=== PATIENT | female | born 1940 | race Hispanic/Latino ===

== ENCOUNTER 2017-07-09 08:37 | Emergency (ER) | payer MEDICARE, BC ==
[2017-07-09] MEDS ORDERED: FLEXERIL PO ONE (09:29)
--- NOTE | 2017-07-09 09:37 | Emergency Department Report ---
HPI - General Chief Complaint: Neck Pain/Injury Time Seen by Provider: 07/09/17 09:07 - HPI HPI: Patient is a 77-year-old female with a history of blood pressure controlled with blood pressure medication followed by Dr. Alvares who presents to ED complaining of left-sided shoulder pain 1 day. Patient states he stepped on a new pill yesterday and noticed this morning when she woke up she felt some tightening in her left shoulder. She states the pain is worsened when she moves her head from side to side. She denies any injury, falls or trauma to the head and neck. Patient states she receives physical therapy for neck ptosis February and at that point was a bit better. ED Past Medical Hx - Past Medical History Hx Hypertension: Yes (1978) Hx Liver Disease: (high cholesterol) Hx Renal Disease: No Hx Arthritis: Yes (DEGENERATIVE DISC DISEASE) Hx Headaches / Migraines: Yes (MIGRAINES) Hx Tuberculosis: No (POSTITIVE SKIN TEST; CXR NEGATIVE) Additional medical history: Bursitis to left shoulder - Surgical History Hx Cholecystectomy: Yes - Social History Smoking Status: Never Smoker Substance Use Type: None - Medications Home Medications: Home Medications Medication Instructions Recorded Confirmed Last Taken Type Aspirin EC [Halfprin EC] 81 mg PO QDAY 06/28/13 06/28/13 07/02/13 History Cholecalciferol (Vitamin D3) 4,000 unit PO DAILY 06/28/13 06/28/13 07/04/13 History [Vitamin D] Levothyroxine Nicu (10 Mcg/ml) 112 mg PO DAILY 06/28/13 06/28/13 07/04/13 History [Synthroid 10 mcg/ml] Olmesartan Medoxomil [Benicar] 20 mg PO DAILY 06/28/13 06/28/13 07/05/13 06:30 History Propranolol [Inderal] 40 mg PO BID 06/28/13 06/28/13 07/05/13 06:30 History SUMAtriptan SUCCINATE [Sumatriptan 50 mg PO DAILY 06/28/13 06/28/13 07/02/13 History Succinate] Sertraline [Zoloft] 50 mg PO QDAY 06/28/13 06/28/13 07/04/13 History Simvastatin 10 mg PO DAILY 04/10/14 04/10/14 04/16/14 History Cyclobenzaprine [Flexeril] 10 mg PO QHS PRN #20 tablet 07/09/[address] [Voltaren Dr] 75 mg PO BID #30 tablet 07/09/17 Unknown Rx ED Review of Systems ROS: Stated complaint: HIGH B/P Other details as noted in HPI Constitutional: denies: chills, fever Eyes: denies: eye pain, eye discharge, vision change ENT: denies: ear pain, throat pain Respiratory: denies: cough, shortness of breath, wheezing Cardiovascular: denies: chest pain, palpitations Endocrine: no symptoms reported Gastrointestinal: denies: abdominal pain, nausea, diarrhea Genitourinary: denies: urgency, dysuria, discharge Musculoskeletal: myalgia. denies: back pain, joint swelling, arthralgia Skin: denies: rash, lesions Neurological: denies: headache, weakness, paresthesias Psychiatric: denies: anxiety, depression Hematological/Lymphatic: denies: easy bleeding, easy bruising Physical Exam - Physical Exam Vital Signs: Vital Signs 07/09/17 08:43 Temperature 98.6 F Pulse Rate 77 Respiratory 16 Rate Blood Pressure 171/102 O2 Sat by Pulse 95 Oximetry Physical Exam: GENERAL: Alert and oriented x3, no apparent distress, Normal Gait, atraumatic. HEAD: Head is normocephalic and a-traumatic. NECK: Supple. Non edematous, No lymphadenopathy or thyromegaly. No C-spine tenderness, full range of motion LUNGS: Symetrical with respiration, No wheezing, no rales or crackles, CTAB. HEART: S1, S2 present, regular rate and rhythm without murmur, no rubs, no gallops. Non tender to palpation BACK: Full range of motion, no spinal tenderness, scoliosis of the cervical/ thoracic spine. Tenderness to palpation of the left trapezius muscles. EXTREMITIES/MUSCULOSKELETAL: No cyanosis, clubbing, rash, lesions or edema. Full ROM bilaterally. UE/LE Pulses 2+ bilaterally. LE and UE 5+ strength bilaterally, NEUROLOGIC: The patient is cooperative with no focal neurologic deficits. SKIN: Warm and dry, No lesions, No ulceration or induration present. ED Course Vital Signs 07/09/17 08:43 Temperature 98.6 F Pulse Rate 77 Respiratory 16 Rate Blood Pressure 171/102 O2 Sat by Pulse 95 Oximetry ED Medical Decision Making - Medical Decision Making 77-year-old female presents to ED with myalgia of the left trapezius ED course: Patient received Flexeril in ED. Vital signs are normal patient is in no acute distress Discussed with patient follow-up with primary care physician. Discussed the patient and take medications as prescribed. Patient states she took a blood pressure medication regularly. She denies any symptoms given that her blood pressure is elevated Blood pressure reduced prior to discharge. Discussed heat therapy 3 times a day. Discussed the patient's symptoms worsen to return to ED immediately. Patient has no neurological deficit. Patient is alert and oriented 3 and understands all instructions given. Discussed drowsiness effect of Flexeril makes her drowsy and not to operate machinery while taking flexeril Critical care attestation.: If time is entered above; I have spent that time in minutes in the direct care of this critically ill patient, excluding procedure time. ED Disposition Clinical Impression: Myalgia Trapezius muscle strain Qualifiers: Encounter type: initial encounter Laterality: left Qualified Code(s): S46.812A - Strain of other muscles, fascia and tendons at shoulder and upper arm level, left arm, initial encounter Disposition: - TO HOME OR SELFCARE Is pt being admited?: No Does the pt Need Aspirin: No Condition: Stable Instructions: Trigger Point Pain (ED), Musculoskeletal Pain (ED), Muscle Spasm (ED) Additional Instructions: Make sure to follow up with the primary care physician as discussed. Take all your medications as you've been prescribed. If you have any worsening symptoms or develop new symptoms please return to ED immediately. Prescriptions: Cyclobenzaprine [Flexeril] 10 mg PO QHS PRN #20 tablet PRN Reason: Muscle Spasm Diclofenac [Voltaren ] 75 mg PO BID #30 tablet Referrals: PRIMARY CARE, [Referring] - 3-5 Days Forms: Accompanied Note, Work/School Release Form(ED) Time of Disposition: 09:49
[2017-07-09 10:38] VITALS: BP 154/83
== END 2017-07-09 10:23 | disposition home or self-care (01) ==
LOC: ED 08:37
DX: S46.812A Strain of other muscles, fascia and tendons at shoulder and upper arm level, left arm, initial encounter (principal); M79.1 Myalgia; I10 Essential (primary) hypertension; X58.XXXA Exposure to other specified factors, initial encounter; Y93.89 Activity, other specified; Y92.89 Other specified places as the place of occurrence of the external cause; Y99.8 Other external cause status
CPT/HCPCS: 99282

== ENCOUNTER 2018-01-10 12:45 | Outpatient (CLI) | payer MEDICARE ==
--- NOTE | 2018-01-10 14:12 | XRay Report ---
LEFT SHOULDER: History: Shoulder pain. Routine views demonstrate normal bony and soft tissue structures with normal joint alignment of the shoulder. Mild osteopenia is noted. IMPRESSION: Mild osteopenia, otherwise, unremarkable exam.
--- NOTE | 2018-01-10 15:42 | XRay Report ---
FINAL REPORT EXAM: XR SPINE CERVICAL 4-5V HISTORY: NECK PAIN TECHNIQUE: AP, lateral, bilateral oblique and odontoid views of cervical spine. PRIORS: None. FINDINGS: Diffuse osteopenia. Variable disc space narrowing, endplate sclerosis and spurring in all levels, including C1-2 articulation, and most pronounced C5-7 levels. Uncovertebral arthrosis and variable neural foraminal narrowing in the right C4-7 levels and left C2-6 levels. Diffuse facet sclerosis. Mild dextroconvex curvature may be positional versus soft tissue spasm. No loss of height or gross malalignment of cervical vertebral bodies. No obvious osseous destruction. Prevertebral soft tissues grossly unremarkable. IMPRESSION: 1. No acute osseous abnormality. 2. Degenerative changes.
== END 2018-01-10 12:46 | disposition home or self-care (01) ==
LOC: XRAY 12:45
PROVIDERS: ATTEND Orthopaedic Surgery
DX: M85.812 Other specified disorders of bone density and structure, left shoulder (principal); M47.892 Other spondylosis, cervical region; I10 Essential (primary) hypertension; E78.00 Pure hypercholesterolemia, unspecified; E03.9 Hypothyroidism, unspecified; Z90.49 Acquired absence of other specified parts of digestive tract; Z90.710 Acquired absence of both cervix and uterus; Z90.721 Acquired absence of ovaries, unilateral
CPT/HCPCS: 72050

== ENCOUNTER 2018-04-17 12:22 | Inpatient (IN) | payer MEDICARE ==
--- NOTE | 2018-04-17 13:00 | Emergency Department Report ---
ED Shortness of Breath HPI - General Chief Complaint: Dyspnea/Respdistress Stated Complaint: KARRI Time Seen by Provider: 04/17/18 12:52 Source: patient Mode of arrival: Stretcher Limitations: No Limitations - History of Present Illness Initial Comments: Patient is 77 years old female with history of hypertension and a recent diagnosis of atrial fibrillation patient is on Elliquis. Patient brought to the emergency room via EMS for complaining of shortness of breath has been going on for 3 days and worse today. EMS stated that patient initial oxygen saturation was 92% on room air. She denied any chest pain, fever or chills. No nausea or vomiting. MD Complaint: shortness of breath -: days(s) - Related Data Home Medications Medication Instructions Recorded Confirmed Last Taken Aspirin EC [Halfprin EC] 81 mg PO QDAY 06/28/13 06/28/13 07/02/13 Cholecalciferol (Vitamin D3) 4,000 unit PO DAILY 06/28/13 06/28/13 07/04/13 [Vitamin D] Levothyroxine Nicu (10 Mcg/ml) 112 mg PO DAILY 06/28/13 06/28/13 07/04/13 [Synthroid 10 mcg/ml] Olmesartan Medoxomil [Benicar] 20 mg PO DAILY 06/28/13 06/28/13 07/05/13 06:30 Propranolol [Inderal] 40 mg PO BID 06/28/13 06/28/13 07/05/13 06:30 SUMAtriptan SUCCINATE [Sumatriptan 50 mg PO DAILY 06/28/13 06/28/13 07/02/13 Succinate] Sertraline [Zoloft] 50 mg PO QDAY 06/28/13 06/28/13 07/04/13 Simvastatin 10 mg PO DAILY 06/28/13 06/28/13 07/04/13 Previous Rx's Medication Instructions Recorded Last Taken Type Cyclobenzaprine [Flexeril] 10 mg PO QHS PRN #20 tablet 07/09/[address] [Voltaren Dr] 75 mg PO BID #30 tablet 07/09/17 Unknown Rx Allergies Allergy/AdvReac Type Severity Reaction Status Date / Time Sulfa (Sulfonamide AdvReac Nausea Verified 06/28/13 13:07 Antibiotics) ED Review of Systems ROS: Stated complaint: KARRI Other details as noted in HPI Comment: All other systems reviewed and negative Constitutional: denies: chills, fever Respiratory: orthopnea, shortness of breath, SOB with exertion, SOB at rest. denies: cough, wheezing Cardiovascular: dyspnea on exertion, orthopnea. denies: chest pain, palpitations Gastrointestinal: denies: abdominal pain, nausea, vomiting, diarrhea, constipation, hematemesis, melena, hematochezia Musculoskeletal: denies: back pain ED Past Medical Hx - Past Medical History Previous Medical History?: Yes Hx Hypertension: Yes (1978) Hx Liver Disease: (high cholesterol) Hx Renal Disease: No Hx Arthritis: Yes (DEGENERATIVE DISC DISEASE) Hx Headaches / Migraines: Yes (MIGRAINES) Hx Tuberculosis: No (POSTITIVE SKIN TEST; CXR NEGATIVE) Additional medical history: Bursitis to left shoulder. High cholesterol - Surgical History Past Surgical History?: Yes Hx Cholecystectomy: Yes Additional Surgical History: right wrist - Social History Smoking Status: Never Smoker Substance Use Type: None - Medications Home Medications: Home Medications Medication Instructions Recorded Confirmed Last Taken Type Aspirin EC [Halfprin EC] 81 mg PO QDAY 06/28/13 06/28/13 07/02/13 History Cholecalciferol (Vitamin D3) 4,000 unit PO DAILY 06/28/13 06/28/13 07/04/13 History [Vitamin D] Levothyroxine Nicu (10 Mcg/ml) 112 mg PO DAILY 06/28/13 06/28/13 07/04/13 History [Synthroid 10 mcg/ml] Olmesartan Medoxomil [Benicar] 20 mg PO DAILY 06/28/13 06/28/13 07/05/13 06:30 History Propranolol [Inderal] 40 mg PO BID 06/28/13 06/28/13 07/05/13 06:30 History SUMAtriptan SUCCINATE [Sumatriptan 50 mg PO DAILY 06/28/13 06/28/13 07/02/13 History Succinate] Sertraline [Zoloft] 50 mg PO QDAY 06/28/13 06/28/13 07/04/13 History Simvastatin 10 mg PO DAILY 06/28/13 06/28/13 07/04/13 History Cyclobenzaprine [Flexeril] 10 mg PO QHS PRN #20 tablet 07/09/17 Unknown Rx Marshall Jacobs [Eze Jacobs] 75 mg PO BID #30 tablet 07/09/17 Unknown Rx ED Physical Exam - General Limitations: No Limitations General appearance: alert, in distress - Head Head exam: Present: atraumatic, normocephalic, normal inspection - Eye Eye exam: Present: normal appearance, PERRL - ENT ENT exam: Present: normal exam, mucous membranes moist - Neck Neck exam: Present: normal inspection, full ROM. Absent: tenderness, meningismus, lymphadenopathy, thyromegaly - Respiratory Respiratory exam: Present: normal lung sounds bilaterally - Cardiovascular Cardiovascular Exam: Present: irregular rhythm - GI/Abdominal GI/Abdominal exam: Present: soft, normal bowel sounds. Absent: distended, tenderness, guarding, rebound, rigid, organomegaly, mass, bruit, pulsatile mass, hernia - Extremities Exam Extremities exam: Present: normal inspection, full ROM, normal capillary refill. Absent: pedal edema, calf tenderness - Back Exam Back exam: Present: normal inspection, full ROM. Absent: tenderness, CVA tenderness (R), CVA tenderness (L), muscle spasm, paraspinal tenderness, vertebral tenderness - Neurological Exam Neurological exam: Present: alert, oriented X3, CN II-XII intact - Skin Skin exam: Present: warm, intact, normal color ED Course Vital Signs 04/17/18 04/17/18 04/17/18 12:29 12:31 12:36 Temperature 98.3 F Pulse Rate 84 Respiratory 20 Rate Blood Pressure 117/47 117/47 117/47 O2 Sat by Pulse 90 94 Oximetry 04/17/18 04/17/18 12:46 13:00 Temperature Pulse Rate 82 88 Respiratory 18 32 H Rate Blood Pressure 117/47 121/44 O2 Sat by Pulse 99 97 Oximetry ED Medical Decision Making - Lab Data Result diagrams: 04/17/18 12:48 04/17/18 12:48 - EKG Data -: EKG Interpreted by Co Rate: normal - EKG Data 04/17/18 13:47 Atrial fibrillation, no RVR - Radiology Data Radiology results: report reviewed Referring Physician: IVON HEAD Patient Name: FREDERICK MCCARTHY Date of : 1940 Sex: Female Report Date: 2018-04-17 Report Status: Finalized Findings [address] [place] [address] XRay Report Signed Patient: FREDERICK MCCARTHY MR#: [id number] : 1940 Acct:[id number] Age/Sex: 77 / F ADM Date: 04/17/18 Loc: ED Attending Dr: Ordering Physician: IVON HEAD Date of Service: 04/17/18 Procedure(s): XR chest 1V ap Accession Number(s): [id number] cc: IVON HEAD Fluoro Time In Minutes: PORTABLE CHEST INDICATION: Dyspnea. COMPARISON: None similar. FINDINGS: Portable, frontal chest radiograph demonstrates diffuse increased pulmonary densities/infiltrates. No significant pleural effusions or definite cephalization. Right hemidiaphragm 4-5 cm higher than the left. Mild exaggerated cardiomediastinal silhouette. Demineralized bones with few degenerative changes. EKG leads. CONCLUSION: 1. Diffuse bilateral pulmonary infiltrates, possibly edema, infection or inflammation, amongst others, though exact etiology or chronicity uncertain on this exam alone. 2. Few other findings, as above. Please also correlate clinically and with prior chest imaging, if available. Thank you for the opportunity to participate in this patient's care. Transcribed By: RS Dictated By: MALINA PFEIFFER MD Electronically Authenticated By: MALINA PFEIFFER MD Signed Date/Time: 04/17/18 1350 DD/ 1347 TD/TT: 04/17/18 1350 - Medical Decision Making Patient is 77 years old female with history of hypertension and a recent diagnosis of atrial fibrillation patient is on Elliquis. Patient brought to the emergency room via EMS for complaining of shortness of breath has been going on for 3 days and worse today. EMS stated that patient initial oxygen saturation was 92% on room air. She denied any chest pain, fever or chills. No nausea or vomiting. Patient found to have bilateral pneumonia. Patient given Zosyn and normal saline. I discussed the patient with Dr Thompson, agreed to admit the patient to medical service. Critical Care Time: Yes Critical care time in (mins) excluding proc time.: 30 Critical care attestation.: If time is entered above; I have spent that time in minutes in the direct care of this critically ill patient, excluding procedure time. ED Disposition Clinical Impression: Sepsis, Pneumonia of both lower lobes, Acute respiratory distress Disposition: DC-[id number] OP ADMIT IP TO THIS HOSP Is pt being admited?: Yes Condition: Stable Instructions: Bacterial Pneumonia (ED) Referrals: NIKKI HULL MD [Primary Care Provider] - 3-5 Days
[2018-04-17 13:12] LABS: Basophils % (Auto) 0.1 % (0.0-1.8); Eosinophils % (Auto) 0.2 % (0.0-4.3); Hematocrit 36.4 % (30.3-42.9); Hemoglobin 11.9 gm/dl (10.1-14.3); Lymphocytes # (Auto) 1.2 K/mm3 (1.2-5.4); Lymphocytes % (Auto) 6.5 % (13.4-35.0); Mean Corpuscular HGB Conc 33 % (30-34); Mean Corpuscular Volume 91 fl (79-97); Monocytes # (Auto) 1.8 K/mm3 (0.0-0.8); Platelet Count 354 K/mm3 (140-440); Red Blood Count 4.02 M/mm3 (3.65-5.03); Red Cell Distribution Width 13.8 % (13.2-15.2)
[2018-04-17 13:22] LABS: INR 1.48 (0.87-1.13)
[2018-04-17 13:23] LABS: Partial Thromboplastin Time 27.2 Sec. (24.2-36.6)
[2018-04-17 13:28] LABS: Creatine Kinase MB 1.8 ng/mL (0.0-4.0)
[2018-04-17 13:31] LABS: Alanine Aminotransferase 110 units/L (7-56); Albumin 3.4 g/dL (3.9-5); BUN/Creatinine Ratio 27; Blood Urea Nitrogen 16 mg/dL (7-17); Calcium 8.9 mg/dL (8.4-10.2); Hemolysis Index 11
[2018-04-17] MEDS ORDERED: NACL 0.9% 500 ML 500 ML IV ONE (13:31)
--- NOTE | 2018-04-17 13:54 | XRay Report ---
PORTABLE CHEST INDICATION: Dyspnea. COMPARISON: None similar. FINDINGS: Portable, frontal chest radiograph demonstrates diffuse increased pulmonary densities/infiltrates. No significant pleural effusions or definite cephalization. Right hemidiaphragm 4-5 cm higher than the left. Mild exaggerated cardiomediastinal silhouette. Demineralized bones with few degenerative changes. EKG leads. CONCLUSION: 1. Diffuse bilateral pulmonary infiltrates, possibly edema, infection or inflammation, amongst others, though exact etiology or chronicity uncertain on this exam alone. 2. Few other findings, as above. Please also correlate clinically and with prior chest imaging, if available. Thank you for the opportunity to participate in this patient's care.
[2018-04-17] MEDS ORDERED: ZOSYN/NS 3.375GM/50ML 3.375 GM/50 ML BAG IV ONE (14:00)
--- NOTE | 2018-04-17 14:09 | History and Physical Report ---
History of Present Illness Chief complaint: I cant breathe History of present illness: 77 YO Female with HTN, Atrial Fib on Therapeutic Anticoagulation (Elliquis), Hypothyroidism, HTN, HLD, Migraine SAAVEDRA, OA presents to ED for evaluation. Pt states that she has experienced shortness of breath over the past 3 days with w orsening symptoms over the past 1 day. Pt acknowledges decreased exercise tolerance, Orthopnea/PND, and shortness of breath. Pt also complains of itchy red spots on her arms since beginning elliquis. EMS notified and upon arrival the patient found to have respiratory distress. Pt transported to [facility] for further care and evaluation. Pt seen and evaluated in ED and found to have Acute Respiratory Failure, CHF, Sepsis secondary to Bilateral Pneumonia. Pt admitted to telemetry and initiated on Sepsis as well as CHF protocol. Cardiology consulted in ED. Pt denies fever, chills, CP, Palpitations, NVD, Trauma, BRBPR, productive cough, or recent ill contacts. Past History Past Medical History: atrial fib, arthritis, hypertension, hyperlipidemia, migraines Past Surgical History: cholecystectomy, Other (wrist surgery) Social history: , lives with family. denies: smoking, alcohol abuse, prescription drug abuse Family history: hypertension Medications and Allergies Allergies Allergy/AdvReac Type Severity Reaction Status Date / Time Sulfa (Sulfonamide AdvReac Nausea Verified 06/28/13 13:07 Antibiotics) Home Medications Medication Instructions Recorded Confirmed Last Taken Type Aspirin EC [Halfprin EC] 81 mg PO QDAY 06/28/13 06/28/13 07/02/13 History Cholecalciferol (Vitamin D3) 4,000 unit PO DAILY 06/28/13 06/28/13 07/04/13 History [Vitamin D] Levothyroxine Nicu (10 Mcg/ml) 112 mg PO DAILY 06/28/13 06/28/13 07/04/13 History [Synthroid 10 mcg/ml] Olmesartan Medoxomil [Benicar] 20 mg PO DAILY 06/28/13 06/28/13 07/05/13 06:30 History Propranolol [Inderal] 40 mg PO BID 06/28/13 06/28/13 07/05/13 06:30 History SUMAtriptan SUCCINATE [Sumatriptan 50 mg PO DAILY 06/28/13 06/28/13 07/02/13 History Succinate] Sertraline [Zoloft] 50 mg PO QDAY 06/28/13 06/28/13 07/04/13 History Simvastatin 10 mg PO DAILY 06/28/13 06/28/13 07/04/13 History Cyclobenzaprine [Flexeril] 10 mg PO QHS PRN #20 tablet 07/09/[address] [Voltaren Dr] 75 mg PO BID #30 tablet 07/09/17 Unknown Rx Active Meds: Active Medications Piperacillin Sod/Tazobactam Sod (Zosyn/Ns 3.375gm/50ml) 3.375 gm in 50 mls @ 100 mls/hr IV ONCE ONE Stop: 04/17/18 14:29 Review of Systems Constitutional: no weight gain, no fever, no chills, no sweats Ears, nose, mouth and throat: no ear pain, no ear discharge, no tinnitis, no decreased hearing, no nose pain Breasts: no change in shape, no swelling, no mass Cardiovascular: orthopnea, shortness of breath, dyspnea on exertion, paroxysmal nocturnal dyspnea, decreased exercise tolerance, no chest pain, no palpitations Respiratory: cough, shortness of breath, no cough with sputum, no excessive sputum Gastrointestinal: no nausea, no vomiting, no diarrhea, no constipation Genitourinary Female: no pelvic pain, no flank pain, no menorrhagia, no dysuria, no urinary frequency, no urgency Rectal: no pain, no incontinence, no bleeding Musculoskeletal: no neck stiffness, no neck pain, no shooting arm pain, no arm numbness/tingling, no low back pain Integumentary: pruritis, redness, no rash, no sores, no wounds, no jaundice, no boils Neurological: no paralysis, no weakness, no parathesias, no numbness Psychiatric: no memory loss, no change in sleep habits, no sleep disturbances, no insomnia, no hypersomnia, no change in appetite Endocrine: no cold intolerance, no heat intolerance, no polyphagia, no excessive thirst, no polydipsia, no polyuria Hematologic/Lymphatic: easy bruising Allergic/Immunologic: no urticaria, no allergic rhinitis, no wheezing Exam - Constitutional Vitals: Temp Pulse Resp BP Pulse Ox 98.3 F 88 32 H 121/44 97 04/17/18 12:36 04/17/18 13:00 04/17/18 13:00 04/17/18 13:00 04/17/18 13:00 General appearance: Present: mild distress - EENT Eyes: Present: PERRL ENT: hearing intact, clear oral mucosa - Neck Neck: Present: supple, normal ROM - Respiratory Respiratory effort: labored Respiratory: bilateral: diminished, rhonchi - Cardiovascular Rhythm: irregularly irregular Heart Sounds: Present: S1 & S2. Absent: rub, click - Extremities Extremities: no ischemia Extremity abnormal: edema Peripheral Pulses: abnormal (capillary refill greater than 3.5 seconds) - Abdominal General gastrointestinal: Present: soft, non-tender, non-distended, normal bowel sounds Female genitourinary: Present: normal - Integumentary Integumentary: Present: clear, warm, dry - Musculoskeletal Musculoskeletal: generalized weakness - Psychiatric Psychiatric: appropriate mood/affect, intact judgment & insight - Neurologic Neurologic: CNII-XII intact, moves all extremities Results - Labs CBC & Chem 7: 04/17/18 12:48 04/17/18 12:48 Labs: Abnormal lab results 04/17/18 04/17/18 04/17/18 Range/Units 12:48 12:48 12:48 WBC 18.0 H (4.5-11.0) K/mm3 Lymph % (Auto) 6.5 L (13.4-35.0) % Storey % (Auto) 10.0 H (0.0-7.3) % Storey # 1.8 H (0.0-0.8) K/mm3 Seg Neutrophils % 83.2 H (40.0-70.0) % Seg Neutrophils # 15.0 H (1.8-7.7) K/mm3 PT 18.3 H (12.2-14.9) Sec. INR 1.48 H (0.87-1.13) Sodium 136 L (137-145) mmol/L Creatinine 0.6 L (0.7-1.2) mg/dL Glucose 127 H (65-100) mg/dL AST 121 H (5-40) units/L ALT 110 H (7-56) units/L Albumin 3.4 L (3.9-5) g/dL Assessment and Plan - Patient Problems (1) Sepsis Current Visit: Yes Status: Acute Qualifiers: Sepsis type: sepsis due to unspecified organism Qualified Code(s): A41.9 - Sepsis, unspecified organism Plan to address problem: IV antibiotic therapy, IVF resuscitation therapy as tolerated, blood cultures, CBC, CMP, Serial lactic acid,Chest x ray, monitor uop q shift (2) Respiratory failure Current Visit: Yes Status: Acute Qualifiers: Chronicity: acute Respiratory failure complication: hypoxia Qualified Code(s): J96.01 - Acute respiratory failure with hypoxia Plan to address problem: Supplemental oxygen via NRB mask, ABG, D dimer, supplemental oxygen, VQ scan, influenza swab (3) CHF (congestive heart failure) Current Visit: Yes Status: Acute Qualifiers: Heart failure type: systolic Heart failure chronicity: acute Qualified Code(s): I50.21 - Acute systolic (congestive) heart failure Plan to address problem: Admit to telemetry, BNP, D dimer, strict I/O, daily weight, monitor uop q shift, supplemental oxygen, cardiology consulted in ED. (4) Atrial fibrillation Current Visit: Yes Status: Acute Qualifiers: Atrial fibrillation type: persistent Qualified Code(s): I48.1 - Persistent atrial fibrillation Plan to address problem: continue therapeutic anticoagulation, rate control, supportive care, (5) Pneumonia of both lower lobes Current Visit: Yes Status: Acute Plan to address problem: Pneumonia protocol: IV antibiotic therapy, Chest x ray, nebulizer therapy, supplemental oxygen, blood cultures. (6) DVT prophylaxis Current Visit: Yes Status: Acute Plan to address problem: SCD to BLE while in bed.
[2018-04-17] MEDS ORDERED: DUONEB *Not for PRN Use IH ONE (14:13)
[2018-04-17] MEDS ORDERED: SODIUM CHLORIDE FLUSH SYRINGE 10 ML IV PRN ×2 (15:30→15:40)
[2018-04-17] MEDS ORDERED: ZOFRAN IV PRN (15:30)
[2018-04-17] MEDS ORDERED: HYDROMET PO PRN (15:37)
[2018-04-17] MEDS ORDERED: BANOPHEN ANTI-ITCH TP PRN (15:43)
[2018-04-17] MEDS ORDERED: BANOPHEN PO ONE (15:45)
[2018-04-17] MEDS ORDERED: NACL 0.9% 1000 ML IV ONE (16:30)
[2018-04-17 16:56] LABS: Chol/HDL Ratio 2.65 %
[2018-04-17 17:06] LABS: Free T4 (Free Thyroxine) 1.67 ng/dL (0.76-1.46)
[2018-04-17] MEDS ORDERED: ZITHROMAX 500 MG in NACL 0.9% 250ML 250 ML IV SCH (18:00)
[2018-04-17] MEDS ORDERED: ROCEPHIN/NS 2 GM/100 ML 2 GM/100 ML BAG IV SCH (18:00)
--- NOTE | 2018-04-17 19:48 | Nuclear Medicine Report ---
FINAL REPORT EXAM: NM LUNG SCAN PERF/VENT HISTORY: KARRI, Elevated D-dimer TECHNIQUE: A nuclear medicine ventilation perfusion study was performed. The patient was given 9.75 mCi of Xe 133 gas for the ventilation study and 4.44 mCi of technetium 99m MAA for the perfusion stud y. Images were acquired in the standard projections. Correlating chest radiograph is not provided. PRIORS: None. FINDINGS: There is a moderate segmental defect in the posterior right upper lobe without corresponding ventilat ion abnormality. Otherwise perfusion images are normal. The ventilation study is normal. IMPRESSION: Intermediate probability for PE. Please correlate with chest radiograph
[2018-04-17] MEDS ORDERED: LASIX IV ONE (20:55)
[2018-04-17] MEDS: ROCEPHIN/NS 2 GM/100 ML 2 GM/100 ML BAG IV SCH (21:08)
[2018-04-17] MEDS: INDERAL PO SCH (21:08)
[2018-04-17] MEDS: ZITHROMAX 500 MG in NACL 0.9% 250ML 250 ML IV SCH (21:08)
[2018-04-17] MEDS: PRAVACHOL PO SCH (21:09)
[2018-04-17] MEDS: SODIUM CHLORIDE FLUSH SYRINGE 10 ML IV SCH (21:10)
[2018-04-18 02:07] LABS: Bilirubin,Urine NEG (Negative); Blood,Urine MOD (Negative); Color,Urine Yellow (Yellow); Mucus,Urine FEW /HPF; Protein,Urine <15 mg/dL mg/dL (Negative); Urobilinogen,Urine < 2.0 mg/dL (<2.0)
[2018-04-18] MEDS: PROVENTIL IH PRN ×2 (04:14→08:01)
[2018-04-18] MEDS ORDERED: SYNTHROID PO SCH (06:00)
[2018-04-18 06:27] LABS: Basophils % (Auto) 0.2 % (0.0-1.8); Eosinophils % (Auto) 0.1 % (0.0-4.3); Hematocrit 34.8 % (30.3-42.9); Hemoglobin 11.5 gm/dl (10.1-14.3); Lymphocytes # (Auto) 0.9 K/mm3 (1.2-5.4); Lymphocytes % (Auto) 5.1 % (13.4-35.0); Mean Corpuscular HGB Conc 33 % (30-34); Mean Corpuscular Volume 90 fl (79-97); Monocytes # (Auto) 1.4 K/mm3 (0.0-0.8); Platelet Count 316 K/mm3 (140-440); Red Blood Count 3.88 M/mm3 (3.65-5.03); Red Cell Distribution Width 13.9 % (13.2-15.2)
[2018-04-18] MEDS ORDERED: LASIX ONE (08:27)
--- NOTE | 2018-04-18 08:54 | Progress Note ---
Assessment and Plan Assessment and plan: Patient is a 77 yo woman with a history of HTN, Atrial Fib on Therapeutic Anticoagulation (Eliquis), Hypothyroidism, HTN, HLD, Migraine SAAVEDRA, OA and Anxiety/depression who presented to [facility] ED with SOB without chest pains. Pt also complains of itchy red spots on her arms since beginning Eliquis for new o nset Afib. She was started on Prednisone and benadryl by PCP. She just stopped the Predisone, couple days prior to arrival * pCXR CONCLUSION: 1. Diffuse bilateral pulmonary infiltrates, possibly edema, infection or inflammation, amongst others, though exact etiology or chronicity uncertain on this exam alone. 2. Few other findings, as above. Please also correlate clinically and with prior chest imaging, if available. * V/Q lung scan: Intermediate prob for PE -Acute combined heart failure suspected: 2d ECHO pending, Cardiology consult pending, treat with IV lasix. -Acute hypoxic respiratory failure due to CHF exacerbation: treat with O2, car eful with albuterol nebs due to the tachycardia -SIRS with organ dysfunction due to the above, the leukocytosis explained by the Prednisone. CXR and PE more pulmonary edema than sepsis PNA: continue empiric ABX just in case -Afib with RVR: continue Eliqius, await Cardiology evaluation, continue Propanolol which patient has been on prior to afib diagnosis per patient -Anxiety disorder: give xanax x 1 and restart home zoloft -Hypothyroidism: continue Synthyroid -Elevated D-Dimer with Intermediate probability of PE on V/Q with low pre-test and abnormal CXR: on Eliquis already but unlikely PE History Interval history: Patient was seen and examined. Follow-up on current diagnosis of sob. Overnight uneventful. Patient denies any chest pain, nausea/vomiting or severe headaches. Imaging, nursing note, chart, labs and old chart reviewed. Discussed with patient and daughter Claudia at bedside. I was called Urgently by RN because pulse ox dropped to 85% going to restroom on 100% O2 NRB mask. Hospitalist Physical - Physical exam Narrative exam: Gen: illappearing, moderate increase in accessory muscle, Awake, Alert, Orientated x 3 HEENT: NCAT, EOMI, PERRL, OP Clear Neck: supple, no adenopathy, no thyromegaly, +JVD CVS/Heart: irregular irregular, normal S1S2, pulses present bilaterally Chest/Lungs: wet bibasilar crackles, Symmetrical chest expansion, good air entry bilaterally GI/Abdomen: soft, NTND, good bowel sounds, no guarding or rebound /Bladder: no suprapubic tenderness, no CVA or paraspinal tenderness Extermity/Skin: no c/c/e, obvious petechiea/ecchymosis rash bilateral arms MSK: FROM x 4 Neuro: CN 2-12 grossly intact, no new focal deficits Psych: anxious - Constitutional Vitals: Temp Pulse Resp BP Pulse Ox 98.1 F 101 H 24 117/70 100 04/18/18 04:18 04/18/18 08:04 04/18/18 08:04 04/18/18 04:18 04/18/18 08:02 Results - Labs CBC & Chem 7: 04/18/18 05:12 04/17/18 12:48 Labs: Laboratory Last Values WBC 17.8 K/mm3 (4.5-11.0) H 04/18/18 05:12 RBC 3.88 M/mm3 (3.65-5.03) 04/18/18 05:12 Hgb 11.5 gm/dl (10.1-14.3) 04/18/18 05:12 Hct 34.8 % (30.3-42.9) 04/18/18 05:12 MCV 90 fl (79-97) 04/18/18 05:12 MCH 30 pg (28-32) 04/18/18 05:12 MCHC 33 % (30-34) 04/18/18 05:12 RDW 13.9 % (13.2-15.2) 04/18/18 05:12 Plt Count 316 K/mm3 (140-440) 04/18/18 05:12 Lymph % (Auto) 5.1 % (13.4-35.0) L 04/18/18 05:12 Harper % (Auto) 8.0 % (0.0-7.3) H 04/18/18 05:12 Eos % (Auto) 0.1 % (0.0-4.3) 04/18/18 05:12 Baso % (Auto) 0.2 % (0.0-1.8) 04/18/18 05:12 Lymph # 0.9 K/mm3 (1.2-5.4) L 04/18/18 05:12 Harper # 1.4 K/mm3 (0.0-0.8) H 04/18/18 05:12 Eos # 0.0 K/mm3 (0.0-0.4) 04/18/18 05:12 Baso # 0.0 K/mm3 (0.0-0.1) 04/18/18 05:12 Seg Neutrophils % 86.6 % (40.0-70.0) H 04/18/18 05:12 Seg Neutrophils # 15.4 K/mm3 (1.8-7.7) H 04/18/18 05:12 PT 18.3 Sec. (12.2-14.9) H 04/17/18 12:48 INR 1.48 (0.87-1.13) H 04/17/18 12:48 APTT 27.2 Sec. (24.2-36.6) 04/17/18 12:48 D-Dimer 1975 ng/mlDDU (0-234) H 04/17/18 12:38 POC ABG pH 7.384 (7.35-7.45) 04/17/18 13:36 POC ABG pCO2 40.2 (35-45) 04/17/18 13:36 POC ABG pO2 82 (80-105) 04/17/18 13:36 POC ABG HCO3 24.0 04/17/18 13:36 POC ABG Total CO2 25 04/17/18 13:36 POC ABG O2 Sat 96 04/17/18 13:36 POC ABG Base Excess -1 04/17/18 13:36 FiO2 100 % 04/17/18 13:36 Sodium 136 mmol/L (137-145) L 04/17/18 12:48 Potassium 4.0 mmol/L (3.6-5.0) 04/17/18 12:48 Chloride 100.0 mmol/L (98-107) 04/17/18 12:48 Carbon Dioxide 23 mmol/L (22-30) 04/17/18 12:48 Anion Gap 17 mmol/L 04/17/18 12:48 BUN 16 mg/dL (7-17) 04/17/18 12:48 Creatinine 0.6 mg/dL (0.7-1.2) L 04/17/18 12:48 Estimated GFR > 60 ml/min 04/17/18 12:48 BUN/Creatinine Ratio 27 % 04/17/18 12:48 Glucose 127 mg/dL (65-100) H 04/17/18 12:48 Lactic Acid 1.20 mmol/L (0.7-2.0) 04/17/18 21:34 Calcium 8.9 mg/dL (8.4-10.2) 04/17/18 12:48 Total Bilirubin 1.10 mg/dL (0.1-1.2) 04/17/18 12:48 AST 121 units/L (5-40) H 04/17/18 12:48 ALT 110 units/L (7-56) H 04/17/18 12:48 Alkaline Phosphatase 120 units/L (35-129) 04/17/18 12:48 Total Creatine Kinase 51 units/L (30-135) 04/17/18 12:48 CK-MB (CK-2) 1.8 ng/mL (0.0-4.0) 04/17/18 12:48 CK-MB (CK-2) Rel Index 3.5 (0-4) 04/17/18 12:48 Troponin T < 0.010 ng/mL (0.00-0.029) 04/17/18 12:48 NT-Pro-B Natriuret Pep 6653 pg/mL (0-900) H 04/17/18 12:48 Total Protein 7.6 g/dL (6.3-8.2) 04/17/18 12:48 Albumin 3.4 g/dL (3.9-5) L 04/17/18 12:48 Albumin/Globulin Ratio 0.8 % 04/17/18 12:48 Triglycerides 89 mg/dL (2-149) 04/17/18 16:11 Cholesterol 109 mg/dL (50-199) 04/17/18 16:11 LDL Cholesterol Direct 60 mg/dL (50-130) 04/17/18 16:11 HDL Cholesterol 41 mg/dL (40-59) 04/17/18 16:11 Cholesterol/HDL Ratio 2.65 % 04/17/18 16:11 TSH 2.320 mlU/mL (0.270-4.200) 04/17/18 16:11 Free T4 1.67 ng/dL (0.76-1.46) H 04/17/18 16:11 Urine Color Yellow (Yellow) 04/17/18 Unknown Urine Turbidity Clear (Clear) 04/17/18 Unknown Urine pH 5.0 (5.0-7.0) 04/17/18 Unknown Ur Specific [place] 1.005 (1.003-1.030) 04/17/18 Unknown Urine Protein <15 mg/dl mg/dL (Negative) 04/17/18 Unknown Urine Glucose (UA) Neg mg/dL (Negative) 04/17/18 Unknown Urine Ketones Neg mg/dL (Negative) 04/17/18 Unknown Urine Blood Mod (Negative) 04/17/18 Unknown Urine Nitrite Neg (Negative) 04/17/18 Unknown Urine Bilirubin Neg (Negative) 04/17/18 Unknown Urine Urobilinogen < 2.0 mg/dL (<2.0) 04/17/18 Unknown Ur Leukocyte Esterase Neg (Negative) 04/17/18 Unknown Urine WBC (Auto) 11.0 /HPF (0.0-6.0) H 04/17/18 Unknown Urine RBC (Auto) 3.0 /HPF (0.0-6.0) 04/17/18 Unknown U Epithel Cells (Auto) 2.0 /HPF (0-13.0) 04/17/18 Unknown Urine Mucus Few /HPF 04/17/18 Unknown
[2018-04-18] MEDS ORDERED: XANAX PO NR (09:00)
[2018-04-18] MEDS: INDERAL PO SCH ×2 (09:49→22:59)
[2018-04-18] MEDS: COZAAR PO SCH (09:51)
[2018-04-18] MEDS: HALFPRIN EC PO SCH (09:52)
[2018-04-18] MEDS: VITAMIN D3 PO SCH (09:52)
[2018-04-18] MEDS: ELIQUIS PO SCH ×2 (09:52→22:58)
[2018-04-18] MEDS ORDERED: NON-FORMULARY (Simvastatin [Simvastatin] 10 MG) PO SCH (10:00)
[2018-04-18] MEDS ORDERED: ZOLOFT PO SCH (10:00)
[2018-04-18] MEDS ORDERED: IMITREX PO SCH (10:00)
[2018-04-18] MEDS ORDERED: LEVOTHYROXINE PO SCH (10:00)
[2018-04-18] MEDS ORDERED: OLMESARTAN MEDOXOMIL 20 MG PO SCH (10:00)
[2018-04-18] MEDS: SODIUM CHLORIDE FLUSH SYRINGE 10 ML IV SCH ×2 (10:04→22:58)
[2018-04-18] MEDS: LASIX IV SCH ×2 (10:04→18:04)
[2018-04-18] MEDS: SYNTHROID PO SCH (10:10)
[2018-04-18] MEDS: ZOLOFT PO SCH (10:10)
--- NOTE | 2018-04-18 12:17 | Event Note ---
Date: 04/18/18 Patient's primary county sheriff is Dr. Joanne Green of [facility]. Please defer to his service for cardiac consultation and continuity of care.
--- NOTE | 2018-04-18 12:21 | Consultation ---
History of Present Illness Consult date: 04/18/18 Requesting physician: JUDITH MATHEWS Consult reason: congestive heart failure History of present illness: The pt is a 77 YO female with a past medical history of atrial fibrillation, HTN, HLP, hypothyroidism. She is followed in our office by Dr. Green. She presented with complaints of SOB, RODRIGEZ, orthopnea, nonproductive cough, subjective fever and chills for the past several weeks. Her states her symptoms began shortly following [place]. She denies any chest pain, palpitations, n/v, diaphoresis, dizziness or syncope. She underwent echo in our office on 04/14/2018 which showed EF 60-65%, mild to mod RV hypokinesis, LA enlarged, mild MR, mod TR, RVSP 63mmHg, trace pericardial effusion. Lexiscan MPI stress test done 04/14/2018 was negative. Past History Past Medical History: atrial fib, arthritis, hypertension, hyperlipidemia, migraines Past Surgical History: cholecystectomy, Other (wrist surgery) Social history: , lives with family. denies: smoking, alcohol abuse, prescription drug abuse Family history: hypertension Medications and Allergies Allergies Allergy/AdvReac Type Severity Reaction Status Date / Time Sulfa (Sulfonamide AdvReac Nausea Verified 06/28/13 13:07 Antibiotics) Home Medications Medication Instructions Recorded Confirmed Last Taken Type Aspirin EC [Halfprin EC] 81 mg PO QDAY 06/28/13 04/17/18 07/02/13 History Cholecalciferol (Vitamin D3) 1,000 unit PO DAILY 06/28/13 04/17/18 07/04/13 History [Vitamin D] Olmesartan Medoxomil [Benicar] 20 mg PO DAILY 06/28/13 04/17/18 07/05/13 06:30 History Propranolol [Inderal] 40 mg PO BID 06/28/13 04/17/18 07/05/13 06:30 History Simvastatin 10 mg PO DAILY 06/28/13 04/17/18 07/04/13 History Apixaban [Eliquis] 5 mg PO BID 04/17/18 04/17/18 Unknown History Fluticasone [Flonase] 1 spray NS QDAY 04/17/18 04/17/18 Unknown History Levothyroxine [Synthroid] 100 mcg PO QAM 04/17/18 04/17/18 Unknown History Sertraline [Zoloft] 100 mg PO QDAY 04/17/18 04/17/18 Unknown History predniSONE [Deltasone] 40 mg PO QDAY 04/17/18 04/17/18 Unknown History Active Meds: Active Medications Acetaminophen (Tylenol) 650 mg PO Q4H PRN PRN Reason: Pain MILD(1-3)/Fever >100.5/SAAVEDRA Albuterol (Proventil) 2.5 mg IH Q4HRT PRN PRN Reason: Shortness Of Breath Last Admin: 04/18/18 08:01 Dose: 2.5 mg Documented by: Alprazolam (Xanax) 0.5 mg PO ONCE NR Stop: 04/18/18 15:00 Last Admin: 04/18/18 09:52 Dose: 0.5 mg Documented by: Apixaban (Eliquis) 5 mg PO BID [facility]; Protocol Last Admin: 04/18/18 09:52 Dose: 5 mg Documented by: Aspirin (Halfprin Ec) 81 mg PO QDAY [facility] Last Admin: 04/18/18 09:52 Dose: 81 mg Documented by: Cholecalciferol (Vitamin D3) 4,000 unit PO DAILY [facility] Last Admin: 04/18/18 09:52 Dose: 4,000 unit Documented by: Cyclobenzaprine HCl (Flexeril) 10 mg PO QHS PRN PRN Reason: Muscle Spasm Furosemide (Lasix) 40 mg IV 0600,1800 [facility] Last Admin: 04/18/18 10:04 Dose: 40 mg Documented by: Azithromycin 500 mg/ Sodium (Chloride) 250 mls @ 250 mls/hr IV Q24H [facility]; Protocol Last Admin: 04/17/18 21:08 Dose: 250 mls/hr Documented by: Ceftriaxone Sodium (Rocephin/Ns 2 Gm/100 Ml) 2 gm in 100 mls @ 200 mls/hr IV Q24H [facility]; Protocol Last Admin: 04/17/18 21:08 Dose: 200 mls/hr Documented by: Levothyroxine Sodium (Synthroid) 100 mcg PO DAILY@0600 [facility] Last Admin: 04/18/18 10:10 Dose: 100 mcg Documented by: Losartan Potassium (Cozaar) 50 mg PO QDAY [facility] Last Admin: 04/18/18 09:51 Dose: 50 mg Documented by: Ondansetron HCl (Zofran) 4 mg IV Q8H PRN PRN Reason: Nausea And Vomiting Pravastatin Sodium (Pravachol) 20 mg PO QHS [facility] Last Admin: 04/17/18 21:09 Dose: 20 mg Documented by: Propranolol HCl (Inderal) 40 mg PO BID [facility] Last Admin: 04/18/18 09:49 Dose: 40 mg Documented by: Sertraline HCl (Zoloft) 100 mg PO QDAY [facility] Last Admin: 04/18/18 10:10 Dose: 100 mg Documented by: Sodium Chloride (Sodium Chloride Flush Syringe 10 Ml) 10 ml IV BID [facility] Last Admin: 04/18/18 10:04 Dose: 10 ml Documented by: Sodium Chloride (Sodium Chloride Flush Syringe 10 Ml) 10 ml IV PRN PRN PRN Reason: LINE FLUSH Zinc Acetate/Diphenhydramine (Banophen Anti-Itch) 1 applic TP Q6H PRN PRN Reason: Itching Review of Systems Constitutional: fever, chills Ears, nose, mouth and throat: no ear pain, no nose pain, no sinus pressure, no sinus pain Cardiovascular: orthopnea, shortness of breath, dyspnea on exertion, paroxysmal nocturnal dyspnea, high blood pressure, decreased exercise tolerance, no chest pain, no palpitations, no rapid/irregular heart beat, no edema, no syncope, no lightheadedness, no leg edema Respiratory: cough, shortness of breath, dyspnea on exertion, no cough with sputum, no congestion, no wheezing, no pain on inspiration Gastrointestinal: no abdominal pain, no nausea, no vomiting, no diarrhea, no constipation, no change in bowel habits Genitourinary Female: no pelvic pain, no flank pain, no dysuria, no urinary frequency, no urgency Musculoskeletal: no neck stiffness, no neck pain Integumentary: no rash, no pruritis, no redness, no sores, no wounds Neurological: no head injury, no paralysis, no weakness, no parathesias, no numbness, no tingling, no seizures, no syncope Psychiatric: no anxiety Endocrine: no cold intolerance, no heat intolerance Hematologic/Lymphatic: no easy bruising, no easy bleeding Allergic/Immunologic: no urticaria, no wheezing Physical Examination Vital Signs BP 117/47 04/17/18 12:29 General appearance: no acute distress HEENT: Positive: PERRL, Normocephaly, Mucus Membranes Moist Neck: Positive: neck supple, trachea midline Cardiac: Positive: irregularly irregular, S1/S2 Lungs: Positive: Rales (bibasilar) Abdomen: Positive: Soft. Negative: Tender Skin: Negative: Rash, Wound Musculoskeletal: No Pain Extremities: Absent: edema Results 04/18/18 05:12 04/17/18 12:48 Cardiac Enzymes 04/17/18 04/17/18 Range/Units 12:48 12:48 AST 121 H (5-40) units/L CK-MB (CK-2) 1.8 (0.0-4.0) ng/mL Coagulation 04/17/18 Range/Units 12:48 PT 18.3 H (12.2-14.9) Sec. INR 1.48 H (0.87-1.13) APTT 27.2 (24.2-36.6) Sec. Lipids 04/17/18 Range/Units 16:11 Triglycerides 89 (2-149) mg/dL Cholesterol 109 (50-199) mg/dL HDL Cholesterol 41 (40-59) mg/dL Cholesterol/HDL Ratio 2.65 % CBC 04/17/18 04/18/18 Range/Units 12:48 05:12 WBC 18.0 H 17.8 H (4.5-11.0) K/mm3 RBC 4.02 3.88 (3.65-5.03) M/mm3 Hgb 11.9 11.5 (10.1-14.3) gm/dl Hct 36.4 34.8 (30.3-42.9) % Plt Count 354 316 (140-440) K/mm3 Lymph # 1.2 0.9 L (1.2-5.4) K/mm3 [place] # 1.8 H 1.4 H (0.0-0.8) K/mm3 Eos # 0.0 0.0 (0.0-0.4) K/mm3 Baso # 0.0 0.0 (0.0-0.1) K/mm3 Comprehensive Metabolic Panel 04/17/18 Range/Units 12:48 Sodium 136 L (137-145) mmol/L Potassium 4.0 (3.6-5.0) mmol/L Chloride 100.0 (98-107) mmol/L Carbon Dioxide 23 (22-30) mmol/L BUN 16 (7-17) mg/dL Creatinine 0.6 L (0.7-1.2) mg/dL Glucose 127 H (65-100) mg/dL Calcium 8.9 (8.4-10.2) mg/dL AST 121 H (5-40) units/L ALT 110 H (7-56) units/L Alkaline Phosphatase 120 (35-129) units/L Total Protein 7.6 (6.3-8.2) g/dL Albumin 3.4 L (3.9-5) g/dL - Imaging and Cardiology Echo: report reviewed (04/14/2018 which showed EF 60-65%, mild to mod RV hypokinesis, LA enlarged, mild MR, mod TR, RVSP 63mmHg, trace pericardial effusion.) EKG: report reviewed, image reviewed EKG interpretations - Telemetry EKG Rhythm: Atrial Fibrillation - EKG Supraventricular dysrhythmia: atrial fibrillation Assessment and Plan Agree with present cardiac regimen. Pt underwent echo in our office on 04/14/2018 which showed EF 60-65%, mild to mod RV hypokinesis, LA enlarged, mild MR, mod TR, RVSP 63mmHg, trace pericardial effusion. Lexiscan MPI stress test done 04/14/2018 was negative. DDimer noted to be elevated, RVSP elevated on echo, V/Q scan intermediate prob for PE. Will obtain chest CTA. The patient has been seen in conjunction with Dr. Rojas who agrees with the assessment and plan of care. - Patient Problems (1) Acute heart failure with preserved ejection fraction Current Visit: Yes Status: Acute (2) Acute respiratory failure Current Visit: Yes Status: Acute (3) Pneumonia Current Visit: Yes Status: Suspected (4) Elevated d-dimer Current Visit: Yes Status: Acute (5) HTN (hypertension) Current Visit: Yes Status: Chronic (6) Atrial fibrillation Current Visit: Yes Status: Chronic Qualifiers: Atrial fibrillation type: persistent Qualified Code(s): I48.1 - Persistent atrial fibrillation
--- NOTE | 2018-04-18 14:08 | Cat Scan Report ---
CTA CHEST: HISTORY: Shortness of breath, abnormal VQ scan. COMPARISON: VQ scan dated 04/17/18. TECHNIQUE: Helical CT in 1.25mm intervals following IV contrast. Pulmonary embolus protocol. Sagittal and coronal reformatted images. Rotational MIP images. FINDINGS: Contrast bolus is satisfactory. No pulmonary embolus is identified. Thyroid gland: Normal. Tracheobronchial tree: Tracheobronchial tree is patent. There is mild cylindrical bronchiectasis in the right upper lobe. Esophagus: Normal. Heart: Mild cardiomegaly. Pericardium: Normal. Mediastinum: There are a few mildly enlarged lymph nodes throughout the mediastinum. Right paratracheal lymph nodes measure up to 1.7 cm. A subcarinal lymph node measures up to 2.1 cm. And AP window lymph node measures up to 1.6 cm. No extrathoracic adenopathy is detected. Lung [place]: Diffuse bilateral ground glass lung infiltrates are identified. This could be related to pneumonia. There is no obvious mass. Question mild underlying emphysematous changes. Pleural Spaces: Normal. Musculoskeletal: Intact. Mild thoracic spondylosis. IMPRESSION: No evidence for pulmonary embolus. Mild cardiomegaly. Diffuse bilateral infiltrates concerning for pneumonia.
[2018-04-18] MEDS: ROCEPHIN/NS 2 GM/100 ML 2 GM/100 ML BAG IV SCH (22:57)
[2018-04-18] MEDS: PRAVACHOL PO SCH (22:58)
[2018-04-18] MEDS: ZITHROMAX 500 MG in NACL 0.9% 250ML 250 ML IV SCH (23:12)
[2018-04-19] MEDS ORDERED: ZOLOFT PO ONE (01:00)
[2018-04-19 06:03] LABS: BUN/Creatinine Ratio 33; Blood Urea Nitrogen 20 mg/dL (7-17); Calcium 8.5 mg/dL (8.4-10.2); Hemolysis Index 69
[2018-04-19] MEDS: SYNTHROID PO SCH (06:09)
[2018-04-19] MEDS: LASIX IV SCH ×2 (06:10→17:59)
[2018-04-19] MEDS ORDERED: K-DUR PO NR ×2 (08:47→18:00)
--- NOTE | 2018-04-19 11:13 | Progress Note ---
Assessment and Plan Chest CTA negative for PE, showed diffuse bilateral infiltrates concerning for PNA. Optimize HR - convert propranolol to lopressor Q6H. Cont other present cardiac management. Pt with persistent SOB and PNA. Consult pulmonary - d/w Dr. Sibley, d/w Dr. Espino. The patient has been seen in conjunction with Dr. Rojas who agrees with the assessment and plan of care. - Patient Problems (1) Acute heart failure with preserved ejection fraction Current Visit: Yes Status: Acute (2) Acute respiratory failure Current Visit: Yes Status: Acute (3) Pneumonia Current Visit: Yes Status: Acute (4) Elevated d-dimer Current Visit: Yes Status: Acute (5) HTN (hypertension) Current Visit: Yes Status: Chronic (6) Persistent atrial fibrillation Current Visit: Yes Status: Chronic Subjective Date of service: 04/19/18 Principal diagnosis: PNA Interval history: pt resting in bed, c/o SOB. tele reviewed - in AFib with HR 90s. Objective Last Vital Signs Temp 97.8 F 04/19/18 09:27 Pulse 92 H 04/19/18 09:27 Resp 16 04/19/18 09:27 BP 113/71 04/19/18 05:51 Pulse Ox 93 04/19/18 09:38 - Physical Examination General: Other (SOB) HEENT: Positive: PERRL, Normocephaly, Mucus Membranes Moist Neck: Positive: neck supple, trachea midline Cardiac: Positive: irregularly irregular, S1/S2 Lungs: Positive: Decreased Breath Sounds, Rhonchi Abdomen: Positive: Soft. Negative: Tender Skin: Negative: Rash, Wound Musculoskeletal: No Pain Extremities: Absent: edema - Labs and Meds Comprehensive Metabolic Panel 04/19/18 Range/Units 05:02 Sodium 139 (137-145) mmol/L Potassium 3.2 L (3.6-5.0) mmol/L Chloride 94.2 L (98-107) mmol/L Carbon Dioxide 29 (22-30) mmol/L BUN 20 H (7-17) mg/dL Creatinine 0.6 L (0.7-1.2) mg/dL Glucose 118 H (65-100) mg/dL Calcium 8.5 (8.4-10.2) mg/dL - Imaging and Cardiology EKG: report reviewed, image reviewed Echo: report reviewed (04/14/2018 which showed EF 60-65%, mild to mod RV hypokinesis, LA enlarged, mild MR, mod TR, RVSP 63mmHg, trace pericardial effusion.) - Telemetry EKG Rhythm: Atrial Fibrillation
[2018-04-19] MEDS: HALFPRIN EC PO SCH (11:33)
[2018-04-19] MEDS: ZOLOFT PO SCH (11:33)
[2018-04-19] MEDS: COZAAR PO SCH (11:33)
[2018-04-19] MEDS: ELIQUIS PO SCH ×2 (11:33→21:46)
[2018-04-19] MEDS: VITAMIN D3 PO SCH (11:33)
[2018-04-19] MEDS: INDERAL PO SCH (11:35)
--- NOTE | 2018-04-19 12:33 | Consultation ---
History of Present Illness - Reason for Consult Consult date: 04/19/18 Acute Respiratory Failure Requesting physician: KANDY FRAZIER - History of Present Illness 77 y/o female admitted with shortness of breath. Found to have remarkable CT scan. Patient has had increasing oxygen requirements over the last 48 hours. She was started on IV diuretic therapy after BNP came back at >6k. CT scan shows bilateral diffuse GGO with some areas of dense consolidation. Possibly fibrosis and emphysematous changes as well. Per patient, she is a lifelong nonsmoker. She does have 3 cats but has never owned any birds. There have been no new detergents, fragrances, paints or carpets in the home. She has lived in [place], [place] and the longest time in [place]. She is currently tachypnic in the high 20's low 30's on NRB at 100%. Sats only 93. Remainder of the review is negative. Past History Past Medical History: atrial fib, arthritis, hypertension, hyperlipidemia, migraines Past Surgical History: cholecystectomy, Other (wrist surgery) Social history: , lives with family. denies: smoking, alcohol abuse, prescription drug abuse Family history: hypertension Medications and Allergies Allergies Allergy/AdvReac Type Severity Reaction Status Date / Time Sulfa (Sulfonamide AdvReac Nausea Verified 06/28/13 13:07 Antibiotics) Home Medications Medication Instructions Recorded Confirmed Last Taken Type Aspirin EC [Halfprin EC] 81 mg PO QDAY 06/28/13 04/17/18 07/02/13 History Cholecalciferol (Vitamin D3) 1,000 unit PO DAILY 06/28/13 04/17/18 07/04/13 History [Vitamin D] Olmesartan Medoxomil [Benicar] 20 mg PO DAILY 06/28/13 04/17/18 07/05/13 06:30 History Propranolol [Inderal] 40 mg PO BID 06/28/13 04/17/18 07/05/13 06:30 History Simvastatin 10 mg PO DAILY 06/28/13 04/17/18 07/04/13 History Apixaban [Eliquis] 5 mg PO BID 04/17/18 04/17/18 Unknown History Fluticasone [Flonase] 1 spray NS QDAY 04/17/18 04/17/18 Unknown History Levothyroxine [Synthroid] 100 mcg PO QAM 04/17/18 04/17/18 Unknown History Sertraline [Zoloft] 100 mg PO QDAY 04/17/18 04/17/18 Unknown History predniSONE [Deltasone] 40 mg PO QDAY 04/17/18 04/17/18 Unknown History Active Meds: Active Medications Acetaminophen (Tylenol) 650 mg PO Q4H PRN PRN Reason: Pain MILD(1-3)/Fever >100.5/SAAVEDRA Albuterol (Proventil) 2.5 mg IH Q4HRT PRN PRN Reason: Shortness Of Breath Last Admin: 04/18/18 08:01 Dose: 2.5 mg Documented by: Apixaban (Eliquis) 5 mg PO BID [facility]; Protocol Last Admin: 04/19/18 11:33 Dose: 5 mg Documented by: Aspirin (Halfprin Ec) 81 mg PO QDAY [facility] Last Admin: 04/19/18 11:33 Dose: 81 mg Documented by: Cholecalciferol (Vitamin D3) 4,000 unit PO DAILY [facility] Last Admin: 04/19/18 11:33 Dose: 4,000 unit Documented by: Cyclobenzaprine HCl (Flexeril) 10 mg PO QHS PRN PRN Reason: Muscle Spasm Furosemide (Lasix) 40 mg IV 0600,1800 [facility] Last Admin: 04/19/18 06:10 Dose: 40 mg Documented by: Azithromycin 500 mg/ Sodium (Chloride) 250 mls @ 250 mls/hr IV Q24H [facility]; Protocol Last Admin: 04/18/18 23:12 Dose: 250 mls/hr Documented by: Ceftriaxone Sodium (Rocephin/Ns 2 Gm/100 Ml) 2 gm in 100 mls @ 200 mls/hr IV Q24H [facility]; Protocol Last Admin: 04/18/18 22:57 Dose: 200 mls/hr Documented by: Levothyroxine Sodium (Synthroid) 100 mcg PO DAILY@0600 [facility] Last Admin: 04/19/18 06:09 Dose: 100 mcg Documented by: Losartan Potassium (Cozaar) 50 mg PO QDAY [facility] Last Admin: 04/19/18 11:33 Dose: Not Given Documented by: Metoprolol Tartrate (Lopressor) 25 mg PO Q6H [facility] Ondansetron HCl (Zofran) 4 mg IV Q8H PRN PRN Reason: Nausea And Vomiting Pravastatin Sodium (Pravachol) 20 mg PO QHS [facility] Last Admin: 04/18/18 22:58 Dose: 20 mg Documented by: Sertraline HCl (Zoloft) 100 mg PO QDAY [facility] Last Admin: 04/19/18 11:33 Dose: 100 mg Documented by: Sodium Chloride (Sodium Chloride Flush Syringe 10 Ml) 10 ml IV BID [facility] Last Admin: 04/18/18 22:58 Dose: 10 ml Documented by: Sodium Chloride (Sodium Chloride Flush Syringe 10 Ml) 10 ml IV PRN PRN PRN Reason: LINE FLUSH Zinc Acetate/Diphenhydramine (Banophen Anti-Itch) 1 applic TP Q6H PRN PRN Reason: Itching Review of Systems All systems: negative Exam - Constitutional Vitals: Temp Pulse Resp BP Pulse Ox 97.8 F 92 H 16 113/71 93 04/19/18 09:27 04/19/18 09:27 04/19/18 09:27 04/19/18 05:51 04/19/18 09:38 General appearance: Present: mild distress, well-nourished - EENT Eyes: Present: PERRL, EOM intact ENT: hearing intact, clear oral mucosa - Neck Neck: Present: supple, normal ROM - Respiratory Respiratory effort: labored Respiratory: bilateral: rales, wheezing - Cardiovascular Rhythm: irregularly irregular - Extremities Extremities: no ischemia, pulses intact - Abdominal General gastrointestinal: Present: soft, non-tender, non-distended, normal bowel sounds Female genitourinary: Present: deferred - Rectal Rectal Exam: deferred - Integumentary Integumentary: Present: clear, warm Results - Labs CBC & Chem 7: 04/18/18 05:12 04/19/18 05:02 Labs: Abnormal lab results 04/19/18 Range/Units 05:02 Potassium 3.2 L (3.6-5.0) mmol/L Chloride 94.2 L (98-107) mmol/L BUN 20 H (7-17) mg/dL Creatinine 0.6 L (0.7-1.2) mg/dL Glucose 118 H (65-100) mg/dL - Imaging and Cardiology Chest x-ray: image reviewed CT scan - chest: image reviewed Assessment and Plan 77 y/o female with acute respiratory failure secondary to abnormal CXR and CT scan, exact etiology unknown 1. Bipap therapy for now. Will try for about an hour, if no improvement, may need to move to Step Down for closer monitoring 2. Agree with IV diuretics. Will continue 3. Per patient, life long nonsmoker but does have some evidence of emphysema vs cystic changes with dense consolidation. Concerned about pneumonia (bacterial vs viral vs atypical ([employer] formerly known as [employer])). Suggest broadening abx coverage. Will hold on steroids for now but if no improvement in the next 24 or even worsening, may need to consider large doses. 4. Ideally would like to bronch patient but currently too unstable as if we attempted bronch, she would likely require mechanical ventilation prior to procedure for safety and given her CXR, would like to try to avoid intubation if possible. Did speak with patient about intubation and she said yes she would want to be intubated. Overall prognosis is guarded. Spoke to RT about bipap therapy and settings. Will reassess.
[2018-04-19] MEDS: LOPRESSOR PO SCH (18:03)
--- NOTE | 2018-04-19 18:07 | Progress Note ---
Assessment and Plan Assessment and plan: Patient is a 77 yo woman with a history of HTN, Atrial Fib on Therapeutic Anticoagulation (Eliquis), Hypothyroidism, HTN, HLD, Migraine SAAVEDRA, OA and Anxiety/depression who presented to [facility] ED with SOB without chest pains. Pt also complains of itchy red spots on her arms since beginning Eliquis for new o nset Afib. She was started on Prednisone and benadryl by PCP. She just stopped the Predisone, couple days prior to arrival * pCXR CONCLUSION: 1. Diffuse bilateral pulmonary infiltrates, possibly edema, infection or inflammation, amongst others, though exact etiology or chronicity uncertain on this exam alone. 2. Few other findings, as above. Please also correlate clinically and with prior chest imaging, if available. * V/Q lung scan: Intermediate prob for PE -Acute combined heart failure suspected: 2d ECHO pending, Cardiology consult pending, treat with IV lasix. -Acute hypoxic respiratory failure due to CHF exacerbation: treat with O2, car eful with albuterol nebs due to the tachycardia -SIRS with organ dysfunction due to the above, the leukocytosis explained by the Prednisone. CXR and PE more pulmonary edema than sepsis PNA: continue empiric ABX just in case -Afib with RVR: continue Eliqius, await Cardiology evaluation, continue Propanolol which patient has been on prior to afib diagnosis per patient -Anxiety disorder: give xanax x 1 and restart home zoloft -Hypothyroidism: continue Synthyroid -Elevated D-Dimer with Intermediate probability of PE on V/Q with low pre-test and abnormal CXR: on Eliquis already but unlikely PE History Interval history: Patient was seen and examined twice today, met at bedside. Follow-up on current diagnosis of sob. Overnight uneventful. Patient denies any chest pain, nausea/vomiting or severe headaches. Imaging, nursing note, chart, labs and old chart reviewed. Discussed with patient. Patient was on 100% O2 NRB mask==>she was tiring out so BIPAP started and she feels much better. Hospitalist Physical - Physical exam Narrative exam: Gen: illappearing, moderate increase in accessory muscle, Awake, Alert, Orientated x 3 HEENT: NCAT, EOMI, PERRL, OP Clear Neck: supple, no adenopathy, no thyromegaly, +JVD CVS/Heart: irregular irregular, normal S1S2, pulses present bilaterally Chest/Lungs: wet bibasilar crackles, Symmetrical chest expansion, good air entry bilaterally GI/Abdomen: soft, NTND, good bowel sounds, no guarding or rebound /Bladder: no suprapubic tenderness, no CVA or paraspinal tenderness Extermity/Skin: no c/c/e, obvious petechiea/ecchymosis rash bilateral arms MSK: FROM x 4 Neuro: CN 2-12 grossly intact, no new focal deficits Psych: anxious - Constitutional Vitals: Temp Pulse Resp BP Pulse Ox 98.0 F 113 H 30 H 122/76 96 04/19/18 12:19 04/19/18 14:19 04/19/18 14:19 04/19/18 12:19 04/19/18 14:19 General appearance: Present: mild distress, well-nourished Results - Labs CBC & Chem 7: 04/18/18 05:12 04/19/18 05:02 Labs: Laboratory Last Values WBC 17.8 K/mm3 (4.5-11.0) H 04/18/18 05:12 RBC 3.88 M/mm3 (3.65-5.03) 04/18/18 05:12 Hgb 11.5 gm/dl (10.1-14.3) 04/18/18 05:12 Hct 34.8 % (30.3-42.9) 04/18/18 05:12 MCV 90 fl (79-97) 04/18/18 05:12 MCH 30 pg (28-32) 04/18/18 05:12 MCHC 33 % (30-34) 04/18/18 05:12 RDW 13.9 % (13.2-15.2) 04/18/18 05:12 Plt Count 316 K/mm3 (140-440) 04/18/18 05:12 Lymph % (Auto) 5.1 % (13.4-35.0) L 04/18/18 05:12 [place] % (Auto) 8.0 % (0.0-7.3) H 04/18/18 05:12 Eos % (Auto) 0.1 % (0.0-4.3) 04/18/18 05:12 Baso % (Auto) 0.2 % (0.0-1.8) 04/18/18 05:12 Lymph # 0.9 K/mm3 (1.2-5.4) L 04/18/18 05:12 [place] # 1.4 K/mm3 (0.0-0.8) H 04/18/18 05:12 Eos # 0.0 K/mm3 (0.0-0.4) 04/18/18 05:12 Baso # 0.0 K/mm3 (0.0-0.1) 04/18/18 05:12 Seg Neutrophils % 86.6 % (40.0-70.0) H 04/18/18 05:12 Seg Neutrophils # 15.4 K/mm3 (1.8-7.7) H 04/18/18 05:12 PT 18.3 Sec. (12.2-14.9) H 04/17/18 12:48 INR 1.48 (0.87-1.13) H 04/17/18 12:48 APTT 27.2 Sec. (24.2-36.6) 04/17/18 12:48 D-Dimer 1975 ng/mlDDU (0-234) H 04/17/18 12:38 POC ABG pH 7.384 (7.35-7.45) 04/17/18 13:36 POC ABG pCO2 40.2 (35-45) 04/17/18 13:36 POC ABG pO2 82 (80-105) 04/17/18 13:36 POC ABG HCO3 24.0 04/17/18 13:36 POC ABG Total CO2 25 04/17/18 13:36 POC ABG O2 Sat 96 04/17/18 13:36 POC ABG Base Excess -1 04/17/18 13:36 FiO2 100 % 04/17/18 13:36 Sodium 139 mmol/L (137-145) 04/19/18 05:02 Potassium 3.2 mmol/L (3.6-5.0) L 04/19/18 05:02 Chloride 94.2 mmol/L (98-107) L 04/19/18 05:02 Carbon Dioxide 29 mmol/L (22-30) 04/19/18 05:02 Anion Gap 19 mmol/L 04/19/18 05:02 BUN 20 mg/dL (7-17) H 04/19/18 05:02 Creatinine 0.6 mg/dL (0.7-1.2) L 04/19/18 05:02 Estimated GFR > 60 ml/min 04/19/18 05:02 BUN/Creatinine Ratio 33 % 04/19/18 05:02 Glucose 118 mg/dL (65-100) H 04/19/18 05:02 Lactic Acid 1.20 mmol/L (0.7-2.0) 04/17/18 21:34 Calcium 8.5 mg/dL (8.4-10.2) 04/19/18 05:02 Total Bilirubin 1.10 mg/dL (0.1-1.2) 04/17/18 12:48 AST 121 units/L (5-40) H 04/17/18 12:48 ALT 110 units/L (7-56) H 04/17/18 12:48 Alkaline Phosphatase 120 units/L (35-129) 04/17/18 12:48 Total Creatine Kinase 51 units/L (30-135) 04/17/18 12:48 CK-MB (CK-2) 1.8 ng/mL (0.0-4.0) 04/17/18 12:48 CK-MB (CK-2) Rel Index 3.5 (0-4) 04/17/18 12:48 Troponin T < 0.010 ng/mL (0.00-0.029) 04/17/18 12:48 NT-Pro-B Natriuret Pep 6653 pg/mL (0-900) H 04/17/18 12:48 Total Protein 7.6 g/dL (6.3-8.2) 04/17/18 12:48 Albumin 3.4 g/dL (3.9-5) L 04/17/18 12:48 Albumin/Globulin Ratio 0.8 % 04/17/18 12:48 Triglycerides 89 mg/dL (2-149) 04/17/18 16:11 Cholesterol 109 mg/dL (50-199) 04/17/18 16:11 LDL Cholesterol Direct 60 mg/dL (50-130) 04/17/18 16:11 HDL Cholesterol 41 mg/dL (40-59) 04/17/18 16:11 Cholesterol/HDL Ratio 2.65 % 04/17/18 16:11 TSH 2.320 mlU/mL (0.270-4.200) 04/17/18 16:11 Free T4 1.67 ng/dL (0.76-1.46) H 04/17/18 16:11 Urine Color Yellow (Yellow) 04/17/18 Unknown Urine Turbidity Clear (Clear) 04/17/18 Unknown Urine pH 5.0 (5.0-7.0) 04/17/18 Unknown Ur Specific [place] 1.005 (1.003-1.030) 04/17/18 Unknown Urine Protein <15 mg/dl mg/dL (Negative) 04/17/18 Unknown Urine Glucose (UA) Neg mg/dL (Negative) 04/17/18 Unknown Urine Ketones Neg mg/dL (Negative) 04/17/18 Unknown Urine Blood Mod (Negative) 04/17/18 Unknown Urine Nitrite Neg (Negative) 04/17/18 Unknown Urine Bilirubin Neg (Negative) 04/17/18 Unknown Urine Urobilinogen < 2.0 mg/dL (<2.0) 04/17/18 Unknown Ur Leukocyte Esterase Neg (Negative) 04/17/18 Unknown Urine WBC (Auto) 11.0 /HPF (0.0-6.0) H 04/17/18 Unknown Urine RBC (Auto) 3.0 /HPF (0.0-6.0) 04/17/18 Unknown U Epithel Cells (Auto) 2.0 /HPF (0-13.0) 04/17/18 Unknown Urine Mucus Few /HPF 04/17/18 Unknown
[2018-04-19] MEDS: SODIUM CHLORIDE FLUSH SYRINGE 10 ML IV SCH (21:46)
[2018-04-19] MEDS: PRAVACHOL PO SCH (21:46)
[2018-04-19] MEDS: ROCEPHIN/NS 2 GM/100 ML 2 GM/100 ML BAG IV SCH (21:46)
[2018-04-19] MEDS: ZITHROMAX 500 MG in NACL 0.9% 250ML 250 ML IV SCH (22:32)
[2018-04-20] MEDS: LOPRESSOR PO SCH ×5 (01:44→19:02)
[2018-04-20] MEDS: SYNTHROID PO SCH (06:10)
[2018-04-20] MEDS: LASIX IV SCH ×2 (06:10→19:00)
[2018-04-20] MEDS ORDERED: K-DUR PO ONE (10:00)
[2018-04-20] MEDS: VITAMIN D3 PO SCH (11:00)
[2018-04-20] MEDS: SODIUM CHLORIDE FLUSH SYRINGE 10 ML IV SCH ×2 (11:00→21:47)
[2018-04-20] MEDS: COZAAR PO SCH (11:00)
[2018-04-20] MEDS: ELIQUIS PO SCH ×2 (11:00→21:47)
[2018-04-20] MEDS: ZOLOFT PO SCH (11:00)
[2018-04-20] MEDS: HALFPRIN EC PO SCH (11:00)
[2018-04-20 11:07] LABS: BUN/Creatinine Ratio 39; Blood Urea Nitrogen 27 mg/dL (7-17); Calcium 8.5 mg/dL (8.4-10.2); Hemolysis Index 2
[2018-04-20] MEDS: TYLENOL PO PRN (11:08)
--- NOTE | 2018-04-20 11:25 | Progress Note ---
Assessment and Plan Cont present cardiac management. Follow pulmonary recs. The patient has been seen in conjunction with Dr. Rojas who agrees with the assessment and plan of care. - Patient Problems (1) Acute heart failure with preserved ejection fraction Current Visit: Yes Status: Acute (2) Acute respiratory failure Current Visit: Yes Status: Acute (3) Pneumonia Current Visit: Yes Status: Acute (4) Elevated d-dimer Current Visit: Yes Status: Acute (5) HTN (hypertension) Current Visit: Yes Status: Chronic (6) Persistent atrial fibrillation Current Visit: Yes Status: Chronic Subjective Date of service: 04/20/18 Principal diagnosis: PNA Interval history: pt resting in bed, states she is feeling a little better today, was on BiPAP overnight. tele reviewed - in AFib with HR 90s. Objective Last Vital Signs Temp 97.8 F 04/20/18 09:46 Pulse 112 H 04/20/18 11:00 Resp 28 H 04/20/18 11:08 BP 111/64 04/20/18 11:00 Pulse Ox 98 04/20/18 09:46 - Physical Examination General: Other (SOB) HEENT: Positive: PERRL, Normocephaly, Mucus Membranes Moist Neck: Positive: neck supple, trachea midline Cardiac: Positive: irregularly irregular, S1/S2 Lungs: Positive: Decreased Breath Sounds, Rhonchi Neuro: Positive: Grossly Intact Abdomen: Positive: Soft. Negative: Tender Skin: Negative: Rash, Wound Musculoskeletal: No Pain Extremities: Absent: edema - Labs and Meds Comprehensive Metabolic Panel 04/20/18 Range/Units 09:56 Sodium 140 (137-145) mmol/L Potassium 3.1 L (3.6-5.0) mmol/L Chloride 94.3 L (98-107) mmol/L Carbon Dioxide 30 (22-30) mmol/L BUN 27 H (7-17) mg/dL Creatinine 0.7 (0.7-1.2) mg/dL Glucose 118 H (65-100) mg/dL Calcium 8.5 (8.4-10.2) mg/dL - Imaging and Cardiology EKG: report reviewed, image reviewed Echo: report reviewed (04/14/2018 which showed EF 60-65%, mild to mod RV hypokinesis, LA enlarged, mild MR, mod TR, RVSP 63mmHg, trace pericardial effusion.)
--- NOTE | 2018-04-20 12:26 | Progress Note ---
Assessment and Plan 77 y/o female with acute respiratory failure secondary to abnormal CXR and CT scan, exact etiology unknown 1. Long discussion at bedside with daughter. Will go ahead and electively start steroids. This could be organizing pneumonia. Continue abx therapy as well. Should see improvement in about 24-36 hours if the steroids are going to help. 2. Unable to bronch and biopsy at this time for 2 reasons: 1. medical instability (respiratory requirement) and 2. currently on blood thinners for afib. May consider bronch if patient responds to steroid therapy to achieve definitive diagnosis. 3. Continue diuretics as BP and renal function will allow 4. still with very low threshold to transfer in the event respiratory status ac [place] worsens or bipap therapy does not help. Overall prognosis is guarded. Subjective Date of service: 04/20/18 Principal diagnosis: PNA Interval history: Tolerated bipap therapy well. WOB is easier today but still has significant O2 requirement. Objective Vital Signs - 12hr 04/20/18 04/20/18 04/20/18 01:36 01:44 04:41 Temperature 97.7 F Pulse Rate 104 H 85 86 Respiratory 17 Rate Blood Pressure 91/47 94/52 105/54 O2 Sat by Pulse 97 99 Oximetry 04/20/18 04/20/18 04/20/18 06:10 07:38 09:46 Temperature 97.8 F Pulse Rate 86 102 H 112 H Respiratory 26 H 24 Rate Blood Pressure 105/54 111/64 O2 Sat by Pulse 96 98 Oximetry 04/20/18 04/20/18 11:00 11:08 Temperature Pulse Rate 112 H Respiratory 28 H Rate Blood Pressure 111/64 O2 Sat by Pulse Oximetry Constitutional: no acute distress, alert, appears uncomfortable Eyes: non-icteric ENT: oropharynx moist Effort: mildly labored Ascultation: Bilateral: wheezes Percussion: Bilateral: not dull Cardiovascular: irregular rhythm Gastrointestinal: normoactive bowel sounds CBC and BMP: 04/18/18 05:12 04/20/18 09:56 ABG, PT/INR, D-dimer: ABG POC ABG pH 7.384 (7.35-7.45) 04/17/18 13:36 POC ABG pCO2 40.2 (35-45) 04/17/18 13:36 POC ABG pO2 82 (80-105) 04/17/18 13:36 POC ABG HCO3 24.0 04/17/18 13:36 POC ABG Total CO2 25 04/17/18 13:36 POC ABG O2 Sat 96 04/17/18 13:36 PT/INR, D-dimer PT 18.3 Sec. (12.2-14.9) H 04/17/18 12:48 INR 1.48 (0.87-1.13) H 04/17/18 12:48 D-Dimer 1975 ng/mlDDU (0-234) H 04/17/18 12:38 Abnormal lab findings: Abnormal Labs 04/17/18 04/17/18 04/17/18 12:38 12:48 12:48 WBC 18.0 H Lymph % (Auto) 6.5 L [place] % (Auto) 10.0 H Lymph # [place] # 1.8 H Seg Neutrophils % 83.2 H Seg Neutrophils # 15.0 H PT 18.3 H INR 1.48 H D-Dimer 1975 H Sodium Potassium Chloride BUN Creatinine Glucose AST ALT NT-Pro-B Natriuret Pep Albumin Free T4 Urine WBC (Auto) 04/17/18 04/17/18 04/17/18 12:48 12:48 16:11 WBC Lymph % (Auto) [place] % (Auto) Lymph # [place] # Seg Neutrophils % Seg Neutrophils # PT INR D-Dimer Sodium 136 L Potassium Chloride BUN Creatinine 0.6 L Glucose 127 H AST 121 H ALT 110 H NT-Pro-B Natriuret Pep 6653 H Albumin 3.4 L Free T4 1.67 H Urine WBC (Auto) 04/17/18 04/18/18 04/19/18 Unknown 05:12 05:02 WBC 17.8 H Lymph % (Auto) 5.1 L [place] % (Auto) 8.0 H Lymph # 0.9 L [place] # 1.4 H Seg Neutrophils % 86.6 H Seg Neutrophils # 15.4 H PT INR D-Dimer Sodium Potassium 3.2 L Chloride 94.2 L BUN 20 H Creatinine 0.6 L Glucose 118 H AST ALT NT-Pro-B Natriuret Pep Albumin Free T4 Urine WBC (Auto) 11.0 H 04/20/18 09:56 WBC Lymph % (Auto) [place] % (Auto) Lymph # [place] # Seg Neutrophils % Seg Neutrophils # PT INR D-Dimer Sodium Potassium 3.1 L Chloride 94.3 L BUN 27 H Creatinine Glucose 118 H AST ALT NT-Pro-B Natriuret Pep Albumin Free T4 Urine WBC (Auto)
[2018-04-20] MEDS: SOLU-Medrol IV SCH ×2 (13:02→19:00)
--- NOTE | 2018-04-20 19:30 | Progress Note ---
Assessment and Plan Assessment and plan: Patient is a 77 yo woman with a history of HTN, Atrial Fib on Therapeutic Anticoagulation (Eliquis), Hypothyroidism, HTN, HLD, Migraine SAAVEDRA, OA and Anxiety/depression who presented to [facility] ED with SOB without chest pains. Pt also complains of itchy red spots on her arms since beginning Eliquis for new o nset Afib. She was started on Prednisone and benadryl by PCP. She just stopped the Predisone, couple days prior to arrival * pCXR CONCLUSION: 1. Diffuse bilateral pulmonary infiltrates, possibly edema, infection or inflammation, amongst others, though exact etiology or chronicity uncertain on this exam alone. 2. Few other findings, as above. Please also correlate clinically and with prior chest imaging, if available. * V/Q lung scan: Intermediate prob for PE -Acute combined heart failure suspected: 2d ECHO pending, Cardiology consult pending, treat with IV lasix. -Acute hypoxic respiratory failure due to CHF exacerbation: treat with O2, car eful with albuterol nebs due to the tachycardia -SIRS with organ dysfunction due to the above, the leukocytosis explained by the Prednisone. CXR and PE more pulmonary edema than sepsis PNA: continue empiric ABX just in case -Afib with RVR: continue Eliqius, await Cardiology evaluation, continue Propanolol which patient has been on prior to afib diagnosis per patient -Anxiety disorder: give xanax x 1 and restart home zoloft -Hypothyroidism: continue Synthyroid -Elevated D-Dimer with Intermediate probability of PE on V/Q with low pre-test and abnormal CXR: on Eliquis already but unlikely PE History Interval history: Patient was seen and examined twice today, met at bedside. Follow-up on current diagnosis of sob. Overnight uneventful. Patient denies any chest pain, nausea/vomiting or severe headaches. Imaging, nursing note, chart, labs and old chart reviewed. Discussed with patient. Patient was on 100% O2 NRB mask==>she was tiring out so BIPAP started and she feels much better. Hospitalist Physical - Physical exam Narrative exam: Gen: illappearing, moderate increase in accessory muscle, Awake, Alert, Orientated x 3 HEENT: NCAT, EOMI, PERRL, OP Clear Neck: supple, no adenopathy, no thyromegaly, +JVD CVS/Heart: irregular irregular, normal S1S2, pulses present bilaterally Chest/Lungs: wet bibasilar crackles, Symmetrical chest expansion, good air entry bilaterally GI/Abdomen: soft, NTND, good bowel sounds, no guarding or rebound /Bladder: no suprapubic tenderness, no CVA or paraspinal tenderness Extermity/Skin: no c/c/e, obvious petechiea/ecchymosis rash bilateral arms MSK: FROM x 4 Neuro: CN 2-12 grossly intact, no new focal deficits Psych: anxious - Constitutional Vitals: Temp Pulse Resp BP Pulse Ox 97.6 F 112 H 22 89/69 87 04/20/18 13:09 04/20/18 19:02 04/20/18 13:09 04/20/18 19:02 04/20/18 13:09 General appearance: Present: mild distress, well-nourished Results - Labs CBC & Chem 7: 04/18/18 05:12 04/20/18 09:56 Labs: Laboratory Last Values WBC 17.8 K/mm3 (4.5-11.0) H 04/18/18 05:12 RBC 3.88 M/mm3 (3.65-5.03) 04/18/18 05:12 Hgb 11.5 gm/dl (10.1-14.3) 04/18/18 05:12 Hct 34.8 % (30.3-42.9) 04/18/18 05:12 MCV 90 fl (79-97) 04/18/18 05:12 MCH 30 pg (28-32) 04/18/18 05:12 MCHC 33 % (30-34) 04/18/18 05:12 RDW 13.9 % (13.2-15.2) 04/18/18 05:12 Plt Count 316 K/mm3 (140-440) 04/18/18 05:12 Lymph % (Auto) 5.1 % (13.4-35.0) L 04/18/18 05:12 [place] % (Auto) 8.0 % (0.0-7.3) H 04/18/18 05:12 Eos % (Auto) 0.1 % (0.0-4.3) 04/18/18 05:12 Baso % (Auto) 0.2 % (0.0-1.8) 04/18/18 05:12 Lymph # 0.9 K/mm3 (1.2-5.4) L 04/18/18 05:12 [place] # 1.4 K/mm3 (0.0-0.8) H 04/18/18 05:12 Eos # 0.0 K/mm3 (0.0-0.4) 04/18/18 05:12 Baso # 0.0 K/mm3 (0.0-0.1) 04/18/18 05:12 Seg Neutrophils % 86.6 % (40.0-70.0) H 04/18/18 05:12 Seg Neutrophils # 15.4 K/mm3 (1.8-7.7) H 04/18/18 05:12 PT 18.3 Sec. (12.2-14.9) H 04/17/18 12:48 INR 1.48 (0.87-1.13) H 04/17/18 12:48 APTT 27.2 Sec. (24.2-36.6) 04/17/18 12:48 D-Dimer 1975 ng/mlDDU (0-234) H 04/17/18 12:38 POC ABG pH 7.384 (7.35-7.45) 04/17/18 13:36 POC ABG pCO2 40.2 (35-45) 04/17/18 13:36 POC ABG pO2 82 (80-105) 04/17/18 13:36 POC ABG HCO3 24.0 04/17/18 13:36 POC ABG Total CO2 25 04/17/18 13:36 POC ABG O2 Sat 96 04/17/18 13:36 POC ABG Base Excess -1 04/17/18 13:36 FiO2 100 % 04/17/18 13:36 Sodium 140 mmol/L (137-145) 04/20/18 09:56 Potassium 3.1 mmol/L (3.6-5.0) L 04/20/18 09:56 Chloride 94.3 mmol/L (98-107) L 04/20/18 09:56 Carbon Dioxide 30 mmol/L (22-30) 04/20/18 09:56 Anion Gap 19 mmol/L 04/20/18 09:56 BUN 27 mg/dL (7-17) H 04/20/18 09:56 Creatinine 0.7 mg/dL (0.7-1.2) 04/20/18 09:56 Estimated GFR > 60 ml/min 04/20/18 09:56 BUN/Creatinine Ratio 39 % 04/20/18 09:56 Glucose 118 mg/dL (65-100) H 04/20/18 09:56 Lactic Acid 1.20 mmol/L (0.7-2.0) 04/17/18 21:34 Calcium 8.5 mg/dL (8.4-10.2) 04/20/18 09:56 Total Bilirubin 1.10 mg/dL (0.1-1.2) 04/17/18 12:48 AST 121 units/L (5-40) H 04/17/18 12:48 ALT 110 units/L (7-56) H 04/17/18 12:48 Alkaline Phosphatase 120 units/L (35-129) 04/17/18 12:48 Total Creatine Kinase 51 units/L (30-135) 04/17/18 12:48 CK-MB (CK-2) 1.8 ng/mL (0.0-4.0) 04/17/18 12:48 CK-MB (CK-2) Rel Index 3.5 (0-4) 04/17/18 12:48 Troponin T < 0.010 ng/mL (0.00-0.029) 04/17/18 12:48 NT-Pro-B Natriuret Pep 6653 pg/mL (0-900) H 04/17/18 12:48 Total Protein 7.6 g/dL (6.3-8.2) 04/17/18 12:48 Albumin 3.4 g/dL (3.9-5) L 04/17/18 12:48 Albumin/Globulin Ratio 0.8 % 04/17/18 12:48 Triglycerides 89 mg/dL (2-149) 04/17/18 16:11 Cholesterol 109 mg/dL (50-199) 04/17/18 16:11 LDL Cholesterol Direct 60 mg/dL (50-130) 04/17/18 16:11 HDL Cholesterol 41 mg/dL (40-59) 04/17/18 16:11 Cholesterol/HDL Ratio 2.65 % 04/17/18 16:11 TSH 2.320 mlU/mL (0.270-4.200) 04/17/18 16:11 Free T4 1.67 ng/dL (0.76-1.46) H 04/17/18 16:11 Urine Color Yellow (Yellow) 04/17/18 Unknown Urine Turbidity Clear (Clear) 04/17/18 Unknown Urine pH 5.0 (5.0-7.0) 04/17/18 Unknown Ur Specific [place] 1.005 (1.003-1.030) 04/17/18 Unknown Urine Protein <15 mg/dl mg/dL (Negative) 04/17/18 Unknown Urine Glucose (UA) Neg mg/dL (Negative) 04/17/18 Unknown Urine Ketones Neg mg/dL (Negative) 04/17/18 Unknown Urine Blood Mod (Negative) 04/17/18 Unknown Urine Nitrite Neg (Negative) 04/17/18 Unknown Urine Bilirubin Neg (Negative) 04/17/18 Unknown Urine Urobilinogen < 2.0 mg/dL (<2.0) 04/17/18 Unknown Ur Leukocyte Esterase Neg (Negative) 04/17/18 Unknown Urine WBC (Auto) 11.0 /HPF (0.0-6.0) H 04/17/18 Unknown Urine RBC (Auto) 3.0 /HPF (0.0-6.0) 04/17/18 Unknown U Epithel Cells (Auto) 2.0 /HPF (0-13.0) 04/17/18 Unknown Urine Mucus Few /HPF 04/17/18 Unknown
[2018-04-20] MEDS: ROCEPHIN/NS 2 GM/100 ML 2 GM/100 ML BAG IV SCH (21:46)
[2018-04-20] MEDS: ZITHROMAX PO SCH (21:47)
[2018-04-20] MEDS: PRAVACHOL PO SCH (21:47)
[2018-04-21] MEDS: SOLU-Medrol IV SCH ×4 (01:52→18:28)
[2018-04-21] MEDS: LOPRESSOR PO SCH ×4 (01:53→23:44)
[2018-04-21] MEDS: SYNTHROID PO SCH (05:30)
[2018-04-21] MEDS: LASIX IV SCH ×2 (05:31→18:27)
--- NOTE | 2018-04-21 09:01 | Progress Note ---
Assessment and Plan 77 y/o female with acute respiratory failure secondary to abnormal CXR and CT scan, exact etiology unknown 1. Tolerated steroids well. Will increase dose to 125q6 and likely continue this through Tuesday. 2. Will most likely repeat CT either Tue or Tuesday to see if steroids are making a significant improvement in picture 3. If O2 requirement decreases over the weekend, will need bronch with TBBx for definitive diagnosis 4. Would continue Abx therapy for now just case. May consider stopping over the weekend. 5. If CT shows improvement, will likely need to hold eliquis at the beginning of the week in preparation for biopsy. Overall prognosis is guarded. Subjective Date of service: 04/21/18 Principal diagnosis: PNA Interval history: Feels better. Was on bipap this am but off now. Throat is sore, likely from high pressure. Does think that work of breathing is easier. Objective Vital Signs - 12hr 04/21/18 04/21/18 04/21/18 00:15 01:53 04:00 Temperature 98.2 F Pulse Rate 106 H 106 H 107 H Respiratory 17 Rate Blood Pressure 105/59 105/59 O2 Sat by Pulse 93 Oximetry Constitutional: no acute distress, alert, appears uncomfortable Eyes: non-icteric ENT: oropharynx moist Effort: mildly labored Ascultation: Bilateral: wheezes Percussion: Bilateral: not dull Cardiovascular: irregular rhythm Gastrointestinal: normoactive bowel sounds CBC and BMP: 04/18/18 05:12 04/20/18 09:56 ABG, PT/INR, D-dimer: ABG POC ABG pH 7.384 (7.35-7.45) 04/17/18 13:36 POC ABG pCO2 40.2 (35-45) 04/17/18 13:36 POC ABG pO2 82 (80-105) 04/17/18 13:36 POC ABG HCO3 24.0 04/17/18 13:36 POC ABG Total CO2 25 04/17/18 13:36 POC ABG O2 Sat 96 04/17/18 13:36 PT/INR, D-dimer PT 18.3 Sec. (12.2-14.9) H 04/17/18 12:48 INR 1.48 (0.87-1.13) H 04/17/18 12:48 D-Dimer 1975 ng/mlDDU (0-234) H 04/17/18 12:38 Abnormal lab findings: Abnormal Labs 04/17/18 04/17/18 04/17/18 12:38 12:48 12:48 WBC 18.0 H Lymph % (Auto) 6.5 L [place] % (Auto) 10.0 H Lymph # [place] # 1.8 H Seg Neutrophils % 83.2 H Seg Neutrophils # 15.0 H PT 18.3 H INR 1.48 H D-Dimer 1975 H Sodium Potassium Chloride BUN Creatinine Glucose AST ALT NT-Pro-B Natriuret Pep Albumin Free T4 Urine WBC (Auto) 04/17/18 04/17/18 04/17/18 12:48 12:48 16:11 WBC Lymph % (Auto) [place] % (Auto) Lymph # [place] # Seg Neutrophils % Seg Neutrophils # PT INR D-Dimer Sodium 136 L Potassium Chloride BUN Creatinine 0.6 L Glucose 127 H AST 121 H ALT 110 H NT-Pro-B Natriuret Pep 6653 H Albumin 3.4 L Free T4 1.67 H Urine WBC (Auto) 04/17/18 04/18/18 04/19/18 Unknown 05:12 05:02 WBC 17.8 H Lymph % (Auto) 5.1 L [place] % (Auto) 8.0 H Lymph # 0.9 L [place] # 1.4 H Seg Neutrophils % 86.6 H Seg Neutrophils # 15.4 H PT INR D-Dimer Sodium Potassium 3.2 L Chloride 94.2 L BUN 20 H Creatinine 0.6 L Glucose 118 H AST ALT NT-Pro-B Natriuret Pep Albumin Free T4 Urine WBC (Auto) 11.0 H 04/20/18 09:56 WBC Lymph % (Auto) [place] % (Auto) Lymph # [place] # Seg Neutrophils % Seg Neutrophils # PT INR D-Dimer Sodium Potassium 3.1 L Chloride 94.3 L BUN 27 H Creatinine Glucose 118 H AST ALT NT-Pro-B Natriuret Pep Albumin Free T4 Urine WBC (Auto)
--- NOTE | 2018-04-21 10:23 | Progress Note ---
Assessment and Plan Cont present cardiac management. Replete K+. Follow pulmonary recs. The patient has been seen in conjunction with Dr. Rojas who agrees with the assessment and plan of care. - Patient Problems (1) Acute heart failure with preserved ejection fraction Current Visit: Yes Status: Acute (2) Acute respiratory failure Current Visit: Yes Status: Acute (3) Pneumonia Current Visit: Yes Status: Acute (4) Elevated d-dimer Current Visit: Yes Status: Acute (5) HTN (hypertension) Current Visit: Yes Status: Chronic (6) Persistent atrial fibrillation Current Visit: Yes Status: Chronic Subjective Date of service: 04/21/18 Principal diagnosis: PNA Interval history: pt resting in bed, states she is feeling a little better today, was on BiPAP overnight. tele reviewed - in AFib with HR 90s. Objective Last Vital Signs Temp 98.2 F 04/21/18 00:15 Pulse 107 H 04/21/18 04:00 Resp 17 04/21/18 00:15 BP 105/59 04/21/18 01:53 Pulse Ox 93 04/21/18 00:15 - Physical Examination General: Other (SOB) HEENT: Positive: PERRL, Normocephaly, Mucus Membranes Moist Neck: Positive: neck supple, trachea midline Cardiac: Positive: irregularly irregular, S1/S2 Lungs: Positive: Decreased Breath Sounds, Rhonchi Neuro: Positive: Grossly Intact Abdomen: Positive: Soft. Negative: Tender Skin: Negative: Rash, Wound Musculoskeletal: No Pain Extremities: Absent: edema - Labs and Meds Comprehensive Metabolic Panel 04/20/18 Range/Units 09:56 Sodium 140 (137-145) mmol/L Potassium 3.1 L (3.6-5.0) mmol/L Chloride 94.3 L (98-107) mmol/L Carbon Dioxide 30 (22-30) mmol/L BUN 27 H (7-17) mg/dL Creatinine 0.7 (0.7-1.2) mg/dL Glucose 118 H (65-100) mg/dL Calcium 8.5 (8.4-10.2) mg/dL - Imaging and Cardiology EKG: report reviewed, image reviewed Echo: report reviewed (04/14/2018 which showed EF 60-65%, mild to mod RV hypokinesis, LA enlarged, mild MR, mod TR, RVSP 63mmHg, trace pericardial effusion.)
[2018-04-21] MEDS: VITAMIN D3 PO SCH (10:43)
[2018-04-21] MEDS: ELIQUIS PO SCH ×2 (10:43→21:53)
[2018-04-21] MEDS: ZOLOFT PO SCH (10:44)
[2018-04-21] MEDS: HALFPRIN EC PO SCH (10:44)
[2018-04-21] MEDS: COZAAR PO SCH (10:45)
--- NOTE | 2018-04-21 11:40 | XRay Report ---
PORTABLE CHEST INDICATION: Shortness of breath. COMPARISON: Recent CT and CXR. FINDINGS: Portable, frontal chest radiograph again demonstrates diffuse bilateral pulmonary interstitial infiltrates, again left greater than right. No significant pleural effusions or definite cephalization again suspected. Right hemidiaphragm again approximately 5 cm higher than the left. Grossly stable cardiomediastinal silhouette with exaggerated/enlarged bilateral ghanshyam. EKG leads. Stable demineralized bones with spinal spondylosis/lower thoracic-lumbar levoscoliosis. Cholecystectomy clips. CONCLUSION: Diffuse bilateral pulmonary infiltrates again noted with few other findings, as above. Thank you for the opportunity to participate in this patient's care.
[2018-04-21] MEDS ORDERED: K-DUR PO ONE ×2 (12:00→16:00)
--- NOTE | 2018-04-21 12:16 | Progress Note ---
Assessment and Plan Assessment and plan: Patient is a 77 yo woman with a history of HTN, Atrial Fib on Therapeutic Anticoagulation (Eliquis), Hypothyroidism, HTN, HLD, Migraine SAAVEDRA, OA and Anxiety/depression who presented to [facility] ED with SOB without chest pains. Pt also complains of itchy red spots on her arms since beginning Eliquis for new on set Afib. She was started on Prednisone and benadryl by PCP. She just stopped the Predisone, couple days prior to arrival * pCXR CONCLUSION: 1. Diffuse bilateral pulmonary infiltrates, possibly edema, infection or inflammation, amongst others, though exact etiology or chronicity uncertain on this exam alone. 2. Few other findings, as above. Please also correlate clinically and with prior chest imaging, if available. * V/Q lung scan: Intermediate prob for PE -Acute combined heart failure suspected: 2d ECHO done recently in Cardiology's office, treat with IV lasix, Cardiology -Acute hypoxic respiratory failure due to CHF exacerbation: treat with O2, careful with albuterol nebs due to the tachycardia -SIRS with organ dysfunction due to the above, the leukocytosis explained by the Prednisone. CXR and PE more pulmonary edema than sepsis PNA: continue empiric ABX just in case -Afib with RVR: continue Eliqius, await Cardiology evaluation, continue Propanolol which patient has been on prior to afib diagnosis per patient -Anxiety disorder: give xanax x 1 and restart home zoloft -Hypothyroidism: continue Synthyroid -Elevated D-Dimer with Intermediate probability of PE on V/Q with low pre-test and abnormal CXR: on Eliquis already but unlikely PE History Interval history: Patient was seen and examined twice today, met at bedside. Follow-up on current diagnosis of sob. Overnight uneventful. Patient denies any chest pain, nausea/vomiting or severe headaches. Imaging, nursing note, chart, labs and old chart reviewed. Discussed with patient. Patient was on 100% O2 NRB mask==>she was tiring out so BIPAP started and she feels much better. Hospitalist Physical - Physical exam Narrative exam: Gen: illappearing, moderate increase in accessory muscle, Awake, Alert, Orientated x 3 HEENT: NCAT, EOMI, PERRL, OP Clear Neck: supple, no adenopathy, no thyromegaly, +JVD CVS/Heart: irregular irregular, normal S1S2, pulses present bilaterally Chest/Lungs: wet bibasilar crackles, Symmetrical chest expansion, good air entry bilaterally GI/Abdomen: soft, NTND, good bowel sounds, no guarding or rebound /Bladder: no suprapubic tenderness, no CVA or paraspinal tenderness Extermity/Skin: no c/c/e, obvious petechiea/ecchymosis rash bilateral arms MSK: FROM x 4 Neuro: CN 2-12 grossly intact, no new focal deficits Psych: anxious - Constitutional Vitals: Temp Pulse Resp BP Pulse Ox 98.2 F 107 H 17 111/64 93 04/21/18 00:15 04/21/18 04:00 04/21/18 00:15 04/21/18 10:45 04/21/18 00:15 General appearance: Present: well-nourished Results - Labs CBC & Chem 7: 04/18/18 05:12 04/20/18 09:56 Labs: Laboratory Last Values WBC 17.8 K/mm3 (4.5-11.0) H 04/18/18 05:12 RBC 3.88 M/mm3 (3.65-5.03) 04/18/18 05:12 Hgb 11.5 gm/dl (10.1-14.3) 04/18/18 05:12 Hct 34.8 % (30.3-42.9) 04/18/18 05:12 MCV 90 fl (79-97) 04/18/18 05:12 MCH 30 pg (28-32) 04/18/18 05:12 MCHC 33 % (30-34) 04/18/18 05:12 RDW 13.9 % (13.2-15.2) 04/18/18 05:12 Plt Count 316 K/mm3 (140-440) 04/18/18 05:12 Lymph % (Auto) 5.1 % (13.4-35.0) L 04/18/18 05:12 [place] % (Auto) 8.0 % (0.0-7.3) H 04/18/18 05:12 Eos % (Auto) 0.1 % (0.0-4.3) 04/18/18 05:12 Baso % (Auto) 0.2 % (0.0-1.8) 04/18/18 05:12 Lymph # 0.9 K/mm3 (1.2-5.4) L 04/18/18 05:12 [place] # 1.4 K/mm3 (0.0-0.8) H 04/18/18 05:12 Eos # 0.0 K/mm3 (0.0-0.4) 04/18/18 05:12 Baso # 0.0 K/mm3 (0.0-0.1) 04/18/18 05:12 Seg Neutrophils % 86.6 % (40.0-70.0) H 04/18/18 05:12 Seg Neutrophils # 15.4 K/mm3 (1.8-7.7) H 04/18/18 05:12 PT 18.3 Sec. (12.2-14.9) H 04/17/18 12:48 INR 1.48 (0.87-1.13) H 04/17/18 12:48 APTT 27.2 Sec. (24.2-36.6) 04/17/18 12:48 D-Dimer 1975 ng/mlDDU (0-234) H 04/17/18 12:38 POC ABG pH 7.384 (7.35-7.45) 04/17/18 13:36 POC ABG pCO2 40.2 (35-45) 04/17/18 13:36 POC ABG pO2 82 (80-105) 04/17/18 13:36 POC ABG HCO3 24.0 04/17/18 13:36 POC ABG Total CO2 25 04/17/18 13:36 POC ABG O2 Sat 96 04/17/18 13:36 POC ABG Base Excess -1 04/17/18 13:36 FiO2 100 % 04/17/18 13:36 Sodium 140 mmol/L (137-145) 04/20/18 09:56 Potassium 3.1 mmol/L (3.6-5.0) L 04/20/18 09:56 Chloride 94.3 mmol/L (98-107) L 04/20/18 09:56 Carbon Dioxide 30 mmol/L (22-30) 04/20/18 09:56 Anion Gap 19 mmol/L 04/20/18 09:56 BUN 27 mg/dL (7-17) H 04/20/18 09:56 Creatinine 0.7 mg/dL (0.7-1.2) 04/20/18 09:56 Estimated GFR > 60 ml/min 04/20/18 09:56 BUN/Creatinine Ratio 39 % 04/20/18 09:56 Glucose 118 mg/dL (65-100) H 04/20/18 09:56 Lactic Acid 1.20 mmol/L (0.7-2.0) 04/17/18 21:34 Calcium 8.5 mg/dL (8.4-10.2) 04/20/18 09:56 Total Bilirubin 1.10 mg/dL (0.1-1.2) 04/17/18 12:48 AST 121 units/L (5-40) H 04/17/18 12:48 ALT 110 units/L (7-56) H 04/17/18 12:48 Alkaline Phosphatase 120 units/L (35-129) 04/17/18 12:48 Total Creatine Kinase 51 units/L (30-135) 04/17/18 12:48 CK-MB (CK-2) 1.8 ng/mL (0.0-4.0) 04/17/18 12:48 CK-MB (CK-2) Rel Index 3.5 (0-4) 04/17/18 12:48 Troponin T < 0.010 ng/mL (0.00-0.029) 04/17/18 12:48 NT-Pro-B Natriuret Pep 6653 pg/mL (0-900) H 04/17/18 12:48 Total Protein 7.6 g/dL (6.3-8.2) 04/17/18 12:48 Albumin 3.4 g/dL (3.9-5) L 04/17/18 12:48 Albumin/Globulin Ratio 0.8 % 04/17/18 12:48 Triglycerides 89 mg/dL (2-149) 04/17/18 16:11 Cholesterol 109 mg/dL (50-199) 04/17/18 16:11 LDL Cholesterol Direct 60 mg/dL (50-130) 04/17/18 16:11 HDL Cholesterol 41 mg/dL (40-59) 04/17/18 16:11 Cholesterol/HDL Ratio 2.65 % 04/17/18 16:11 TSH 2.320 mlU/mL (0.270-4.200) 04/17/18 16:11 Free T4 1.67 ng/dL (0.76-1.46) H 04/17/18 16:11 Urine Color Yellow (Yellow) 04/17/18 Unknown Urine Turbidity Clear (Clear) 04/17/18 Unknown Urine pH 5.0 (5.0-7.0) 04/17/18 Unknown Ur Specific [place] 1.005 (1.003-1.030) 04/17/18 Unknown Urine Protein <15 mg/dl mg/dL (Negative) 04/17/18 Unknown Urine Glucose (UA) Neg mg/dL (Negative) 04/17/18 Unknown Urine Ketones Neg mg/dL (Negative) 04/17/18 Unknown Urine Blood Mod (Negative) 04/17/18 Unknown Urine Nitrite Neg (Negative) 04/17/18 Unknown Urine Bilirubin Neg (Negative) 04/17/18 Unknown Urine Urobilinogen < 2.0 mg/dL (<2.0) 04/17/18 Unknown Ur Leukocyte Esterase Neg (Negative) 04/17/18 Unknown Urine WBC (Auto) 11.0 /HPF (0.0-6.0) H 04/17/18 Unknown Urine RBC (Auto) 3.0 /HPF (0.0-6.0) 04/17/18 Unknown U Epithel Cells (Auto) 2.0 /HPF (0-13.0) 04/17/18 Unknown Urine Mucus Few /HPF 04/17/18 Unknown
[2018-04-21] MEDS: ROCEPHIN/NS 2 GM/100 ML 2 GM/100 ML BAG IV SCH (21:52)
[2018-04-21] MEDS: PRAVACHOL PO SCH (21:53)
[2018-04-21] MEDS: SODIUM CHLORIDE FLUSH SYRINGE 10 ML IV SCH ×2 (21:53→23:44)
[2018-04-21] MEDS: ZITHROMAX PO SCH (22:05)
[2018-04-22] MEDS: SOLU-Medrol IV SCH ×5 (00:09→23:35)
[2018-04-22] MEDS: LOPRESSOR PO SCH ×5 (00:09→23:35)
[2018-04-22] MEDS ORDERED: BENADRYL IV ONE (01:18)
[2018-04-22 05:57] LABS: BUN/Creatinine Ratio 51; Blood Urea Nitrogen 36 mg/dL (7-17); Calcium 8.9 mg/dL (8.4-10.2); Hemolysis Index 84
[2018-04-22] MEDS: SYNTHROID PO SCH (06:00)
[2018-04-22] MEDS: LASIX IV SCH ×2 (06:00→18:13)
--- NOTE | 2018-04-22 10:47 | Progress Note ---
Assessment and Plan The pt is a 77 YO female with a past medical history of atrial fibrillation, HTN, HLP, hypothyroidism. She is followed in our office by Dr. Green.She presented with complaints of SOB, RODRIGEZ, orthopnea, nonproductive cough, subjective fever and chills for the past several weeks. Her states her symptoms began shortly following [place]. She denies any chest pain, palpitations, n/v, diaphoresis, dizziness or syncope. She underwent echo in our office on 04/14/2018 which showed EF 60-65%, mild to mod RV hypokinesis, LA enlarged, mild MR, mod TR, RVSP 63mmHg, trace pericardial effusion. Lexiscan MPI stress test done 04/14/2018 was negative. Considering skin rash,will change Eliquis to pradaxa. - Patient Problems (1) Acute heart failure with preserved ejection fraction Current Visit: Yes Status: Acute (2) Acute respiratory failure Current Visit: Yes Status: Acute (3) Atrial fibrillation Current Visit: Yes Status: Chronic Qualifiers: Atrial fibrillation type: persistent Qualified Code(s): I48.1 - Persistent atrial fibrillation (4) HTN (hypertension) Current Visit: Yes Status: Chronic (5) Persistent atrial fibrillation Current Visit: Yes Status: Chronic Subjective Date of service: 04/22/18 Principal diagnosis: PNA Interval history: Patient developed generalized itching and rash all over body,witnessed by RN ,requiring Benadryl,better now.Patient thinks this is from Eliquis.Eliquis was started 1 week ago.Patient still is SOB at rest.Monitor showes atrial fib with slightly increased VR. Objective Vital Signs Temp Pulse Resp BP BP Pulse Ox 04/22/18 08:27 98.0 F 94 H 24 131/78 93 04/22/18 06:00 116 H 150/64 04/22/18 04:34 97.9 F 116 H 20 150/64 88 04/22/18 04:00 91 04/22/18 00:09 99 H 115/82 04/21/18 22:56 97.2 F L 99 H 16 115/82 84 04/21/18 22:00 22 04/21/18 19:56 99 H 04/21/18 19:31 94 04/21/18 19:20 98.2 F 101 H 20 112/62 86 04/21/18 18:29 76 26 H 115/65 94 04/21/18 16:38 101 H 04/21/18 10:45 111/64 - Physical Examination Narrative exam: Short of breath at rest. General: Other (SOB) HEENT: Positive: PERRL, Normocephaly, Mucus Membranes Moist Neck: Positive: neck supple, trachea midline Cardiac: Positive: irregularly irregular Neuro: Positive: Grossly Intact Abdomen: Positive: Soft. Negative: Tender Skin: Negative: Rash, Wound Musculoskeletal: No Pain Extremities: Absent: edema - Labs and Meds Comprehensive Metabolic Panel 04/22/18 Range/Units 04:55 Sodium 137 (137-145) mmol/L Potassium 4.6 D (3.6-5.0) mmol/L Chloride 94.1 L (98-107) mmol/L Carbon Dioxide 29 (22-30) mmol/L BUN 36 H (7-17) mg/dL Creatinine 0.7 (0.7-1.2) mg/dL Glucose 157 H (65-100) mg/dL Calcium 8.9 (8.4-10.2) mg/dL - Imaging and Cardiology EKG: report reviewed, image reviewed Echo: report reviewed (04/14/2018 which showed EF 60-65%, mild to mod RV hypokinesis, LA enlarged, mild MR, mod TR, RVSP 63mmHg, trace pericardial effusion.) - EKG Supraventricular dysrhythmia: atrial fibrillation
[2018-04-22] MEDS: VITAMIN D3 PO SCH (11:30)
[2018-04-22] MEDS: ZOLOFT PO SCH (11:30)
[2018-04-22] MEDS: COZAAR PO SCH (11:30)
[2018-04-22] MEDS: HALFPRIN EC PO SCH (11:34)
--- NOTE | 2018-04-22 12:52 | Progress Note ---
Assessment and Plan 77 y/o female with acute respiratory failure secondary to abnormal CXR and CT scan, exact etiology unknown 1. Continue solumedrol at [address] on Tuesday, I will review and discuss with daughter and primary team myself. 3. If O2 requirement decreases over the weekend, will need bronch with TBBx for definitive diagnosis 4. Would continue Abx therapy for now just case. 5. If CT shows improvement, will likely need to hold eliquis at the beginning of the week in preparation for biopsy. 6. Called daughter and discussed current findings and plan with her. Overall prognosis is guarded. Subjective Date of service: 04/22/18 Principal diagnosis: PNA Interval history: Improving. Still on NRB but did not have to wear bipap last night. Lungs sounds are more quiet this am. WOB is less. at bedside. Tolerating increase in steorids without any issues. Objective Vital Signs - 12hr 04/22/18 04/22/18 04/22/18 04:00 04:34 06:00 Temperature 97.9 F Pulse Rate 116 H 116 H Respiratory 20 Rate Blood Pressure 150/64 150/64 O2 Sat by Pulse 91 88 Oximetry 04/22/18 04/22/18 08:27 12:24 Temperature 98.0 F 97.8 F Pulse Rate 94 H 114 H Respiratory 24 36 H Rate Blood Pressure 131/78 122/77 O2 Sat by Pulse 93 90 Oximetry Constitutional: no acute distress, alert, appears uncomfortable Eyes: non-icteric ENT: oropharynx moist Effort: mildly labored Ascultation: Bilateral: wheezes Percussion: Bilateral: not dull Cardiovascular: irregular rhythm Gastrointestinal: normoactive bowel sounds CBC and BMP: 04/18/18 05:12 04/22/18 04:55 ABG, PT/INR, D-dimer: ABG POC ABG pH 7.384 (7.35-7.45) 04/17/18 13:36 POC ABG pCO2 40.2 (35-45) 04/17/18 13:36 POC ABG pO2 82 (80-105) 04/17/18 13:36 POC ABG HCO3 24.0 04/17/18 13:36 POC ABG Total CO2 25 04/17/18 13:36 POC ABG O2 Sat 96 04/17/18 13:36 PT/INR, D-dimer PT 18.3 Sec. (12.2-14.9) H 04/17/18 12:48 INR 1.48 (0.87-1.13) H 04/17/18 12:48 D-Dimer 1975 ng/mlDDU (0-234) H 04/17/18 12:38 Abnormal lab findings: Abnormal Labs 04/17/18 04/17/18 04/17/18 12:38 12:48 12:48 WBC 18.0 H Lymph % (Auto) 6.5 L [place] % (Auto) 10.0 H Lymph # [place] # 1.8 H Seg Neutrophils % 83.2 H Seg Neutrophils # 15.0 H PT 18.3 H INR 1.48 H D-Dimer 1975 H Sodium Potassium Chloride BUN Creatinine Glucose AST ALT NT-Pro-B Natriuret Pep Albumin Free T4 Urine WBC (Auto) 04/17/18 04/17/18 04/17/18 12:48 12:48 16:11 WBC Lymph % (Auto) [place] % (Auto) Lymph # [place] # Seg Neutrophils % Seg Neutrophils # PT INR D-Dimer Sodium 136 L Potassium Chloride BUN Creatinine 0.6 L Glucose 127 H AST 121 H ALT 110 H NT-Pro-B Natriuret Pep 6653 H Albumin 3.4 L Free T4 1.67 H Urine WBC (Auto) 04/17/18 04/18/18 04/19/18 Unknown 05:12 05:02 WBC 17.8 H Lymph % (Auto) 5.1 L [place] % (Auto) 8.0 H Lymph # 0.9 L [place] # 1.4 H Seg Neutrophils % 86.6 H Seg Neutrophils # 15.4 H PT INR D-Dimer Sodium Potassium 3.2 L Chloride 94.2 L BUN 20 H Creatinine 0.6 L Glucose 118 H AST ALT NT-Pro-B Natriuret Pep Albumin Free T4 Urine WBC (Auto) 11.0 H 04/20/18 04/22/18 09:56 04:55 WBC Lymph % (Auto) [place] % (Auto) Lymph # [place] # Seg Neutrophils % Seg Neutrophils # PT INR D-Dimer Sodium Potassium 3.1 L Chloride 94.3 L 94.1 L BUN 27 H 36 H Creatinine Glucose 118 H 157 H AST ALT NT-Pro-B Natriuret Pep Albumin Free T4 Urine WBC (Auto)
--- NOTE | 2018-04-22 12:57 | Progress Note ---
Assessment and Plan Assessment and plan: Patient is a 77 yo woman with a history of HTN, Atrial Fib on Therapeutic Anticoagulation (Eliquis), Hypothyroidism, HTN, HLD, Migraine SAAVEDRA, OA and Anxiety/depression who presented to [facility] ED with SOB without chest pains. Pt also complains of itchy red spots on her arms since beginning Eliquis for new on set Afib. She was started on Prednisone and benadryl by PCP. She just stopped the Predisone, couple days prior to arrival * pCXR CONCLUSION: 1. Diffuse bilateral pulmonary infiltrates, possibly edema, infection or inflammation, amongst others, though exact etiology or chronicity uncertain on this exam alone. 2. Few other findings, as above. Please also correlate clinically and with prior chest imaging, if available. * V/Q lung scan: Intermediate prob for PE -Acute combined heart failure suspected: 2d ECHO done recently in Cardiology's office, treat with IV lasix, Cardiology -Acute hypoxic respiratory failure due to CHF exacerbation: treat with O2, careful with albuterol nebs due to the tachycardia -SIRS with organ dysfunction due to the above, the leukocytosis explained by the Prednisone. CXR and PE more pulmonary edema than sepsis PNA: continue empiric ABX just in case -Afib with RVR: continue Eliqius, await Cardiology evaluation, continue Propanolol which patient has been on prior to afib diagnosis per patient -Anxiety disorder: give xanax x 1 and restart home zoloft -Hypothyroidism: continue Synthyroid -Elevated D-Dimer with Intermediate probability of PE on V/Q with low pre-test and abnormal CXR and CTA chest negative for PE ?rash with Eliquis, changed to pradaxa History Interval history: Patient was seen and examined twice today, met at bedside. Follow-up on current diagnosis of sob. Overnight uneventful. Patient denies any chest pain, nausea/vomiting or severe headaches. Imaging, nursing note, chart, labs and old chart reviewed. Discussed with patient. Patient was on 100% O2 NRB mask==>she was tiring out so BIPAP started and she feels much better. Hospitalist Physical - Physical exam Narrative exam: Gen: illappearing, moderate increase in accessory muscle, Awake, Alert, Orientated x 3 HEENT: NCAT, EOMI, PERRL, OP Clear Neck: supple, no adenopathy, no thyromegaly, +JVD CVS/Heart: irregular irregular, normal S1S2, pulses present bilaterally Chest/Lungs: wet bibasilar crackles, Symmetrical chest expansion, good air entry bilaterally GI/Abdomen: soft, NTND, good bowel sounds, no guarding or rebound /Bladder: no suprapubic tenderness, no CVA or paraspinal tenderness Extermity/Skin: no c/c/e, obvious petechiea/ecchymosis rash bilateral arms MSK: FROM x 4 Neuro: CN 2-12 grossly intact, no new focal deficits Psych: anxious - Constitutional Vitals: Temp Pulse Resp BP Pulse Ox 97.8 F 114 H 36 H 122/77 90 04/22/18 12:24 04/22/18 12:24 04/22/18 12:24 04/22/18 12:24 04/22/18 12:24 General appearance: Present: well-nourished Results - Labs CBC & Chem 7: 04/18/18 05:12 04/22/18 04:55 Labs: Laboratory Last Values WBC 17.8 K/mm3 (4.5-11.0) H 04/18/18 05:12 RBC 3.88 M/mm3 (3.65-5.03) 04/18/18 05:12 Hgb 11.5 gm/dl (10.1-14.3) 04/18/18 05:12 Hct 34.8 % (30.3-42.9) 04/18/18 05:12 MCV 90 fl (79-97) 04/18/18 05:12 MCH 30 pg (28-32) 04/18/18 05:12 MCHC 33 % (30-34) 04/18/18 05:12 RDW 13.9 % (13.2-15.2) 04/18/18 05:12 Plt Count 316 K/mm3 (140-440) 04/18/18 05:12 Lymph % (Auto) 5.1 % (13.4-35.0) L 04/18/18 05:12 [place] % (Auto) 8.0 % (0.0-7.3) H 04/18/18 05:12 Eos % (Auto) 0.1 % (0.0-4.3) 04/18/18 05:12 Baso % (Auto) 0.2 % (0.0-1.8) 04/18/18 05:12 Lymph # 0.9 K/mm3 (1.2-5.4) L 04/18/18 05:12 [place] # 1.4 K/mm3 (0.0-0.8) H 04/18/18 05:12 Eos # 0.0 K/mm3 (0.0-0.4) 04/18/18 05:12 Baso # 0.0 K/mm3 (0.0-0.1) 04/18/18 05:12 Seg Neutrophils % 86.6 % (40.0-70.0) H 04/18/18 05:12 Seg Neutrophils # 15.4 K/mm3 (1.8-7.7) H 04/18/18 05:12 PT 18.3 Sec. (12.2-14.9) H 04/17/18 12:48 INR 1.48 (0.87-1.13) H 04/17/18 12:48 APTT 27.2 Sec. (24.2-36.6) 04/17/18 12:48 D-Dimer 1975 ng/mlDDU (0-234) H 04/17/18 12:38 POC ABG pH 7.384 (7.35-7.45) 04/17/18 13:36 POC ABG pCO2 40.2 (35-45) 04/17/18 13:36 POC ABG pO2 82 (80-105) 04/17/18 13:36 POC ABG HCO3 24.0 04/17/18 13:36 POC ABG Total CO2 25 04/17/18 13:36 POC ABG O2 Sat 96 04/17/18 13:36 POC ABG Base Excess -1 04/17/18 13:36 FiO2 100 % 04/17/18 13:36 Sodium 137 mmol/L (137-145) 04/22/18 04:55 Potassium 4.6 mmol/L (3.6-5.0) D 04/22/18 04:55 Chloride 94.1 mmol/L (98-107) L 04/22/18 04:55 Carbon Dioxide 29 mmol/L (22-30) 04/22/18 04:55 Anion Gap 19 mmol/L 04/22/18 04:55 BUN 36 mg/dL (7-17) H 04/22/18 04:55 Creatinine 0.7 mg/dL (0.7-1.2) 04/22/18 04:55 Estimated GFR > 60 ml/min 04/22/18 04:55 BUN/Creatinine Ratio 51 % 04/22/18 04:55 Glucose 157 mg/dL (65-100) H 04/22/18 04:55 Lactic Acid 1.20 mmol/L (0.7-2.0) 04/17/18 21:34 Calcium 8.9 mg/dL (8.4-10.2) 04/22/18 04:55 Magnesium 2.10 mg/dL (1.7-2.3) 04/22/18 04:55 Total Bilirubin 1.10 mg/dL (0.1-1.2) 04/17/18 12:48 AST 121 units/L (5-40) H 04/17/18 12:48 ALT 110 units/L (7-56) H 04/17/18 12:48 Alkaline Phosphatase 120 units/L (35-129) 04/17/18 12:48 Total Creatine Kinase 51 units/L (30-135) 04/17/18 12:48 CK-MB (CK-2) 1.8 ng/mL (0.0-4.0) 04/17/18 12:48 CK-MB (CK-2) Rel Index 3.5 (0-4) 04/17/18 12:48 Troponin T < 0.010 ng/mL (0.00-0.029) 04/17/18 12:48 NT-Pro-B Natriuret Pep 6653 pg/mL (0-900) H 04/17/18 12:48 Total Protein 7.6 g/dL (6.3-8.2) 04/17/18 12:48 Albumin 3.4 g/dL (3.9-5) L 04/17/18 12:48 Albumin/Globulin Ratio 0.8 % 04/17/18 12:48 Triglycerides 89 mg/dL (2-149) 04/17/18 16:11 Cholesterol 109 mg/dL (50-199) 04/17/18 16:11 LDL Cholesterol Direct 60 mg/dL (50-130) 04/17/18 16:11 HDL Cholesterol 41 mg/dL (40-59) 04/17/18 16:11 Cholesterol/HDL Ratio 2.65 % 04/17/18 16:11 TSH 2.320 mlU/mL (0.270-4.200) 04/17/18 16:11 Free T4 1.67 ng/dL (0.76-1.46) H 04/17/18 16:11 Urine Color Yellow (Yellow) 04/17/18 Unknown Urine Turbidity Clear (Clear) 04/17/18 Unknown Urine pH 5.0 (5.0-7.0) 04/17/18 Unknown Ur Specific [place] 1.005 (1.003-1.030) 04/17/18 Unknown Urine Protein <15 mg/dl mg/dL (Negative) 04/17/18 Unknown Urine Glucose (UA) Neg mg/dL (Negative) 04/17/18 Unknown Urine Ketones Neg mg/dL (Negative) 04/17/18 Unknown Urine Blood Mod (Negative) 04/17/18 Unknown Urine Nitrite Neg (Negative) 04/17/18 Unknown Urine Bilirubin Neg (Negative) 04/17/18 Unknown Urine Urobilinogen < 2.0 mg/dL (<2.0) 04/17/18 Unknown Ur Leukocyte Esterase Neg (Negative) 04/17/18 Unknown Urine WBC (Auto) 11.0 /HPF (0.0-6.0) H 04/17/18 Unknown Urine RBC (Auto) 3.0 /HPF (0.0-6.0) 04/17/18 Unknown U Epithel Cells (Auto) 2.0 /HPF (0-13.0) 04/17/18 Unknown Urine Mucus Few /HPF 04/17/18 Unknown
[2018-04-22] MEDS: TYLENOL PO PRN (15:52)
[2018-04-22] MEDS: ATIVAN PO PRN (16:32)
[2018-04-22] MEDS: SODIUM CHLORIDE FLUSH SYRINGE 10 ML IV SCH ×2 (16:36→21:54)
[2018-04-22] MEDS: ROCEPHIN/NS 2 GM/100 ML 2 GM/100 ML BAG IV SCH (21:53)
[2018-04-22] MEDS: PRADAXA PO SCH (21:53)
[2018-04-22] MEDS: ZITHROMAX PO SCH (21:54)
[2018-04-22] MEDS: PRAVACHOL PO SCH (21:54)
[2018-04-23] MEDS: ATIVAN PO PRN ×3 (01:54→13:59)
[2018-04-23] MEDS: SOLU-Medrol IV SCH ×4 (05:22→23:46)
[2018-04-23] MEDS: LOPRESSOR PO SCH ×2 (05:22→19:28)
[2018-04-23] MEDS: SYNTHROID PO SCH (05:23)
[2018-04-23] MEDS: LASIX IV SCH ×2 (05:23→19:27)
[2018-04-23] MEDS: COZAAR PO SCH (09:49)
[2018-04-23] MEDS: HALFPRIN EC PO SCH (13:48)
[2018-04-23] MEDS: FLEXERIL PO PRN ×2 (13:49→21:56)
[2018-04-23] MEDS: ZOLOFT PO SCH (13:49)
[2018-04-23] MEDS: PRADAXA PO SCH ×2 (13:51→21:56)
[2018-04-23] MEDS: VITAMIN D3 PO SCH (13:52)
[2018-04-23] MEDS: SODIUM CHLORIDE FLUSH SYRINGE 10 ML IV SCH ×2 (13:52→21:57)
--- NOTE | 2018-04-23 14:27 | Progress Note ---
Assessment and Plan 77 y/o female with acute respiratory failure secondary to abnormal CXR and CT scan, exact etiology unknown 1. Stat ABG 2. Pending results of this: will either place on bipap therapy and monitor Place on bipap therapy and transfer Hold on bipap and consider reversal agent 3. CT scan of chest pending Overall prognosis is guarded. Subjective Date of service: 04/23/18 Principal diagnosis: PNA Interval history: Clinically patient does not look better today. Mental status is worse. agrees who is at the bedside. Still on NRB with sats in the low 90's. Did not wear bipap last night. No fever. Objective Vital Signs - 12hr 04/23/18 04/23/18 04/23/18 04:08 04:09 05:22 Temperature 98.5 F Pulse Rate 99 H 102 H 112 H Respiratory 21 Rate Blood Pressure 132/76 132/76 O2 Sat by Pulse 91 Oximetry 04/23/18 04/23/18 09:49 10:00 Temperature Pulse Rate 104 H Respiratory Rate Blood Pressure 106/61 O2 Sat by Pulse 93 Oximetry Constitutional: lethargic, appears uncomfortable Eyes: non-icteric ENT: oropharynx moist Neck: supple Effort: mildly labored Ascultation: Bilateral: wheezes Percussion: Bilateral: not dull Cardiovascular: irregular rhythm Gastrointestinal: normoactive bowel sounds CBC and BMP: 04/18/18 05:12 04/22/18 04:55 ABG, PT/INR, D-dimer: ABG POC ABG pH 7.384 (7.35-7.45) 04/17/18 13:36 POC ABG pCO2 40.2 (35-45) 04/17/18 13:36 POC ABG pO2 82 (80-105) 04/17/18 13:36 POC ABG HCO3 24.0 04/17/18 13:36 POC ABG Total CO2 25 04/17/18 13:36 POC ABG O2 Sat 96 04/17/18 13:36 PT/INR, D-dimer PT 18.3 Sec. (12.2-14.9) H 04/17/18 12:48 INR 1.48 (0.87-1.13) H 04/17/18 12:48 D-Dimer 1975 ng/mlDDU (0-234) H 04/17/18 12:38 Abnormal lab findings: Abnormal Labs 04/17/18 04/17/18 04/17/18 12:38 12:48 12:48 WBC 18.0 H Lymph % (Auto) 6.5 L [place] % (Auto) 10.0 H Lymph # [place] # 1.8 H Seg Neutrophils % 83.2 H Seg Neutrophils # 15.0 H PT 18.3 H INR 1.48 H D-Dimer 1975 H Sodium Potassium Chloride BUN Creatinine Glucose AST ALT NT-Pro-B Natriuret Pep Albumin Free T4 Urine WBC (Auto) 04/17/18 04/17/18 04/17/18 12:48 12:48 16:11 WBC Lymph % (Auto) [place] % (Auto) Lymph # [place] # Seg Neutrophils % Seg Neutrophils # PT INR D-Dimer Sodium 136 L Potassium Chloride BUN Creatinine 0.6 L Glucose 127 H AST 121 H ALT 110 H NT-Pro-B Natriuret Pep 6653 H Albumin 3.4 L Free T4 1.67 H Urine WBC (Auto) 04/17/18 04/18/18 04/19/18 Unknown 05:12 05:02 WBC 17.8 H Lymph % (Auto) 5.1 L [place] % (Auto) 8.0 H Lymph # 0.9 L [place] # 1.4 H Seg Neutrophils % 86.6 H Seg Neutrophils # 15.4 H PT INR D-Dimer Sodium Potassium 3.2 L [place]lor[place] 94.2 L BUN 20 H Creatinine 0.6 L Glucose 118 H AST ALT NT-Pro-B Natriuret Pep Albumin Free T4 Urine WBC (Auto) 11.0 H 04/20/18 04/22/18 09:56 04:55 WBC Lymph % (Auto) [place] % (Auto) Lymph # [place] # Seg Neutrophils % Seg Neutrophils # PT INR D-Dimer Sodium Potassium 3.1 L Chloride 94.3 L 94.1 L BUN 27 H 36 H Creatinine Glucose 118 H 157 H AST ALT NT-Pro-B Natriuret Pep Albumin Free T4 Urine WBC (Auto)
--- NOTE | 2018-04-23 15:00 | Progress Note ---
Assessment and Plan Assessment and plan: Patient is a 77 yo woman with a history of HTN, Atrial Fib on Therapeutic Anticoagulation (Eliquis), Hypothyroidism, HTN, HLD, Migraine SAAVEDRA, OA and Anxiety/depression who presented to [facility] ED with SOB without chest pains. Pt also complains of itchy red spots on her arms since beginning Eliquis for new on set Afib. She was started on Prednisone and benadryl by PCP. She just stopped the Predisone, couple days prior to arrival * pCXR CONCLUSION: 1. Diffuse bilateral pulmonary infiltrates, possibly edema, infection or inflammation, amongst others, though exact etiology or chronicity uncertain on this exam alone. 2. Few other findings, as above. Please also correlate clinically and with prior chest imaging, if available. * V/Q lung scan: Intermediate prob for PE -Acute combined heart failure suspected: 2d ECHO done recently in Cardiology's office, treat with IV lasix, Cardiology -Acute hypoxic respiratory failure due to CHF exacerbation: treat with O2, careful with albuterol nebs due to the tachycardia -SIRS with organ dysfunction due to the above, the leukocytosis explained by the Prednisone. CXR and PE more pulmonary edema than sepsis PNA: continue empiric ABX just in case -Afib with RVR: continue Eliqius, await Cardiology evaluation, continue Propanolol which patient has been on prior to afib diagnosis per patient -Anxiety disorder: give xanax x 1 and restart home zoloft -Hypothyroidism: continue Synthyroid -Elevated D-Dimer with Intermediate probability of PE on V/Q with low pre-test and abnormal CXR and CTA chest negative for PE -Anxiety: given oral 0.5mg Ativan which helped her sleep last night but slightly confused this afternoon after another Ativan dose: d/c ativan, get ABG per Dr. Sibley ?rash with Eliquis, changed to pradaxa and no more itching or rash CT chest pending History Interval history: Patient was seen and examined twice today, met at bedside. Follow-up on current diagnosis of sob. Overnight uneventful. Patient denies any chest pain, nausea/vomiting or severe headaches. Imaging, nursing note, chart, labs and old chart reviewed. Discussed with patient. Patient was on 100% O2 NRB mask==>she was tiring out so BIPAP started and she feels much better. Hospitalist Physical - Physical exam Narrative exam: Gen: illappearing, increase in accessory muscle, Awake, Alert, Orientated x 3 HEENT: NCAT, EOMI, PERRL, OP Clear Neck: supple, no adenopathy, no thyromegaly, +JVD CVS/Heart: irregular irregular, normal S1S2, pulses present bilaterally Chest/Lungs: diminished bs bilaterally, Symmetrical chest expansion, good air entry bilaterally GI/Abdomen: soft, NTND, good bowel sounds, no guarding or rebound /Bladder: no suprapubic tenderness, no CVA or paraspinal tenderness Extermity/Skin: no c/c/e, obvious petechiea/ecchymosis rash bilateral arms MSK: FROM x 4 Neuro: CN 2-12 grossly intact, no new focal deficits Psych: anxious - Constitutional Vitals: Temp Pulse Resp BP Pulse Ox 98.5 F 104 H 21 106/61 93 04/23/18 04:09 04/23/18 09:49 04/23/18 04:09 04/23/18 09:49 04/23/18 10:00 General appearance: Present: well-nourished Results - Labs CBC & Chem 7: 04/18/18 05:12 04/22/18 04:55 Labs: Laboratory Last Values WBC 17.8 K/mm3 (4.5-11.0) H 04/18/18 05:12 RBC 3.88 M/mm3 (3.65-5.03) 04/18/18 05:12 Hgb 11.5 gm/dl (10.1-14.3) 04/18/18 05:12 Hct 34.8 % (30.3-42.9) 04/18/18 05:12 MCV 90 fl (79-97) 04/18/18 05:12 MCH 30 pg (28-32) 04/18/18 05:12 MCHC 33 % (30-34) 04/18/18 05:12 RDW 13.9 % (13.2-15.2) 04/18/18 05:12 Plt Count 316 K/mm3 (140-440) 04/18/18 05:12 Lymph % (Auto) 5.1 % (13.4-35.0) L 04/18/18 05:12 [place] % (Auto) 8.0 % (0.0-7.3) H 04/18/18 05:12 Eos % (Auto) 0.1 % (0.0-4.3) 04/18/18 05:12 Baso % (Auto) 0.2 % (0.0-1.8) 04/18/18 05:12 Lymph # 0.9 K/mm3 (1.2-5.4) L 04/18/18 05:12 [place] # 1.4 K/mm3 (0.0-0.8) H 04/18/18 05:12 Eos # 0.0 K/mm3 (0.0-0.4) 04/18/18 05:12 Baso # 0.0 K/mm3 (0.0-0.1) 04/18/18 05:12 Seg Neutrophils % 86.6 % (40.0-70.0) H 04/18/18 05:12 Seg Neutrophils # 15.4 K/mm3 (1.8-7.7) H 04/18/18 05:12 PT 18.3 Sec. (12.2-14.9) H 04/17/18 12:48 INR 1.48 (0.87-1.13) H 04/17/18 12:48 APTT 27.2 Sec. (24.2-36.6) 04/17/18 12:48 D-Dimer 1975 ng/mlDDU (0-234) H 04/17/18 12:38 POC ABG pH 7.384 (7.35-7.45) 04/17/18 13:36 POC ABG pCO2 40.2 (35-45) 04/17/18 13:36 POC ABG pO2 82 (80-105) 04/17/18 13:36 POC ABG HCO3 24.0 04/17/18 13:36 POC ABG Total CO2 25 04/17/18 13:36 POC ABG O2 Sat 96 04/17/18 13:36 POC ABG Base Excess -1 04/17/18 13:36 FiO2 100 % 04/17/18 13:36 Sodium 137 mmol/L (137-145) 04/22/18 04:55 Potassium 4.6 mmol/L (3.6-5.0) D 04/22/18 04:55 Chloride 94.1 mmol/L (98-107) L 04/22/18 04:55 Carbon Dioxide 29 mmol/L (22-30) 04/22/18 04:55 Anion Gap 19 mmol/L 04/22/18 04:55 BUN 36 mg/dL (7-17) H 04/22/18 04:55 Creatinine 0.7 mg/dL (0.7-1.2) 04/22/18 04:55 Estimated GFR > 60 ml/min 04/22/18 04:55 BUN/Creatinine Ratio 51 % 04/22/18 04:55 Glucose 157 mg/dL (65-100) H 04/22/18 04:55 Lactic Acid 1.20 mmol/L (0.7-2.0) 04/17/18 21:34 Calcium 8.9 mg/dL (8.4-10.2) 04/22/18 04:55 Magnesium 2.10 mg/dL (1.7-2.3) 04/22/18 04:55 Total Bilirubin 1.10 mg/dL (0.1-1.2) 04/17/18 12:48 AST 121 units/L (5-40) H 04/17/18 12:48 ALT 110 units/L (7-56) H 04/17/18 12:48 Alkaline Phosphatase 120 units/L (35-129) 04/17/18 12:48 Total Creatine Kinase 51 units/L (30-135) 04/17/18 12:48 CK-MB (CK-2) 1.8 ng/mL (0.0-4.0) 04/17/18 12:48 CK-MB (CK-2) Rel Index 3.5 (0-4) 04/17/18 12:48 Troponin T < 0.010 ng/mL (0.00-0.029) 04/17/18 12:48 NT-Pro-B Natriuret Pep 6653 pg/mL (0-900) H 04/17/18 12:48 Total Protein 7.6 g/dL (6.3-8.2) 04/17/18 12:48 Albumin 3.4 g/dL (3.9-5) L 04/17/18 12:48 Albumin/Globulin Ratio 0.8 % 04/17/18 12:48 Triglycerides 89 mg/dL (2-149) 04/17/18 16:11 Cholesterol 109 mg/dL (50-199) 04/17/18 16:11 LDL Cholesterol Direct 60 mg/dL (50-130) 04/17/18 16:11 HDL Cholesterol 41 mg/dL (40-59) 04/17/18 16:11 Cholesterol/HDL Ratio 2.65 % 04/17/18 16:11 TSH 2.320 mlU/mL (0.270-4.200) 04/17/18 16:11 Free T4 1.67 ng/dL (0.76-1.46) H 04/17/18 16:11 Urine Color Yellow (Yellow) 04/17/18 Unknown Urine Turbidity Clear (Clear) 04/17/18 Unknown Urine pH 5.0 (5.0-7.0) 04/17/18 Unknown Ur Specific [place] 1.005 (1.003-1.030) 04/17/18 Unknown Urine Protein <15 mg/dl mg/dL (Negative) 04/17/18 Unknown Urine Glucose (UA) Neg mg/dL (Negative) 04/17/18 Unknown Urine Ketones Neg mg/dL (Negative) 04/17/18 Unknown Urine Blood Mod (Negative) 04/17/18 Unknown Urine Nitrite Neg (Negative) 04/17/18 Unknown Urine Bilirubin Neg (Negative) 04/17/18 Unknown Urine Urobilinogen < 2.0 mg/dL (<2.0) 04/17/18 Unknown Ur Leukocyte Esterase Neg (Negative) 04/17/18 Unknown Urine WBC (Auto) 11.0 /HPF (0.0-6.0) H 04/17/18 Unknown Urine RBC (Auto) 3.0 /HPF (0.0-6.0) 04/17/18 Unknown U Epithel Cells (Auto) 2.0 /HPF (0-13.0) 04/17/18 Unknown Urine Mucus Few /HPF 04/17/18 Unknown
--- NOTE | 2018-04-23 15:05 | Progress Note ---
Assessment and Plan The pt is a 77 YO female with a past medical history of atrial fibrillation, HTN, HLP, hypothyroidism. She is followed in our office by Dr. Green.She presented with complaints of SOB, RODRIGEZ, orthopnea, nonproductive cough, subjective fever and chills for the past several weeks. Her states her symptoms began shortly following [place]. She denies any chest pain, palpitations, n/v, diaphoresis, dizziness or syncope. She underwent echo in our office on 04/14/2018 which showed EF 60-65%, mild to mod RV hypokinesis, LA enlarged, mild MR, mod TR, RVSP 63mmHg, trace pericardial effusion. Lexiscan MPI stress test done 04/14/2018 was negative. Considering skin rash,will change Eliquis to pradaxa. 04/23/2018> notes noted. On Metoprol now with farly well controlled VR,continue same.Able to tolerate Pradaxa well,continue same.Awaiting CT of chest today. - Patient Problems (1) Acute heart failure with preserved ejection fraction Current Visit: Yes Status: Acute (2) Acute respiratory failure Current Visit: Yes Status: Acute (3) Atrial fibrillation Current Visit: Yes Status: Chronic Qualifiers: Atrial fibrillation type: persistent Qualified Code(s): I48.1 - Persistent atrial fibrillation (4) HTN (hypertension) Current Visit: Yes Status: Chronic (5) Persistent atrial fibrillation Current Visit: Yes Status: Chronic Subjective Date of service: 04/23/18 Principal diagnosis: PNA Interval history: Patient developed generalized itching and rash all over body,witnessed by RN ,requiring Benadryl,better now.Patient thinks this is from Eliquis.Eliquis was started 1 week ago.Patient still is SOB at rest.Monitor showes atrial fib with slightly increased VR. 04/23/2018>Patient's skin rash improved,SOB some better,telemetry showed atrial fibrillation with fairly well controlled rate. Objective Vital Signs Temp Pulse Pulse Resp BP Pulse Ox 04/23/18 10:00 93 04/23/18 09:49 104 H 106/61 04/23/18 05:22 112 H 132/76 04/23/18 04:09 98.5 F 102 H 21 132/76 91 04/23/18 04:08 99 H 02/03/19 00:15 94 04/22/18 23:35 87 129/93 04/22/18 23:17 97.5 F L 87 20 129/93 94 04/22/18 22:00 101 H 101 H 20 94 04/22/18 21:03 95 04/22/18 19:26 97.1 F L 89 18 101/51 91 04/22/18 17:43 97.8 F 26 H 134/88 04/22/18 16:40 91 - Physical Examination General: Other (SOB) HEENT: Positive: PERRL, Normocephaly, Mucus Membranes Moist Neck: Positive: neck supple, trachea midline Cardiac: Positive: irregularly irregular Lungs: Positive: Decreased Breath Sounds Neuro: Positive: Grossly Intact Abdomen: Positive: Soft. Negative: Tender Skin: Negative: Rash, Wound Musculoskeletal: No Pain Extremities: Absent: edema - Imaging and Cardiology EKG: report reviewed, image reviewed Echo: report reviewed (04/14/2018 which showed EF 60-65%, mild to mod RV hypokinesis, LA enlarged, mild MR, mod TR, RVSP 63mmHg, trace pericardial effusion.)
[2018-04-23] MEDS: ROCEPHIN/NS 2 GM/100 ML 2 GM/100 ML BAG IV SCH (20:31)
[2018-04-23] MEDS: PRAVACHOL PO SCH (21:56)
[2018-04-23] MEDS: ZITHROMAX PO SCH (21:57)
[2018-04-23] MEDS ORDERED: ATIVAN IV ONE (23:10)
[2018-04-23] MEDS ORDERED: ATIVAN ONE (23:13)
[2018-04-23] MEDS ORDERED: HALDOL IV ONE (23:42)
--- NOTE | 2018-04-24 00:25 | Event Note ---
Date: 04/24/18 CODE MET Patient extremely anxious, status post Ativan IV, Haldol Respiration increase and heart rate, response to breathing techniques Needs close monitoring, transferred to the IMCU
[2018-04-24] MEDS ORDERED: LOPRESSOR IV ONE (01:17)
[2018-04-24] MEDS: LOPRESSOR PO SCH ×4 (01:18→14:01)
[2018-04-24] MEDS ORDERED: NACL 0.9% 1000 ML 1,000 ML ONE (03:56)
[2018-04-24] MEDS ORDERED: NACL 0.9% 250ML 250 ML IV ONE (04:02)
[2018-04-24] MEDS: COZAAR PO SCH (09:00)
--- NOTE | 2018-04-24 09:20 | Progress Note ---
Assessment and Plan Assessment and plan: Patient is a 77 yo woman with a history of HTN, Atrial Fib on Therapeutic Anticoagulation (Eliquis), Hypothyroidism, HTN, HLD, Migraine SAAVEDRA, OA and Anxiety/depression who presented to [facility] ED with SOB without chest pains. Pt also complains of itchy red spots on her arms since beginning Eliquis for new on set Afib. She was started on Prednisone and benadryl by PCP. She just stopped the Predisone, couple days prior to arrival * pCXR CONCLUSION: 1. Diffuse bilateral pulmonary infiltrates, possibly edema, infection or inflammation, amongst others, though exact etiology or chronicity uncertain on this exam alone. 2. Few other findings, as above. Please also correlate clinically and with prior chest imaging, if available. * V/Q lung scan: Intermediate prob for PE -Acute combined heart failure suspected: Back on Bipap, 2D ECHO done recently in Cardiology's office, treat with IV lasix, Cardiology -Acute hypoxic respiratory failure due to CHF exacerbation: treat with O2, careful with albuterol nebs due to the tachycardia -SIRS with organ dysfunction due to the above, the leukocytosis explained by the Prednisone. CXR and PE more pulmonary edema than sepsis PNA: continue empiric ABX just in case -Afib with RVR: continue Pradaxa and rate control -Hypothyroidism: continue Synthyroid -Elevated D-Dimer with Intermediate probability of PE on V/Q with low pre-test and abnormal CXR and CTA chest negative for PE -Anxiety: given oral 0.5mg Ativan which helped her sleep last night but slightly confused this afternoon after another Ativan dose: d/c ativan, get ABG per Dr. Sibley, overnight, patient given ativan and haldol and bp dropped and transferred to ICU as IMCU overflow patient -Rash with Eliquis? (I did not see the rash, looks like petechiae on the arms, but itching has resided, ?allergy to Eliquis, defer to Cardiology), changed to pradaxa and no more itching -Disposition: continue inpatient care, possible Bronchoscopy this week. Pulmonology repeat CT chest pending Overnight, patient given ativan and haldol and bp dropped with extreme tachycardia/RVR and transferred to ICU as IMCU overflow patient History Interval history: Patient was seen and examined. Follow-up on current diagnosis of Respiratory failure. Overnight was eventful, with anxiety and she was given iv ativan and haldol, which dropped her bp and RVR. She was transferred to ICU on bipap because IMCU was full. Currently, she is drowsy without any new complaints. Imaging, nursing note, chart, labs and old chart reviewed. Discussed with patient. Hospitalist Physical - Physical exam Narrative exam: Gen: illappearing, increase in accessory muscle, Awake, Alert, Orientated x 3 HEENT: NCAT, EOMI, PERRL, OP Clear Neck: supple, no adenopathy, no thyromegaly, +JVD CVS/Heart: irregular irregular, normal S1S2, pulses present bilaterally Chest/Lungs: diminished bs bilaterally, Symmetrical chest expansion, good air entry bilaterally GI/Abdomen: soft, NTND, good bowel sounds, no guarding or rebound /Bladder: no suprapubic tenderness, no CVA or paraspinal tenderness Extermity/Skin: no c/c/e, obvious petechiea/ecchymosis rash bilateral arms MSK: FROM x 4 Neuro: CN 2-12 grossly intact, no new focal deficits Psych: anxious - Constitutional Vitals: Temp Pulse Resp BP Pulse Ox 97.5 F L 115 H 18 77/45 99 04/24/18 07:49 04/24/18 08:15 04/24/18 08:15 04/24/18 01:29 04/24/18 08:15 General appearance: Present: well-nourished Results - Labs CBC & Chem 7: 04/18/18 05:12 04/22/18 04:55 Labs: Laboratory Last Values WBC 17.8 K/mm3 (4.5-11.0) H 04/18/18 05:12 RBC 3.88 M/mm3 (3.65-5.03) 04/18/18 05:12 Hgb 11.5 gm/dl (10.1-14.3) 04/18/18 05:12 Hct 34.8 % (30.3-42.9) 04/18/18 05:12 MCV 90 fl (79-97) 04/18/18 05:12 MCH 30 pg (28-32) 04/18/18 05:12 MCHC 33 % (30-34) 04/18/18 05:12 RDW 13.9 % (13.2-15.2) 04/18/18 05:12 Plt Count 316 K/mm3 (140-440) 04/18/18 05:12 Lymph % (Auto) 5.1 % (13.4-35.0) L 04/18/18 05:12 [place] % (Auto) 8.0 % (0.0-7.3) H 04/18/18 05:12 Eos % (Auto) 0.1 % (0.0-4.3) 04/18/18 05:12 Baso % (Auto) 0.2 % (0.0-1.8) 04/18/18 05:12 Lymph # 0.9 K/mm3 (1.2-5.4) L 04/18/18 05:12 [place] # 1.4 K/mm3 (0.0-0.8) H 04/18/18 05:12 Eos # 0.0 K/mm3 (0.0-0.4) 04/18/18 05:12 Baso # 0.0 K/mm3 (0.0-0.1) 04/18/18 05:12 Seg Neutrophils % 86.6 % (40.0-70.0) H 04/18/18 05:12 Seg Neutrophils # 15.4 K/mm3 (1.8-7.7) H 04/18/18 05:12 PT 18.3 Sec. (12.2-14.9) H 04/17/18 12:48 INR 1.48 (0.87-1.13) H 04/17/18 12:48 APTT 27.2 Sec. (24.2-36.6) 04/17/18 12:48 D-Dimer 1975 ng/mlDDU (0-234) H 04/17/18 12:38 POC ABG pH 7.478 (7.35-7.45) H 04/23/18 15:08 POC ABG pCO2 51.0 (35-45) H 04/23/18 15:08 POC ABG pO2 62 (80-105) L 04/23/18 15:08 POC ABG HCO3 37.8 04/23/18 15:08 POC ABG Total CO2 39 04/23/18 15:08 POC ABG O2 Sat 93 02/03/19 15:08 POC ABG Base Excess 14 04/23/18 15:08 FiO2 100 % 04/23/18 15:08 Sodium 137 mmol/L (137-145) 04/22/18 04:55 Potassium 4.6 mmol/L (3.6-5.0) D 04/22/18 04:55 Chloride 94.1 mmol/L (98-107) L 04/22/18 04:55 Carbon Dioxide 29 mmol/L (22-30) 04/22/18 04:55 Anion Gap 19 mmol/L 04/22/18 04:55 BUN 36 mg/dL (7-17) H 04/22/18 04:55 Creatinine 0.7 mg/dL (0.7-1.2) 04/22/18 04:55 Estimated GFR > 60 ml/min 04/22/18 04:55 BUN/Creatinine Ratio 51 % 04/22/18 04:55 Glucose 157 mg/dL (65-100) H 04/22/18 04:55 Lactic Acid 1.20 mmol/L (0.7-2.0) 04/17/18 21:34 Calcium 8.9 mg/dL (8.4-10.2) 04/22/18 04:55 Magnesium 2.10 mg/dL (1.7-2.3) 04/22/18 04:55 Total Bilirubin 1.10 mg/dL (0.1-1.2) 04/17/18 12:48 AST 121 units/L (5-40) H 04/17/18 12:48 ALT 110 units/L (7-56) H 04/17/18 12:48 Alkaline Phosphatase 120 units/L (35-129) 04/17/18 12:48 Total Creatine Kinase 51 units/L (30-135) 04/17/18 12:48 CK-MB (CK-2) 1.8 ng/mL (0.0-4.0) 04/17/18 12:48 CK-MB (CK-2) Rel Index 3.5 (0-4) 04/17/18 12:48 Troponin T < 0.010 ng/mL (0.00-0.029) 04/17/18 12:48 NT-Pro-B Natriuret Pep 6653 pg/mL (0-900) H 04/17/18 12:48 Total Protein 7.6 g/dL (6.3-8.2) 04/17/18 12:48 Albumin 3.4 g/dL (3.9-5) L 04/17/18 12:48 Albumin/Globulin Ratio 0.8 % 04/17/18 12:48 Triglycerides 89 mg/dL (2-149) 04/17/18 16:11 Cholesterol 109 mg/dL (50-199) 04/17/18 16:11 LDL Cholesterol Direct 60 mg/dL (50-130) 04/17/18 16:11 HDL Cholesterol 41 mg/dL (40-59) 04/17/18 16:11 Cholesterol/HDL Ratio 2.65 % 04/17/18 16:11 TSH 2.320 mlU/mL (0.270-4.200) 04/17/18 16:11 Free T4 1.67 ng/dL (0.76-1.46) H 04/17/18 16:11 Urine Color Yellow (Yellow) 04/17/18 Unknown Urine Turbidity Clear (Clear) 04/17/18 Unknown Urine pH 5.0 (5.0-7.0) 04/17/18 Unknown Ur Specific [place] 1.005 (1.003-1.030) 04/17/18 Unknown Urine Protein <15 mg/dl mg/dL (Negative) 04/17/18 Unknown Urine Glucose (UA) Neg mg/dL (Negative) 04/17/18 Unknown Urine Ketones Neg mg/dL (Negative) 04/17/18 Unknown Urine Blood Mod (Negative) 04/17/18 Unknown Urine Nitrite Neg (Negative) 04/17/18 Unknown Urine Bilirubin Neg (Negative) 04/17/18 Unknown Urine Urobilinogen < 2.0 mg/dL (<2.0) 04/17/18 Unknown Ur Leukocyte Esterase Neg (Negative) 04/17/18 Unknown Urine WBC (Auto) 11.0 /HPF (0.0-6.0) H 04/17/18 Unknown Urine RBC (Auto) 3.0 /HPF (0.0-6.0) 04/17/18 Unknown U Epithel Cells (Auto) 2.0 /HPF (0-13.0) 04/17/18 Unknown Urine Mucus Few /HPF 04/17/18 Unknown
--- NOTE | 2018-04-24 09:37 | Progress Note ---
Assessment and Plan Interstitial pneumonia. Cause to be determined. Review with the nurses and admission notes show no evidence of vomiting/aspiration event. Hemoglobin is stable and no hemoptysis is reported-doubt DAH AMS. Unclear, may be medication driven at this point Hypercapnic respiratory failure. Did not show hypercapnia on presentation A. fib Recommendations Hold sedatives and opiates Wean off BiPAP to either nasal cannula or high flow. Discussed with nurses, goal is to maintain oximeter between 90-95%. Monitor swallowing, aspiration signs I will hold follow-up CT scan at this point and monitor clinically. If her chest x-rays fail to improve we'll probably do a follow-up CT DVT prophylaxis Continue/complete antibiotics for 7-10 days. If no improvement, discontinued at 10 days maximum and update CT scan of the chest at that point High BNP but no echo data on record. May be hypoxia with PHT, but will update anyway If ILD suspected, needs CTD panel Critical care time was 31 minutes of [id number] evaluation and coordination of care Subjective Date of service: 04/24/18 Principal diagnosis: PNA, hypoxemia respiratory failure, congestive heart failure, MS Interval history: Reports not being any pain. Shortness of breath better. She still falls asleep during the interview. On BiPAP Objective Vital Signs - 12hr 04/23/18 04/24/18 04/24/18 23:10 00:07 00:27 Temperature 97.6 F 97.5 F L Pulse Rate 129 H 62 Pulse Rate [ Apical] Respiratory 30 H 31 H 32 H Rate Blood Pressure 185/121 159/107 O2 Sat by Pulse 78 L 95 Oximetry 04/24/18 04/24/18 04/24/18 01:00 01:29 03:10 Temperature 98.7 F 98.5 F Pulse Rate 133 H Pulse Rate [ 142 H Apical] Respiratory 21 Rate Blood Pressure 77/45 O2 Sat by Pulse 95 Oximetry 04/24/18 04/24/18 04/24/18 04:20 07:00 07:49 Temperature 97.5 F L Pulse Rate 132 H 122 H Pulse Rate [ Apical] Respiratory 36 H Rate Blood Pressure O2 Sat by Pulse 95 Oximetry 04/24/18 08:15 Temperature Pulse Rate 115 H Pulse Rate [ Apical] Respiratory 18 Rate Blood Pressure O2 Sat by Pulse 99 Oximetry Constitutional: lethargic, appears uncomfortable Eyes: non-icteric ENT: oropharynx moist Neck: supple, no JVD Effort: mildly labored Ascultation: Bilateral: clear, diminished breath sounds Cardiovascular: irregular rhythm Gastrointestinal: normoactive bowel sounds CBC and BMP: 04/18/18 05:12 04/22/18 04:55 ABG, PT/INR, D-dimer: ABG POC ABG pH 7.478 (7.35-7.45) H 04/23/18 15:08 POC ABG pCO2 51.0 (35-45) H 04/23/18 15:08 POC ABG pO2 62 (80-105) L 04/23/18 15:08 POC ABG HCO3 37.8 04/23/18 15:08 POC ABG Total CO2 39 04/23/18 15:08 POC ABG O2 Sat 93 04/23/18 15:08 PT/INR, D-dimer PT 18.3 Sec. (12.2-14.9) H 04/17/18 12:48 INR 1.48 (0.87-1.13) H 04/17/18 12:48 D-Dimer 1975 ng/mlDDU (0-234) H 04/17/18 12:38 Abnormal lab findings: Abnormal Labs 04/17/18 04/17/18 04/17/18 12:38 12:48 12:48 WBC 18.0 H Lymph % (Auto) 6.5 L [place] % (Auto) 10.0 H Lymph # [place] # 1.8 H Seg Neutrophils % 83.2 H Seg Neutrophils # 15.0 H PT 18.3 H INR 1.48 H D-Dimer 1975 H POC ABG pH POC ABG pCO2 POC ABG pO2 Sodium Potassium Chloride BUN Creatinine Glucose AST ALT NT-Pro-B Natriuret Pep Albumin Free T4 Urine WBC (Auto) 04/17/18 04/17/18 04/17/18 12:48 12:48 16:11 WBC Lymph % (Auto) [place] % (Auto) Lymph # [place] # Seg Neutrophils % Seg Neutrophils # PT INR D-Dimer POC ABG pH POC ABG pCO2 POC ABG pO2 Sodium 136 L Potassium Chloride BUN Creatinine 0.6 L Glucose 127 H AST 121 H ALT 110 H NT-Pro-B Natriuret Pep 6653 H Albumin 3.4 L Free T4 1.67 H Urine WBC (Auto) 01/04/18/18 04/19/18 Unknown 05:12 05:02 WBC 17.8 H Lymph % (Auto) 5.1 L [place] % (Auto) 8.0 H Lymph # 0.9 L [place] # 1.4 H Seg Neutrophils % 86.6 H Seg Neutrophils # 15.4 H PT INR D-Dimer POC ABG pH POC ABG pCO2 POC ABG pO2 Sodium Potassium 3.2 L Chloride 94.2 L BUN 20 H Creatinine 0.6 L Glucose 118 H AST ALT NT-Pro-B Natriuret Pep Albumin Free T4 Urine WBC (Auto) 11.0 H 04/20/18 04/22/18 04/23/18 09:56 04:55 15:08 WBC Lymph % (Auto) [place] % (Auto) Lymph # [place] # Seg Neutrophils % Seg Neutrophils # PT INR D-Dimer POC ABG pH 7.478 H POC ABG pCO2 51.0 H POC ABG pO2 62 L Sodium Potassium 3.1 L Chloride 94.3 L 94.1 L BUN 27 H 36 H Creatinine Glucose 118 H 157 H AST ALT NT-Pro-B Natriuret Pep Albumin Free T4 Urine WBC (Auto) CT scan - chest: report reviewed, image reviewed
--- NOTE | 2018-04-24 09:44 | Progress Note ---
Assessment and Plan Pt in AFib with RVR, hypotension noted overnight. Optimize HR - initiate IV amio. Repeat CMP in AM - LFTs noted to be elevated on 04/17. The patient has been seen in conjunction with Dr. Mirza who agrees with the assessment and plan of care. - Patient Problems (1) Acute heart failure with preserved ejection fraction Current Visit: Yes Status: Acute (2) Acute respiratory failure Current Visit: Yes Status: Acute (3) Pneumonia Current Visit: Yes Status: Acute (4) Persistent atrial fibrillation with RVR Current Visit: Yes Status: Chronic (5) Elevated d-dimer Current Visit: Yes Status: Acute (6) HTN (hypertension) Current Visit: Yes Status: Chronic Subjective Date of service: 04/24/18 Principal diagnosis: PNA Interval history: pt resting in bed, lethargic, on BiPAP. tele reviewed - in AFib with HR 120s - 130s, hypotensive overnight. Objective Last Vital Signs Temp 97.5 F L 04/24/18 07:49 Pulse 115 H 04/24/18 08:15 Resp 18 04/24/18 08:15 BP 77/45 04/24/18 01:29 Pulse Ox 99 04/24/18 08:15 - Physical Examination General: Other (SOB) HEENT: Positive: PERRL, Normocephaly, Mucus Membranes Moist Neck: Positive: neck supple, trachea midline Cardiac: Positive: irregularly irregular, S1/S2 ( ), Tachycardia Lungs: Positive: Decreased Breath Sounds Neuro: Positive: Grossly Intact Abdomen: Positive: Soft. Negative: Tender Skin: Negative: Rash, Wound Musculoskeletal: No Pain Extremities: Absent: edema - Imaging and Cardiology EKG: report reviewed, image reviewed Echo: report reviewed (04/14/2018 which showed EF 60-65%, mild to mod RV hypokinesis, LA enlarged, mild MR, mod TR, RVSP 63mmHg, trace pericardial effusion.)
[2018-04-24] MEDS: SOLU-Medrol IV SCH ×2 (09:52→18:24)
[2018-04-24] MEDS: SYNTHROID PO SCH (09:53)
[2018-04-24] MEDS: LASIX IV SCH ×2 (09:53→18:23)
[2018-04-24] MEDS ORDERED: SOLU-Medrol IV SCH (12:00)
[2018-04-24] MEDS ORDERED: CORDARONE 150 MG in D5W 97 ML IV ONE (12:00)
[2018-04-24] MEDS: CORDARONE 900 MG in D5W 482 ML IV SCH (12:29)
[2018-04-24] MEDS: PRADAXA PO SCH ×3 (12:49→22:59)
[2018-04-24] MEDS: SODIUM CHLORIDE FLUSH SYRINGE 10 ML IV SCH ×2 (12:50→23:13)
[2018-04-24] MEDS: VITAMIN D3 PO SCH ×2 (12:50→14:04)
[2018-04-24] MEDS: HALFPRIN EC PO SCH ×2 (12:51→14:04)
[2018-04-24] MEDS: ZOLOFT PO SCH ×2 (12:51→14:49)
[2018-04-24] MEDS ORDERED: SOLU-Medrol 1,000 MG in NACL 0.9% 250ML 250 ML IV SCH (14:00)
[2018-04-24] MEDS: ATIVAN PO PRN (18:23)
[2018-04-24] MEDS: ZITHROMAX PO SCH (21:48)
[2018-04-24] MEDS: ROCEPHIN/NS 2 GM/100 ML 2 GM/100 ML BAG IV SCH (23:01)
[2018-04-24] MEDS: PRAVACHOL PO SCH (23:02)
[2018-04-25] MEDS: SOLU-Medrol IV SCH ×5 (00:09→20:06)
[2018-04-25] MEDS: LOPRESSOR PO SCH ×3 (00:11→08:24)
[2018-04-25 05:27] LABS: Alanine Aminotransferase 49 units/L (7-56); Albumin 2.5 g/dL (3.9-5); BUN/Creatinine Ratio 69; Blood Urea Nitrogen 48 mg/dL (7-17); Calcium 8.6 mg/dL (8.4-10.2); Hemolysis Index 38
[2018-04-25] MEDS: LASIX IV SCH ×2 (05:40→17:36)
[2018-04-25] MEDS: SYNTHROID PO SCH (05:42)
--- NOTE | 2018-04-25 09:40 | Progress Note ---
Assessment and Plan Pt's PO intake is tenuous, pt with dysphagia and refusing to swallow at times, speech therapy eval ongoing. Optimize BP and HR - cont amio gtt and convert PO lopressor to IV lopressor TID. Will plan to resume PO medications once PO intake is stable. For f/u chest CT w/o contrast today per pulmonary. The patient has been seen in conjunction with Dr. Mirza who agrees with the assessment and plan of care. - Patient Problems (1) Acute heart failure with preserved ejection fraction Current Visit: Yes Status: Acute (2) Acute respiratory failure Current Visit: Yes Status: Acute (3) Pneumonia Current Visit: Yes Status: Acute (4) Persistent atrial fibrillation with RVR Current Visit: Yes Status: Chronic (5) HTN (hypertension) Current Visit: Yes Status: Chronic (6) Altered mental status Current Visit: Yes Status: Acute Subjective Date of service: 04/25/18 Principal diagnosis: PNA, hypoxemia respiratory failure, congestive heart failure, MS Interval history: pt resting in bed, lethargic, confused, on HiFlo NC. tele reviewed - in AFib with HR 100s, BPs elevated today. amio gtt infusing. Objective Last Vital Signs Temp 98.2 F 04/25/18 04:00 Pulse 102 H 04/25/18 07:30 Resp 28 H 04/25/18 07:30 BP 165/87 04/25/18 07:30 Pulse Ox 97 04/25/18 07:30 - Physical Examination General: Other (confused, lethargic) HEENT: Positive: PERRL, Normocephaly, Mucus Membranes Moist Neck: Positive: neck supple, trachea midline Cardiac: Positive: irregularly irregular, S1/S2 Lungs: Positive: Decreased Breath Sounds Neuro: Positive: Other (confused, lethargic) Abdomen: Positive: Soft. Negative: Tender Skin: Negative: Rash, Wound Musculoskeletal: No Pain Extremities: Absent: edema - Labs and Meds Cardiac Enzymes 04/25/18 Range/Units 04:37 AST 38 (5-40) units/L Comprehensive Metabolic Panel 04/25/18 Range/Units 04:37 Sodium 143 (137-145) mmol/L Potassium 3.9 (3.6-5.0) mmol/L Chloride 96.4 L (98-107) mmol/L Carbon Dioxide 37 H D (22-30) mmol/L BUN 48 H (7-17) mg/dL Creatinine 0.7 (0.7-1.2) mg/dL Glucose 181 H (65-100) mg/dL Calcium 8.6 (8.4-10.2) mg/dL AST 38 (5-40) units/L ALT 49 (7-56) units/L Alkaline Phosphatase 196 H (35-129) units/L Total Protein 6.9 (6.3-8.2) g/dL Albumin 2.5 L (3.9-5) g/dL - Imaging and Cardiology EKG: report reviewed, image reviewed Echo: report reviewed (04/14/2018 which showed EF 60-65%, mild to mod RV hypokinesis, LA enlarged, mild MR, mod TR, RVSP 63mmHg, trace pericardial effusion.) - Telemetry EKG Rhythm: Atrial Fibrillation
[2018-04-25] MEDS: CORDARONE 900 MG in D5W 482 ML IV SCH (09:57)
--- NOTE | 2018-04-25 10:40 | Progress Note ---
Assessment and Plan Assessment and plan: Patient is a 77 yo woman with a history of HTN, Atrial Fib on Therapeutic Anticoagulation (Eliquis), Hypothyroidism, HTN, HLD, Migraine SAAVEDRA, OA and Anxiety/depression who presented to [facility] ED with SOB without chest pains. Pt also complains of itchy red spots on her arms since beginning Eliquis for new on set Afib. She was started on Prednisone and benadryl by PCP. She just stopped the Predisone, couple days prior to arrival * pCXR CONCLUSION: 1. Diffuse bilateral pulmonary infiltrates, possibly edema, infection or inflammation, amongst others, though exact etiology or chronicity uncertain on this exam alone. 2. Few other findings, as above. Please also correlate clinically and with prior chest imaging, if available. * V/Q lung scan: Intermediate prob for PE * --A. fib with rapid ventricular rate; continue amiodarone, beta blockers Cardiology following --Chronic anticoagulation; continue Pradaxa --Interstitial lung disease on CT chest today; High-dose of steroids, management per pulmonary, closely monitor --Acute hypoxic respiratory failure; secondary to acute exacerbation of systolic congestive heart failure Continue anti-failure medications, oxygen titrate O2 sats to more than 90%, pulmonary following --SIRS with organ dysfunction; Leukocytosis probably secondary to steroids, possible pneumonia, continue empiric antibiotics --Elevated D dimers; V/Q scan intermediate probability for PE/CTA chest negative for PE --Hypothyroidism; continue Synthroid --Anxiety disorder; supportive care and the anxiety medications --DVT prophylaxis; patient is on Pradaxa --Full CODE STATUS Consults and recommendations noted and appreciated Closely monitor the patient and adjust the management as needed Critical care time 32 minutes History Interval history: Patient seen and examined, medical records reviewed Patient continues to have Afib with RVR on amiodarone and beta and beta blockers Not in acute distress Vital signs noted Hospitalist Physical - Constitutional Vitals: Temp Pulse Resp BP Pulse Ox 98.2 F 102 H 28 H 165/87 97 04/25/18 04:00 04/25/18 07:30 04/25/18 07:30 04/25/18 07:30 04/25/18 07:30 General appearance: Present: no acute distress, well-nourished - EENT Eyes: Present: PERRL, EOM intact - Neck Neck: Present: supple, normal ROM - Respiratory Respiratory effort: normal Respiratory: bilateral: diminished, negative: rales, rhonchi, wheezing - Cardiovascular Rhythm: irregularly irregular - Extremities Extremities: no ischemia, No edema - Abdominal General gastrointestinal: soft, non-tender, non-distended, normal bowel sounds - Integumentary Integumentary: Present: clear, warm - Psychiatric Psychiatric: appropriate mood/affect, cooperative - Neurologic Neurologic: CNII-XII intact, moves all extremities Results - Labs CBC & Chem 7: 04/18/18 05:12 04/25/18 04:37 Labs: Laboratory Last Values WBC 17.8 K/mm3 (4.5-11.0) H 04/18/18 05:12 RBC 3.88 M/mm3 (3.65-5.03) 04/18/18 05:12 Hgb 11.5 gm/dl (10.1-14.3) 04/18/18 05:12 Hct 34.8 % (30.3-42.9) 04/18/18 05:12 MCV 90 fl (79-97) 04/18/18 05:12 MCH 30 pg (28-32) 04/18/18 05:12 MCHC 33 % (30-34) 04/18/18 05:12 RDW 13.9 % (13.2-15.2) 04/18/18 05:12 Plt Count 316 K/mm3 (140-440) 04/18/18 05:12 Lymph % (Auto) 5.1 % (13.4-35.0) L 04/18/18 05:12 [place] % (Auto) 8.0 % (0.0-7.3) H 04/18/18 05:12 Eos % (Auto) 0.1 % (0.0-4.3) 04/18/18 05:12 Baso % (Auto) 0.2 % (0.0-1.8) 04/18/18 05:12 Lymph # 0.9 K/mm3 (1.2-5.4) L 04/18/18 05:12 [place] # 1.4 K/mm3 (0.0-0.8) H 04/18/18 05:12 Eos # 0.0 K/mm3 (0.0-0.4) 04/18/18 05:12 Baso # 0.0 K/mm3 (0.0-0.1) 04/18/18 05:12 Seg Neutrophils % 86.6 % (40.0-70.0) H 04/18/18 05:12 Seg Neutrophils # 15.4 K/mm3 (1.8-7.7) H 04/18/18 05:12 PT 18.3 Sec. (12.2-14.9) H 04/17/18 12:48 INR 1.48 (0.87-1.13) H 04/17/18 12:48 APTT 27.2 Sec. (24.2-36.6) 04/17/18 12:48 D-Dimer 1975 ng/mlDDU (0-234) H 04/17/18 12:38 POC ABG pH 7.478 (7.35-7.45) H 04/23/18 15:08 POC ABG pCO2 51.0 (35-45) H 04/23/18 15:08 POC ABG pO2 62 (80-105) L 04/23/18 15:08 POC ABG HCO3 37.8 04/23/18 15:08 POC ABG Total CO2 39 04/23/18 15:08 POC ABG O2 Sat 93 04/23/18 15:08 POC ABG Base Excess 14 04/23/18 15:08 FiO2 100 % 04/23/18 15:08 Sodium 143 mmol/L (137-145) 04/25/18 04:37 Potassium 3.9 mmol/L (3.6-5.0) 04/25/18 04:37 Chloride 96.4 mmol/L (98-107) L 04/25/18 04:37 Carbon Dioxide 37 mmol/L (22-30) H D 04/25/18 04:37 Anion Gap 14 mmol/L 04/25/18 04:37 BUN 48 mg/dL (7-17) H 04/25/18 04:37 Creatinine 0.7 mg/dL (0.7-1.2) 04/25/18 04:37 Estimated GFR > 60 ml/min 04/25/18 04:37 BUN/Creatinine Ratio 69 % 04/25/18 04:37 Glucose 181 mg/dL (65-100) H 04/25/18 04:37 Lactic Acid 1.20 mmol/L (0.7-2.0) 04/17/18 21:34 Calcium 8.6 mg/dL (8.4-10.2) 04/25/18 04:37 Magnesium 2.10 mg/dL (1.7-2.3) 04/22/18 04:55 Total Bilirubin 0.70 mg/dL (0.1-1.2) 04/25/18 04:37 AST 38 units/L (5-40) 04/25/18 04:37 ALT 49 units/L (7-56) 04/25/18 04:37 Alkaline Phosphatase 196 units/L (35-129) H 04/25/18 04:37 Total Creatine Kinase 51 units/L (30-135) 04/17/18 12:48 CK-MB (CK-2) 1.8 ng/mL (0.0-4.0) 04/17/18 12:48 CK-MB (CK-2) Rel Index 3.5 (0-4) 04/17/18 12:48 Troponin T < 0.010 ng/mL (0.00-0.029) 04/17/18 12:48 NT-Pro-B Natriuret Pep 3763 pg/mL (0-900) H 04/24/18 18:00 Total Protein 6.9 g/dL (6.3-8.2) 04/25/18 04:37 Albumin 2.5 g/dL (3.9-5) L 04/25/18 04:37 Albumin/Globulin Ratio 0.6 % 04/25/18 04:37 Triglycerides 89 mg/dL (2-149) 04/17/18 16:11 Cholesterol 109 mg/dL (50-199) 04/17/18 16:11 LDL Cholesterol Direct 60 mg/dL (50-130) 04/17/18 16:11 HDL Cholesterol 41 mg/dL (40-59) 04/17/18 16:11 Cholesterol/HDL Ratio 2.65 % 04/17/18 16:11 TSH 2.320 mlU/mL (0.270-4.200) 04/17/18 16:11 Free T4 1.67 ng/dL (0.76-1.46) H 04/17/18 16:11 Urine Color Yellow (Yellow) 04/17/18 Unknown Urine Turbidity Clear (Clear) 04/17/18 Unknown Urine pH 5.0 (5.0-7.0) 04/17/18 Unknown Ur Specific [place] 1.005 (1.003-1.030) 04/17/18 Unknown Urine Protein <15 mg/dl mg/dL (Negative) 04/17/18 Unknown Urine Glucose (UA) Neg mg/dL (Negative) 04/17/18 Unknown Urine Ketones Neg mg/dL (Negative) 04/17/18 Unknown Urine Blood Mod (Negative) 04/17/18 Unknown Urine Nitrite Neg (Negative) 04/17/18 Unknown Urine Bilirubin Neg (Negative) 04/17/18 Unknown Urine Urobilinogen < 2.0 mg/dL (<2.0) 04/17/18 Unknown Ur Leukocyte Esterase Neg (Negative) 04/17/18 Unknown Urine WBC (Auto) 11.0 /HPF (0.0-6.0) H 04/17/18 Unknown Urine RBC (Auto) 3.0 /HPF (0.0-6.0) 04/17/18 Unknown U Epithel Cells (Auto) 2.0 /HPF (0-13.0) 04/17/18 Unknown Urine Mucus Few /HPF 04/17/18 Unknown Nutrition/Malnutrition Assess - Dietary Evaluation Nutrition/Malnutrition Findings: Nutrition Notes Start: 04/24/18 15:05 Freq: Status: Active Protocol: Document 04/24/18 15:07 OL (Rec: 04/24/18 15:13 OL [id number]) Nutrition Notes Need for Assessment generated from: LOS Initial or Follow up Brief Note Current Diet NPO Labs/Tests Reviewed Pertinent Medications Lasix, solumedrol Height 5 ft 6 in Weight 74.3 kg [place] Body Weight (kg) 59.09 BMI 26.4 Subjective/Other Information RD screen for LOS. Pt. transferred to CCU this morning. Pt. had been on [facility] soft diet previously. Intakes vary (50-75%). Breakfast tray untouched. Pt. with mitten restraints. Currently NPO Burn Absent Trauma Absent #1 Nutrition Diagnosis Inadequate oral intake Etiology NPO status As Evidenced by Signs and Symptoms pt. unable to meet nutrient needs at this time, Is patient on ventilator? No Is Patient Ambulatory and/or Out of Bed Yes REE-([place]-ambulatory/OOB) [ [id number] [id number]] Calculation Used for Recommendations Brook Diez Additional Notes protein (1.2-2g/kg): 89-149g fluid: 1mL/kcal or per MD Nutrition Intervention Change Diet Order: Advance when medically feasible Goal #1 Diet advancement when medically feasible Follow-Up By: 04/26/18 Additional Comments f/u: diet advancement, add ONS to order
--- NOTE | 2018-04-25 10:53 | Progress Note ---
Assessment and Plan Interstitial pneumonia. Cause to be determined. AMS. Mostly deeply asleep, still eresponsive Hypoxemic, Hypercapnic respiratory failure. Did not show hypercapnia on presentation. Currently on high flow oxygen well tolerated Heart failure with preserved ejection fraction A. fib. Currently on amiodarone. No prior use of this medication to my knowledge Recommendations Hold sedatives and opiates Wean FiO2 down as tolerated. Monitor swallowing, aspiration signs Speech Therapy evaluation CTD panel initial labs ordered. We'll had SCL 70 and RN ONCOLOGY I change her CT scan order for an HRCT and will review as well as completed DVT prophylaxis Continue/complete antibiotics for 7-10 days. High BNP but improving. Limited intake but I O negative at this point Critical care time was 31 minutes of [id number] evaluation and coordination of care Subjective Date of service: 04/25/18 Principal diagnosis: PNA, hypoxemia respiratory failure, congestive heart failure, MS Interval history: Breathing about the same this morning. She is on high flow oxygen 100 percent. This appears to be better tolerated the BiPAP yesterday. Her lives at the bedside. No cough or hemoptysis reported. Still with swallowing impairment per nursing report, pending speech therapy evaluation. Asked her -no prior history swallowing problems earlier nor vomiting. She did had a rash prior to admission that was thought to be related to [place] Objective Vital Signs - 12hr 04/24/18 04/24/18 04/24/18 22:50 23:00 23:10 Temperature Pulse Rate 170 H 137 H 144 H Pulse Rate [ Apical] Respiratory 40 H 38 H 42 H Rate Blood Pressure 131/84 131/84 132/83 O2 Sat by Pulse 92 93 91 Oximetry 04/24/18 04/24/18 04/24/18 23:20 23:30 23:40 Temperature Pulse Rate 136 H 135 H 148 H Pulse Rate [ Apical] Respiratory 36 H 45 H 42 H Rate Blood Pressure 132/83 132/83 132/83 O2 Sat by Pulse 98 96 96 Oximetry 04/24/18 04/24/18 04/25/18 23:50 23:54 00:00 Temperature Pulse Rate 159 H 120 H 131 H Pulse Rate [ 156 H Apical] Respiratory 39 H 36 H 37 H Rate Blood Pressure 132/83 132/83 132/83 O2 Sat by Pulse 95 96 95 Oximetry 04/25/18 04/25/18 04/25/18 00:10 00:11 00:20 Temperature Pulse Rate 139 H 152 H 146 H Pulse Rate [ Apical] Respiratory 39 H 45 H Rate Blood Pressure 132/83 128/70 132/83 O2 Sat by Pulse 94 93 Oximetry 04/25/18 04/25/18 04/25/18 00:30 00:40 00:50 Temperature Pulse Rate 144 H 116 H 135 H Pulse Rate [ Apical] Respiratory 34 H 33 H 27 H Rate Blood Pressure 132/83 132/83 132/83 O2 Sat by Pulse 94 95 96 Oximetry 04/25/18 04/25/18 04/25/18 01:00 01:10 01:20 Temperature Pulse Rate 106 H 120 H 112 H Pulse Rate [ Apical] Respiratory 33 H 22 37 H Rate Blood Pressure 125/64 128/70 128/70 O2 Sat by Pulse 95 96 95 Oximetry 04/25/18 04/25/18 04/25/18 01:30 01:40 01:50 Temperature Pulse Rate 114 H 135 H 103 H Pulse Rate [ Apical] Respiratory 22 22 27 H Rate Blood Pressure 128/70 128/70 128/70 O2 Sat by Pulse 95 95 95 Oximetry 04/25/18 04/25/18 04/25/18 02:00 02:10 02:20 Temperature Pulse Rate 104 H 103 H 103 H Pulse Rate [ Apical] Respiratory 27 H 25 H 21 Rate Blood Pressure 116/90 116/90 116/90 O2 Sat by Pulse 95 95 95 Oximetry 04/25/18 04/25/18 04/25/18 02:30 02:40 02:50 Temperature Pulse Rate 97 H 102 H 92 H Pulse Rate [ Apical] Respiratory 25 H 20 18 Rate Blood Pressure 116/90 116/90 116/90 O2 Sat by Pulse 95 95 95 Oximetry 04/25/18 04/25/18 04/25/18 03:00 03:10 03:20 Temperature Pulse Rate 103 H 84 96 H Pulse Rate [ Apical] Respiratory 18 18 19 Rate Blood Pressure 118/72 118/72 118/72 O2 Sat by Pulse 95 96 96 Oximetry 04/25/18 04/25/18 04/25/18 03:30 03:40 03:50 Temperature Pulse Rate 91 H 106 H 105 H Pulse Rate [ Apical] Respiratory 22 22 17 Rate Blood Pressure 118/72 118/72 118/72 O2 Sat by Pulse 96 97 97 Oximetry 04/25/18 04/25/18 04/25/18 04:00 04:10 04:20 Temperature 98.2 F Pulse Rate 123 H 89 94 H Pulse Rate [ 96 H Apical] Respiratory 21 19 19 Rate Blood Pressure 121/92 121/92 121/92 O2 Sat by Pulse 97 96 96 Oximetry 04/25/18 04/25/18 04/25/18 04:30 04:40 04:50 Temperature Pulse Rate 91 H 96 H 98 H Pulse Rate [ Apical] Respiratory 22 26 H 22 Rate Blood Pressure 121/92 121/92 121/92 O2 Sat by Pulse 95 95 95 Oximetry 04/25/18 04/25/18 04/25/18 05:00 05:10 05:20 Temperature Pulse Rate 106 H 95 H 91 H Pulse Rate [ Apical] Respiratory 33 H 25 H 31 H Rate Blood Pressure 121/92 136/85 O2 Sat by Pulse 93 95 93 Oximetry 04/25/18 04/25/18 04/25/18 05:30 05:40 05:50 Temperature Pulse Rate 117 H 103 H 106 H Pulse Rate [ Apical] Respiratory 29 H 31 H 22 Rate Blood Pressure 136/85 145/92 145/92 O2 Sat by Pulse 94 94 90 Oximetry 04/25/18 04/25/18 04/25/18 06:00 06:10 06:20 Temperature Pulse Rate 114 H 113 H 104 H Pulse Rate [ Apical] Respiratory 36 H 44 H 32 H Rate Blood Pressure 151/93 151/93 151/93 O2 Sat by Pulse 96 93 94 Oximetry 04/25/18 04/25/18 04/25/18 06:30 06:40 06:50 Temperature Pulse Rate 126 H 115 H 107 H Pulse Rate [ Apical] Respiratory 34 H 36 H 32 H Rate Blood Pressure 151/93 151/93 154/86 O2 Sat by Pulse 93 87 96 Oximetry 04/25/18 04/25/18 04/25/18 07:00 07:04 07:10 Temperature Pulse Rate 102 H 109 H 120 H Pulse Rate [ Apical] Respiratory 37 H 34 H Rate Blood Pressure 165/87 165/87 165/87 O2 Sat by Pulse 85 97 Oximetry 04/25/18 04/25/18 07:20 07:30 Temperature Pulse Rate 107 H 102 H Pulse Rate [ Apical] Respiratory 27 H 28 H Rate Blood Pressure 165/87 165/87 O2 Sat by Pulse 97 97 Oximetry Constitutional: asleep, appears uncomfortable Eyes: non-icteric ENT: oropharynx moist Neck: supple, no JVD Effort: mildly labored Ascultation: Bilateral: clear, diminished breath sounds Percussion: Bilateral: not dull Cardiovascular: irregular rhythm Gastrointestinal: normoactive bowel sounds CBC and BMP: 04/18/18 05:12 04/25/18 04:37 ABG, PT/INR, D-dimer: ABG POC ABG pH 7.478 (7.35-7.45) H 04/23/18 15:08 POC ABG pCO2 51.0 (35-45) H 04/23/18 15:08 POC ABG pO2 62 (80-105) L 04/23/18 15:08 POC ABG HCO3 37.8 04/23/18 15:08 POC ABG Total CO2 39 04/23/18 15:08 POC ABG O2 Sat 93 04/23/18 15:08 PT/INR, D-dimer PT 18.3 Sec. (12.2-14.9) H 04/17/18 12:48 INR 1.48 (0.87-1.13) H 04/17/18 12:48 D-Dimer 1975 ng/mlDDU (0-234) H 04/17/18 12:38 Abnormal lab findings: Abnormal Labs 04/17/18 04/17/18 04/17/18 12:38 12:48 12:48 WBC 18.0 H Lymph % (Auto) 6.5 L [place] % (Auto) 10.0 H Lymph # [place] # 1.8 H Seg Neutrophils % 83.2 H Seg Neutrophils # 15.0 H PT 18.3 H INR 1.48 H D-Dimer 1975 H POC ABG pH POC ABG pCO2 POC ABG pO2 Sodium Potassium Chloride Carbon Dioxide BUN Creatinine Glucose AST ALT Alkaline Phosphatase NT-Pro-B Natriuret Pep Albumin Free T4 Urine WBC (Auto) 04/17/18 04/17/18 04/17/18 12:48 12:48 16:11 WBC Lymph % (Auto) [place] % (Auto) Lymph # [place] # Seg Neutrophils % Seg Neutrophils # PT INR D-Dimer POC ABG pH POC ABG pCO2 POC ABG pO2 Sodium 136 L Potassium Chloride Carbon Dioxide BUN Creatinine 0.6 L Glucose 127 H AST 121 H ALT 110 H Alkaline Phosphatase NT-Pro-B Natriuret Pep 6653 H Albumin 3.4 L Free T4 1.67 H Urine WBC (Auto) 04/17/18 04/18/18 04/19/18 Unknown 05:12 05:02 WBC 17.8 H Lymph % (Auto) 5.1 L [place] % (Auto) 8.0 H Lymph # 0.9 L [place] # 1.4 H Seg Neutrophils % 86.6 H Seg Neutrophils # 15.4 H PT INR D-Dimer POC ABG pH POC ABG pCO2 POC ABG pO2 Sodium Potassium 3.2 L Chloride 94.2 L Carbon Dioxide BUN 20 H Creatinine 0.6 L Glucose 118 H AST ALT Alkaline Phosphatase NT-Pro-B Natriuret Pep Albumin Free T4 Urine WBC (Auto) 11.0 H 04/20/18 04/22/18 04/23/18 09:56 04:55 15:08 WBC Lymph % (Auto) [place] % (Auto) Lymph # [place] # Seg Neutrophils % Seg Neutrophils # PT INR D-Dimer POC ABG pH 7.478 H POC ABG pCO2 51.0 H POC ABG pO2 62 L Sodium Potassium 3.1 L Chloride 94.3 L 94.1 L Carbon Dioxide BUN 27 H 36 H Creatinine Glucose 118 H 157 H AST ALT Alkaline Phosphatase NT-Pro-B Natriuret Pep Albumin Free T4 Urine WBC (Auto) 04/24/18 04/25/18 18:00 04:37 WBC Lymph % (Auto) [place] % (Auto) Lymph # [place] # Seg Neutrophils % Seg Neutrophils # PT INR D-Dimer POC ABG pH POC ABG pCO2 POC ABG pO2 Sodium Potassium Chloride 96.4 L Carbon Dioxide 37 H D BUN 48 H Creatinine Glucose 181 H AST ALT Alkaline Phosphatase 196 H NT-Pro-B Natriuret Pep 3763 H Albumin 2.5 L Free T4 Urine WBC (Auto)
[2018-04-25] MEDS: LOPRESSOR IV SCH ×3 (12:26→21:49)
[2018-04-25] MEDS: HALFPRIN EC PO SCH (12:27)
[2018-04-25] MEDS: COZAAR PO SCH (12:27)
[2018-04-25] MEDS: ZOLOFT PO SCH (12:31)
[2018-04-25] MEDS: PRADAXA PO SCH ×2 (12:31→21:50)
[2018-04-25] MEDS: VITAMIN D3 PO SCH (12:31)
[2018-04-25] MEDS: SODIUM CHLORIDE FLUSH SYRINGE 10 ML IV SCH ×2 (12:32→21:50)
--- NOTE | 2018-04-25 15:31 | Cat Scan Report ---
CT CHEST WITHOUT CONTRAST: HISTORY: Hypoxemia. COMPARISON: 04/18/18. TECHNIQUE: Helical CT in 1.25mm intervals without IV contrast. Sagittal and coronal reformatted images. FINDINGS: Thyroid gland: Normal. Tracheobronchial tree: The tracheobronchial tree is patent although there appears to be mild traction bronchiectasis bilaterally. Esophagus: Normal. Heart: Mild cardiomegaly is stable. Pericardium: Normal. Mediastinum: Few mildly enlarged lymph nodes are stable since the previous exam. Lung [place]: Diffuse bilateral infiltrates have decreased in density since the previous exam. On today's exam, there are diffuse bilateral groundglass infiltrates. There is also evidence for mild subpleural fibrotic changes in both lungs. This predominates in the lower lung zones. Idiopathic pulmonary fibrosis should be considered. There is no evidence for mass or consolidation. Pleural Spaces: Normal. Musculoskeletal: Intact. Mild scoliosis and degenerative changes are noted in the spine. IMPRESSION: Diffuse bilateral infiltrates have decreased in density since the previous exam. Traction bronchiectasis and mild fibrotic changes are identified on today's exam. These findings are suggestive of idiopathic pulmonary fibrosis. Please correlate with the patient's clinical presentation. No new acute findings are identified.
[2018-04-25] MEDS: ROCEPHIN/NS 2 GM/100 ML 2 GM/100 ML BAG IV SCH (21:48)
[2018-04-25] MEDS: ZITHROMAX PO SCH (21:49)
[2018-04-25] MEDS: PRAVACHOL PO SCH (21:49)
[2018-04-26] MEDS: SOLU-Medrol IV SCH ×3 (00:13→18:01)
[2018-04-26 05:14] LABS: Hematocrit 41.7 % (30.3-42.9); Hemoglobin 13.5 gm/dl (10.1-14.3); Mean Corpuscular Volume 90 fl (79-97); Red Blood Count 4.64 M/mm3 (3.65-5.03)
[2018-04-26 05:15] LABS: Mean Corpuscular HGB Conc 32 % (30-34); Platelet Count 288 K/mm3 (140-440); Red Cell Distribution Width 13.9 % (13.2-15.2)
[2018-04-26 05:32] LABS: BUN/Creatinine Ratio 69; Blood Urea Nitrogen 48 mg/dL (7-17); Calcium 8.7 mg/dL (8.4-10.2); Hemolysis Index 10
[2018-04-26 05:45] LABS: Band Neutrophils # (Manual) 0.5 K/mm3; Basophils % (Manual) 0 % (0.0-1.8); Eosinophils % (Manual) 0 % (0.0-4.3); Total Cells Counted 100
[2018-04-26 05:46] LABS: Anisocytosis 1+; Ovalocytes 1+; Stomatocytes 3+
[2018-04-26] MEDS: LASIX IV SCH (06:52)
[2018-04-26] MEDS: SYNTHROID PO SCH (06:53)
--- NOTE | 2018-04-26 08:54 | Progress Note ---
Assessment and Plan Interstitial pneumonia. Cause to be determined. 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 No fever nor expectoration at this time.Doubt CEP,AEP AMS. Better , responsive, following my questions Hypoxemic, Hypercapnic respiratory failure. Did not show hypercapnia on presentation. Heart failure with preserved ejection fraction A. fib. Currently on amiodarone. No prior use of this medication to my knowledge Recommendations Wean FiO2 down as tolerated.Goal is to keep O2 sat ~ 91-93% Back to HFO and monitor. Steroid increased but may not make a difference at this point. Will keep x 72 hr, if no response, taper down and/or DC Sl[place] scale BS monitoring as precaution Monitor for mental changes on steroids, ahd haldol if needed ( but will need to monitor QTc ! ) Mild clubbing/traction bronchiectasis/mild honey combing may suggest IPF flare. Will check again PMH with family Monitor swallowing, aspiration precautions Speech Therapy evaluation Check CTD panel labs DVT prophylaxis DC antibiotics if no fever 7-10 days. Critical care time was 31 minutes of [id number] evaluation and coordination of care Subjective Date of service: 04/26/18 Principal diagnosis: PNA, hypoxemia respiratory failure, congestive heart failure, MS Interval history: On BPAP overnight. Pending switch back to HFO. No expectoration Objective Vital Signs - 12hr 04/25/18 04/25/18 04/25/18 21:00 21:10 21:20 Temperature Pulse Rate 122 H 123 H 108 H Pulse Rate [ Apical] Respiratory 21 37 H 36 H Rate Blood Pressure 146/80 146/80 146/80 O2 Sat by Pulse 83 L 93 91 Oximetry 04/25/18 04/25/18 04/25/18 21:30 21:40 21:49 Temperature Pulse Rate 119 H 112 H 124 H Pulse Rate [ Apical] Respiratory 36 H 38 H Rate Blood Pressure 146/80 146/80 146/80 O2 Sat by Pulse 92 85 Oximetry 04/25/18 04/25/18 04/25/18 21:50 22:00 22:10 Temperature Pulse Rate 124 H 130 H 103 H Pulse Rate [ Apical] Respiratory 37 H 49 H 21 Rate Blood Pressure 146/80 146/80 146/80 O2 Sat by Pulse 88 88 86 Oximetry 04/25/18 04/25/18 04/25/18 22:20 22:30 22:40 Temperature Pulse Rate 109 H 128 H 126 H Pulse Rate [ Apical] Respiratory 23 35 H 49 H Rate Blood Pressure 146/80 146/80 146/80 O2 Sat by Pulse 87 72 L 63 L Oximetry 04/25/18 04/25/18 04/25/18 22:50 23:00 23:10 Temperature Pulse Rate 142 H 107 H 110 H Pulse Rate [ Apical] Respiratory 45 H 48 H 32 H Rate Blood Pressure 146/80 133/88 133/88 O2 Sat by Pulse 88 90 89 Oximetry 04/25/18 04/25/18 04/25/18 23:20 23:30 23:40 Temperature Pulse Rate 138 H 121 H 131 H Pulse Rate [ Apical] Respiratory 28 H 43 H 29 H Rate Blood Pressure 133/88 133/88 133/88 O2 Sat by Pulse 79 L 78 L 94 Oximetry 04/25/18 04/25/18 04/26/18 23:50 23:59 00:00 Temperature 98.3 F 98.3 F Pulse Rate 118 H 109 H Pulse Rate [ 111 H Apical] Respiratory 42 H 41 H Rate Blood Pressure 133/88 138/90 O2 Sat by Pulse 96 96 Oximetry 04/26/18 04/26/18 04/26/18 00:10 00:20 00:25 Temperature Pulse Rate 117 H 106 H 117 H Pulse Rate [ Apical] Respiratory 42 H 37 H 35 H Rate Blood Pressure 138/90 138/90 O2 Sat by Pulse 96 96 95 Oximetry 04/26/18 04/26/18 04/26/18 00:30 00:40 00:50 Temperature Pulse Rate 105 H 103 H 100 H Pulse Rate [ Apical] Respiratory 39 H 38 H 26 H Rate Blood Pressure 138/90 138/90 138/90 O2 Sat by Pulse 97 97 97 Oximetry 04/26/18 04/26/18 04/26/18 01:00 01:10 01:20 Temperature Pulse Rate 104 H 96 H 103 H Pulse Rate [ Apical] Respiratory 35 H 38 H 32 H Rate Blood Pressure 127/80 127/80 127/80 O2 Sat by Pulse 96 96 97 Oximetry 04/26/18 04/26/18 04/26/18 01:30 01:40 01:50 Temperature Pulse Rate 104 H 101 H 123 H Pulse Rate [ Apical] Respiratory 32 H 34 H 22 Rate Blood Pressure 127/80 127/80 127/80 O2 Sat by Pulse 97 97 96 Oximetry 04/26/18 04/26/18 04/26/18 02:00 02:10 02:20 Temperature Pulse Rate 111 H 108 H 118 H Pulse Rate [ Apical] Respiratory 31 H 21 21 Rate Blood Pressure 125/83 125/83 125/83 O2 Sat by Pulse 97 97 97 Oximetry 04/26/18 04/26/18 04/26/18 02:30 02:40 02:50 Temperature Pulse Rate 106 H 96 H 105 H Pulse Rate [ Apical] Respiratory 21 25 H 20 Rate Blood Pressure 125/83 125/83 125/83 O2 Sat by Pulse 97 98 98 Oximetry 04/26/18 04/26/18 04/26/18 03:00 03:10 03:20 Temperature Pulse Rate 89 94 H 106 H Pulse Rate [ Apical] Respiratory 20 26 H 33 H Rate Blood Pressure 115/63 115/63 115/63 O2 Sat by Pulse 98 98 98 Oximetry 04/26/18 04/26/18 04/26/18 03:30 03:40 03:50 Temperature Pulse Rate 92 H 96 H 104 H Pulse Rate [ Apical] Respiratory 29 H 26 H 33 H Rate Blood Pressure 115/63 115/63 115/63 O2 Sat by Pulse 97 97 98 Oximetry 04/26/18 04/26/18 04/26/18 04:00 04:10 04:20 Temperature 98.5 F Pulse Rate 100 H 103 H 113 H Pulse Rate [ 105 H Apical] Respiratory 35 H 35 H 31 H Rate Blood Pressure 130/103 130/103 130/103 O2 Sat by Pulse 96 98 97 Oximetry 04/26/18 04/26/18 04/26/18 04:30 04:40 04:50 Temperature Pulse Rate 102 H 98 H 113 H Pulse Rate [ Apical] Respiratory 30 H 30 H 33 H Rate Blood Pressure 130/103 130/103 130/103 O2 Sat by Pulse 97 97 98 Oximetry 04/26/18 04/26/18 04/26/18 05:00 05:10 05:20 Temperature Pulse Rate 126 H 113 H 117 H Pulse Rate [ Apical] Respiratory 37 H 30 H 22 Rate Blood Pressure 130/103 139/90 139/90 O2 Sat by Pulse 97 97 97 Oximetry 04/26/18 04/26/18 04/26/18 05:30 05:36 05:40 Temperature Pulse Rate 116 H 115 H 110 H Pulse Rate [ Apical] Respiratory 29 H 33 H 31 H Rate Blood Pressure 139/90 139/90 O2 Sat by Pulse 95 97 88 Oximetry 04/26/18 04/26/18 04/26/18 05:50 06:00 06:10 Temperature Pulse Rate 110 H 92 H 95 H Pulse Rate [ Apical] Respiratory 36 H 30 H 23 Rate Blood Pressure 139/90 132/85 132/85 O2 Sat by Pulse 97 98 98 Oximetry 04/26/18 04/26/18 04/26/18 06:20 06:30 06:40 Temperature Pulse Rate 101 H 91 H 110 H Pulse Rate [ Apical] Respiratory 19 20 32 H Rate Blood Pressure 132/85 132/85 132/85 O2 Sat by Pulse 99 99 99 Oximetry 04/26/18 04/26/18 04/26/18 06:50 07:00 07:10 Temperature Pulse Rate 127 H 117 H 114 H Pulse Rate [ Apical] Respiratory 31 H 35 H 55 H Rate Blood Pressure 132/85 132/85 166/115 O2 Sat by Pulse 99 88 98 Oximetry 04/26/18 04/26/18 04/26/18 07:20 07:30 07:40 Temperature Pulse Rate 104 H 111 H 105 H Pulse Rate [ Apical] Respiratory 29 H 34 H 35 H Rate Blood Pressure 166/115 166/115 134/88 O2 Sat by Pulse 98 99 98 Oximetry 04/26/18 07:50 Temperature Pulse Rate 113 H Pulse Rate [ Apical] Respiratory 32 H Rate Blood Pressure 134/88 O2 Sat by Pulse 99 Oximetry Constitutional: asleep, appears uncomfortable Eyes: non-icteric ENT: oropharynx moist Neck: supple, no JVD Effort: mildly labored Ascultation: Bilateral: clear, diminished breath sounds, rales (faint) Percussion: Bilateral: not dull Cardiovascular: irregular rhythm Gastrointestinal: normoactive bowel sounds Extremities: pulses normal, no ischemia or petechiae, other (mild clubbing) Neurologic: normal mental status, non-focal exam, pupils equal and round, CN II- XII normal Psychiatric: anxious CBC and BMP: 04/26/18 04:55 04/26/18 04:55 ABG, PT/INR, D-dimer: ABG POC ABG pH 7.478 (7.35-7.45) H 04/23/18 15:08 POC ABG pCO2 51.0 (35-45) H 04/23/18 15:08 POC ABG pO2 62 (80-105) L 04/23/18 15:08 POC ABG HCO3 37.8 04/23/18 15:08 POC ABG Total CO2 39 04/23/18 15:08 POC ABG O2 Sat 93 04/23/18 15:08 PT/INR, D-dimer PT 18.3 Sec. (12.2-14.9) H 04/17/18 12:48 INR 1.48 (0.87-1.13) H 04/17/18 12:48 D-Dimer 1975 ng/mlDDU (0-234) H 04/17/18 12:38 Abnormal lab findings: Abnormal Labs 04/17/18 04/17/18 04/17/18 12:38 12:48 12:48 WBC 18.0 H Lymph % (Auto) 6.5 L [place] % (Auto) 10.0 H Lymph # [place] # 1.8 H Seg Neutrophils % 83.2 H Seg Neuts % (Manual) Lymphocytes % (Manual) Seg Neutrophils # 15.0 H Seg Neutrophils # Man Lymphocytes # (Manual) PT 18.3 H INR 1.48 H D-Dimer 1975 H POC ABG pH POC ABG pCO2 POC ABG pO2 Sodium Potassium Chloride Carbon Dioxide BUN Creatinine Glucose Magnesium AST ALT Alkaline Phosphatase Lactate Dehydrogenase NT-Pro-B Natriuret Pep Albumin Free T4 Urine WBC (Auto) 04/17/18 04/17/18 04/17/18 12:48 12:48 16:11 WBC Lymph % (Auto) [place] % (Auto) Lymph # [place] # Seg Neutrophils % Seg Neuts % (Manual) Lymphocytes % (Manual) Seg Neutrophils # Seg Neutrophils # Man Lymphocytes # (Manual) PT INR D-Dimer POC ABG pH POC ABG pCO2 POC ABG pO2 Sodium 136 L Potassium Chloride Carbon Dioxide BUN Creatinine 0.6 L Glucose 127 H Magnesium AST 121 H ALT 110 H Alkaline Phosphatase Lactate Dehydrogenase NT-Pro-B Natriuret Pep 6653 H Albumin 3.4 L Free T4 1.67 H Urine WBC (Auto) 04/17/18 04/18/18 04/19/18 Unknown 05:12 05:02 WBC 17.8 H Lymph % (Auto) 5.1 L [place] % (Auto) 8.0 H Lymph # 0.9 L [place] # 1.4 H Seg Neutrophils % 86.6 H Seg Neuts % (Manual) Lymphocytes % (Manual) Seg Neutrophils # 15.4 H Seg Neutrophils # Man Lymphocytes # (Manual) PT INR D-Dimer POC ABG pH POC ABG pCO2 POC ABG pO2 Sodium Potassium 3.2 L Chloride 94.2 L Carbon Dioxide BUN 20 H Creatinine 0.6 L Glucose 118 H Magnesium AST ALT Alkaline Phosphatase Lactate Dehydrogenase NT-Pro-B Natriuret Pep Albumin Free T4 Urine WBC (Auto) 11.0 H 04/20/18 04/22/18 04/23/18 09:56 04:55 15:08 WBC Lymph % (Auto) [place] % (Auto) Lymph # [place] # Seg Neutrophils % Seg Neuts % (Manual) Lymphocytes % (Manual) Seg Neutrophils # Seg Neutrophils # Man Lymphocytes # (Manual) PT INR D-Dimer POC ABG pH 7.478 H POC ABG pCO2 51.0 H POC ABG pO2 62 L Sodium Potassium 3.1 L Chloride 94.3 L 94.1 L Carbon Dioxide BUN 27 H 36 H Creatinine Glucose 118 H 157 H Magnesium AST ALT Alkaline Phosphatase Lactate Dehydrogenase NT-Pro-B Natriuret Pep Albumin Free T4 Urine WBC (Auto) 04/24/18 04/25/18 04/25/18 18:00 04:37 Unknown WBC Lymph % (Auto) [place] % (Auto) Lymph # [place] # Seg Neutrophils % Seg Neuts % (Manual) Lymphocytes % (Manual) Seg Neutrophils # Seg Neutrophils # Man Lymphocytes # (Manual) PT INR D-Dimer POC ABG pH POC ABG pCO2 POC ABG pO2 Sodium Potassium Chloride 96.4 L Carbon Dioxide 37 H D BUN 48 H Creatinine Glucose 181 H Magnesium AST ALT Alkaline Phosphatase 196 H Lactate Dehydrogenase 575 H NT-Pro-B Natriuret Pep 3763 H Albumin 2.5 L Free T4 Urine WBC (Auto) 04/26/18 04/26/18 04:55 04:55 WBC 26.5 H Lymph % (Auto) [place] % (Auto) Lymph # [place] # Seg Neutrophils % Seg Neuts % (Manual) 97.0 H Lymphocytes % (Manual) 0 L Seg Neutrophils # Seg Neutrophils # Man 25.7 H Lymphocytes # (Manual) 0.0 L PT INR D-Dimer POC ABG pH POC ABG pCO2 POC ABG pO2 Sodium 146 H Potassium 3.3 L Chloride 96.6 L Carbon Dioxide 36 H BUN 48 H Creatinine Glucose 218 H Magnesium 2.60 H AST ALT Alkaline Phosphatase Lactate Dehydrogenase NT-Pro-B Natriuret Pep Albumin Free T4 Urine WBC (Auto)
[2018-04-26] MEDS ORDERED: D50W (25GM) Syringe IV PRN (08:59)
[2018-04-26] MEDS ORDERED: K-DUR PO ONE (09:34)
--- NOTE | 2018-04-26 09:58 | Progress Note ---
Assessment and Plan Optimize BP and HR - cont amio gtt and increase IV lopressor to Q6H dosing. Will plan to resume PO medications once PO intake is stable. F/u chest CT noted - pattern of severe acute ILD. Follow pulmonary recs. The patient has been seen in conjunction with Dr. Mirza who agrees with the assessment and plan of care. - Patient Problems (1) Acute heart failure with preserved ejection fraction Current Visit: Yes Status: Acute (2) Acute respiratory failure Current Visit: Yes Status: Acute (3) Pneumonia Current Visit: Yes Status: Acute (4) Persistent atrial fibrillation with RVR Current Visit: Yes Status: Chronic (5) HTN (hypertension) Current Visit: Yes Status: Chronic (6) Altered mental status Current Visit: Yes Status: Acute Subjective Date of service: 04/26/18 Principal diagnosis: PNA, hypoxemia respiratory failure, congestive heart f ailure, MS Interval history: pt resting in bed, lethargic, confused, on BiPAP. tele reviewed - in AFib with HR 100s - 120s. amio gtt infusing. Objective Last Vital Signs Temp 98.5 F 04/26/18 04:00 Pulse 113 H 04/26/18 07:50 Resp 32 H 04/26/18 07:50 BP 134/88 04/26/18 07:50 Pulse Ox 99 04/26/18 07:50 - Physical Examination General: Other (on BIPAP) HEENT: Positive: PERRL, Normocephaly, Mucus Membranes Moist Neck: Positive: neck supple, trachea midline Cardiac: Positive: irregularly irregular, S1/S2, Tachycardia Lungs: Positive: Decreased Breath Sounds, Rhonchi, Oxygen Neuro: Positive: Other (on BIPAP) Abdomen: Positive: Soft. Negative: Tender Skin: Negative: Rash, Wound Musculoskeletal: No Pain Extremities: Absent: edema - Labs and Meds Cardiac Enzymes 04/25/18 Range/Units Unknown Lactate Dehydrogenase 575 H (91-180) units/L CBC 04/26/18 Range/Units 04:55 WBC 26.5 H (4.5-11.0) K/mm3 RBC 4.64 (3.65-5.03) M/mm3 Hgb 13.5 (10.1-14.3) gm/dl Hct 41.7 (30.3-42.9) % Plt Count 288 (140-440) K/mm3 Comprehensive Metabolic Panel 04/26/18 Range/Units 04:55 Sodium 146 H (137-145) mmol/L Potassium 3.3 L (3.6-5.0) mmol/L Chloride 96.6 L (98-107) mmol/L Carbon Dioxide 36 H (22-30) mmol/L BUN 48 H (7-17) mg/dL Creatinine 0.7 (0.7-1.2) mg/dL Glucose 218 H (65-100) mg/dL Calcium 8.7 (8.4-10.2) mg/dL - Imaging and Cardiology EKG: report reviewed, image reviewed Echo: report reviewed (04/14/2018 which showed EF 60-65%, mild to mod RV hypokinesis, LA enlarged, mild MR, mod TR, RVSP 63mmHg, trace pericardial effusion.)
[2018-04-26] MEDS: ZOLOFT PO SCH (10:21)
[2018-04-26] MEDS: COZAAR PO SCH (10:21)
[2018-04-26] MEDS: VITAMIN D3 PO SCH (10:22)
[2018-04-26] MEDS: PRADAXA PO SCH ×2 (10:22→21:38)
[2018-04-26] MEDS: HALFPRIN EC PO SCH (10:23)
[2018-04-26] MEDS: SODIUM CHLORIDE FLUSH SYRINGE 10 ML IV SCH ×2 (10:24→21:40)
--- NOTE | 2018-04-26 10:43 | Progress Note ---
Assessment and Plan Assessment and plan: 77 yo woman with a history of HTN, Atrial Fib on Therapeutic Anticoagulation (Eliquis), Hypothyroidism, HTN, HLD, Migraine SAAVEDRA, OA and Anxiety/depression who presented to [facility] ED with SOB without chest pains. Pt also complains of itchy red spots on her arms since beginning Eliquis for new onset Afib. She was started on Prednisone and benadryl by PCP. She just stopped the Predisone, couple days prior to arrival * pCXR CONCLUSION: 1. Diffuse bilateral pulmonary infiltrates, possibly edema, infection or inflammation, amongst others, though exact etiology or chronicity uncertain on this exam alone. 2. Few other findings, as above. Please also correlate clinically and with prior chest imaging, if available. * V/Q lung scan: Intermediate prob for PE --Interstitial lung disease on CT chest today; High-dose of steroids, management per pulmonary, On BiPAP /high flow oxygen ,closely monitor --A. fib with rapid ventricular rate; continue amiodarone, beta blockers Cardiology following --Chronic anticoagulation; continue Pradaxa --Acute hypoxic respiratory failure; secondary to acute exacerbation of systolic congestive heart failure Continue anti-failure medications, oxygen titrate O2 sats to more than 90%, pulmonary following --SIRS with organ dysfunction; Leukocytosis probably secondary to steroids, possible pneumonia, continue empiric antibiotics --Elevated D dimers; V/Q scan intermediate probability for PE/CTA chest negative for PE --Hypothyroidism; continue Synthroid --Anxiety disorder; supportive care and the anxiety medications --DVT prophylaxis; patient is on Pradaxa --Full CODE STATUS Consults and recommendations noted and appreciated I discussed the case extensively with pulmonary critical Patient critically ill, with bilateral interstitial pneumonia /pulmonary fibrosis /A. fib with rapid ventricular rate On BiPAP and high flow oxygen with poor prognosis. we will discuss with the family the plan of care Closely monitor the patient and adjust the management as needed Critical care time 32 minutes History Interval history: Patient seen and examined medical records reviewed Patient continues to have A. fib with rapid ventricular rate In spite of being on amiodarone drip In acute distress, on BiPAP Chronically ill-looking, cachectic Vital signs reviewed Hospitalist Physical - Constitutional Vitals: Temp Pulse Resp BP Pulse Ox 98.5 F 122 H 32 H 126/89 99 04/26/18 04:00 04/26/18 10:21 02/06/19 07:50 04/26/18 10:21 04/26/18 07:50 General appearance: Present: mild distress, well-nourished, other (on BiPAP) - EENT Eyes: Present: PERRL, EOM intact - Neck Neck: Present: supple, normal ROM - Respiratory Respiratory effort: labored Respiratory: bilateral: diminished, rhonchi, negative: rales, wheezing - Cardiovascular Rhythm: regular Heart Sounds: Present: S1 & S2 - Extremities Extremities: no ischemia, No edema - Abdominal General gastrointestinal: soft, non-tender, non-distended, normal bowel sounds - Integumentary Integumentary: Present: clear, warm - Psychiatric Psychiatric: other (anxious) - Neurologic Neurologic: moves all extremities Results - Labs CBC & Chem 7: 04/26/18 04:55 04/26/18 04:55 Labs: Laboratory Last Values WBC 26.5 K/mm3 (4.5-11.0) H 04/26/18 04:55 RBC 4.64 M/mm3 (3.65-5.03) 04/26/18 04:55 Hgb 13.5 gm/dl (10.1-14.3) 04/26/18 04:55 Hct 41.7 % (30.3-42.9) 04/26/18 04:55 MCV 90 fl (79-97) 04/26/18 04:55 MCH 29 pg (28-32) 04/26/18 04:55 MCHC 32 % (30-34) 04/26/18 04:55 RDW 13.9 % (13.2-15.2) 04/26/18 04:55 Plt Count 288 K/mm3 (140-440) 04/26/18 04:55 Lymph % (Auto) 5.1 % (13.4-35.0) L 04/18/18 05:12 [place] % (Auto) 8.0 % (0.0-7.3) H 04/18/18 05:12 Eos % (Auto) 0.1 % (0.0-4.3) 04/18/18 05:12 Baso % (Auto) 0.2 % (0.0-1.8) 04/18/18 05:12 Lymph # 0.9 K/mm3 (1.2-5.4) L 04/18/18 05:12 [place] # 1.4 K/mm3 (0.0-0.8) H 04/18/18 05:12 Eos # 0.0 K/mm3 (0.0-0.4) 04/18/18 05:12 Baso # 0.0 K/mm3 (0.0-0.1) 04/18/18 05:12 Add Manual Diff Complete 04/26/18 04:55 Total Counted 100 04/26/18 04:55 Seg Neutrophils % Swaging Machine Operator 04/26/18 04:55 Seg Neuts % (Manual) 97.0 % (40.0-70.0) H 04/26/18 04:55 Band Neutrophils % 2.0 % 04/26/18 04:55 Lymphocytes % (Manual) 0 % (13.4-35.0) L 04/26/18 04:55 Reactive Lymphs % (Man) 0 % 04/26/18 04:55 Monocytes % (Manual) 1.0 % (0.0-7.3) 04/26/18 04:55 Eosinophils % (Manual) 0 % (0.0-4.3) 04/26/18 04:55 Basophils % (Manual) 0 % (0.0-1.8) 04/26/18 04:55 Metamyelocytes % 0 % 04/26/18 04:55 Myelocytes % 0 % 04/26/18 04:55 Promyelocytes % 0 % 04/26/18 04:55 Blast Cells % 0 % 04/26/18 04:55 Nucleated RBC % Not Reportable 04/26/18 04:55 Seg Neutrophils # 15.4 K/mm3 (1.8-7.7) H 04/18/18 05:12 Seg Neutrophils # Man 25.7 K/mm3 (1.8-7.7) H 04/26/18 04:55 Band Neutrophils # 0.5 K/mm3 04/26/18 04:55 Lymphocytes # (Manual) 0.0 K/mm3 (1.2-5.4) L 04/26/18 04:55 Abs React Lymphs (Man) 0.0 K/mm3 04/26/18 04:55 Monocytes # (Manual) 0.3 K/mm3 (0.0-0.8) 04/26/18 04:55 Eosinophils # (Manual) 0.0 K/mm3 (0.0-0.4) 04/26/18 04:55 Basophils # (Manual) 0.0 K/mm3 (0.0-0.1) 04/26/18 04:55 Metamyelocytes # 0.0 K/mm3 04/26/18 04:55 Myelocytes # 0.0 K/mm3 04/26/18 04:55 Promyelocytes # 0.0 K/mm3 04/26/18 04:55 Blast Cells # 0.0 K/mm3 04/26/18 04:55 WBC Morphology Not Reportable 04/26/18 04:55 Hypersegmented Neuts Not Reportable 04/26/18 04:55 Hyposegmented Neuts Not Reportable 04/26/18 04:55 Hypogranular Neuts Not Reportable 04/26/18 04:55 Smudge Cells Not Reportable 04/26/18 04:55 Toxic Granulation Not Reportable 04/26/18 04:55 Toxic Vacuolation Not Reportable 04/26/18 04:55 Dohle Bodies Not Reportable 04/26/18 04:55 Pelger-Huet Anomaly Not Reportable 04/26/18 04:55 Francisco Javier Rods Not Reportable 04/26/18 04:55 Platelet Estimate Appears normal 04/26/18 04:55 Clumped Platelets Not Reportable 04/26/18 04:55 Plt Clumps, EDTA Not Reportable 04/26/18 04:55 Large Platelets Not Reportable 04/26/18 04:55 Giant Platelets Not Reportable 04/26/18 04:55 Platelet Satelliting Not Reportable 04/26/18 04:55 Plt Morphology Comment Not Reportable 04/26/18 04:55 RBC Morphology Not Reportable 04/26/18 04:55 Dimorphic RBCs Not Reportable 04/26/18 04:55 Polychromasia Not Reportable 04/26/18 04:55 Hypochromasia Not Reportable 04/26/18 04:55 Poikilocytosis Not Reportable 04/26/18 04:55 Anisocytosis 1+ 04/26/18 04:55 Microcytosis Not Reportable 04/26/18 04:55 Macrocytosis Not Reportable 04/26/18 04:55 Spherocytes Not Reportable 04/26/18 04:55 Pappenheimer Bodies Not Reportable 04/26/18 04:55 Sickle Cells Not Reportable 04/26/18 04:55 Target Cells Not Reportable 04/26/18 04:55 Tear Drop Cells Not Reportable 04/26/18 04:55 Ovalocytes 1+ 04/26/18 04:55 Stomatocytes 3+ 04/26/18 04:55 Helmet Cells Not Reportable 04/26/18 04:55 Marquez-Katy Bodies Not Reportable 04/26/18 04:55 [place] Rings Not Reportable 04/26/18 04:55 [place] Cells Not Reportable 04/26/18 04:55 Bite Cells Not Reportable 04/26/18 04:55 Crenated Cell Not Reportable 04/26/18 04:55 Elliptocytes Not Reportable 04/26/18 04:55 Acanthocytes (Spur) Not Reportable 04/26/18 04:55 Rouleaux Not Reportable 04/26/18 04:55 Hemoglobin C Crystals Not Reportable 04/26/18 04:55 Schistocytes Not Reportable 04/26/18 04:55 Malaria parasites Not Reportable 04/26/18 04:55 Otoniel Bodies Not Reportable 04/26/18 04:55 Hem Pathologist Commnt No 04/26/18 04:55 PT 18.3 Sec. (12.2-14.9) H 04/17/18 12:48 INR 1.48 (0.87-1.13) H 04/17/18 12:48 APTT 27.2 Sec. (24.2-36.6) 04/17/18 12:48 D-Dimer 1975 ng/mlDDU (0-234) H 04/17/18 12:38 POC ABG pH 7.478 (7.35-7.45) H 04/23/18 15:08 POC ABG pCO2 51.0 (35-45) H 04/23/18 15:08 POC ABG pO2 62 (80-105) L 04/23/18 15:08 POC ABG HCO3 37.8 04/23/18 15:08 POC ABG Total CO2 39 04/23/18 15:08 POC ABG O2 Sat 93 04/23/18 15:08 POC ABG Base Excess 14 04/23/18 15:08 FiO2 100 % 04/23/18 15:08 Sodium 146 mmol/L (137-145) H 04/26/18 04:55 Potassium 3.3 mmol/L (3.6-5.0) L 04/26/18 04:55 Chloride 96.6 mmol/L (98-107) L 04/26/18 04:55 Carbon Dioxide 36 mmol/L (22-30) H 04/26/18 04:55 Anion Gap 17 mmol/L 04/26/18 04:55 BUN 48 mg/dL (7-17) H 04/26/18 04:55 Creatinine 0.7 mg/dL (0.7-1.2) 04/26/18 04:55 Estimated GFR > 60 ml/min 04/26/18 04:55 BUN/Creatinine Ratio 69 % 04/26/18 04:55 Glucose 218 mg/dL (65-100) H 04/26/18 04:55 Lactic Acid 1.20 mmol/L (0.7-2.0) 04/17/18 21:34 Calcium 8.7 mg/dL (8.4-10.2) 04/26/18 04:55 Magnesium 2.60 mg/dL (1.7-2.3) H 04/26/18 04:55 Total Bilirubin 0.70 mg/dL (0.1-1.2) 04/25/18 04:37 AST 38 units/L (5-40) 04/25/18 04:37 ALT 49 units/L (7-56) 04/25/18 04:37 Alkaline Phosphatase 196 units/L (35-129) H 04/25/18 04:37 Lactate Dehydrogenase 575 units/L (91-180) H 04/25/18 Unknown Total Creatine Kinase 51 units/L (30-135) 04/17/18 12:48 CK-MB (CK-2) 1.8 ng/mL (0.0-4.0) 04/17/18 12:48 CK-MB (CK-2) Rel Index 3.5 (0-4) 04/17/18 12:48 Troponin T < 0.010 ng/mL (0.00-0.029) 04/17/18 12:48 NT-Pro-B Natriuret Pep 3763 pg/mL (0-900) H 04/24/18 18:00 Total Protein 6.9 g/dL (6.3-8.2) 04/25/18 04:37 Albumin 2.5 g/dL (3.9-5) L 04/25/18 04:37 Albumin/Globulin Ratio 0.6 % 04/25/18 04:37 Triglycerides 89 mg/dL (2-149) 04/17/18 16:11 Cholesterol 109 mg/dL (50-199) 04/17/18 16:11 LDL Cholesterol Direct 60 mg/dL (50-130) 04/17/18 16:11 HDL Cholesterol 41 mg/dL (40-59) 04/17/18 16:11 Cholesterol/HDL Ratio 2.65 % 04/17/18 16:11 TSH 2.320 mlU/mL (0.270-4.200) 04/17/18 16:11 Free T4 1.67 ng/dL (0.76-1.46) H 04/17/18 16:11 Urine Color Yellow (Yellow) 04/17/18 Unknown Urine Turbidity Clear (Clear) 04/17/18 Unknown Urine pH 5.0 (5.0-7.0) 04/17/18 Unknown Ur Specific [place] 1.005 (1.003-1.030) 04/17/18 Unknown Urine Protein <15 mg/dl mg/dL (Negative) 04/17/18 Unknown Urine Glucose (UA) Neg mg/dL (Negative) 04/17/18 Unknown Urine Ketones Neg mg/dL (Negative) 04/17/18 Unknown Urine Blood Mod (Negative) 04/17/18 Unknown Urine Nitrite Neg (Negative) 04/17/18 Unknown Urine Bilirubin Neg (Negative) 04/17/18 Unknown Urine Urobilinogen < 2.0 mg/dL (<2.0) 04/17/18 Unknown Ur Leukocyte Esterase Neg (Negative) 04/17/18 Unknown Urine WBC (Auto) 11.0 /HPF (0.0-6.0) H 04/17/18 Unknown Urine RBC (Auto) 3.0 /HPF (0.0-6.0) 04/17/18 Unknown U Epithel Cells (Auto) 2.0 /HPF (0-13.0) 04/17/18 Unknown Urine Mucus Few /HPF 04/17/18 Unknown Nutrition/Malnutrition Assess - Dietary Evaluation Nutrition/Malnutrition Findings: Nutrition Notes Start: 04/24/18 15:05 Freq: Status: Active Protocol: Document 04/24/18 15:07 OL (Rec: 04/24/18 15:13 OL [id number]) Nutrition Notes Need for Assessment generated from: LOS Initial or Follow up Brief Note Current Diet NPO Labs/Tests Reviewed Pertinent Medications Lasix, solumedrol Height 5 ft 6 in Weight 74.3 kg [place] Body Weight (kg) 59.09 BMI 26.4 Subjective/Other Information RD screen for LOS. Pt. transferred to CCU this morning. Pt. had been on [facility] soft diet previously. Intakes vary (50-75%). Breakfast tray untouched. Pt. with mitten restraints. Currently NPO Burn Absent Trauma Absent #1 Nutrition Diagnosis Inadequate oral intake Etiology NPO status As Evidenced by Signs and Symptoms pt. unable to meet nutrient needs at this time, Is patient on ventilator? No Is Patient Ambulatory and/or Out of Bed Yes REE-([facility]-ambulatory/OOB) [ 1605.175 [id number]] Calculation Used for Recommendations [facility] Additional Notes protein (1.2-2g/kg): 89-149g fluid: 1mL/kcal or per MD Nutrition Intervention Change Diet Order: Advance when medically feasible Goal #1 Diet advancement when medically feasible Follow-Up By: 04/26/18 Additional Comments f/u: diet advancement, add ONS to order
[2018-04-26] MEDS ORDERED: SODIUM BICARBONATE FEEDTUBE PRN (17:45)
[2018-04-26] MEDS ORDERED: SIMPLE SYRUP FEEDTUBE PRN ×2 (17:45)
[2018-04-26] MEDS ORDERED: PANCREAZE DR 10,500 UNIT FEEDTUBE PRN (17:45)
--- NOTE | 2018-04-26 17:52 | Event Note ---
Date: 04/26/18 I discussed in detail with patient's daughter Ms. Leigha Mitchell, who is a nurse, patient's critical condition Poor prognosis, CODE STATUS, possible tube feeding and treatment plan,Consultants recommendations. She informed me that she will talk with her dad[patient's ] and other family members And would make the decisions. Requested to continue full CODE STATUS at this point. Patient also agreed for tube feeding. Addressed all her questions and concerns. Speech and swallow evaluation noted, Dobbhoff placement, tube feeding per pro tocol
[2018-04-26] MEDS: LOPRESSOR IV SCH ×2 (18:00→21:35)
[2018-04-26] MEDS: ROCEPHIN/NS 2 GM/100 ML 2 GM/100 ML BAG IV SCH (21:34)
[2018-04-26] MEDS: MEPRON PO SCH (21:37)
[2018-04-26] MEDS: PRAVACHOL PO SCH (21:39)
[2018-04-26] MEDS: ZITHROMAX PO SCH (21:40)
[2018-04-27] MEDS: SOLU-Medrol IV SCH ×5 (00:18→19:26)
[2018-04-27] MEDS: LOPRESSOR IV SCH ×4 (04:27→16:42)
[2018-04-27 05:20] LABS: Hematocrit 41.1 % (30.3-42.9); Hemoglobin 13.4 gm/dl (10.1-14.3); Mean Corpuscular HGB Conc 33 % (30-34); Mean Corpuscular Volume 90 fl (79-97); Platelet Count 266 K/mm3 (140-440); Red Blood Count 4.57 M/mm3 (3.65-5.03); Red Cell Distribution Width 13.7 % (13.2-15.2)
[2018-04-27 05:44] LABS: BUN/Creatinine Ratio 64; Blood Urea Nitrogen 45 mg/dL (7-17); Calcium 8.5 mg/dL (8.4-10.2); Hemolysis Index 4
[2018-04-27 06:00] LABS: Band Neutrophils # (Manual) 1.1 K/mm3; Basophils % (Manual) 0 % (0.0-1.8); Eosinophils % (Manual) 0 % (0.0-4.3); Total Cells Counted 100
[2018-04-27 06:01] LABS: Anisocytosis 1+; Ovalocytes 1+; Stomatocytes 2+
[2018-04-27] MEDS: LASIX IV SCH ×3 (06:14→18:35)
[2018-04-27] MEDS: SYNTHROID PO SCH (06:19)
[2018-04-27] MEDS ORDERED: K-DUR PO ONE (08:57)
--- NOTE | 2018-04-27 08:57 | Consultation ---
History of Present Illness - Reason for Consult Consult date: 04/27/18 Interstitial pnuemonia, CAP, Respiratory failure Requesting physician: CARMITA DUMONT - History of Present Illness This patient is a 77 YO female with a past medical history of HTN, Atrial Fib on therapeutic anticoagulation, hypothyroidism, HLD, migraine, SAAVEDRA, OA that presented to the ED on 04/17/18 stating that she had been experiencing SOB for the past 3 days with worsening symptoms over the past 1 day. patient acknowledged decreased exercise tolerance, orthopenea/PND, and SOB. When arriving to the ED the patient was found to have acute respiratory failure, CHF and sepsis secondary to bilateral pneumonia. On admission WBC 18.0, Creatiinie 0.7, Lactic Acid 1.O, Temperature 98.3, , HR 103, BP 117/47, U/A showed mild pyuria, Chest xray showed diffuse increased pulmonary densities/infiltrates, possibly edema, infection or inflammation amongst others, exact etiology is unknown, Chest Ct showed No evidence for pulmonary embolus. Mild cardiomegaly. Diffuse bilateral infiltrates concerning for pneumonia. V/Q lung scan showed an intermediate probability for PE Patient is currently on Bipap and high flow oxygen with poor prognosis. Blood cultures were drawn and show no growth to date. Patient provided limited history, slightly agitated about High flow oxygen. States that she is feeling better. When asked did not know why or how long she was given prednisone. No family at bedside at this time. Review of Systems: General: no fever,, chills, nightsweats, unintentional weight change, or change in appetite Cutaneous: no rash, pruritus Head: no headaches or injury Eyes: no changes in vision, eye pain, double vision Ears: no ear pain, ear discharge, ringing or hearing loss Nose: no nose bleeding, stuffiness Mouth & throat: no bleeding gums, no horseness, no dental problems, or swollen glands Neck: no pain, node enlargement/lumps, tyroid enlargement or tenderness Respiratory: + cough, wheezing, Cardiovascular: no chest pain, leg edema, cyanosis, RODRIGEZ, orthopnea Musculoskeletal: no decreased joint motion, bone or joint pain, joint swelling, + muscle aches Gastrointestinal: no nausea, vomiting, hematemesis, diarrhea, constipation, Genitourinary/Reproductive: no frequent urination, no dysuria, hematuria, incontinence Neurogical: no seizures, no headaches, no weakness, no paresthesias, Psychiatric: + anxiety, want O2 removed states that it is uncomfortable Past History Past Medical History: atrial fib, arthritis, hypertension, hyperlipidemia, migraines Past Surgical History: cholecystectomy, Other (wrist surgery) Social history: , lives with family. denies: smoking, alcohol abuse, prescription drug abuse Family history: hypertension Medications and Allergies Allergies Allergy/AdvReac Type Severity Reaction Status Date / Time Sulfa (Sulfonamide AdvReac Nausea Verified 06/28/13 13:07 Antibiotics) Home Medications Medication Instructions Recorded Confirmed Last Taken Type Aspirin EC [Halfprin EC] 81 mg PO QDAY 06/28/13 04/17/18 07/02/13 History Cholecalciferol (Vitamin D3) 1,000 unit PO DAILY 06/28/13 04/17/18 07/04/13 History [Vitamin D] Olmesartan Medoxomil [Benicar] 20 mg PO DAILY 06/28/13 04/17/18 07/05/13 06:30 History Propranolol [Inderal] 40 mg PO BID 06/28/13 04/17/18 07/05/13 06:30 History Simvastatin 10 mg PO DAILY 06/28/13 04/17/18 07/04/13 History Apixaban [Eliquis] 5 mg PO BID 04/17/18 04/17/18 Unknown History Fluticasone [Flonase] 1 spray NS QDAY 04/17/18 04/17/18 Unknown History Levothyroxine [Synthroid] 100 mcg PO QAM 04/17/18 04/17/18 Unknown History Sertraline [Zoloft] 100 mg PO QDAY 04/17/18 04/17/18 Unknown History predniSONE [Deltasone] 40 mg PO QDAY 04/17/18 04/17/18 Unknown History Active Meds: Active Medications Acetaminophen (Tylenol) 650 mg PO Q4H PRN PRN Reason: Pain MILD(1-3)/Fever >100.5/SAAVEDRA Last Admin: 04/22/18 15:52 Dose: 650 mg Documented by: Albuterol (Proventil) 2.5 mg IH Q4HRT PRN PRN Reason: Shortness Of Breath Last Admin: 04/18/18 08:01 Dose: 2.5 mg Documented by: Lipase/Protease/Amylase (Pancreaze Dr 10,500 Unit) 1 each FEEDTUBE PRN PRN PRN Reason: For Clogged Feeding Tube Aspirin (Halfprin Ec) 81 mg PO QDAY [facility] Last Admin: 04/26/18 10:23 Dose: 81 mg Documented by: Atovaquone (Mepron) 750 mg PO BID [facility]AR[facility] Last Admin: 04/26/18 21:37 Dose: Not Given Documented by: Azithromycin (Zithromax) 500 mg PO Q24H [facility] Last Admin: 04/26/18 21:40 Dose: Not Given Documented by: Cholecalciferol (Vitamin D3) 4,000 unit PO DAILY [facility] Last Admin: 04/26/18 10:22 Dose: 4,000 unit Documented by: Cyclobenzaprine HCl (Flexeril) 10 mg PO QHS PRN PRN Reason: Muscle Spasm Last Admin: 04/23/18 21:56 Dose: 10 mg Documented by: Dabigatran (Pradaxa) 150 mg PO BID [facility]; Protocol Last Admin: 04/26/18 21:38 Dose: Not Given Documented by: Dextrose (D50w (25gm) Syringe) 50 ml IV PRN PRN PRN Reason: Hypoglycemia Furosemide (Lasix) 40 mg IV 0600,1800 [facility] Last Admin: 04/27/18 07:46 Dose: Not Given Documented by: Ceftriaxone Sodium (Rocephin/Ns 2 Gm/100 Ml) 2 gm in 100 mls @ 200 mls/hr IV Q24H [facility]; Protocol Last Admin: 04/26/18 21:34 Dose: 200 mls/hr Documented by: Amiodarone HCl 900 mg/ (Dextrose) 500 mls @ 33.33 mls/hr IV DIRECT [facility]; Protocol Last Admin: 04/25/18 09:57 Dose: 1 mg/min, 33.33 mls/hr Documented by: Levothyroxine Sodium (Synthroid) 100 mcg PO DAILY@0600 [facility] Last Admin: 04/27/18 06:19 Dose: Not Given Documented by: Lorazepam (Ativan) 0.5 mg PO Q8HR PRN PRN Reason: Anxiety Last Admin: 04/24/18 18:23 Dose: 0.5 mg Documented by: Losartan Potassium (Cozaar) 50 mg PO QDAY [facility] Last Admin: 04/26/18 10:21 Dose: 50 mg Documented by: Methylprednisolone Sodium Succinate (Solu-Medrol) 250 mg IV Q6HR [facility] Last Admin: 04/27/18 07:46 Dose: Not Given Documented by: Metoprolol Tartrate (Lopressor) 5 mg IV Q6H [facility] Last Admin: 04/27/18 04:27 Dose: 5 mg Documented by: Ondansetron HCl (Zofran) 4 mg IV Q8H PRN PRN Reason: Nausea And Vomiting Pravastatin Sodium (Pravachol) 20 mg PO QHS [facility] Last Admin: 04/26/18 21:39 Dose: Not Given Documented by: Sertraline HCl (Zoloft) 100 mg PO QDAY [facility] Last Admin: 04/26/18 10:21 Dose: 100 mg Documented by: Simple Syrup (Simple Syrup) 15 ml FEEDTUBE PRN PRN PRN Reason: Hypoglycemia Simple Syrup (Simple Syrup) 30 ml FEEDTUBE PRN PRN PRN Reason: Hypoglycemia Sodium Bicarbonate (Sodium Bicarbonate) 325 mg FEEDTUBE PRN PRN PRN Reason: For Clogged Feeding Tube Sodium Chloride (Sodium Chloride Flush Syringe 10 Ml) 10 ml IV BID [facility] Last Admin: 04/26/18 21:40 Dose: 10 ml Documented by: Sodium Chloride (Sodium Chloride Flush Syringe 10 Ml) 10 ml IV PRN PRN PRN Reason: LINE FLUSH Zinc Acetate/Diphenhydramine (Banophen Anti-Itch) 1 applic TP Q6H PRN PRN Reason: Itching Physical Examination - Physical Exam Narrative exam: Constitutional: Alert, anxious, limited communiction, mild distress observed Head, Ears, Nose: Normocephalic, atraumatic. External ears, nose normal Eyes: Conjunctivae/corneas clear. No icterus. No ptosis. Neck: Supple, no meningeal signs Oral: unable to assess.exam limited Cardiovascular: S1, S2 normal. Respiratory: diminished breath sounds at right base, bilateral rhonci throughout GI: Soft, non-tender; bowel sounds normal. No peritoneal signs Musculoskeletal: No pedal edema, no cyanosis. Skin: No rash or abscess. Hem/Lymphatic: No palpable cervical or supraclavicular nodes. No lymphangitis Psych: Mood ok. Affect normal Neurological: Awake, alert, oriented. - Constitutional Vitals: Vital Signs Temp Pulse Resp BP Pulse Ox 97.3 F L 134 H 32 H 126/76 95 04/27/18 04:00 04/27/18 07:01 04/27/18 07:01 04/27/18 07:01 04/27/18 08:12 Temperature -Last 24 Hours Temperature 97.3 F Temperature 97.8 F Temperature 97.5 F Temperature 98.1 F Temperature 97.6 F Results - Labs CBC & Chem 7: 04/27/18 04:51 04/27/18 04:51 Labs: Abnormal lab results 04/26/18 04/27/18 04/27/18 Range/Units 11:52 04:51 04:51 WBC 27.8 H (4.5-11.0) K/mm3 Seg Neuts % (Manual) 95.0 H (40.0-70.0) % Lymphocytes % (Manual) 0 L (13.4-35.0) % Seg Neutrophils # Man 26.4 H (1.8-7.7) K/mm3 Lymphocytes # (Manual) 0.0 L (1.2-5.4) K/mm3 Potassium 3.2 L (3.6-5.0) mmol/L Chloride 94.6 L (98-107) mmol/L Carbon Dioxide 39 H (22-30) mmol/L BUN 45 H (7-17) mg/dL Glucose 169 H (65-100) mg/dL POC Glucose 210 H (70-105) Magnesium 2.40 H (1.7-2.3) mg/dL Assessment and Plan Cultures: 04/17/18 Blood: no growth to date A/P: 77-year old female with a past medical history of tobacco abuse, HTN, Atrial Fib on therapeutic anticoagulation, hypothyroidism, HLD, migraine, SAAVEDRA, OA that presented to the ED on 04/17/18 stating that she had been experiencing SOB for the past 3 days with worsening symptoms over the past 1 day. patient acknowledged decreased exercise tolerance, orthopenea/PND, and SOB. Had an allergic reaction to Eliquis 3 days prior to admission to the hospital, was given prednisone by her PCP. 1. SIRS vs Sepsis on admission: evidenced by leukocytosis and tachycardia. etiology unclear. Leukocytosis, +/- steroids. Chest xray showed Chest xray diffuse increased pulmonary densities/infiltrates, , Chest CT showed No evidence for pulmonary embolus. Mild cardiomegaly. Diffuse bilateral infiltrates concerning for pneumonia,, U/A showed mild pyuria, Blood cultures were drawn and show no growth to date. Currently being treated with ceftraxone. 2. presumed bilateral interstitial pneumonia. ,unlcear etiology, doubt infectious eitology due to lack of fever. DDX PJP, viral, fungal, however it looks most likely as intersitial pulmonary fibrosis. 3. Hypoxemic, Hypercapnic Respiratory Failure: acute hypoxic respiratory fail ure on admission due to CHF exacerbation, now heart failure with preserved ejection fraction -04/14/2018 which showed EF 60-65%- Cardiology following 4. Elevated D-Dimer: Intermediate probability of PE on V/Q with low pre-test and abnormal CXR and CTA chest xray negative for PE 5. Acute Combined Heart Failure: related to above Plan: -continue atovaquone for PJP -continue ceftriaxone -start tamiflu -check G6PD level in preparation to stat dapsone for PJP -order HIV and influenza d/w Dr. Miguel A Justice, [employer] [facility] M: [phone] O:[phone]
--- NOTE | 2018-04-27 08:57 | Progress Note ---
Assessment and Plan Assessment and plan: 77 yo woman with a history of HTN, Atrial Fib on Therapeutic Anticoagulation (Eliquis), Hypothyroidism, HTN, HLD, Migraine SAAVEDRA, OA and Anxiety/depression who presented to [facility] with SOB without chest pains. Pt also complains of itchy red spots on her arms since beginning Eliquis for new onset Afib. She was started on Prednisone and benadryl by PCP. She just stopped the Predisone, couple days prior to arrival --Interstitial lung disease on CT chest . High-dose of steroids, management per pulmonary, On BiPAP /high flow oxygen ,closely monitor --A. fib with rapid ventricular rate; continue amiodarone, beta blockers Cardiology following --Chronic anticoagulation; continue Pradaxa --Acute hypoxic respiratory failure; secondary to acute exacerbation of systolic congestive heart failure Continue anti-failure medications, oxygen titrate O2 sats to more than 90%, pulmonary following --SIRS with organ dysfunction; Leukocytosis probably secondary to steroids, possible pneumonia, continue emp iric antibiotics --Elevated D dimers; V/Q scan intermediate probability for PE/CTA chest negative for PE --Hypothyroidism; continue Synthroid --Anxiety disorder; supportive care and the anxiety medications --DVT prophylaxis; patient is on Pradaxa --Full CODE STATUS Consults and recommendations noted and appreciated I discussed the case extensively with pulmonary critical Patient is critically ill, with bilateral interstitial pneumonia /pulmonary fibrosis /A. fib with rapid ventricular rate On BiPAP and high flow oxygen with poor prognosis., Discussed with the daughter the plan of care, full code at this point Closely monitor the patient and adjust the management as needed Critical care time 32 minutes History Interval history: Patient seen and examined medical records reviewed Patient feels slightly better asking for food Chronically looking cachectic Vital signs reviewed A. fib with rapid ventricular rate on amiodarone drip Remains tachycardic Cardiology following Hospitalist Physical - Constitutional Vitals: Temp Pulse Resp BP Pulse Ox 97.3 F L 134 H 32 H 126/76 95 04/27/18 04:00 04/27/18 07:01 04/27/18 07:01 04/27/18 07:01 04/27/18 08:12 General appearance: Present: mild distress, cachectic, disheveled - EENT Eyes: Present: PERRL, EOM intact - Neck Neck: Present: supple, normal ROM - Respiratory Respiratory effort: normal Respiratory: bilateral: diminished, negative: rales, rhonchi, wheezing - Cardiovascular Rhythm: irregularly irregular Heart Sounds: Present: S1 & S2 (tachycardia) - Extremities Extremities: no ischemia, No edema - Abdominal General gastrointestinal: soft, non-tender, non-distended, normal bowel sounds - Integumentary Integumentary: Present: clear, warm - Psychiatric Psychiatric: agitated (at times), other (confused) - Neurologic Neurologic: moves all extremities Results - Labs CBC & Chem 7: 04/27/18 04:51 04/27/18 04:51 Labs: Laboratory Last Values WBC 27.8 K/mm3 (4.5-11.0) H 04/27/18 04:51 RBC 4.57 M/mm3 (3.65-5.03) 04/27/18 04:51 Hgb 13.4 gm/dl (10.1-14.3) 04/27/18 04:51 Hct 41.1 % (30.3-42.9) 04/27/18 04:51 MCV 90 fl (79-97) 04/27/18 04:51 MCH 29 pg (28-32) 04/27/18 04:51 MCHC 33 % (30-34) 04/27/18 04:51 RDW 13.7 % (13.2-15.2) 04/27/18 04:51 Plt Count 266 K/mm3 (140-440) 04/27/18 04:51 Lymph % (Auto) 5.1 % (13.4-35.0) L 04/18/18 05:12 [place] % (Auto) 8.0 % (0.0-7.3) H 04/18/18 05:12 Eos % (Auto) 0.1 % (0.0-4.3) 04/18/18 05:12 Baso % (Auto) 0.2 % (0.0-1.8) 04/18/18 05:12 Lymph # 0.9 K/mm3 (1.2-5.4) L 04/18/18 05:12 [place] # 1.4 K/mm3 (0.0-0.8) H 04/18/18 05:12 Eos # 0.0 K/mm3 (0.0-0.4) 04/18/18 05:12 Baso # 0.0 K/mm3 (0.0-0.1) 04/18/18 05:12 Add Manual Diff Complete 04/27/18 04:51 Total Counted 100 04/27/18 04:51 Seg Neutrophils % Director Of Bands 04/27/18 04:51 Seg Neuts % (Manual) 95.0 % (40.0-70.0) H 04/27/18 04:51 Band Neutrophils % 4.0 % 04/27/18 04:51 Lymphocytes % (Manual) 0 % (13.4-35.0) L 04/27/18 04:51 Reactive Lymphs % (Man) 0 % 04/27/18 04:51 Monocytes % (Manual) 1.0 % (0.0-7.3) 04/27/18 04:51 Eosinophils % (Manual) 0 % (0.0-4.3) 04/27/18 04:51 Basophils % (Manual) 0 % (0.0-1.8) 04/27/18 04:51 Metamyelocytes % 0 % 04/27/18 04:51 Myelocytes % 0 % 04/27/18 04:51 Promyelocytes % 0 % 04/27/18 04:51 Blast Cells % 0 % 04/27/18 04:51 Nucleated RBC % Not Reportable 04/27/18 04:51 Seg Neutrophils # 15.4 K/mm3 (1.8-7.7) H 04/18/18 05:12 Seg Neutrophils # Man 26.4 K/mm3 (1.8-7.7) H 04/27/18 04:51 Band Neutrophils # 1.1 K/mm3 04/27/18 04:51 Lymphocytes # (Manual) 0.0 K/mm3 (1.2-5.4) L 04/27/18 04:51 Abs React Lymphs (Man) 0.0 K/mm3 04/27/18 04:51 Monocytes # (Manual) 0.3 K/mm3 (0.0-0.8) 04/27/18 04:51 Eosinophils # (Manual) 0.0 K/mm3 (0.0-0.4) 04/27/18 04:51 Basophils # (Manual) 0.0 K/mm3 (0.0-0.1) 04/27/18 04:51 Metamyelocytes # 0.0 K/mm3 04/27/18 04:51 Myelocytes # 0.0 K/mm3 04/27/18 04:51 Promyelocytes # 0.0 K/mm3 04/27/18 04:51 Blast Cells # 0.0 K/mm3 04/27/18 04:51 WBC Morphology Not Reportable 04/27/18 04:51 Hypersegmented Neuts Not Reportable 04/27/18 04:51 Hyposegmented Neuts Not Reportable 04/27/18 04:51 Hypogranular Neuts Not Reportable 04/27/18 04:51 Smudge Cells Not Reportable 04/27/18 04:51 Toxic Granulation Not Reportable 04/27/18 04:51 Toxic Vacuolation Not Reportable 04/27/18 04:51 Dohle Bodies Not Reportable 04/27/18 04:51 [place]uet Anomaly Not Reportable 04/27/18 04:51 Francisco Javier Rods Not Reportable 04/27/18 04:51 Platelet Estimate Appears normal 04/27/18 04:51 Clumped Platelets Not Reportable 04/27/18 04:51 Plt Clumps, EDTA Not Reportable 04/27/18 04:51 Large Platelets Not Reportable 04/27/18 04:51 Giant Platelets Not Reportable 04/27/18 04:51 Platelet Satelliting Not Reportable 04/27/18 04:51 Plt Morphology Comment Not Reportable 04/27/18 04:51 RBC Morphology Not Reportable 04/27/18 04:51 Dimorphic RBCs Not Reportable 04/27/18 04:51 Polychromasia Not Reportable 04/27/18 04:51 Hypochromasia Not Reportable 04/27/18 04:51 Poikilocytosis Not Reportable 04/27/18 04:51 Anisocytosis 1+ 04/27/18 04:51 Microcytosis 1+ 04/27/18 04:51 Macrocytosis Not Reportable 04/27/18 04:51 Spherocytes Not Reportable 04/27/18 04:51 Pappenheimer Bodies Not Reportable 04/27/18 04:51 Sickle Cells Not Reportable 04/27/18 04:51 Target Cells Not Reportable 04/27/18 04:51 Tear Drop Cells Not Reportable 04/27/18 04:51 Ovalocytes 1+ 04/27/18 04:51 Stomatocytes 2+ 04/27/18 04:51 Helmet Cells Not Reportable 04/27/18 04:51 [place] Bodies Not Reportable 04/27/18 04:51 [place] Rings Not Reportable 04/27/18 04:51 [place] Cells Not Reportable 04/27/18 04:51 Bite Cells Not Reportable 04/27/18 04:51 Crenated Cell Not Reportable 04/27/18 04:51 Elliptocytes Rare 04/27/18 04:51 Acanthocytes (Spur) Not Reportable 04/27/18 04:51 Rouleaux Not Reportable 04/27/18 04:51 Hemoglobin C Crystals Not Reportable 04/27/18 04:51 Schistocytes Not Reportable 04/27/18 04:51 Malaria parasites Not Reportable 04/27/18 04:51 [place] Bodies Not Reportable 04/27/18 04:51 Hem Pathologist Commnt No 04/27/18 04:51 PT 18.3 Sec. (12.2-14.9) H 04/17/18 12:48 INR 1.48 (0.87-1.13) H 04/17/18 12:48 APTT 27.2 Sec. (24.2-36.6) 04/17/18 12:48 D-Dimer 1975 ng/mlDDU (0-234) H 04/17/18 12:38 POC ABG pH 7.478 (7.35-7.45) H 04/23/18 15:08 POC ABG pCO2 51.0 (35-45) H 04/23/18 15:08 POC ABG pO2 62 (80-105) L 04/23/18 15:08 POC ABG HCO3 37.8 04/23/18 15:08 POC ABG Total CO2 39 04/23/18 15:08 POC ABG O2 Sat 93 04/23/18 15:08 POC ABG Base Excess 14 04/23/18 15:08 FiO2 100 % 04/23/18 15:08 Sodium 145 mmol/L (137-145) 04/27/18 04:51 Potassium 3.2 mmol/L (3.6-5.0) L 04/27/18 04:51 Chloride 94.6 mmol/L (98-107) L 04/27/18 04:51 Carbon Dioxide 39 mmol/L (22-30) H 04/27/18 04:51 Anion Gap 15 mmol/L 04/27/18 04:51 BUN 45 mg/dL (7-17) H 04/27/18 04:51 Creatinine 0.7 mg/dL (0.7-1.2) 04/27/18 04:51 Estimated GFR > 60 ml/min 04/27/18 04:51 BUN/Creatinine Ratio 64 % 04/27/18 04:51 Glucose 169 mg/dL (65-100) H 04/27/18 04:51 POC Glucose 210 (70-105) H 04/26/18 11:52 Lactic Acid 1.20 mmol/L (0.7-2.0) 04/17/18 21:34 Calcium 8.5 mg/dL (8.4-10.2) 04/27/18 04:51 Phosphorus 3.60 mg/dL (2.5-4.5) 04/27/18 04:51 Magnesium 2.40 mg/dL (1.7-2.3) H 04/27/18 04:51 Total Bilirubin 0.70 mg/dL (0.1-1.2) 04/25/18 04:37 AST 38 units/L (5-40) 04/25/18 04:37 ALT 49 units/L (7-56) 04/25/18 04:37 Alkaline Phosphatase 196 units/L (35-129) H 04/25/18 04:37 Lactate Dehydrogenase 575 units/L (91-180) H 04/25/18 Unknown Total Creatine Kinase 51 units/L (30-135) 04/17/18 12:48 CK-MB (CK-2) 1.8 ng/mL (0.0-4.0) 04/17/18 12:48 CK-MB (CK-2) Rel Index 3.5 (0-4) 04/17/18 12:48 Troponin T < 0.010 ng/mL (0.00-0.029) 04/17/18 12:48 NT-Pro-B Natriuret Pep 3763 pg/mL (0-900) H 04/24/18 18:00 Total Protein 6.9 g/dL (6.3-8.2) 04/25/18 04:37 Albumin 2.5 g/dL (3.9-5) L 04/25/18 04:37 Albumin/Globulin Ratio 0.6 % 04/25/18 04:37 Triglycerides 89 mg/dL (2-149) 04/17/18 16:11 Cholesterol 109 mg/dL (50-199) 04/17/18 16:11 LDL Cholesterol Direct 60 mg/dL (50-130) 04/17/18 16:11 HDL Cholesterol 41 mg/dL (40-59) 04/17/18 16:11 Cholesterol/HDL Ratio 2.65 % 04/17/18 16:11 TSH 2.320 mlU/mL (0.270-4.200) 04/17/18 16:11 Free T4 1.67 ng/dL (0.76-1.46) H 04/17/18 16:11 Urine Color Yellow (Yellow) 04/17/18 Unknown Urine Turbidity Clear (Clear) 04/17/18 Unknown Urine pH 5.0 (5.0-7.0) 04/17/18 Unknown Ur Specific [place] 1.005 (1.003-1.030) 04/17/18 Unknown Urine Protein <15 mg/dl mg/dL (Negative) 04/17/18 Unknown Urine Glucose (UA) Neg mg/dL (Negative) 04/17/18 Unknown Urine Ketones Neg mg/dL (Negative) 04/17/18 Unknown Urine Blood Mod (Negative) 04/17/18 Unknown Urine Nitrite Neg (Negative) 04/17/18 Unknown Urine Bilirubin Neg (Negative) 04/17/18 Unknown Urine Urobilinogen < 2.0 mg/dL (<2.0) 04/17/18 Unknown Ur Leukocyte Esterase Neg (Negative) 04/17/18 Unknown Urine WBC (Auto) 11.0 /HPF (0.0-6.0) H 04/17/18 Unknown Urine RBC (Auto) 3.0 /HPF (0.0-6.0) 04/17/18 Unknown U Epithel Cells (Auto) 2.0 /HPF (0-13.0) 04/17/18 Unknown Urine Mucus Few /HPF 04/17/18 Unknown Nutrition/Malnutrition Assess - Dietary Evaluation Nutrition/Malnutrition Findings: Nutrition Notes Start: 04/24/18 15:05 Freq: Status: Active Protocol: Document 04/26/18 12:02 TW (Rec: 04/26/18 14:08 TW [id number]) Co-Sign 04/26/18 12:02 OL Nutrition Notes Initial or Follow up Reassessment Current Diagnosis Sepsis Hypertension Heart Failure Respiratory Failure Hyperlipidemia Other Pertinent Diagnosis AMS Current Diet NPO Labs/Tests Na 146 K 3.3 BUN 48 BG 218 Mg 2.6 Pertinent Medications Lasix, solumedrol Height 5 ft 6 in Weight 57.4 kg Usual Body Weight 77 kg [place] Body Weight (kg) 59.09 BMI 20.4 Weight change and time frame Wt taken on bedscale Weight Status Underweight Subjective/Other Information F/U for diet advancement, need for ONS. Noted that pt is still NPO. RN reports that PARTS IDENTIFICATION TECHNICIAN has not reevaluated pt for PO intake. Will follow for TF consult or diet modification. Noted mild orbital and clavicle depletion. Noted pt is underweight for age. Percent of energy/protein needs met: 0%/0% Burn Absent Trauma Absent Current % PO Negligible Body Fat Depletion Mild depletion (non-severe) Muscle Mass Mild Depletion (non-severe) Fluid Accumulation Mild (non-severe) Protein-Calorie Malnutrition Non-Severe #2 Nutrition Diagnosis Malnutrition Etiology AMS As Evidenced by Signs and Symptoms wt loss, orbital and clavicle depletion, fluid accumulation, 0% intake of kcal and pro needs #1 Nutrition Diagnosis Inadequate oral intake Diagnosis Progress(for reassessment Continues documentation) Is patient on ventilator? No Is Patient Ambulatory and/or Out of Bed No REE-([place]-confined to bed) 1285.800 Kcal/Kg value to use for calculation 30 Approximate Energy Requirements Using 1722 kcal/Kg Calculation Used for Recommendations [facility] Additional Notes protein (1.2-2g/kg): 89-149g fluid: 1mL/kcal or per MD Nutrition Intervention Change Diet Order: Advance diet when medically feasible Goal #1 Diet advancement when medically feasible Anticipated Discharge Needs: Unable to determine Follow-Up By: 04/27/18 Additional Comments f/u: PARTS IDENTIFICATION TECHNICIAN note, diet advancement
[2018-04-27] MEDS ORDERED: K-DUR PO SCH (10:00)
[2018-04-27] MEDS: SODIUM CHLORIDE FLUSH SYRINGE 10 ML IV SCH ×2 (10:00→22:23)
[2018-04-27] MEDS ORDERED: TAMIFLU PO SCH (11:30)
--- NOTE | 2018-04-27 11:59 | Progress Note ---
Assessment and Plan Interstitial pneumonia. Cause to be determined. AIP ,Acute IPF flare,[employer], CTD are consideration. No CTD panel data yet. No fever ,WBC high but on steroids. Doubt CEP,AEP AMS. Hypoxemic, Hypercapnic respiratory failure. Did not show hypercapnia on presentation. Heart failure with preserved ejection fraction A. fib. Currently on amiodarone. No prior use of this medication to my knowledge Recommendations Appreciate ID input Wean FiO2 down as tolerated.Goal is to keep O2 sat ~ 91-93% Monitor HFO with Dubhoff on Steroid x 72 hr, if no response, taper down and/or DC Sliding scale BS monitoring as precaution Monitor for mental changes on steroids, add Haldol if needed ( but will need to monitor QTc ! ) Mild clubbing/traction bronchiectasis/mild honey combing may suggest IPF flare ? Check CTD panel labs ,will call lab check status DVT prophylaxis DC antibiotics if no fever 7-10 days. Discussed with and pt in detail Critical care time was 31 minutes of [id number] evaluation and coordination of care Subjective Date of service: 04/27/18 Principal diagnosis: PNA, hypoxemia respiratory failure, congestive heart failure, MS Interval history: Thirsty. On HFO 100%, but Dubhoff just placed in. No expectoration Objective Vital Signs - 12hr 04/27/18 04/27/18 04/27/18 00:00 00:10 00:21 Temperature 97.8 F Pulse Rate 97 H 104 H 118 H Pulse Rate [ 117 H Apical] Respiratory 19 18 32 H Rate Blood Pressure 138/82 109/72 103/76 O2 Sat by Pulse 95 95 93 Oximetry 04/27/18 04/27/18 04/27/18 00:31 00:41 00:51 Temperature Pulse Rate 102 H 120 H 126 H Pulse Rate [ Apical] Respiratory 26 H 25 H 18 Rate Blood Pressure 109/72 109/72 109/72 O2 Sat by Pulse 93 95 93 Oximetry 04/27/18 04/27/18 04/27/18 01:01 01:11 01:21 Temperature Pulse Rate 116 H 130 H 115 H Pulse Rate [ Apical] Respiratory 30 H 33 H 31 H Rate Blood Pressure 132/78 132/78 132/78 O2 Sat by Pulse 93 94 92 Oximetry 04/27/18 04/27/18 04/27/18 01:31 01:41 01:51 Temperature Pulse Rate 116 H 119 H 119 H Pulse Rate [ Apical] Respiratory 29 H 24 21 Rate Blood Pressure 132/78 132/78 132/78 O2 Sat by Pulse 95 94 95 Oximetry 04/27/18 04/27/18 04/27/18 02:00 02:11 02:21 Temperature Pulse Rate 135 H 106 H 124 H Pulse Rate [ Apical] Respiratory 25 H 19 19 Rate Blood Pressure 133/82 133/82 133/82 O2 Sat by Pulse 96 95 95 Oximetry 04/27/18 04/27/18 04/27/18 02:30 02:41 02:51 Temperature Pulse Rate 140 H 112 H 118 H Pulse Rate [ Apical] Respiratory 17 18 19 Rate Blood Pressure 133/82 133/82 133/82 O2 Sat by Pulse 95 95 97 Oximetry 04/27/18 04/27/18 04/27/18 03:00 03:11 03:21 Temperature Pulse Rate 113 H 116 H 113 H Pulse Rate [ Apical] Respiratory 19 17 19 Rate Blood Pressure 133/82 105/72 105/72 O2 Sat by Pulse 95 95 96 Oximetry 04/27/18 04/27/18 04/27/18 03:31 03:41 03:50 Temperature Pulse Rate 124 H 130 H 119 H Pulse Rate [ Apical] Respiratory 15 21 22 Rate Blood Pressure 105/72 105/72 105/72 O2 Sat by Pulse 96 96 95 Oximetry 04/27/18 04/27/18 04/27/18 04:00 04:11 04:21 Temperature 97.3 F L Pulse Rate 121 H 121 H 107 H Pulse Rate [ 106 H Apical] Respiratory 23 18 16 Rate Blood Pressure 121/68 121/68 121/68 O2 Sat by Pulse 96 95 95 Oximetry 04/27/18 04/27/18 04/27/18 04:27 04:31 04:41 Temperature Pulse Rate 102 H 121 H 125 H Pulse Rate [ Apical] Respiratory 22 17 Rate Blood Pressure 126/76 126/76 126/76 O2 Sat by Pulse 96 95 Oximetry 04/27/18 04/27/18 04/27/18 04:50 05:01 05:11 Temperature Pulse Rate 106 H 114 H 130 H Pulse Rate [ Apical] Respiratory 21 29 H 33 H Rate Blood Pressure 126/76 126/76 126/76 O2 Sat by Pulse 95 96 95 Oximetry 04/27/18 04/27/18 04/27/18 05:21 05:31 05:41 Temperature Pulse Rate 124 H 129 H 138 H Pulse Rate [ Apical] Respiratory 30 H 28 H 26 H Rate Blood Pressure 126/76 126/76 126/76 O2 Sat by Pulse 91 93 94 Oximetry 04/27/18 04/27/18 04/27/18 05:51 06:01 06:11 Temperature Pulse Rate 144 H 151 H 121 H Pulse Rate [ Apical] Respiratory 20 30 H 19 Rate Blood Pressure 126/76 126/76 126/76 O2 Sat by Pulse 96 96 93 Oximetry 04/27/18 04/27/18 04/27/18 06:21 06:31 06:41 Temperature Pulse Rate 136 H 141 H 139 H Pulse Rate [ Apical] Respiratory 26 H 34 H 33 H Rate Blood Pressure 126/76 126/76 126/76 O2 Sat by Pulse 94 95 96 Oximetry 04/27/18 04/27/18 04/27/18 06:51 07:00 07:01 Temperature Pulse Rate 129 H 123 H 134 H Pulse Rate [ Apical] Respiratory 44 H 32 H Rate Blood Pressure 126/76 126/76 O2 Sat by Pulse 96 94 Oximetry 04/27/18 04/27/18 04/27/18 07:11 07:21 07:31 Temperature Pulse Rate 123 H 123 H 164 H Pulse Rate [ Apical] Respiratory 29 H 37 H 32 H Rate Blood Pressure 126/76 126/76 126/76 O2 Sat by Pulse 88 91 94 Oximetry 04/27/18 04/27/18 04/27/18 07:41 07:51 08:00 Temperature 98.4 F Pulse Rate 135 H 130 H Pulse Rate [ 142 H Apical] Respiratory 38 H 25 H 33 H Rate Blood Pressure 126/76 126/76 O2 Sat by Pulse 90 94 96 Oximetry 04/27/18 04/27/18 04/27/18 08:01 08:10 08:12 Temperature Pulse Rate 139 H 134 H Pulse Rate [ Apical] Respiratory 21 35 H Rate Blood Pressure 126/76 126/76 O2 Sat by Pulse 93 95 95 Oximetry 04/27/18 04/27/18 04/27/18 08:21 08:31 08:41 Temperature Pulse Rate 119 H 142 H 129 H Pulse Rate [ Apical] Respiratory 28 H 33 H 32 H Rate Blood Pressure 126/76 126/76 126/76 O2 Sat by Pulse 94 90 93 Oximetry 04/27/18 04/27/18 04/27/18 08:51 09:01 09:11 Temperature Pulse Rate 147 H 152 H 155 H Pulse Rate [ Apical] Respiratory 29 H 38 H 43 H Rate Blood Pressure 126/76 126/76 126/76 O2 Sat by Pulse 94 93 90 Oximetry 04/27/18 04/27/18 04/27/18 09:21 09:31 09:41 Temperature Pulse Rate 126 H 144 H 134 H Pulse Rate [ Apical] Respiratory 36 H 30 H 25 H Rate Blood Pressure 126/76 122/79 122/79 O2 Sat by Pulse 94 93 95 Oximetry 04/27/18 04/27/18 04/27/18 09:51 10:00 10:11 Temperature Pulse Rate 158 H 148 H 139 H Pulse Rate [ Apical] Respiratory 23 33 H 33 H Rate Blood Pressure 122/79 118/82 118/82 O2 Sat by Pulse 95 96 96 Oximetry 04/27/18 04/27/18 04/27/18 10:21 10:31 10:41 Temperature Pulse Rate 140 H 138 H 146 H Pulse Rate [ Apical] Respiratory 25 H 26 H 37 H Rate Blood Pressure 118/82 118/82 118/82 O2 Sat by Pulse 97 95 96 Oximetry 04/27/18 04/27/18 04/27/18 10:51 11:00 11:11 Temperature Pulse Rate 139 H 138 H 140 H Pulse Rate [ Apical] Respiratory 29 H 25 H 26 H Rate Blood Pressure 118/82 114/74 114/74 O2 Sat by Pulse 96 96 98 Oximetry Constitutional: alert Eyes: non-icteric ENT: oropharynx moist Neck: supple, no JVD Effort: mildly labored Ascultation: Bilateral: clear, diminished breath sounds, rales (faint) Percussion: Bilateral: not dull Cardiovascular: irregular rhythm Gastrointestinal: normoactive bowel sounds Extremities: pulses normal, no ischemia or petechiae, other (mild clubbing) Neurologic: normal mental status, non-focal exam, pupils equal and round, CN II- XII normal Psychiatric: anxious CBC and BMP: 04/27/18 04:51 04/27/18 04:51 ABG, PT/INR, D-dimer: ABG POC ABG pH 7.478 (7.35-7.45) H 04/23/18 15:08 POC ABG pCO2 51.0 (35-45) H 04/23/18 15:08 POC ABG pO2 62 (80-105) L 04/23/18 15:08 POC ABG HCO3 37.8 04/23/18 15:08 POC ABG Total CO2 39 04/23/18 15:08 POC ABG O2 Sat 93 04/23/18 15:08 PT/INR, D-dimer PT 18.3 Sec. (12.2-14.9) H 04/17/18 12:48 INR 1.48 (0.87-1.13) H 04/17/18 12:48 D-Dimer 1975 ng/mlDDU (0-234) H 04/17/18 12:38 Abnormal lab findings: Abnormal Labs 04/17/18 04/17/18 04/17/18 12:38 12:48 12:48 WBC 18.0 H Lymph % (Auto) 6.5 L [place] % (Auto) 10.0 H Lymph # [place] # 1.8 H Seg Neutrophils % 83.2 H Seg Neuts % (Manual) Lymphocytes % (Manual) Seg Neutrophils # 15.0 H Seg Neutrophils # Man Lymphocytes # (Manual) PT 18.3 H INR 1.48 H D-Dimer 1975 H POC ABG pH POC ABG pCO2 POC ABG pO2 Sodium Potassium Chloride Carbon Dioxide BUN Creatinine Glucose POC Glucose Magnesium AST ALT Alkaline Phosphatase Lactate Dehydrogenase NT-Pro-B Natriuret Pep Albumin Free T4 Urine WBC (Auto) 04/17/18 04/17/18 04/17/18 12:48 12:48 16:11 WBC Lymph % (Auto) [place] % (Auto) Lymph # [place] # Seg Neutrophils % Seg Neuts % (Manual) Lymphocytes % (Manual) Seg Neutrophils # Seg Neutrophils # Man Lymphocytes # (Manual) PT INR D-Dimer POC ABG pH POC ABG pCO2 POC ABG pO2 Sodium 136 L Potassium Chloride Carbon Dioxide BUN Creatinine 0.6 L Glucose 127 H POC Glucose Magnesium AST 121 H ALT 110 H Alkaline Phosphatase Lactate Dehydrogenase NT-Pro-B Natriuret Pep 6653 H Albumin 3.4 L Free T4 1.67 H Urine WBC (Auto) 04/17/18 04/18/18 04/19/18 Unknown 05:12 05:02 WBC 17.8 H Lymph % (Auto) 5.1 L [place] % (Auto) 8.0 H Lymph # 0.9 L [place] # 1.4 H Seg Neutrophils % 86.6 H Seg Neuts % (Manual) Lymphocytes % (Manual) Seg Neutrophils # 15.4 H Seg Neutrophils # Man Lymphocytes # (Manual) PT INR D-Dimer POC ABG pH POC ABG pCO2 POC ABG pO2 Sodium Potassium 3.2 L Chloride 94.2 L Carbon Dioxide BUN 20 H Creatinine 0.6 L Glucose 118 H POC Glucose Magnesium AST ALT Alkaline Phosphatase Lactate Dehydrogenase NT-Pro-B Natriuret Pep Albumin Free T4 Urine WBC (Auto) 11.0 H 04/20/18 04/22/18 04/23/18 09:56 04:55 15:08 WBC Lymph % (Auto) [place] % (Auto) Lymph # [place] # Seg Neutrophils % Seg Neuts % (Manual) Lymphocytes % (Manual) Seg Neutrophils # Seg Neutrophils # Man Lymphocytes # (Manual) PT INR D-Dimer POC ABG pH 7.478 H POC ABG pCO2 51.0 H POC ABG pO2 62 L Sodium Potassium 3.1 L Chloride 94.3 L 94.1 L Carbon Dioxide BUN 27 H 36 H Creatinine Glucose 118 H 157 H POC Glucose Magnesium AST ALT Alkaline Phosphatase Lactate Dehydrogenase NT-Pro-B Natriuret Pep Albumin Free T4 Urine WBC (Auto) 04/24/18 04/25/18 04/25/18 18:00 04:37 Unknown WBC Lymph % (Auto) [place] % (Auto) Lymph # [place] # Seg Neutrophils % Seg Neuts % (Manual) Lymphocytes % (Manual) Seg Neutrophils # Seg Neutrophils # Man Lymphocytes # (Manual) PT INR D-Dimer POC ABG pH POC ABG pCO2 POC ABG pO2 Sodium Potassium Chloride 96.4 L Carbon Dioxide 37 H D BUN 48 H Creatinine Glucose 181 H POC Glucose Magnesium AST ALT Alkaline Phosphatase 196 H Lactate Dehydrogenase 575 H NT-Pro-B Natriuret Pep 3763 H Albumin 2.5 L Free T4 Urine WBC (Auto) 04/26/18 04/26/18 04/26/18 04:55 04:55 11:52 WBC 26.5 H Lymph % (Auto) [place] % (Auto) Lymph # [place] # Seg Neutrophils % Seg Neuts % (Manual) 97.0 H Lymphocytes % (Manual) 0 L Seg Neutrophils # Seg Neutrophils # Man 25.7 H Lymphocytes # (Manual) 0.0 L PT INR D-Dimer POC ABG pH POC ABG pCO2 POC ABG pO2 Sodium 146 H Potassium 3.3 L Chloride 96.6 L Carbon Dioxide 36 H BUN 48 H Creatinine Glucose 218 H POC Glucose 210 H Magnesium 2.60 H AST ALT Alkaline Phosphatase Lactate Dehydrogenase NT-Pro-B Natriuret Pep Albumin Free T4 Urine WBC (Auto) 04/27/18 04/27/18 04:51 04:51 WBC 27.8 H Lymph % (Auto) [place] % (Auto) Lymph # [place] # Seg Neutrophils % Seg Neuts % (Manual) 95.0 H Lymphocytes % (Manual) 0 L Seg Neutrophils # Seg Neutrophils # Man 26.4 H Lymphocytes # (Manual) 0.0 L PT INR D-Dimer POC ABG pH POC ABG pCO2 POC ABG pO2 Sodium Potassium 3.2 L Chloride 94.6 L Carbon Dioxide 39 H BUN 45 H Creatinine Glucose 169 H POC Glucose Magnesium 2.40 H AST ALT Alkaline Phosphatase Lactate Dehydrogenase NT-Pro-B Natriuret Pep Albumin Free T4 Urine WBC (Auto)
[2018-04-27] MEDS: CORDARONE 900 MG in D5W 482 ML IV SCH (12:00)
--- NOTE | 2018-04-27 12:35 | Progress Note ---
Assessment and Plan Optimize BP and HR - cont amio gtt and IV lopressor Q6H. Will plan to resume PO medications once PO intake is stable. Pt to have DHT placed today. F/u chest CT noted - pattern of severe acute ILD. Follow pulmonary recs. The patient has been seen in conjunction with Dr. Mirza who agrees with the assessment and plan of care. - Patient Problems (1) Acute heart failure with preserved ejection fraction Current Visit: Yes Status: Acute (2) Acute respiratory failure Current Visit: Yes Status: Acute (3) Pneumonia Current Visit: Yes Status: Acute (4) Persistent atrial fibrillation with RVR Current Visit: Yes Status: Chronic (5) HTN (hypertension) Current Visit: Yes Status: Chronic (6) Altered mental status Current Visit: Yes Status: Acute Subjective Date of service: 04/27/18 Principal diagnosis: PNA, hypoxemia respiratory failure, congestive heart failure, MS Interval history: pt resting in bed, appears more alert today, on HiFLO NC. tele reviewed - in AFib with HR 130s. amio gtt was held. Objective Last Vital Signs Temp 98.4 F 04/27/18 08:00 Pulse 152 H 04/27/18 12:03 Resp 26 H 04/27/18 11:11 BP 117/58 04/27/18 12:03 Pulse Ox 98 04/27/18 11:11 - Physical Examination General: Other (on BIPAP) HEENT: Positive: PERRL, Normocephaly, Mucus Membranes Moist Neck: Positive: neck supple, trachea midline Cardiac: Positive: irregularly irregular, S1/S2, Tachycardia Lungs: Positive: Rhonchi Neuro: Positive: Other (on BIPAP) Abdomen: Positive: Soft. Negative: Tender Skin: Negative: Rash, Wound Musculoskeletal: No Pain Extremities: Absent: edema - Labs and Meds CBC 04/27/18 Range/Units 04:51 WBC 27.8 H (4.5-11.0) K/mm3 RBC 4.57 (3.65-5.03) M/mm3 Hgb 13.4 (10.1-14.3) gm/dl Hct 41.1 (30.3-42.9) % Plt Count 266 (140-440) K/mm3 Comprehensive Metabolic Panel 04/27/18 Range/Units 04:51 Sodium 145 (137-145) mmol/L Potassium 3.2 L (3.6-5.0) mmol/L Chloride 94.6 L (98-107) mmol/L Carbon Dioxide 39 H (22-30) mmol/L BUN 45 H (7-17) mg/dL Creatinine 0.7 (0.7-1.2) mg/dL Glucose 169 H (65-100) mg/dL Calcium 8.5 (8.4-10.2) mg/dL - Imaging and Cardiology EKG: report reviewed, image reviewed Echo: report reviewed (04/14/2018 which showed EF 60-65%, mild to mod RV hypokinesis, LA enlarged, mild MR, mod TR, RVSP 63mmHg, trace pericardial effusion.)
--- NOTE | 2018-04-27 13:26 | XRay Report ---
AP ABDOMEN: HISTORY: Dobbhoff tube placement. The distal tip of the Dobbhoff tube terminates in the mid stomach. The abdominal gas pattern is unremarkable. No masses or organomegaly is identified and there is no gross evidence of free air or fluid. No significant soft tissue calcifications are noted. Pulmonary markings at the lung bases are prominent which could are present congestive changes or infiltrate. IMPRESSION: The Dobbhoff tube terminates in the mid stomach.
[2018-04-27] MEDS ORDERED: PANCREAZE DR 10,500 UNIT FEEDTUBE PRN (13:47)
[2018-04-27] MEDS ORDERED: SIMPLE SYRUP FEEDTUBE PRN ×2 (13:47)
[2018-04-27] MEDS ORDERED: SODIUM BICARBONATE FEEDTUBE PRN (13:47)
[2018-04-27] MEDS: HALFPRIN EC PO SCH (14:02)
[2018-04-27] MEDS: ZOLOFT PO SCH (14:02)
[2018-04-27] MEDS: MEPRON PO SCH ×2 (14:02→22:24)
[2018-04-27] MEDS: PRADAXA PO SCH ×2 (14:02→22:24)
[2018-04-27] MEDS: COZAAR PO SCH (14:09)
[2018-04-27] MEDS: VITAMIN D3 PO SCH (14:09)
[2018-04-27] MEDS ORDERED: POTASSIUM CHLORIDE PO ONE (15:00)
--- NOTE | 2018-04-27 15:31 | Event Note ---
Date: 04/27/18 HIV and influenza negative, will stop the tamiflu.
[2018-04-27] MEDS: ATIVAN PO PRN (16:42)
[2018-04-27] MEDS: POTASSIUM CHLORIDE PO SCH (18:35)
[2018-04-27 20:57] LABS: ANA Screen, IFA Positive (Negative)
[2018-04-27] MEDS: ZITHROMAX PO SCH (22:25)
[2018-04-27] MEDS: PRAVACHOL PO SCH (22:25)
[2018-04-27] MEDS: FLEXERIL PO PRN (22:25)
[2018-04-28] MEDS: SOLU-Medrol IV SCH ×4 (01:03→17:01)
[2018-04-28] MEDS: LOPRESSOR IV SCH ×3 (03:53→10:30)
[2018-04-28] MEDS: LASIX IV SCH ×2 (06:12→17:02)
[2018-04-28] MEDS: SYNTHROID PO SCH (06:13)
[2018-04-28 07:40] LABS: Myeloperoxidase Antibody <1.0 AI (<1.0)
[2018-04-28] MEDS ORDERED: ROCEPHIN/NS 2 GM/100 ML 2 GM/100 ML BAG IV SCH ×2 (09:00→10:00)
[2018-04-28] MEDS: VITAMIN D3 PO SCH (09:05)
[2018-04-28] MEDS: CORDARONE 900 MG in D5W 482 ML IV SCH (09:05)
[2018-04-28] MEDS: POTASSIUM CHLORIDE PO SCH (09:06)
[2018-04-28] MEDS: HALFPRIN EC PO SCH (09:07)
[2018-04-28] MEDS: ZOLOFT PO SCH (09:07)
[2018-04-28] MEDS: COZAAR PO SCH (09:07)
[2018-04-28] MEDS: PRADAXA PO SCH ×2 (09:07→21:40)
[2018-04-28] MEDS: MEPRON PO SCH (09:08)
--- NOTE | 2018-04-28 09:43 | Progress Note ---
Assessment and Plan Assessment and plan: 77 yo woman with a history of HTN, Atrial Fib on Therapeutic Anticoagulation (Eliquis), Hypothyroidism, HTN, HLD, Migraine SAAVEDRA, OA and Anxiety/depression who presented to [facility] ED with SOB without chest pains. Pt also complains of itchy red spots on her arms since beginning Eliquis for new onset Afib. She was started on Prednisone and benadryl by PCP. She just stopped the Predisone, couple days prior to arrival --Interstitial lung disease on CT chest . High-dose of steroids, management per pulmonary, On BiPAP /high flow oxygen ,closely monitor --A. fib with rapid ventricular rate; continue amiodarone, beta blockers Cardiology following --Chronic anticoagulation; continue Pradaxa --Acute hypoxic respiratory failure; interstitial lung disease.to acis on high flow oxygen , BiPAP High-dose steroids , management per pulmonary. oxygen titrate O2 sats to more than 90%, intubate if no improvement --SIRS with organ dysfunction; he empiric antibiotics --Leukocytosis probably secondary to steroids, possible pneumonia, continue antibiotics --Elevated D dimers; V/Q scan intermediate probability for PE/CTA chest negative for PE --Hypothyroidism; continue Synthroid --Anxiety disorder; supportive care and the anxiety medications --DVT prophylaxis; patient is on Pradaxa Consults and recommendations noted and appreciated Patient is critically ill, with bilateral interstitial pneumonia /pulmonary fibrosis /A. fib with rapid ventricular rate On BiPAP and high flow oxygen with poor prognosis., Failed swallow evaluation, Dobbhoff feeds Discussed with the daughter the plan of care,on 04/26/18 requested full code at this point The daughter Will discuss with other family members and decide the CODE STATUS. Today I discussed with the at the bedside along with her son Both requested DO NOT RESUSCITATE status but to continue all the current management --DNR status Discussed with case management LTAC referral today Critical care time 31 minutes History Interval history: Patient seen and examined ,medical records reviewed no new events reported by the nursing Remains on high flow o2, and amio drip HR 90s-120s Patient in mild distress. Vitals reviewed Hospitalist Physical - Constitutional Vitals: Temp Pulse Resp BP Pulse Ox 98.2 F 110 H 19 115/77 91 04/28/18 08:00 04/28/18 09:07 04/28/18 09:00 04/28/18 09:07 04/28/18 09:00 General appearance: Present: mild distress, cachectic, disheveled - EENT Eyes: Present: PERRL, EOM intact - Neck Neck: Present: supple, normal ROM - Respiratory Respiratory effort: normal Respiratory: bilateral: diminished, rhonchi, negative: rales, wheezing - Cardiovascular Rhythm: regular Heart Sounds: Present: S1 & S2 - Extremities Extremities: no ischemia, No edema - Abdominal General gastrointestinal: soft, non-tender, non-distended, normal bowel sounds - Integumentary Integumentary: Present: clear, warm - Psychiatric Psychiatric: appropriate mood/affect, other (confused at times) - Neurologic Neurologic: moves all extremities Results - Labs CBC & Chem 7: 04/27/18 04:51 04/27/18 04:51 Labs: Laboratory Last Values WBC 27.8 K/mm3 (4.5-11.0) H 04/27/18 04:51 RBC 4.57 M/mm3 (3.65-5.03) 04/27/18 04:51 Hgb 13.4 gm/dl (10.1-14.3) 04/27/18 04:51 Hct 41.1 % (30.3-42.9) 04/27/18 04:51 MCV 90 fl (79-97) 04/27/18 04:51 MCH 29 pg (28-32) 04/27/18 04:51 MCHC 33 % (30-34) 04/27/18 04:51 RDW 13.7 % (13.2-15.2) 04/27/18 04:51 Plt Count 266 K/mm3 (140-440) 04/27/18 04:51 Lymph % (Auto) 5.1 % (13.4-35.0) L 04/18/18 05:12 Dickinson % (Auto) 8.0 % (0.0-7.3) H 04/18/18 05:12 Eos % (Auto) 0.1 % (0.0-4.3) 04/18/18 05:12 Baso % (Auto) 0.2 % (0.0-1.8) 04/18/18 05:12 Lymph # 0.9 K/mm3 (1.2-5.4) L 04/18/18 05:12 Dickinson # 1.4 K/mm3 (0.0-0.8) H 04/18/18 05:12 Eos # 0.0 K/mm3 (0.0-0.4) 04/18/18 05:12 Baso # 0.0 K/mm3 (0.0-0.1) 04/18/18 05:12 Add Manual Diff Complete 04/27/18 04:51 Total Counted 100 04/27/18 04:51 Seg Neutrophils % Whiskey Regauger 04/27/18 04:51 Seg Neuts % (Manual) 95.0 % (40.0-70.0) H 04/27/18 04:51 Band Neutrophils % 4.0 % 04/27/18 04:51 Lymphocytes % (Manual) 0 % (13.4-35.0) L 04/27/18 04:51 Reactive Lymphs % (Man) 0 % 04/27/18 04:51 Monocytes % (Manual) 1.0 % (0.0-7.3) 04/27/18 04:51 Eosinophils % (Manual) 0 % (0.0-4.3) 04/27/18 04:51 Basophils % (Manual) 0 % (0.0-1.8) 04/27/18 04:51 Metamyelocytes % 0 % 04/27/18 04:51 Myelocytes % 0 % 04/27/18 04:51 Promyelocytes % 0 % 04/27/18 04:51 Blast Cells % 0 % 04/27/18 04:51 Nucleated RBC % Not Reportable 04/27/18 04:51 Seg Neutrophils # 15.4 K/mm3 (1.8-7.7) H 04/18/18 05:12 Seg Neutrophils # Man 26.4 K/mm3 (1.8-7.7) H 04/27/18 04:51 Band Neutrophils # 1.1 K/mm3 04/27/18 04:51 Lymphocytes # (Manual) 0.0 K/mm3 (1.2-5.4) L 04/27/18 04:51 Abs React Lymphs (Man) 0.0 K/mm3 04/27/18 04:51 Monocytes # (Manual) 0.3 K/mm3 (0.0-0.8) 04/27/18 04:51 Eosinophils # (Manual) 0.0 K/mm3 (0.0-0.4) 04/27/18 04:51 Basophils # (Manual) 0.0 K/mm3 (0.0-0.1) 04/27/18 04:51 Metamyelocytes # 0.0 K/mm3 04/27/18 04:51 Myelocytes # 0.0 K/mm3 04/27/18 04:51 Promyelocytes # 0.0 K/mm3 04/27/18 04:51 Blast Cells # 0.0 K/mm3 04/27/18 04:51 WBC Morphology Not Reportable 04/27/18 04:51 Hypersegmented Neuts Not Reportable 04/27/18 04:51 Hyposegmented Neuts Not Reportable 04/27/18 04:51 Hypogranular Neuts Not Reportable 04/27/18 04:51 Smudge Cells Not Reportable 04/27/18 04:51 Toxic Granulation Not Reportable 04/27/18 04:51 Toxic Vacuolation Not Reportable 04/27/18 04:51 Dohle Bodies Not Reportable 04/27/18 04:51 Pelger-Huet Anomaly Not Reportable 04/27/18 04:51 Francisco Javier Rods Not Reportable 04/27/18 04:51 Platelet Estimate Appears normal 04/27/18 04:51 Clumped Platelets Not Reportable 04/27/18 04:51 Plt Clumps, EDTA Not Reportable 04/27/18 04:51 Large Platelets Not Reportable 04/27/18 04:51 Giant Platelets Not Reportable 04/27/18 04:51 Platelet Satelliting Not Reportable 04/27/18 04:51 Plt Morphology Comment Not Reportable 04/27/18 04:51 RBC Morphology Not Reportable 04/27/18 04:51 Dimorphic RBCs Not Reportable 04/27/18 04:51 Polychromasia Not Reportable 04/27/18 04:51 Hypochromasia Not Reportable 04/27/18 04:51 Poikilocytosis Not Reportable 04/27/18 04:51 Anisocytosis 1+ 04/27/18 04:51 Microcytosis 1+ 04/27/18 04:51 Macrocytosis Not Reportable 04/27/18 04:51 Spherocytes Not Reportable 04/27/18 04:51 Pappenheimer Bodies Not Reportable 04/27/18 04:51 Sickle Cells Not Reportable 04/27/18 04:51 Target Cells Not Reportable 04/27/18 04:51 Tear Drop Cells Not Reportable 04/27/18 04:51 Ovalocytes 1+ 04/27/18 04:51 Stomatocytes 2+ 04/27/18 04:51 Helmet Cells Not Reportable 04/27/18 04:51 [place] Bodies Not Reportable 04/27/18 04:51 [place] Rings Not Reportable 04/27/18 04:51 Girish Cells Not Reportable 04/27/18 04:51 Bite Cells Not Reportable 04/27/18 04:51 Crenated Cell Not Reportable 04/27/18 04:51 Elliptocytes Rare 04/27/18 04:51 Acanthocytes (Spur) Not Reportable 04/27/18 04:51 Rouleaux Not Reportable 04/27/18 04:51 Hemoglobin C Crystals Not Reportable 04/27/18 04:51 Schistocytes Not Reportable 04/27/18 04:51 Malaria parasites Not Reportable 04/27/18 04:51 Otoniel Bodies Not Reportable 04/27/18 04:51 Hem Pathologist Commnt No 04/27/18 04:51 PT 18.3 Sec. (12.2-14.9) H 04/17/18 12:48 INR 1.48 (0.87-1.13) H 04/17/18 12:48 APTT 27.2 Sec. (24.2-36.6) 04/17/18 12:48 D-Dimer 1975 ng/mlDDU (0-234) H 04/17/18 12:38 POC ABG pH 7.478 (7.35-7.45) H 04/23/18 15:08 POC ABG pCO2 51.0 (35-45) H 04/23/18 15:08 POC ABG pO2 62 (80-105) L 04/23/18 15:08 POC ABG HCO3 37.8 04/23/18 15:08 POC ABG Total CO2 39 04/23/18 15:08 POC ABG O2 Sat 93 04/23/18 15:08 POC ABG Base Excess 14 04/23/18 15:08 FiO2 100 % 04/23/18 15:08 Sodium 145 mmol/L (137-145) 04/27/18 04:51 Potassium 3.2 mmol/L (3.6-5.0) L 04/27/18 04:51 Chloride 94.6 mmol/L (98-107) L 04/27/18 04:51 Carbon Dioxide 39 mmol/L (22-30) H 04/27/18 04:51 Anion Gap 15 mmol/L 04/27/18 04:51 BUN 45 mg/dL (7-17) H 04/27/18 04:51 Creatinine 0.7 mg/dL (0.7-1.2) 04/27/18 04:51 Estimated GFR > 60 ml/min 04/27/18 04:51 BUN/Creatinine Ratio 64 % 04/27/18 04:51 Glucose 169 mg/dL (65-100) H 04/27/18 04:51 POC Glucose 214 (70-105) H 04/28/18 05:50 Lactic Acid 1.20 mmol/L (0.7-2.0) 04/17/18 21:34 Calcium 8.5 mg/dL (8.4-10.2) 04/27/18 04:51 Phosphorus 3.60 mg/dL (2.5-4.5) 04/27/18 04:51 Magnesium 2.40 mg/dL (1.7-2.3) H 04/27/18 04:51 Total Bilirubin 0.70 mg/dL (0.1-1.2) 04/25/18 04:37 AST 38 units/L (5-40) 04/25/18 04:37 ALT 49 units/L (7-56) 04/25/18 04:37 Alkaline Phosphatase 196 units/L (35-129) H 04/25/18 04:37 Lactate Dehydrogenase 575 units/L (91-180) H 04/25/18 Unknown Total Creatine Kinase 51 units/L (30-135) 04/17/18 12:48 CK-MB (CK-2) 1.8 ng/mL (0.0-4.0) 04/17/18 12:48 CK-MB (CK-2) Rel Index 3.5 (0-4) 04/17/18 12:48 Troponin T < 0.010 ng/mL (0.00-0.029) 04/17/18 12:48 NT-Pro-B Natriuret Pep 3763 pg/mL (0-900) H 04/24/18 18:00 Total Protein 6.9 g/dL (6.3-8.2) 04/25/18 04:37 Albumin 2.5 g/dL (3.9-5) L 04/25/18 04:37 Albumin/Globulin Ratio 0.6 % 04/25/18 04:37 Triglycerides 89 mg/dL (2-149) 04/17/18 16:11 Cholesterol 109 mg/dL (50-199) 04/17/18 16:11 LDL Cholesterol Direct 60 mg/dL (50-130) 04/17/18 16:11 HDL Cholesterol 41 mg/dL (40-59) 04/17/18 16:11 Cholesterol/HDL Ratio 2.65 % 04/17/18 16:11 TSH 2.320 mlU/mL (0.270-4.200) 04/17/18 16:11 Free T4 1.67 ng/dL (0.76-1.46) H 04/17/18 16:11 Urine Color Yellow (Yellow) 04/17/18 Unknown Urine Turbidity Clear (Clear) 04/17/18 Unknown Urine pH 5.0 (5.0-7.0) 04/17/18 Unknown Ur Specific [place] 1.005 (1.003-1.030) 04/17/18 Unknown Urine Protein <15 mg/dl mg/dL (Negative) 04/17/18 Unknown Urine Glucose (UA) Neg mg/dL (Negative) 04/17/18 Unknown Urine Ketones Neg mg/dL (Negative) 04/17/18 Unknown Urine Blood Mod (Negative) 04/17/18 Unknown Urine Nitrite Neg (Negative) 04/17/18 Unknown Urine Bilirubin Neg (Negative) 04/17/18 Unknown Urine Urobilinogen < 2.0 mg/dL (<2.0) 04/17/18 Unknown Ur Leukocyte Esterase Neg (Negative) 04/17/18 Unknown Urine WBC (Auto) 11.0 /HPF (0.0-6.0) H 04/17/18 Unknown Urine RBC (Auto) 3.0 /HPF (0.0-6.0) 04/17/18 Unknown U Epithel Cells (Auto) 2.0 /HPF (0-13.0) 04/17/18 Unknown Urine Mucus Few /HPF 04/17/18 Unknown JUDY Screen Positive (Negative) H 04/24/18 19:12 JUDY Titer 1:160 (Negative) H 04/24/18 19:12 JUDY Pattern Homogeneous 04/24/18 19:12 Proteinase 3 (PR3) Ab <1.0 AI (<1.0) 04/24/18 19:12 Myeloperoxidase Ab <1.0 AI (<1.0) 04/24/18 19:12 HIV 1&2 Antibody Rapid Non react (Non React) 04/27/18 10:14 HIV P24 Antigen Non react (Non React) 04/27/18 10:14 Influenza A (Rapid) Negative (Negative) 04/27/18 Unknown Influenza A (RT-PCR) Negative (Negative) 04/27/18 Unknown Influenza B (Rapid) Negative (Negative) 04/27/18 Unknown Influenza B (RT-PCR) Negative (Negative) 04/27/18 Unknown Nutrition/Malnutrition Assess - Dietary Evaluation Nutrition/Malnutrition Findings: Nutrition Notes Start: 04/24/18 15:05 Freq: Status: Active Protocol: Document 04/27/18 12:03 TW (Rec: 04/27/18 13:47 TW [id number]) Co-Sign 04/27/18 12:03 RM Nutrition Notes Initial or Follow up Reassessment Current Diagnosis Sepsis Hypertension Heart Failure Respiratory Failure Hyperlipidemia Other Pertinent Diagnosis AMS Current Diet TF Labs/Tests Na 145 K 3.2 BG 169 Mg 2.4 Pertinent Medications Reviewed Height 5 ft 6 in Weight 57.4 kg [place] Body Weight (kg) 59.09 BMI 20.4 Subjective/Other Information Consult to write/manage TF. Noted that dobhoff was not yet successfully placed per RN note. Percent of energy/protein needs met: 0%/0% Burn Absent Trauma Absent #2 Nutrition Diagnosis Malnutrition Diagnosis Progress(for reassessment Continues documentation) #1 Nutrition Diagnosis Inadequate oral intake Diagnosis Progress(for reassessment Continues documentation) Is patient on ventilator? No Is Patient Ambulatory and/or Out of Bed No REE-([place]-St. Jeor-confined to bed) 1285.800 Kcal/Kg value to use for calculation 30 Approximate Energy Requirements Using 1722 kcal/Kg Calculation Used for Recommendations [facility] Additional Notes protein (1-1.2g/kg): 57-68g fluid: 1mL/kcal or per MD Nutrition Intervention Change Diet Order: TF Nutrition Support: Jevity 1.2 at 60mL/hr Water flush of 100mL q4h or per MD Kcal 1,728 Protein (gm) 80 Fluid (mL) 1,162 Goal #1 Start TF Goal #2 TF tolerance Goal #3 Meet at least 75% of kcal and pro needs via TF Anticipated Discharge Needs: Unable to determine Follow-Up By: 05/01/18 Additional Comments F/U TF start/tolerance
--- NOTE | 2018-04-28 12:41 | Progress Note ---
Assessment and Plan Cultures: 04/17/18 Blood: no growth to date A/P: 77-year old female with a past medical history of tobacco abuse, HTN, Atrial Fib on therapeutic anticoagulation, hypothyroidism, HLD, migraine, SAAVEDRA, OA that presented to the ED on 04/17/18 stating that she had been experiencing SOB for the past 3 days with worsening symptoms over the past 1 day. patient acknowledged decreased exercise tolerance, orthopenea/PND, and SOB. Had an allergic reaction to Eliquis 3 days prior to admission to the hospital, was given prednisone by her PCP. 1. Acute respiratory failure secondary to bilateral interstitial pneumonia: etiology unclear but infectious process seems quite unlikely. CT scan reviewed, showing findings suggestive of possible interstitial lung disease. HIV negative, influenza negative. Has received several days of empiric abx, will d/c. Pulmonary following, agree with steroids. Off Atovaquone. Noted plans for DNR, agree. 2. Acute Combined Heart Failure: cardiology following. Plan: - stopped Ceftriaxone and Azithromycin - agree with steroids - overall guarded prognosis. Discussed with Dr. Sibley from pulmonary and family at bedside. Hiren Huang MD Infectious Disease [employer] [facility]) C: [phone] Subjective Date of service: 04/28/18 Principal diagnosis: PNA, hypoxemia respiratory failure, congestive heart failure, MS Interval history: No fevers. No chills. Remains on high flow oxygen. Patient asking for water. Family at bedside. Objective - Exam Narrative Exam: Constitutional: awake, alert, mild resp distress Head, Ears, Nose: Normocephalic, atraumatic. External ears, nose normal Eyes: Conjunctivae/corneas clear. No icterus. No ptosis. Neck: Supple, no meningeal signs Oral: mucosa dry Cardiovascular: S1, S2 normal. Respiratory: decreased breath sounds in the bases, b/l coarse sounds GI: Soft, non-tender; bowel sounds normal. No peritoneal signs Musculoskeletal: No pedal edema, no cyanosis. Skin: No rash or abscess. Hem/Lymphatic: No palpable cervical or supraclavicular nodes. No lymphangitis Psych: Mood ok. Affect normal Neurological: Awake, alert. - Constitutional Vitals: Vital Signs Temp Pulse Resp BP Pulse Ox 98.2 F 110 H 19 115/77 91 04/28/18 08:00 04/28/18 09:07 04/28/18 09:00 04/28/18 09:07 04/28/18 09:00 Temperature -Last 24 Hours Temperature 98.2 F Temperature 97.4 F Temperature 98.2 F Temperature 97.4 F Temperature 98.4 F - Labs CBC & Chem 7: 04/27/18 04:51 04/27/18 04:51 Labs: Abnormal lab results 04/24/18 04/27/18 04/28/18 Range/Units 19:12 18:31 00:04 POC Glucose 180 H 203 H (70-105) JUDY Screen Positive H (Negative) JUDY Titer 1:160 H (Negative) 04/28/18 Range/Units 05:50 POC Glucose 214 H (70-105) JUDY Screen (Negative) JUDY Titer (Negative)
--- NOTE | 2018-04-28 12:44 | Progress Note ---
Assessment and Plan 77 y/o female with acute respiratory failure secondary to abnormal CXR and CT scan, exact etiology unknown 1. Long discussion with family at bedside. Electing not to intubate, I feel is the correct course of action. Patient remains on high requirements of supplemental oxygen therapy but work of breathing is easier. STeroids were inc reased to 250q and CT chest shows more diffuse ground glass therapy now as oppose to the dense inflitrates as seen before. ID agrees that this is less likely infection. PCP therapy has been stopped and tamiflu as well as the other abxs. Ordered a stat BNP and may consider pulse dose steroids starting tomorrow 04/29 for the next 3 days to see if this helps with oxygen requirement. Subjective Date of service: 04/28/18 Principal diagnosis: PNA, hypoxemia respiratory failure, congestive heart failure, MS Interval history: Currently patient, awake and alert. On HFNC at 40 and 90%. Requesting water. Family present. met Son for first time today. Family has made patient DNR but order not changed in computer. Objective Vital Signs - 12hr 04/28/18 04/28/18 04/28/18 00:51 01:00 01:11 Temperature Pulse Rate 126 H 124 H 105 H Pulse Rate [ Apical] Respiratory 23 28 H 28 H Rate Blood Pressure 113/79 106/80 106/80 O2 Sat by Pulse 97 97 95 Oximetry 04/28/18 04/28/18 04/28/18 01:21 01:31 01:41 Temperature Pulse Rate 111 H 102 H 106 H Pulse Rate [ Apical] Respiratory 19 22 18 Rate Blood Pressure 106/80 106/80 106/80 O2 Sat by Pulse 97 98 99 Oximetry 04/28/18 04/28/18 04/28/18 01:51 02:00 02:11 Temperature Pulse Rate 102 H 105 H 108 H Pulse Rate [ Apical] Respiratory 17 19 19 Rate Blood Pressure 106/80 127/78 127/78 O2 Sat by Pulse 99 100 99 Oximetry 04/28/18 04/28/18 04/28/18 02:21 02:31 02:41 Temperature Pulse Rate 134 H 116 H 112 H Pulse Rate [ Apical] Respiratory 20 20 20 Rate Blood Pressure 127/78 127/78 127/78 O2 Sat by Pulse 99 98 99 Oximetry 04/28/18 04/28/18 04/28/18 02:51 03:00 03:11 Temperature Pulse Rate 102 H 117 H 115 H Pulse Rate [ Apical] Respiratory 23 18 16 Rate Blood Pressure 127/78 110/69 110/69 O2 Sat by Pulse 96 96 96 Oximetry 04/28/18 04/28/18 04/28/18 03:21 03:31 03:41 Temperature Pulse Rate 98 H 118 H 121 H Pulse Rate [ Apical] Respiratory 16 15 22 Rate Blood Pressure 110/69 110/69 110/69 O2 Sat by Pulse 96 96 95 Oximetry 04/28/18 04/28/18 04/28/18 03:51 04:00 04:11 Temperature 97.4 F L Pulse Rate 113 H 114 H 98 H Pulse Rate [ 127 H Apical] Respiratory 16 16 16 Rate Blood Pressure 110/69 99/73 99/73 O2 Sat by Pulse 96 96 95 Oximetry 04/28/18 04/28/18 04/28/18 04:21 04:31 04:41 Temperature Pulse Rate 97 H 94 H 82 Pulse Rate [ Apical] Respiratory 16 16 14 Rate Blood Pressure 99/73 99/73 99/73 O2 Sat by Pulse 95 96 95 Oximetry 04/28/18 04/28/18 04/28/18 04:51 05:00 05:11 Temperature Pulse Rate 85 98 H 94 H Pulse Rate [ Apical] Respiratory 20 17 17 Rate Blood Pressure 99/73 109/65 99/73 O2 Sat by Pulse 94 97 96 Oximetry 04/28/18 04/28/18 04/28/18 05:21 05:31 05:41 Temperature Pulse Rate 90 88 98 H Pulse Rate [ Apical] Respiratory 16 16 16 Rate Blood Pressure 99/73 99/73 109/65 O2 Sat by Pulse 96 95 94 Oximetry 04/28/18 04/28/18 04/28/18 05:50 06:00 06:11 Temperature Pulse Rate 105 H 93 H 110 H Pulse Rate [ Apical] Respiratory 16 17 16 Rate Blood Pressure 109/65 114/74 109/65 O2 Sat by Pulse 94 95 96 Oximetry 04/28/18 04/28/18 04/28/18 06:21 06:31 06:41 Temperature Pulse Rate 99 H 95 H 104 H Pulse Rate [ Apical] Respiratory 13 17 19 Rate Blood Pressure 109/65 109/65 114/74 O2 Sat by Pulse 96 96 94 Oximetry 04/28/18 04/28/18 04/28/18 06:51 07:00 07:01 Temperature Pulse Rate 121 H 110 H 81 Pulse Rate [ Apical] Respiratory 16 15 Rate Blood Pressure 114/74 96/55 O2 Sat by Pulse 95 97 Oximetry 04/28/18 04/28/18 04/28/18 07:11 07:21 07:31 Temperature Pulse Rate 98 H 93 H 104 H Pulse Rate [ Apical] Respiratory 16 16 15 Rate Blood Pressure 96/55 96/55 96/55 O2 Sat by Pulse 96 96 92 Oximetry 04/28/18 04/28/18 04/28/18 07:41 07:50 07:51 Temperature Pulse Rate 94 H 104 H Pulse Rate [ Apical] Respiratory 16 16 Rate Blood Pressure 96/55 96/55 O2 Sat by Pulse 93 96 93 Oximetry 04/28/18 04/28/18 04/28/18 08:00 08:01 08:11 Temperature 98.2 F Pulse Rate 103 H 98 H Pulse Rate [ 127 H Apical] Respiratory 26 H 22 17 Rate Blood Pressure 130/80 130/80 O2 Sat by Pulse 95 91 92 Oximetry 04/28/18 04/28/18 04/28/18 08:21 08:31 08:41 Temperature Pulse Rate 99 H 92 H 105 H Pulse Rate [ Apical] Respiratory 18 19 26 H Rate Blood Pressure 96/55 96/55 96/55 O2 Sat by Pulse 92 93 87 Oximetry 04/28/18 04/28/18 04/28/18 08:51 09:00 09:07 Temperature Pulse Rate 105 H 92 H 110 H Pulse Rate [ Apical] Respiratory 20 19 Rate Blood Pressure 96/55 115/77 115/77 O2 Sat by Pulse 89 91 Oximetry Constitutional: alert Eyes: non-icteric ENT: oropharynx moist Neck: supple, no JVD Effort: mildly labored Ascultation: Bilateral: clear, diminished breath sounds, wheezes, rales (faint) Percussion: Bilateral: not dull Cardiovascular: irregular rhythm Gastrointestinal: normoactive bowel sounds Extremities: pulses normal, no ischemia or petechiae, other (mild clubbing) Neurologic: normal mental status, non-focal exam, pupils equal and round, CN II- XII normal Psychiatric: anxious CBC and BMP: 04/27/18 04:51 04/27/18 04:51 ABG, PT/INR, D-dimer: ABG POC ABG pH 7.478 (7.35-7.45) H 04/23/18 15:08 POC ABG pCO2 51.0 (35-45) H 04/23/18 15:08 POC ABG pO2 62 (80-105) L 04/23/18 15:08 POC ABG HCO3 37.8 04/23/18 15:08 POC ABG Total CO2 39 04/23/18 15:08 POC ABG O2 Sat 93 04/23/18 15:08 PT/INR, D-dimer PT 18.3 Sec. (12.2-14.9) H 04/17/18 12:48 INR 1.48 (0.87-1.13) H 04/17/18 12:48 D-Dimer 1975 ng/mlDDU (0-234) H 04/17/18 12:38 Abnormal lab findings: Abnormal Labs 04/17/18 04/17/18 04/17/18 12:38 12:48 12:48 WBC 18.0 H Lymph % (Auto) 6.5 L [place] % (Auto) 10.0 H Lymph # [place] # 1.8 H Seg Neutrophils % 83.2 H Seg Neuts % (Manual) Lymphocytes % (Manual) Seg Neutrophils # 15.0 H Seg Neutrophils # Man Lymphocytes # (Manual) PT 18.3 H INR 1.48 H D-Dimer 1975 H POC ABG pH POC ABG pCO2 POC ABG pO2 Sodium Potassium Chloride Carbon Dioxide BUN Creatinine Glucose POC Glucose Magnesium AST ALT Alkaline Phosphatase Lactate Dehydrogenase NT-Pro-B Natriuret Pep Albumin Free T4 Urine WBC (Auto) JUDY Screen JUDY Titer 04/17/18 04/17/18 04/17/18 12:48 12:48 16:11 WBC Lymph % (Auto) [place] % (Auto) Lymph # [place] # Seg Neutrophils % Seg Neuts % (Manual) Lymphocytes % (Manual) Seg Neutrophils # Seg Neutrophils # Man Lymphocytes # (Manual) PT INR D-Dimer POC ABG pH POC ABG pCO2 POC ABG pO2 Sodium 136 L Potassium Chloride Carbon Dioxide BUN Creatinine 0.6 L Glucose 127 H POC Glucose Magnesium AST 121 H ALT 110 H Alkaline Phosphatase Lactate Dehydrogenase NT-Pro-B Natriuret Pep 6653 H Albumin 3.4 L Free T4 1.67 H Urine WBC (Auto) JUDY Screen JUDY Titer 04/17/18 04/18/18 04/19/18 Unknown 05:12 05:02 WBC 17.8 H Lymph % (Auto) 5.1 L [place] % (Auto) 8.0 H Lymph # 0.9 L [place] # 1.4 H Seg Neutrophils % 86.6 H Seg Neuts % (Manual) Lymphocytes % (Manual) Seg Neutrophils # 15.4 H Seg Neutrophils # Man Lymphocytes # (Manual) PT INR D-Dimer POC ABG pH POC ABG pCO2 POC ABG pO2 Sodium Potassium 3.2 L Chloride 94.2 L Carbon Dioxide BUN 20 H Creatinine 0.6 L Glucose 118 H POC Glucose Magnesium AST ALT Alkaline Phosphatase Lactate Dehydrogenase NT-Pro-B Natriuret Pep Albumin Free T4 Urine WBC (Auto) 11.0 H JUDY Screen JUDY Titer 04/20/18 04/22/18 04/23/18 09:56 04:55 15:08 WBC Lymph % (Auto) [place] % (Auto) Lymph # [place] # Seg Neutrophils % Seg Neuts % (Manual) Lymphocytes % (Manual) Seg Neutrophils # Seg Neutrophils # Man Lymphocytes # (Manual) PT INR D-Dimer POC ABG pH 7.478 H POC ABG pCO2 51.0 H POC ABG pO2 62 L Sodium Potassium 3.1 L Chloride 94.3 L 94.1 L Carbon Dioxide BUN 27 H 36 H Creatinine Glucose 118 H 157 H POC Glucose Magnesium AST ALT Alkaline Phosphatase Lactate Dehydrogenase NT-Pro-B Natriuret Pep Albumin Free T4 Urine WBC (Auto) JUDY Screen JUDY Titer 04/24/18 04/24/18 04/25/18 18:00 19:12 04:37 WBC Lymph % (Auto) [place] % (Auto) Lymph # [place] # Seg Neutrophils % Seg Neuts % (Manual) Lymphocytes % (Manual) Seg Neutrophils # Seg Neutrophils # Man Lymphocytes # (Manual) PT INR D-Dimer POC ABG pH POC ABG pCO2 POC ABG pO2 Sodium Potassium Chloride 96.4 L Carbon Dioxide 37 H D BUN 48 H Creatinine Glucose 181 H POC Glucose Magnesium AST ALT Alkaline Phosphatase 196 H Lactate Dehydrogenase NT-Pro-B Natriuret Pep 3763 H Albumin 2.5 L Free T4 Urine WBC (Auto) JUDY Screen Positive H JUDY Titer 1:160 H 04/25/18 04/26/18 04/26/18 Unknown 04:55 04:55 WBC 26.5 H Lymph % (Auto) [place] % (Auto) Lymph # [place] # Seg Neutrophils % Seg Neuts % (Manual) 97.0 H Lymphocytes % (Manual) 0 L Seg Neutrophils # Seg Neutrophils # Man 25.7 H Lymphocytes # (Manual) 0.0 L PT INR D-Dimer POC ABG pH POC ABG pCO2 POC ABG pO2 Sodium 146 H Potassium 3.3 L Chloride 96.6 L Carbon Dioxide 36 H BUN 48 H Creatinine Glucose 218 H POC Glucose Magnesium 2.60 H AST ALT Alkaline Phosphatase Lactate Dehydrogenase 575 H NT-Pro-B Natriuret Pep Albumin Free T4 Urine WBC (Auto) JUDY Screen JUDY Titer 04/26/18 04/27/18 04/27/18 11:52 04:51 04:51 WBC 27.8 H Lymph % (Auto) [place] % (Auto) Lymph # [place] # Seg Neutrophils % Seg Neuts % (Manual) 95.0 H Lymphocytes % (Manual) 0 L Seg Neutrophils # Seg Neutrophils # Man 26.4 H Lymphocytes # (Manual) 0.0 L PT INR D-Dimer POC ABG pH POC ABG pCO2 POC ABG pO2 Sodium Potassium 3.2 L Chloride 94.6 L Carbon Dioxide 39 H BUN 45 H Creatinine Glucose 169 H POC Glucose 210 H Magnesium 2.40 H AST ALT Alkaline Phosphatase Lactate Dehydrogenase NT-Pro-B Natriuret Pep Albumin Free T4 Urine WBC (Auto) JUDY Screen JUDY Titer 04/27/18 04/28/18 04/28/18 18:31 00:04 05:50 WBC Lymph % (Auto) [place] % (Auto) Lymph # [place] # Seg Neutrophils % Seg Neuts % (Manual) Lymphocytes % (Manual) Seg Neutrophils # Seg Neutrophils # Man Lymphocytes # (Manual) PT INR D-Dimer POC ABG pH POC ABG pCO2 POC ABG pO2 Sodium Potassium Chloride Carbon Dioxide BUN Creatinine Glucose POC Glucose 180 H 203 H 214 H Magnesium AST ALT Alkaline Phosphatase Lactate Dehydrogenase NT-Pro-B Natriuret Pep Albumin Free T4 Urine WBC (Auto) JUDY Screen JUDY Titer
[2018-04-28] MEDS: SODIUM CHLORIDE FLUSH SYRINGE 10 ML IV SCH ×2 (13:48→21:41)
--- NOTE | 2018-04-28 14:56 | Progress Note ---
Assessment and Plan PO amiodarone & D/C IV amiodarone 9 hours later. PO Metoprolol & D/C IV metoprolol. Patient was made DNR by family members. - Patient Problems (1) On tube feeding diet Current Visit: Yes Status: Acute (2) Acute heart failure with preserved ejection fraction Current Visit: Yes Status: Acute (3) Acute respiratory failure Current Visit: Yes Status: Acute (4) Altered mental status Current Visit: Yes Status: Acute (5) CHF (congestive heart failure) Current Visit: Yes Status: Resolved Qualifiers: Heart failure type: systolic Heart failure chronicity: acute Qualified Code(s): I50.21 - Acute systolic (congestive) heart failure (6) Pneumonia Current Visit: Yes Status: Acute (7) Sepsis Current Visit: Yes Status: Resolved Qualifiers: Sepsis type: sepsis due to unspecified organism Qualified Code(s): A41.9 - Sepsis, unspecified organism (8) Atrial fibrillation Current Visit: Yes Status: Chronic Qualifiers: Atrial fibrillation type: persistent Qualified Code(s): I48.1 - Persistent atrial fibrillation (9) HTN (hypertension) Current Visit: Yes Status: Chronic Subjective Date of service: 04/28/18 Principal diagnosis: PNA, hypoxemia respiratory failure, congestive heart failure, MS Interval history: S/P Dub Jennifer tube placement.AF with HR 117 t0 122/mt.Stable BP.On high flow O2 in day and BIPAP at night. Objective Vital Signs Temp Pulse Pulse Resp BP Pulse Ox 04/28/18 13:31 122 H 16 133/82 91 04/28/18 13:21 112 H 17 133/82 90 04/28/18 13:11 96 H 27 H 132/73 89 04/28/18 13:00 117 H 20 132/73 91 04/28/18 12:51 113 H 28 H 133/82 92 04/28/18 12:41 118 H 20 133/82 93 04/28/18 12:31 117 H 27 H 133/82 90 04/28/18 12:21 94 H 40 H 133/82 91 04/28/18 12:11 111 H 29 H 133/82 92 04/28/18 12:00 97.2 F L 134 H 127 H 25 H 133/82 92 04/28/18 11:51 104 H 18 124/93 92 04/28/18 11:41 109 H 19 124/93 92 04/28/18 11:31 98 H 20 124/93 92 04/28/18 11:21 105 H 19 124/93 92 04/28/18 11:11 99 H 20 124/93 91 04/28/18 11:00 101 H 28 H 124/93 91 04/28/18 10:51 124 H 36 H 115/77 87 04/28/18 10:41 109 H 33 H 115/77 90 04/28/18 10:31 111 H 27 H 115/77 90 04/28/18 10:21 114 H 32 H 115/77 89 04/28/18 10:11 120 H 25 H 138/69 91 04/28/18 10:00 93 H 20 138/69 93 04/28/18 09:51 101 H 21 115/77 93 04/28/18 09:41 104 H 31 H 115/77 87 04/28/18 09:31 101 H 20 115/77 93 04/28/18 09:21 115 H 22 115/77 92 04/28/18 09:11 96 H 17 115/77 91 04/28/18 09:07 110 H 115/77 04/28/18 09:00 92 H 19 115/77 91 04/28/18 08:51 105 H 20 96/55 89 04/28/18 08:41 105 H 26 H 96/55 87 04/28/18 08:31 92 H 19 96/55 93 04/28/18 08:21 99 H 18 96/55 92 04/28/18 08:11 98 H 17 130/80 92 04/28/18 08:01 103 H 22 130/80 91 04/28/18 08:00 98.2 F 127 H 26 H 95 04/28/18 07:51 104 H 16 96/55 93 04/28/18 07:50 96 04/28/18 07:41 94 H 16 96/55 93 04/28/18 07:31 104 H 15 96/55 92 04/28/18 07:21 93 H 16 96/55 96 04/28/18 07:11 98 H 16 96/55 96 04/28/18 07:01 81 15 96/55 97 04/28/18 07:00 110 H 04/28/18 06:51 121 H 16 114/74 95 04/28/18 06:41 104 H 19 114/74 94 04/28/18 06:31 95 H 17 109/65 96 04/28/18 06:21 99 H 13 109/65 96 04/28/18 06:11 110 H 16 109/65 96 04/28/18 06:00 93 H 17 114/74 95 04/28/18 05:50 105 H 16 109/65 94 04/28/18 05:41 98 H 16 109/65 94 04/28/18 05:31 88 16 99/73 95 04/28/18 05:21 90 16 99/73 96 04/28/18 05:11 94 H 17 99/73 96 04/28/18 05:00 98 H 17 109/65 97 04/28/18 04:51 85 20 99/73 94 04/28/18 04:41 82 14 99/73 95 04/28/18 04:31 94 H 16 99/73 96 04/28/18 04:21 97 H 16 99/73 95 04/28/18 04:11 98 H 16 99/73 95 04/28/18 04:00 97.4 F L 114 H 127 H 16 99/73 96 04/28/18 03:51 113 H 16 110/69 96 04/28/18 03:41 121 H 22 110/69 95 04/28/18 03:31 118 H 15 110/69 96 04/28/18 03:21 98 H 16 110/69 96 04/28/18 03:11 115 H 16 110/69 96 04/28/18 03:00 117 H 18 110/69 96 04/28/18 02:51 102 H 23 127/78 96 04/28/18 02:41 112 H 20 127/78 99 04/28/18 02:31 116 H 20 127/78 98 04/28/18 02:21 134 H 20 127/78 99 04/28/18 02:11 108 H 19 127/78 99 04/28/18 02:00 105 H 19 127/78 100 04/28/18 01:51 102 H 17 106/80 99 04/28/18 01:41 106 H 18 106/80 99 04/28/18 01:31 102 H 22 106/80 98 04/28/18 01:21 111 H 19 106/80 97 04/28/18 01:11 105 H 28 H 106/80 95 04/28/18 01:00 124 H 28 H 106/80 97 04/28/18 00:51 126 H 23 113/79 97 04/28/18 00:41 117 H 22 113/79 96 04/28/18 00:31 133 H 29 H 113/79 96 04/28/18 00:21 127 H 23 113/79 97 04/28/18 00:11 124 H 23 113/79 97 04/28/18 00:01 116 H 28 H 109/75 95 04/28/18 00:00 98.2 F 127 H 26 H 95 04/27/18 23:51 123 H 16 109/75 96 04/27/18 23:41 149 H 16 109/75 95 04/27/18 23:40 107 H 24 96 04/27/18 23:31 110 H 23 109/75 99 04/27/18 23:21 130 H 19 109/75 96 04/27/18 23:11 107 H 20 109/75 97 04/27/18 23:00 115 H 19 109/75 97 04/27/18 22:51 117 H 20 97/70 97 04/27/18 22:41 113 H 21 97/70 96 04/27/18 22:31 123 H 20 97/70 97 04/27/18 22:21 114 H 20 96/70 96 04/27/18 22:11 114 H 19 96/70 97 04/27/18 22:00 124 H 20 96/70 97 04/27/18 21:51 116 H 20 105/55 97 04/27/18 21:41 115 H 17 105/55 97 04/27/18 21:31 111 H 28 H 105/55 96 04/27/18 21:29 96 04/27/18 21:21 111 H 19 105/55 97 04/27/18 21:11 119 H 20 105/55 97 04/27/18 21:01 109 H 19 105/55 98 04/27/18 20:51 156 H 26 H 133/90 98 04/27/18 20:41 134 H 24 133/90 96 04/27/18 20:31 137 H 23 133/90 93 04/27/18 20:21 142 H 26 H 133/90 93 04/27/18 20:11 30 H 133/90 93 04/27/18 20:00 97.4 F L 120 H 127 H 26 H 133/90 92 04/27/18 19:51 135 H 129/96 95 04/27/18 19:41 131 H 31 H 129/96 92 04/27/18 19:31 126 H 30 H 129/96 93 04/27/18 19:21 126 H 35 H 129/96 93 04/27/18 19:11 129 H 19 129/96 93 04/27/18 19:01 124 H 31 H 129/96 90 04/27/18 19:00 130 H 04/27/18 18:51 127 H 31 H 117/73 94 04/27/18 18:41 125 H 24 117/73 92 04/27/18 18:31 137 H 21 117/73 94 04/27/18 18:21 136 H 38 H 117/73 93 04/27/18 18:11 129 H 32 H 117/73 95 04/27/18 18:00 116 H 23 117/73 97 04/27/18 17:51 122 H 21 119/84 96 04/27/18 17:41 116 H 20 119/84 96 04/27/18 17:31 114 H 20 119/84 97 04/27/18 17:21 116 H 21 119/84 96 04/27/18 17:11 116 H 22 120/75 96 04/27/18 17:00 128 H 32 H 120/75 95 04/27/18 16:51 123 H 27 H 119/84 96 04/27/18 16:42 136 H 119/84 04/27/18 16:41 142 H 35 H 119/84 94 04/27/18 16:31 147 H 31 H 119/84 94 04/27/18 16:21 134 H 35 H 119/84 95 04/27/18 16:11 151 H 35 H 119/84 95 04/27/18 16:00 98.4 F 143 H 149 H 37 H 119/84 97 04/27/18 15:51 140 H 34 H 122/52 95 04/27/18 15:41 134 H 27 H 122/52 94 04/27/18 15:31 143 H 30 H 122/52 95 04/27/18 15:21 123 H 32 H 122/52 90 04/27/18 15:11 136 H 48 H 123/87 95 04/27/18 15:00 147 H 29 H 123/87 95 - Physical Examination General: Other (on high flow O2) HEENT: Positive: PERRL, Normocephaly, Mucus Membranes Moist Neck: Positive: neck supple, trachea midline Cardiac: Positive: irregularly irregular, Tachycardia Lungs: Positive: clear to auscultation Neuro: Positive: Grossly Intact, Other Abdomen: Positive: Soft, Active Bowel Sounds. Negative: Tender Skin: Negative: Rash, Wound Musculoskeletal: No Fluid Collection, No Pain Extremities: Absent: edema - Imaging and Cardiology EKG: report reviewed, image reviewed Echo: report reviewed (04/14/2018 which showed EF 60-65%, mild to mod RV hypokinesis, LA enlarged, mild MR, mod TR, RVSP 63mmHg, trace pericardial effusion.) - Telemetry EKG Rhythm: Atrial Fibrillation - EKG Supraventricular dysrhythmia: atrial fibrillation Repolarization changes or abnormalities: Q-T interval prolongation
[2018-04-28] MEDS: ATIVAN PO PRN (16:52)
[2018-04-28] MEDS: CORDARONE PO SCH ×2 (16:52→21:40)
[2018-04-28] MEDS ORDERED: CORDARONE 900 MG in D5W 482 ML IV SCH (17:00)
[2018-04-28] MEDS: LOPRESSOR PO SCH (20:24)
[2018-04-28] MEDS: PRAVACHOL PO SCH (21:39)
[2018-04-29] MEDS: HumuLIN R SUB-Q SCH ×6 (02:07→21:18)
[2018-04-29 05:25] LABS: Hematocrit 39.1 % (30.3-42.9); Hemoglobin 12.9 gm/dl (10.1-14.3); Mean Corpuscular HGB Conc 33 % (30-34); Mean Corpuscular Volume 89 fl (79-97); Platelet Count 242 K/mm3 (140-440); Red Blood Count 4.41 M/mm3 (3.65-5.03); Red Cell Distribution Width 13.8 % (13.2-15.2)
[2018-04-29] MEDS: SOLU-Medrol 1,000 MG in NACL 0.9% 250ML 250 ML IV SCH (05:25)
[2018-04-29] MEDS: SYNTHROID PO SCH (05:29)
[2018-04-29] MEDS: LASIX IV SCH (05:29)
[2018-04-29 05:48] LABS: Alanine Aminotransferase 52 units/L (7-56); Albumin 2.5 g/dL (3.9-5); BUN/Creatinine Ratio 61; Blood Urea Nitrogen 43 mg/dL (7-17); Calcium 8.5 mg/dL (8.4-10.2); Hemolysis Index 9
[2018-04-29 06:05] LABS: Anisocytosis 1+; Band Neutrophils # (Manual) 0.9 K/mm3; Basophils % (Manual) 0 % (0.0-1.8); Eosinophils % (Manual) 0 % (0.0-4.3); Ovalocytes 1+; Stomatocytes 1+; Tear Drop Cells Rare; Total Cells Counted 100
[2018-04-29] MEDS: COZAAR PO SCH (09:42)
[2018-04-29] MEDS: PRADAXA PO SCH (09:43)
[2018-04-29] MEDS: ZOLOFT PO SCH (09:43)
[2018-04-29] MEDS: HALFPRIN EC PO SCH (09:43)
[2018-04-29] MEDS: VITAMIN D3 PO SCH (09:43)
[2018-04-29] MEDS: CORDARONE PO SCH ×2 (09:43→21:18)
[2018-04-29] MEDS: LOPRESSOR PO SCH ×3 (09:44→21:15)
[2018-04-29] MEDS: POTASSIUM CHLORIDE PO SCH (09:44)
[2018-04-29] MEDS: ATIVAN PO PRN (09:44)
[2018-04-29] MEDS: SODIUM CHLORIDE FLUSH SYRINGE 10 ML IV SCH ×2 (09:46→21:20)
--- NOTE | 2018-04-29 10:45 | Progress Note ---
Assessment and Plan 77 y/o female with acute respiratory failure secondary to abnormal CXR and CT scan, exact etiology unknown 1. Pulse dose the next 48 hours. 2. Per [facility] on Tuesday but hopefully she can get her last pulse dose prior to transfer. 3. Will need prolonged taper and repeat CT to follow lungs. [facility] We need to send copies of our imaging studies with them. Subjective Date of service: 04/29/18 Principal diagnosis: PNA, hypoxemia respiratory failure, congestive heart failure, MS Interval history: Pulse dose steroids started today. Given at 0530 this am. Continue on HFNC, stable. Family at bedside. Objective Vital Signs - 12hr 04/28/18 04/28/18 04/28/18 22:50 23:00 23:10 Temperature Pulse Rate 92 H 85 92 H Pulse Rate [ Apical] Respiratory 21 20 25 H Rate Blood Pressure 122/78 119/72 119/72 O2 Sat by Pulse 95 96 94 Oximetry 04/28/18 04/28/18 04/28/18 23:20 23:30 23:40 Temperature Pulse Rate 85 96 H 98 H Pulse Rate [ Apical] Respiratory 24 21 24 Rate Blood Pressure 119/72 119/72 119/72 O2 Sat by Pulse 96 96 96 Oximetry 04/28/18 04/29/18 04/29/18 23:50 00:00 00:04 Temperature 98.0 F Pulse Rate 96 H 89 100 H Pulse Rate [ 105 H Apical] Respiratory 23 20 19 Rate Blood Pressure 119/72 126/73 126/73 O2 Sat by Pulse 94 96 97 Oximetry 04/29/18 04/29/18 04/29/18 00:10 00:20 00:30 Temperature Pulse Rate 93 H 87 96 H Pulse Rate [ Apical] Respiratory 18 20 18 Rate Blood Pressure 126/73 126/73 126/73 O2 Sat by Pulse 98 97 97 Oximetry 04/29/18 04/29/18 04/29/18 00:40 00:50 01:00 Temperature Pulse Rate 83 109 H 105 H Pulse Rate [ Apical] Respiratory 19 22 24 Rate Blood Pressure 126/73 126/73 131/77 O2 Sat by Pulse 97 96 96 Oximetry 04/29/18 04/29/18 04/29/18 01:10 01:20 01:30 Temperature Pulse Rate 89 102 H 91 H Pulse Rate [ Apical] Respiratory 18 18 18 Rate Blood Pressure 131/77 131/77 131/77 O2 Sat by Pulse 98 97 96 Oximetry 04/29/18 04/29/18 04/29/18 01:40 01:50 02:00 Temperature Pulse Rate 113 H 123 H 98 H Pulse Rate [ Apical] Respiratory 26 H 19 21 Rate Blood Pressure 131/77 131/77 125/80 O2 Sat by Pulse 98 96 95 Oximetry 04/29/18 04/29/18 04/29/18 02:10 02:20 02:30 Temperature Pulse Rate 111 H 102 H 89 Pulse Rate [ Apical] Respiratory 24 20 20 Rate Blood Pressure 125/80 125/80 125/80 O2 Sat by Pulse 95 96 96 Oximetry 04/29/18 04/29/18 04/29/18 02:40 02:50 03:00 Temperature Pulse Rate 95 H 98 H 96 H Pulse Rate [ Apical] Respiratory 19 19 18 Rate Blood Pressure 125/80 125/80 125/80 O2 Sat by Pulse 96 96 96 Oximetry 04/29/18 04/29/18 04/29/18 03:10 03:20 03:30 Temperature Pulse Rate 97 H 97 H 91 H Pulse Rate [ Apical] Respiratory 24 26 H 19 Rate Blood Pressure 123/87 123/87 123/87 O2 Sat by Pulse 98 96 96 Oximetry 04/29/18 04/29/18 04/29/18 03:40 03:50 04:00 Temperature 98.3 F Pulse Rate 87 99 H 91 H Pulse Rate [ 100 H Apical] Respiratory 18 21 20 Rate Blood Pressure 123/87 123/87 113/72 O2 Sat by Pulse 96 96 96 Oximetry 04/29/18 04/29/18 04/29/18 04:10 04:20 04:30 Temperature Pulse Rate 105 H 88 102 H Pulse Rate [ Apical] Respiratory 17 18 19 Rate Blood Pressure 113/72 113/72 113/72 O2 Sat by Pulse 95 95 97 Oximetry 04/29/18 04/29/18 04/29/18 04:40 04:50 05:00 Temperature Pulse Rate 106 H 111 H 110 H Pulse Rate [ Apical] Respiratory 17 18 20 Rate Blood Pressure 113/72 113/72 113/72 O2 Sat by Pulse 97 96 97 Oximetry 04/29/18 04/29/18 04/29/18 05:08 05:10 05:20 Temperature Pulse Rate 111 H 106 H Pulse Rate [ Apical] Respiratory 22 22 Rate Blood Pressure 121/68 121/68 O2 Sat by Pulse 96 96 95 Oximetry 04/29/18 04/29/18 04/29/18 05:30 05:40 05:50 Temperature Pulse Rate 102 H 102 H 103 H Pulse Rate [ Apical] Respiratory 23 26 H 22 Rate Blood Pressure 121/68 121/68 121/68 O2 Sat by Pulse 95 94 95 Oximetry 04/29/18 04/29/18 04/29/18 06:00 06:10 06:20 Temperature Pulse Rate 102 H 119 H 104 H Pulse Rate [ Apical] Respiratory 25 H 29 H 30 H Rate Blood Pressure 133/61 133/61 133/61 O2 Sat by Pulse 92 93 95 Oximetry 04/29/18 04/29/18 04/29/18 06:30 06:40 06:50 Temperature Pulse Rate 102 H 113 H 101 H Pulse Rate [ Apical] Respiratory 25 H 26 H 18 Rate Blood Pressure 133/61 133/61 133/61 O2 Sat by Pulse 95 94 88 Oximetry 04/29/18 04/29/18 04/29/18 07:00 07:10 07:20 Temperature Pulse Rate 108 H 99 H 100 H Pulse Rate [ Apical] Respiratory 17 34 H 29 H Rate Blood Pressure 133/61 144/84 144/84 O2 Sat by Pulse 86 88 95 Oximetry 04/29/18 04/29/18 04/29/18 07:30 07:40 07:50 Temperature Pulse Rate 103 H 104 H 94 H Pulse Rate [ Apical] Respiratory 33 H 27 H 32 H Rate Blood Pressure 144/84 144/84 144/84 O2 Sat by Pulse 94 95 93 Oximetry 04/29/18 04/29/18 04/29/18 08:00 08:10 09:42 Temperature 98.2 F Pulse Rate 104 H 97 H 120 H Pulse Rate [ 100 H Apical] Respiratory 29 H 27 H Rate Blood Pressure 129/58 129/58 124/68 O2 Sat by Pulse 93 96 Oximetry 04/29/18 09:44 Temperature Pulse Rate 108 H Pulse Rate [ Apical] Respiratory Rate Blood Pressure 124/68 O2 Sat by Pulse Oximetry Constitutional: alert Eyes: non-icteric ENT: oropharynx moist Neck: supple, no JVD Effort: mildly labored Ascultation: Bilateral: clear, diminished breath sounds, wheezes, rales (faint) Percussion: Bilateral: not dull Cardiovascular: irregular rhythm Gastrointestinal: normoactive bowel sounds Extremities: pulses normal, no ischemia or petechiae, other (mild clubbing) Neurologic: normal mental status, non-focal exam, pupils equal and round, CN II- XII normal Psychiatric: anxious CBC and BMP: 04/29/18 05:08 04/29/18 05:08 ABG, PT/INR, D-dimer: ABG POC ABG pH 7.478 (7.35-7.45) H 04/23/18 15:08 POC ABG pCO2 51.0 (35-45) H 04/23/18 15:08 POC ABG pO2 62 (80-105) L 04/23/18 15:08 POC ABG HCO3 37.8 04/23/18 15:08 POC ABG Total CO2 39 04/23/18 15:08 POC ABG O2 Sat 93 04/23/18 15:08 PT/INR, D-dimer PT 18.3 Sec. (12.2-14.9) H 04/17/18 12:48 INR 1.48 (0.87-1.13) H 04/17/18 12:48 D-Dimer 1975 ng/mlDDU (0-234) H 04/17/18 12:38 Abnormal lab findings: Abnormal Labs 04/17/18 04/17/18 04/17/18 12:38 12:48 12:48 WBC 18.0 H Lymph % (Auto) 6.5 L [place] % (Auto) 10.0 H Lymph # [place] # 1.8 H Seg Neutrophils % 83.2 H Seg Neuts % (Manual) Lymphocytes % (Manual) Seg Neutrophils # 15.0 H Seg Neutrophils # Man Lymphocytes # (Manual) PT 18.3 H INR 1.48 H D-Dimer 1975 H POC ABG pH POC ABG pCO2 POC ABG pO2 Sodium Potassium Chloride Carbon Dioxide BUN Creatinine Glucose POC Glucose Magnesium AST ALT Alkaline Phosphatase Lactate Dehydrogenase NT-Pro-B Natriuret Pep Total Protein Albumin Free T4 Urine WBC (Auto) JUDY Screen JUDY Titer 04/17/18 04/17/18 04/17/18 12:48 12:48 16:11 WBC Lymph % (Auto) [place] % (Auto) Lymph # [place] # Seg Neutrophils % Seg Neuts % (Manual) Lymphocytes % (Manual) Seg Neutrophils # Seg Neutrophils # Man Lymphocytes # (Manual) PT INR D-Dimer POC ABG pH POC ABG pCO2 POC ABG pO2 Sodium 136 L Potassium Chloride Carbon Dioxide BUN Creatinine 0.6 L Glucose 127 H POC Glucose Magnesium AST 121 H ALT 110 H Alkaline Phosphatase Lactate Dehydrogenase NT-Pro-B Natriuret Pep 6653 H Total Protein Albumin 3.4 L Free T4 1.67 H Urine WBC (Auto) JUDY Screen JUDY Titer 04/17/18 04/18/18 04/19/18 Unknown 05:12 05:02 WBC 17.8 H Lymph % (Auto) 5.1 L [place] % (Auto) 8.0 H Lymph # 0.9 L [place] # 1.4 H Seg Neutrophils % 86.6 H Seg Neuts % (Manual) Lymphocytes % (Manual) Seg Neutrophils # 15.4 H Seg Neutrophils # Man Lymphocytes # (Manual) PT INR D-Dimer POC ABG pH POC ABG pCO2 POC ABG pO2 Sodium Potassium 3.2 L Chloride 94.2 L Carbon Dioxide BUN 20 H Creatinine 0.6 L Glucose 118 H POC Glucose Magnesium AST ALT Alkaline Phosphatase Lactate Dehydrogenase NT-Pro-B Natriuret Pep Total Protein Albumin Free T4 Urine WBC (Auto) 11.0 H JUDY Screen JUDY Titer 04/20/18 04/22/18 04/23/18 09:56 04:55 15:08 WBC Lymph % (Auto) [place] % (Auto) Lymph # [place] # Seg Neutrophils % Seg Neuts % (Manual) Lymphocytes % (Manual) Seg Neutrophils # Seg Neutrophils # Man Lymphocytes # (Manual) PT INR D-Dimer POC ABG pH 7.478 H POC ABG pCO2 51.0 H POC ABG pO2 62 L Sodium Potassium 3.1 L Chloride 94.3 L 94.1 L Carbon Dioxide BUN 27 H 36 H Creatinine Glucose 118 H 157 H POC Glucose Magnesium AST ALT Alkaline Phosphatase Lactate Dehydrogenase NT-Pro-B Natriuret Pep Total Protein Albumin Free T4 Urine WBC (Auto) JUDY Screen JUDY Titer 04/24/18 04/24/18 04/25/18 18:00 19:12 04:37 WBC Lymph % (Auto) [place] % (Auto) Lymph # [place] # Seg Neutrophils % Seg Neuts % (Manual) Lymphocytes % (Manual) Seg Neutrophils # Seg Neutrophils # Man Lymphocytes # (Manual) PT INR D-Dimer POC ABG pH POC ABG pCO2 POC ABG pO2 Sodium Potassium Chloride 96.4 L Carbon Dioxide 37 H D BUN 48 H Creatinine Glucose 181 H POC Glucose Magnesium AST ALT Alkaline Phosphatase 196 H Lactate Dehydrogenase NT-Pro-B Natriuret Pep 3763 H Total Protein Albumin 2.5 L Free T4 Urine WBC (Auto) JUDY Screen Positive H JUDY Titer 1:160 H 04/25/18 04/26/18 04/26/18 Unknown 04:55 04:55 WBC 26.5 H Lymph % (Auto) [place] % (Auto) Lymph # [place] # Seg Neutrophils % Seg Neuts % (Manual) 97.0 H Lymphocytes % (Manual) 0 L Seg Neutrophils # Seg Neutrophils # Man 25.7 H Lymphocytes # (Manual) 0.0 L PT INR D-Dimer POC ABG pH POC ABG pCO2 POC ABG pO2 Sodium 146 H Potassium 3.3 L Chloride 96.6 L Carbon Dioxide 36 H BUN 48 H Creatinine Glucose 218 H POC Glucose Magnesium 2.60 H AST ALT Alkaline Phosphatase Lactate Dehydrogenase 575 H NT-Pro-B Natriuret Pep Total Protein Albumin Free T4 Urine WBC (Auto) JUDY Screen JUDY Titer 04/26/18 04/27/18 04/27/18 11:52 04:51 04:51 WBC 27.8 H Lymph % (Auto) [place] % (Auto) Lymph # [place] # Seg Neutrophils % Seg Neuts % (Manual) 95.0 H Lymphocytes % (Manual) 0 L Seg Neutrophils # Seg Neutrophils # Man 26.4 H Lymphocytes # (Manual) 0.0 L PT INR D-Dimer POC ABG pH POC ABG pCO2 POC ABG pO2 Sodium Potassium 3.2 L Chloride 94.6 L Carbon Dioxide 39 H BUN 45 H Creatinine Glucose 169 H POC Glucose 210 H Magnesium 2.40 H AST ALT Alkaline Phosphatase Lactate Dehydrogenase NT-Pro-B Natriuret Pep Total Protein Albumin Free T4 Urine WBC (Auto) JUDY Screen JUDY Titer 04/27/18 04/28/18 04/28/18 18:31 00:04 05:50 WBC Lymph % (Auto) [place] % (Auto) Lymph # [place] # Seg Neutrophils % Seg Neuts % (Manual) Lymphocytes % (Manual) Seg Neutrophils # Seg Neutrophils # Man Lymphocytes # (Manual) PT INR D-Dimer POC ABG pH POC ABG pCO2 POC ABG pO2 Sodium Potassium Chloride Carbon Dioxide BUN Creatinine Glucose POC Glucose 180 H 203 H 214 H Magnesium AST ALT Alkaline Phosphatase Lactate Dehydrogenase NT-Pro-B Natriuret Pep Total Protein Albumin Free T4 Urine WBC (Auto) JUDY Screen JUDY Titer 04/28/18 04/28/18 04/28/18 12:59 13:14 23:44 WBC Lymph % (Auto) [place] % (Auto) Lymph # [place] # Seg Neutrophils % Seg Neuts % (Manual) Lymphocytes % (Manual) Seg Neutrophils # Seg Neutrophils # Man Lymphocytes # (Manual) PT INR D-Dimer POC ABG pH POC ABG pCO2 POC ABG pO2 Sodium Potassium Chloride Carbon Dioxide BUN Creatinine Glucose POC Glucose 200 H 212 H Magnesium AST ALT Alkaline Phosphatase Lactate Dehydrogenase NT-Pro-B Natriuret Pep 3027 H Total Protein Albumin Free T4 Urine WBC (Auto) JUDY Screen JUDY Titer 04/29/18 04/29/18 04/29/18 01:57 05:08 05:08 WBC 29.1 H Lymph % (Auto) [place] % (Auto) Lymph # [place] # Seg Neutrophils % Seg Neuts % (Manual) 92.0 H Lymphocytes % (Manual) 3.0 L Seg Neutrophils # Seg Neutrophils # Man 26.8 H Lymphocytes # (Manual) 0.9 L PT INR D-Dimer POC ABG pH POC ABG pCO2 POC ABG pO2 Sodium 136 L D Potassium Chloride 89.4 L Carbon Dioxide 37 H BUN 43 H Creatinine Glucose 202 H POC Glucose 200 H Magnesium 2.40 H AST ALT Alkaline Phosphatase 174 H Lactate Dehydrogenase NT-Pro-B Natriuret Pep Total Protein 6.1 L Albumin 2.5 L Free T4 Urine WBC (Auto) JUDY Screen JUDY Titer 04/29/18 04/29/18 06:04 10:09 WBC Lymph % (Auto) [place] % (Auto) Lymph # [place] # Seg Neutrophils % Seg Neuts % (Manual) Lymphocytes % (Manual) Seg Neutrophils # Seg Neutrophils # Man Lymphocytes # (Manual) PT INR D-Dimer POC ABG pH POC ABG pCO2 POC ABG pO2 Sodium Potassium Chloride Carbon Dioxide BUN Creatinine Glucose POC Glucose 262 H 268 H Magnesium AST ALT Alkaline Phosphatase Lactate Dehydrogenase NT-Pro-B Natriuret Pep Total Protein Albumin Free T4 Urine WBC (Auto) JUDY Screen JUDY Titer
[2018-04-29] MEDS ORDERED: MILK OF MAGNESIA PO ONE (11:38)
[2018-04-29] MEDS ORDERED: MILK OF MAGNESIA PO PRN (11:38)
--- NOTE | 2018-04-29 11:39 | Progress Note ---
Assessment and Plan Assessment and plan: 77 yo woman with a history of HTN, Atrial Fib on Therapeutic Anticoagulation (Eliquis), Hypothyroidism, HTN, HLD, Migraine SAAVEDRA, OA and Anxiety/depression who presented to [facility] ED with SOB without chest pains. Pt also complains of itchy red spots on her arms since beginning Eliquis for new onset Afib. She was started on Prednisone and benadryl by PCP. She just stopped the Predisone, couple days prior to arrival --Constipation; stool softeners, supportive care --Mucositis; oral care, mouthwash, oral spray as needed --Interstitial lung disease on CT chest . High-dose of steroids, management per pulmonary, On BiPAP /high flow oxygen ,closely monitor --A. fib with rapid ventricular rate; continue amiodarone, beta blockers Cardiology following --Chronic anticoagulation; continue Pradaxa --Acute hypoxic respiratory failure; interstitial lung disease.to acis on high flow oxygen , BiPAP High-dose steroids , management per pulmonary. oxygen titrate O2 sats to more than 90%, intubate if no improvement --SIRS with organ dysfunction; he empiric antibiotics --Leukocytosis probably secondary to steroids, possible pneumonia, continue antibiotics --Elevated D dimers; V/Q scan intermediate probability for PE/CTA chest negative for PE --Hypothyroidism; continue Synthroid --Anxiety disorder; supportive care and the anxiety medications --DVT prophylaxis; patient is on Pradaxa Patient is critically ill, with bilateral interstitial pneumonia /pulmonary fibrosis /A. fib with rapid ventricular rate On BiPAP and high flow oxygen with poor prognosis., Failed swallow evaluation, Dobbhoff feeds Discussed with the daughter I discussed with the at the bedside along with her son Both requested DO NOT RESUSCITATE status but to continue all the current management --DNR status Discussed with case management for LTAC referral, possible transfer to LTAC in 1-2 days History Interval history: Patient seen and examined medical records reviewed Patient remains highly Flow Oxygen dependent Descending tube feeding Complaints of some oral ulcers, and constipation Patient looks chronically ill and cachectic Vital signs noted Multiple family members at the bedside Hospitalist Physical - Constitutional Vitals: Temp Pulse Resp BP Pulse Ox 98.2 F 108 H 27 H 124/68 96 04/29/18 08:00 04/29/18 09:44 04/29/18 08:10 04/29/18 09:44 04/29/18 08:10 General appearance: Present: mild distress, cachectic, disheveled - EENT Eyes: Present: PERRL, EOM intact - Neck Neck: Present: supple, normal ROM - Respiratory Respiratory effort: normal, labored Respiratory: bilateral: diminished, rhonchi, negative: rales, wheezing - Cardiovascular Rhythm: regular Heart Sounds: Present: S1 & S2 - Extremities Extremities: no ischemia, No edema - Abdominal General gastrointestinal: soft, non-tender, non-distended, normal bowel sounds - Integumentary Integumentary: Present: clear, warm - Psychiatric Psychiatric: appropriate mood/affect, other (confused at times) - Neurologic Neurologic: moves all extremities Results - Labs CBC & Chem 7: 04/29/18 05:08 04/29/18 05:08 Labs: Laboratory Last Values WBC 29.1 K/mm3 (4.5-11.0) H 04/29/18 05:08 RBC 4.41 M/mm3 (3.65-5.03) 04/29/18 05:08 Hgb 12.9 gm/dl (10.1-14.3) 04/29/18 05:08 Hct 39.1 % (30.3-42.9) 04/29/18 05:08 MCV 89 fl (79-97) 04/29/18 05:08 MCH 29 pg (28-32) 04/29/18 05:08 MCHC 33 % (30-34) 04/29/18 05:08 RDW 13.8 % (13.2-15.2) 04/29/18 05:08 Plt Count 242 K/mm3 (140-440) 04/29/18 05:08 Lymph % (Auto) 5.1 % (13.4-35.0) L 04/18/18 05:12 [place] % (Auto) 8.0 % (0.0-7.3) H 04/18/18 05:12 Eos % (Auto) 0.1 % (0.0-4.3) 04/18/18 05:12 Baso % (Auto) 0.2 % (0.0-1.8) 04/18/18 05:12 Lymph # 0.9 K/mm3 (1.2-5.4) L 04/18/18 05:12 [place] # 1.4 K/mm3 (0.0-0.8) H 04/18/18 05:12 Eos # 0.0 K/mm3 (0.0-0.4) 04/18/18 05:12 Baso # 0.0 K/mm3 (0.0-0.1) 04/18/18 05:12 Add Manual Diff Complete 04/29/18 05:08 Total Counted 100 04/29/18 05:08 Seg Neutrophils % Director Of Digital Technology 04/29/18 05:08 Seg Neuts % (Manual) 92.0 % (40.0-70.0) H 04/29/18 05:08 Band Neutrophils % 3.0 % 04/29/18 05:08 Lymphocytes % (Manual) 3.0 % (13.4-35.0) L 04/29/18 05:08 Reactive Lymphs % (Man) 0 % 04/29/18 05:08 Monocytes % (Manual) 2.0 % (0.0-7.3) 04/29/18 05:08 Eosinophils % (Manual) 0 % (0.0-4.3) 04/29/18 05:08 Basophils % (Manual) 0 % (0.0-1.8) 04/29/18 05:08 Metamyelocytes % 0 % 04/29/18 05:08 Myelocytes % 0 % 04/29/18 05:08 Promyelocytes % 0 % 04/29/18 05:08 Blast Cells % 0 % 04/29/18 05:08 Nucleated RBC % Not Reportable 04/29/18 05:08 Seg Neutrophils # 15.4 K/mm3 (1.8-7.7) H 04/18/18 05:12 Seg Neutrophils # Man 26.8 K/mm3 (1.8-7.7) H 04/29/18 05:08 Band Neutrophils # 0.9 K/mm3 04/29/18 05:08 Lymphocytes # (Manual) 0.9 K/mm3 (1.2-5.4) L 04/29/18 05:08 Abs React Lymphs (Man) 0.0 K/mm3 04/29/18 05:08 Monocytes # (Manual) 0.6 K/mm3 (0.0-0.8) 04/29/18 05:08 Eosinophils # (Manual) 0.0 K/mm3 (0.0-0.4) 04/29/18 05:08 Basophils # (Manual) 0.0 K/mm3 (0.0-0.1) 04/29/18 05:08 Metamyelocytes # 0.0 K/mm3 04/29/18 05:08 Myelocytes # 0.0 K/mm3 04/29/18 05:08 Promyelocytes # 0.0 K/mm3 04/29/18 05:08 Blast Cells # 0.0 K/mm3 04/29/18 05:08 WBC Morphology Not Reportable 04/29/18 05:08 Hypersegmented Neuts Not Reportable 04/29/18 05:08 Hyposegmented Neuts Not Reportable 04/29/18 05:08 Hypogranular Neuts Not Reportable 04/29/18 05:08 Smudge Cells Not Reportable 04/29/18 05:08 Toxic Granulation Not Reportable 04/29/18 05:08 Toxic Vacuolation Not Reportable 04/29/18 05:08 Dohle Bodies Not Reportable 04/29/18 05:08 Pelger-Huet Anomaly Not Reportable 04/29/18 05:08 Francisco Javier Rods Not Reportable 04/29/18 05:08 Platelet Estimate Appears normal 04/29/18 05:08 Clumped Platelets Not Reportable 04/29/18 05:08 Plt Clumps, EDTA Not Reportable 04/29/18 05:08 Large Platelets Not Reportable 04/29/18 05:08 Giant Platelets Not Reportable 04/29/18 05:08 Platelet Satelliting Not Reportable 04/29/18 05:08 Plt Morphology Comment Not Reportable 04/29/18 05:08 RBC Morphology Not Reportable 04/29/18 05:08 Dimorphic RBCs Not Reportable 04/29/18 05:08 Polychromasia Not Reportable 04/29/18 05:08 Hypochromasia Not Reportable 04/29/18 05:08 Poikilocytosis Not Reportable 04/29/18 05:08 Anisocytosis 1+ 04/29/18 05:08 Microcytosis Not Reportable 04/29/18 05:08 Macrocytosis Not Reportable 04/29/18 05:08 Spherocytes Not Reportable 04/29/18 05:08 Pappenheimer Bodies Not Reportable 04/29/18 05:08 Sickle Cells Not Reportable 04/29/18 05:08 Target Cells Not Reportable 04/29/18 05:08 Tear Drop Cells Rare 04/29/18 05:08 Ovalocytes 1+ 04/29/18 05:08 Stomatocytes 1+ 04/29/18 05:08 Helmet Cells Not Reportable 04/29/18 05:08 [place]-Center Bodies Not Reportable 04/29/18 05:08 [place] Rings Not Reportable 04/29/18 05:08 [place] Cells Not Reportable 04/29/18 05:08 Bite Cells Not Reportable 04/29/18 05:08 Crenated Cell Not Reportable 04/29/18 05:08 Elliptocytes Not Reportable 04/29/18 05:08 Acanthocytes (Spur) Not Reportable 04/29/18 05:08 Rouleaux Not Reportable 04/29/18 05:08 Hemoglobin C Crystals Not Reportable 04/29/18 05:08 Schistocytes Not Reportable 04/29/18 05:08 Malaria parasites Not Reportable 04/29/18 05:08 Otoniel Bodies Not Reportable 04/29/18 05:08 Hem Pathologist Commnt No 04/29/18 05:08 PT 18.3 Sec. (12.2-14.9) H 04/17/18 12:48 INR 1.48 (0.87-1.13) H 04/17/18 12:48 APTT 27.2 Sec. (24.2-36.6) 04/17/18 12:48 D-Dimer 1975 ng/mlDDU (0-234) H 04/17/18 12:38 POC ABG pH 7.478 (7.35-7.45) H 04/23/18 15:08 POC ABG pCO2 51.0 (35-45) H 04/23/18 15:08 POC ABG pO2 62 (80-105) L 04/23/18 15:08 POC ABG HCO3 37.8 04/23/18 15:08 POC ABG Total CO2 39 04/23/18 15:08 POC ABG O2 Sat 93 04/23/18 15:08 POC ABG Base Excess 14 04/23/18 15:08 FiO2 100 % 04/23/18 15:08 Sodium 136 mmol/L (137-145) L D 04/29/18 05:08 Potassium 3.8 mmol/L (3.6-5.0) 04/29/18 05:08 Chloride 89.4 mmol/L (98-107) L 04/29/18 05:08 Carbon Dioxide 37 mmol/L (22-30) H 04/29/18 05:08 Anion Gap 13 mmol/L 04/29/18 05:08 BUN 43 mg/dL (7-17) H 04/29/18 05:08 Creatinine 0.7 mg/dL (0.7-1.2) 04/29/18 05:08 Estimated GFR > 60 ml/min 04/29/18 05:08 BUN/Creatinine Ratio 61 % 04/29/18 05:08 Glucose 202 mg/dL (65-100) H 04/29/18 05:08 POC Glucose 268 (70-105) H 04/29/18 10:09 Lactic Acid 1.20 mmol/L (0.7-2.0) 04/17/18 21:34 Calcium 8.5 mg/dL (8.4-10.2) 04/29/18 05:08 Phosphorus 3.60 mg/dL (2.5-4.5) 04/27/18 04:51 Magnesium 2.40 mg/dL (1.7-2.3) H 04/29/18 05:08 Total Bilirubin 0.70 mg/dL (0.1-1.2) 04/29/18 05:08 AST 25 units/L (5-40) 04/29/18 05:08 ALT 52 units/L (7-56) 04/29/18 05:08 Alkaline Phosphatase 174 units/L (35-129) H 04/29/18 05:08 Lactate Dehydrogenase 575 units/L (91-180) H 04/25/18 Unknown Total Creatine Kinase 51 units/L (30-135) 04/17/18 12:48 CK-MB (CK-2) 1.8 ng/mL (0.0-4.0) 04/17/18 12:48 CK-MB (CK-2) Rel Index 3.5 (0-4) 04/17/18 12:48 Troponin T < 0.010 ng/mL (0.00-0.029) 04/17/18 12:48 NT-Pro-B Natriuret Pep 3027 pg/mL (0-900) H 04/28/18 12:59 Total Protein 6.1 g/dL (6.3-8.2) L 04/29/18 05:08 Albumin 2.5 g/dL (3.9-5) L 04/29/18 05:08 Albumin/Globulin Ratio 0.7 % 04/29/18 05:08 Triglycerides 89 mg/dL (2-149) 04/17/18 16:11 Cholesterol 109 mg/dL (50-199) 04/17/18 16:11 LDL Cholesterol Direct 60 mg/dL (50-130) 04/17/18 16:11 HDL Cholesterol 41 mg/dL (40-59) 04/17/18 16:11 Cholesterol/HDL Ratio 2.65 % 04/17/18 16:11 TSH 2.320 mlU/mL (0.270-4.200) 04/17/18 16:11 Free T4 1.67 ng/dL (0.76-1.46) H 04/17/18 16:11 Urine Color Yellow (Yellow) 04/17/18 Unknown Urine Turbidity Clear (Clear) 04/17/18 Unknown Urine pH 5.0 (5.0-7.0) 04/17/18 Unknown Ur Specific [place] 1.005 (1.003-1.030) 04/17/18 Unknown Urine Protein <15 mg/dl mg/dL (Negative) 04/17/18 Unknown Urine Glucose (UA) Neg mg/dL (Negative) 04/17/18 Unknown Urine Ketones Neg mg/dL (Negative) 04/17/18 Unknown Urine Blood Mod (Negative) 04/17/18 Unknown Urine Nitrite Neg (Negative) 04/17/18 Unknown Urine Bilirubin Neg (Negative) 04/17/18 Unknown Urine Urobilinogen < 2.0 mg/dL (<2.0) 04/17/18 Unknown Ur Leukocyte Esterase Neg (Negative) 04/17/18 Unknown Urine WBC (Auto) 11.0 /HPF (0.0-6.0) H 04/17/18 Unknown Urine RBC (Auto) 3.0 /HPF (0.0-6.0) 04/17/18 Unknown U Epithel Cells (Auto) 2.0 /HPF (0-13.0) 04/17/18 Unknown Urine Mucus Few /HPF 04/17/18 Unknown JUDY Screen Positive (Negative) H 04/24/18 19:12 JUDY Titer 1:160 (Negative) H 04/24/18 19:12 JUDY Pattern Homogeneous 04/24/18 19:12 Proteinase 3 (PR3) Ab <1.0 AI (<1.0) 04/24/18 19:12 Myeloperoxidase Ab <1.0 AI (<1.0) 04/24/18 19:12 Complement C3 153 mg/dL (83-193) 04/24/18 19:12 HIV 1&2 Antibody Rapid Non react (Non React) 04/27/18 10:14 HIV P24 Antigen Non react (Non React) 04/27/18 10:14 Influenza A (Rapid) Negative (Negative) 04/27/18 Unknown Influenza A (RT-PCR) Negative (Negative) 04/27/18 Unknown Influenza B (Rapid) Negative (Negative) 04/27/18 Unknown Influenza B (RT-PCR) Negative (Negative) 04/27/18 Unknown Nutrition/Malnutrition Assess - Dietary Evaluation Nutrition/Malnutrition Findings: Nutrition Notes Start: 04/24/18 15:05 Freq: Status: Active Protocol: Document 04/27/18 12:03 TW (Rec: 04/27/18 13:47 TW [id number]) Co-Sign 04/27/18 12:03 Nutrition Notes Initial or Follow up Reassessment Current Diagnosis Sepsis Hypertension Heart Failure Respiratory Failure Hyperlipidemia Other Pertinent Diagnosis AMS Current Diet TF Labs/Tests Na 145 K 3.2 BG 169 Mg 2.4 Pertinent Medications Reviewed Height 5 ft 6 in Weight 57.4 kg [place] Body Weight (kg) 59.09 BMI 20.4 Subjective/Other Information Consult to write/manage TF. Noted that dobhoff was not yet successfully placed per RN note. Percent of energy/protein needs met: 0%/0% Burn Absent Trauma Absent #2 Nutrition Diagnosis Malnutrition Diagnosis Progress(for reassessment Continues documentation) #1 Nutrition Diagnosis Inadequate oral intake Diagnosis Progress(for reassessment Continues documentation) Is patient on ventilator? No Is Patient Ambulatory and/or Out of Bed No REE-([facility]-confined to bed) [phone] Kcal/Kg value to use for calculation 30 Approximate Energy Requirements Using 1722 kcal/Kg Calculation Used for Recommendations [place] Diez Additional Notes protein (1-1.2g/kg): 57-68g fluid: 1mL/kcal or per MD Nutrition Intervention Change Diet Order: TF Nutrition Support: Jevity 1.2 at 60mL/hr Water flush of 100mL q4h or per MD Kcal 1,728 Protein (gm) 80 Fluid (mL) 1,162 Goal #1 Start TF Goal #2 TF tolerance Goal #3 Meet at least 75% of kcal and pro needs via TF Anticipated Discharge Needs: Unable to determine Follow-Up By: 05/01/18 Additional Comments F/U TF start/tolerance
--- NOTE | 2018-04-29 11:52 | Progress Note ---
Assessment and Plan Patient heart rate controlled on oral amiodarone patient and discussion with pulmonary continue current medical management of steroids antibiotics and high flow oxygen we will DC pradaxa, as patient is a NG tube start her on xarelto 15 mg once a day given her kidney function as patient cannot take elqiuis as per the daughter secondary to rash and will decrease Lasix from twice a day to once a day IV - Patient Problems (1) Acute heart failure with preserved ejection fraction Current Visit: Yes Status: Acute (2) Acute respiratory distress Current Visit: Yes Status: Acute (3) Acute respiratory failure Current Visit: Yes Status: Acute Qualifiers: Respiratory failure complication: hypoxia Qualified Code(s): J96.01 - Acute respiratory failure with hypoxia (4) Respiratory failure Current Visit: Yes Status: Acute Qualifiers: Chronicity: acute Respiratory failure complication: hypoxia Qualified Code(s): J96.01 - Acute respiratory failure with hypoxia (5) Atrial fibrillation Current Visit: Yes Status: Chronic Qualifiers: Atrial fibrillation type: persistent Qualified Code(s): I48.1 - Persistent atrial fibrillation (6) HTN (hypertension) Current Visit: Yes Status: Chronic Subjective Date of service: 04/29/18 Principal diagnosis: PNA, hypoxemia respiratory failure, congestive heart failure, MS Interval history: pt on high flow daughter at bedside Objective Vital Signs Temp Pulse Pulse Resp BP Pulse Ox 04/29/18 09:44 108 H 124/68 04/29/18 09:42 120 H 124/68 04/29/18 08:10 97 H 27 H 129/58 96 04/29/18 08:00 98.2 F 104 H 100 H 29 H 129/58 93 04/29/18 07:50 94 H 32 H 144/84 93 04/29/18 07:40 104 H 27 H 144/84 95 04/29/18 07:30 103 H 33 H 144/84 94 04/29/18 07:20 100 H 29 H 144/84 95 04/29/18 07:10 99 H 34 H 144/84 88 04/29/18 07:00 108 H 17 133/61 86 04/29/18 06:50 101 H 18 133/61 88 04/29/18 06:40 113 H 26 H 133/61 94 04/29/18 06:30 102 H 25 H 133/61 95 04/29/18 06:20 104 H 30 H 133/61 95 04/29/18 06:10 119 H 29 H 133/61 93 04/29/18 06:00 102 H 25 H 133/61 92 04/29/18 05:50 103 H 22 121/68 95 04/29/18 05:40 102 H 26 H 121/68 94 04/29/18 05:30 102 H 23 121/68 95 04/29/18 05:20 106 H 22 121/68 95 04/29/18 05:10 111 H 22 121/68 96 04/29/18 05:08 96 04/29/18 05:00 110 H 20 113/72 97 04/29/18 04:50 111 H 18 113/72 96 04/29/18 04:40 106 H 17 113/72 97 04/29/18 04:30 102 H 19 113/72 97 04/29/18 04:20 88 18 113/72 95 04/29/18 04:10 105 H 17 113/72 95 04/29/18 04:00 98.3 F 91 H 100 H 20 113/72 96 04/29/18 03:50 99 H 21 123/87 96 04/29/18 03:40 87 18 123/87 96 04/29/18 03:30 91 H 19 123/87 96 04/29/18 03:20 97 H 26 H 123/87 96 04/29/18 03:10 97 H 24 123/87 98 04/29/18 03:00 96 H 18 125/80 96 04/29/18 02:50 98 H 19 125/80 96 04/29/18 02:40 95 H 19 125/80 96 04/29/18 02:30 89 20 125/80 96 04/29/18 02:20 102 H 20 125/80 96 04/29/18 02:10 111 H 24 125/80 95 04/29/18 02:00 98 H 21 125/80 95 04/29/18 01:50 123 H 19 131/77 96 04/29/18 01:40 113 H 26 H 131/77 98 04/29/18 01:30 91 H 18 131/77 96 04/29/18 01:20 102 H 18 131/77 97 04/29/18 01:10 89 18 131/77 98 04/29/18 01:00 105 H 24 131/77 96 04/29/18 00:50 109 H 22 126/73 96 04/29/18 00:40 83 19 126/73 97 04/29/18 00:30 96 H 18 126/73 97 04/29/18 00:20 87 20 126/73 97 04/29/18 00:10 93 H 18 126/73 98 04/29/18 00:04 100 H 19 126/73 97 04/29/18 00:00 98.0 F 89 105 H 20 126/73 96 04/28/18 23:50 96 H 23 119/72 94 04/28/18 23:40 98 H 24 119/72 96 04/28/18 23:30 96 H 21 119/72 96 04/28/18 23:20 85 24 119/72 96 04/28/18 23:10 92 H 25 H 119/72 94 04/28/18 23:00 85 20 119/72 96 04/28/18 22:50 92 H 21 122/78 95 04/28/18 22:40 98 H 22 122/78 95 04/28/18 22:30 91 H 23 122/78 94 04/28/18 22:20 95 H 23 122/78 95 04/28/18 22:10 102 H 29 H 122/78 92 04/28/18 22:00 86 28 H 113/71 93 04/28/18 21:50 93 H 25 H 113/71 94 04/28/18 21:40 99 H 22 113/71 95 04/28/18 21:30 92 H 23 113/71 96 04/28/18 21:20 110 H 29 H 113/71 94 04/28/18 21:10 101 H 19 113/71 95 04/28/18 21:00 95 H 25 H 113/71 93 04/28/18 20:50 119 H 23 121/77 96 04/28/18 20:40 115 H 29 H 121/77 94 04/28/18 20:30 113 H 26 H 121/77 96 04/28/18 20:24 113 H 121/77 04/28/18 20:20 107 H 19 121/77 96 04/28/18 20:10 111 H 22 95 04/28/18 20:00 98.1 F 123 H 131 H 23 119/68 94 04/28/18 19:53 95 04/28/18 19:51 109 H 19 119/68 96 04/28/18 19:41 126 H 17 119/68 96 04/28/18 19:31 126 H 22 119/68 95 04/28/18 19:21 119 H 24 119/68 95 04/28/18 19:11 130 H 26 H 119/68 95 04/28/18 19:00 127 H 25 H 119/68 96 04/28/18 18:51 123 H 26 H 130/62 96 04/28/18 18:41 108 H 19 130/62 97 04/28/18 18:31 111 H 19 130/62 96 04/28/18 18:21 126 H 21 130/62 96 04/28/18 18:11 107 H 21 130/62 96 04/28/18 18:01 98 H 20 130/62 97 04/28/18 17:51 122 H 19 135/63 97 04/28/18 17:41 109 H 20 135/63 96 04/28/18 17:31 110 H 24 135/63 97 04/28/18 17:21 108 H 23 137/92 96 04/28/18 17:11 119 H 28 H 137/92 96 04/28/18 17:01 115 H 25 H 137/92 96 04/28/18 16:51 134 H 37 H 135/63 93 04/28/18 16:41 132 H 21 135/63 87 04/28/18 16:31 124 H 21 135/63 85 04/28/18 16:21 128 H 20 135/63 90 04/28/18 16:11 136 H 15 135/63 88 04/28/18 16:00 97.6 F 122 H 127 H 23 135/63 91 04/28/18 15:51 106 H 21 145/70 91 04/28/18 15:41 118 H 22 145/70 90 04/28/18 15:31 102 H 17 145/70 91 04/28/18 15:21 109 H 20 124/53 91 04/28/18 15:11 131 H 19 124/53 90 04/28/18 15:00 103 H 25 H 124/53 90 04/28/18 14:51 123 H 30 H 145/70 91 04/28/18 14:41 102 H 21 145/70 92 04/28/18 14:31 120 H 23 145/70 89 04/28/18 14:21 116 H 20 145/70 89 04/28/18 14:11 105 H 27 H 145/70 91 04/28/18 14:00 122 H 25 H 145/70 89 04/28/18 13:51 123 H 28 H 133/82 89 04/28/18 13:41 121 H 30 H 133/82 89 04/28/18 13:31 122 H 16 133/82 91 04/28/18 13:21 112 H 17 133/82 90 04/28/18 13:11 96 H 27 H 132/73 89 04/28/18 13:00 117 H 20 132/73 91 04/28/18 12:51 113 H 28 H 133/82 92 04/28/18 12:41 118 H 20 133/82 93 04/28/18 12:31 117 H 27 H 133/82 90 04/28/18 12:21 94 H 40 H 133/82 91 04/28/18 12:11 111 H 29 H 133/82 92 04/28/18 12:00 97.2 F L 134 H 127 H 25 H 133/82 92 04/28/18 11:51 104 H 18 124/93 92 - Physical Examination General: No Apparent Distress, Other (on high flow O2) HEENT: Positive: PERRL, Normocephaly, Mucus Membranes Moist Neck: Positive: neck supple, trachea midline Cardiac: Positive: Irregularly Regular Lungs: Positive: Decreased Breath Sounds Neuro: Positive: Grossly Intact, Other Abdomen: Positive: Soft, Active Bowel Sounds. Negative: Tender Skin: Negative: Rash, Wound Musculoskeletal: No Fluid Collection, No Pain Extremities: Absent: edema - Labs and Meds Cardiac Enzymes 04/29/18 Range/Units 05:08 AST 25 (5-40) units/L CBC 04/29/18 Range/Units 05:08 WBC 29.1 H (4.5-11.0) K/mm3 RBC 4.41 (3.65-5.03) M/mm3 Hgb 12.9 (10.1-14.3) gm/dl Hct 39.1 (30.3-42.9) % Plt Count 242 (140-440) K/mm3 Comprehensive Metabolic Panel 04/29/18 Range/Units 05:08 Sodium 136 L D (137-145) mmol/L Potassium 3.8 (3.6-5.0) mmol/L Chloride 89.4 L (98-107) mmol/L Carbon Dioxide 37 H (22-30) mmol/L BUN 43 H (7-17) mg/dL Creatinine 0.7 (0.7-1.2) mg/dL Glucose 202 H (65-100) mg/dL Calcium 8.5 (8.4-10.2) mg/dL AST 25 (5-40) units/L ALT 52 (7-56) units/L Alkaline Phosphatase 174 H (35-129) units/L Total Protein 6.1 L (6.3-8.2) g/dL Albumin 2.5 L (3.9-5) g/dL - Imaging and Cardiology EKG: report reviewed, image reviewed Nuclear stress test: report reviewed (She underwent echo in our office on 04/14/2018 which showed EF 60-65%, mild to mod RV hypokinesis, LA enlarged, mild MR, mod TR, RVSP 63mmHg, trace pericardial effusion. Lexiscan MPI stress test done 04/14/2018 was negative.) Echo: report reviewed (04/14/2018 which showed EF 60-65%, mild to mod RV hypokinesis, LA enlarged, mild MR, mod TR, RVSP 63mmHg, trace pericardial effusion.) - Telemetry EKG Rhythm: Atrial Fibrillation (in 80's) Repolarization changes or abnormalities: Q-T interval prolongation
[2018-04-29] MEDS: MAGIC MOUTHWASH PO SCH ×2 (15:09→21:24)
[2018-04-29] MEDS: PRAVACHOL PO SCH (21:19)
[2018-04-30] MEDS: HumuLIN R SUB-Q SCH ×6 (02:07→22:11)
[2018-04-30] MEDS: LASIX IV SCH (05:21)
[2018-04-30] MEDS: SYNTHROID PO SCH (05:21)
[2018-04-30] MEDS: SOLU-Medrol 1,000 MG in NACL 0.9% 250ML 250 ML IV SCH (05:21)
[2018-04-30] MEDS: LOPRESSOR PO SCH ×3 (07:35→19:42)
[2018-04-30] MEDS: ATIVAN PO PRN ×2 (07:36→23:11)
[2018-04-30] MEDS: MAGIC MOUTHWASH PO SCH ×3 (07:36→21:49)
--- NOTE | 2018-04-30 09:09 | Progress Note ---
Assessment and Plan Patient heart rate controlled on oral amiodarone patient and discussion with pulmonary continue current medical management of steroids antibiotics and high flow oxygen we will DC pradaxa, as patient is a NG tube start her on xarelto 20 mg once a day cannot take elqiuis as per the daughter secondary to rash and will decrease Lasix from twice a day to once a day IV. Discussion pulmonary pressures ground glass appearance on CT - Patient Problems (1) Acute heart failure with preserved ejection fraction Current Visit: Yes Status: Acute (2) Acute respiratory distress Current Visit: Yes Status: Acute (3) Acute respiratory failure Current Visit: Yes Status: Acute Qualifiers: Respiratory failure complication: hypoxia Qualified Code(s): J96.01 - Acute respiratory failure with hypoxia (4) Respiratory failure Current Visit: Yes Status: Acute Qualifiers: Chronicity: acute Respiratory failure complication: hypoxia Qualified Code(s): J96.01 - Acute respiratory failure with hypoxia (5) Atrial fibrillation Current Visit: Yes Status: Chronic Qualifiers: Atrial fibrillation type: persistent Qualified Code(s): I48.1 - Persistent atrial fibrillation (6) HTN (hypertension) Current Visit: Yes Status: Chronic Subjective Date of service: 04/30/18 Principal diagnosis: PNA, hypoxemia respiratory failure, congestive heart failure, MS Interval history: pt feels more sob this am Objective Vital Signs Temp Pulse Pulse Resp BP Pulse Ox 04/30/18 08:50 97 H 16 128/80 91 04/30/18 08:40 97 H 14 128/80 89 04/30/18 08:30 86 26 H 128/80 92 04/30/18 08:20 99 H 22 128/80 96 04/30/18 08:10 98 H 21 128/80 96 04/30/18 08:00 98.2 F 94 H 93 H 18 128/80 92 04/30/18 07:50 93 H 43 H 126/77 95 04/30/18 07:40 97 H 31 H 126/77 94 04/30/18 07:35 96 H 126/77 04/30/18 07:30 109 H 24 126/77 83 L 04/30/18 07:20 107 H 32 H 126/77 92 04/30/18 07:10 86 31 H 126/77 94 04/30/18 07:00 95 H 37 H 126/77 92 04/30/18 06:50 95 H 29 H 118/77 91 04/30/18 06:40 83 29 H 118/77 94 04/30/18 06:30 91 H 30 H 118/77 95 04/30/18 06:20 91 H 40 H 118/77 95 04/30/18 06:10 84 18 118/77 97 04/30/18 06:00 102 H 20 118/77 96 04/30/18 05:50 86 22 124/75 96 04/30/18 05:40 93 H 29 H 124/75 97 04/30/18 05:30 106 H 29 H 124/75 96 04/30/18 05:20 95 H 25 H 124/75 99 04/30/18 05:10 102 H 22 124/75 98 04/30/18 05:00 101 H 24 124/75 97 04/30/18 04:50 109 H 21 124/85 77 L 04/30/18 04:40 105 H 38 H 124/85 92 04/30/18 04:30 91 H 18 124/85 94 04/30/18 04:20 99 H 19 124/85 95 04/30/18 04:16 97.4 F L 04/30/18 04:10 85 18 124/85 96 04/30/18 04:00 97.4 F L 87 93 H 18 124/85 95 04/30/18 03:50 87 18 120/73 95 04/30/18 03:40 88 18 120/73 94 04/30/18 03:30 87 18 120/73 94 04/30/18 03:20 87 31 H 120/73 96 04/30/18 03:10 85 20 120/73 96 04/30/18 03:00 88 37 H 120/73 95 04/30/18 02:50 105 H 27 H 122/59 96 04/30/18 02:40 98 H 18 122/59 96 04/30/18 02:30 93 H 19 122/59 96 04/30/18 02:20 93 H 18 122/59 96 04/30/18 02:10 84 23 122/59 97 04/30/18 02:00 94 H 22 122/59 96 04/30/18 01:50 103 H 30 H 116/70 96 04/30/18 01:40 98 H 34 H 116/70 96 04/30/18 01:30 103 H 24 116/70 96 04/30/18 01:20 85 22 116/70 95 04/30/18 01:10 104 H 30 H 116/70 96 04/30/18 01:00 89 29 H 107/68 91 04/30/18 00:50 85 20 116/70 95 04/30/18 00:40 79 27 H 116/70 92 04/30/18 00:30 87 31 H 116/70 93 04/30/18 00:20 87 28 H 116/70 92 04/30/18 00:10 85 19 116/70 93 04/30/18 00:00 97.1 F L 91 H 85 19 116/70 91 04/29/18 23:50 90 20 99/61 95 04/29/18 23:40 84 15 99/61 95 04/29/18 23:36 87 20 99/61 95 04/29/18 23:30 100 H 21 99/61 95 04/29/18 23:20 87 23 99/61 95 04/29/18 23:10 93 H 21 99/61 94 04/29/18 23:00 87 19 99/61 94 04/29/18 22:50 103 H 23 101/60 92 04/29/18 22:40 110 H 20 101/60 93 04/29/18 22:30 92 H 24 101/60 92 04/29/18 22:20 94 H 20 101/60 92 04/29/18 22:10 115 H 20 101/60 93 04/29/18 22:00 104 H 21 114/63 95 04/29/18 21:50 90 20 114/63 95 04/29/18 21:40 110 H 28 H 114/63 94 04/29/18 21:30 94 H 18 114/63 97 04/29/18 21:20 101 H 19 114/63 95 04/29/18 21:15 99 H 114/63 04/29/18 21:10 96 H 24 114/63 97 04/29/18 21:00 96 H 20 114/63 93 04/29/18 20:50 105 H 26 H 108/69 93 04/29/18 20:40 117 H 27 H 108/69 91 04/29/18 20:30 100 H 26 H 108/69 88 04/29/18 20:20 112 H 22 108/69 97 04/29/18 20:18 96 04/29/18 20:10 122 H 24 108/69 96 04/29/18 20:00 97.9 F 105 H 98 H 22 94/70 93 04/29/18 19:50 98 H 24 99/63 96 04/29/18 19:40 122 H 32 H 99/63 95 04/29/18 19:30 104 H 19 99/63 96 04/29/18 19:20 101 H 24 99/63 96 04/29/18 19:10 101 H 23 99/63 97 04/29/18 19:00 102 H 19 99/63 94 04/29/18 18:50 113 H 19 106/51 96 04/29/18 18:40 105 H 26 H 106/51 96 04/29/18 18:30 106 H 27 H 106/51 92 04/29/18 18:20 97 H 23 106/51 96 04/29/18 18:10 101 H 24 106/51 94 04/29/18 18:00 104 H 19 106/51 92 04/29/18 17:50 100 H 16 100/59 96 04/29/18 17:40 102 H 24 100/59 95 04/29/18 17:30 108 H 27 H 100/59 95 04/29/18 17:20 96 H 29 H 100/59 95 04/29/18 17:10 113 H 20 100/59 97 04/29/18 17:00 95 H 26 H 100/59 95 04/29/18 16:50 102 H 21 90/61 97 04/29/18 16:40 108 H 27 H 90/61 97 04/29/18 16:30 99 H 20 90/61 97 04/29/18 16:20 110 H 45 H 90/61 96 04/29/18 16:10 101 H 25 H 90/61 97 04/29/18 16:00 98.3 F 120 H 100 H 28 H 90/61 96 04/29/18 15:50 103 H 20 108/72 98 04/29/18 15:40 111 H 24 108/72 94 04/29/18 15:30 105 H 25 H 108/72 92 04/29/18 15:20 111 H 27 H 108/72 94 04/29/18 15:11 105 H 104/62 04/29/18 15:10 124 H 37 H 94/61 92 04/29/18 15:00 111 H 32 H 94/61 89 04/29/18 14:50 100 H 31 H 107/61 93 04/29/18 14:40 118 H 34 H 107/61 93 04/29/18 14:30 115 H 30 H 107/61 91 04/29/18 14:20 94 H 29 H 107/61 92 04/29/18 14:10 106 H 32 H 107/61 92 04/29/18 14:00 98 H 26 H 107/61 91 04/29/18 13:50 103 H 29 H 113/77 93 04/29/18 13:40 109 H 24 113/77 96 04/29/18 13:30 114 H 21 113/77 92 04/29/18 13:20 94 H 28 H 113/77 98 04/29/18 13:10 117 H 42 H 113/77 75 L 04/29/18 13:00 104 H 35 H 110/70 93 04/29/18 12:50 90 25 H 110/70 94 04/29/18 12:40 89 24 110/70 95 04/29/18 12:30 102 H 21 110/70 94 04/29/18 12:20 93 H 30 H 110/70 93 04/29/18 12:10 81 21 110/70 94 04/29/18 12:00 97.6 F 97 H 100 H 23 110/70 93 04/29/18 11:50 94 H 24 108/68 95 04/29/18 11:40 90 29 H 108/68 94 04/29/18 11:30 86 22 108/68 95 04/29/18 11:20 78 20 108/68 95 04/29/18 11:10 100 H 23 108/68 95 04/29/18 11:00 82 20 108/68 92 04/29/18 10:50 84 25 H 122/72 94 04/29/18 10:40 97 H 24 122/72 95 04/29/18 10:30 92 H 25 H 122/72 94 04/29/18 10:20 109 H 29 H 122/72 94 04/29/18 10:10 124 H 23 122/72 95 04/29/18 10:00 106 H 28 H 122/72 90 04/29/18 09:50 111 H 26 H 124/68 94 04/29/18 09:44 108 H 124/68 04/29/18 09:42 120 H 124/68 04/29/18 09:40 98 H 31 H 129/58 94 04/29/18 09:30 104 H 32 H 129/58 94 04/29/18 09:20 121 H 37 H 129/58 95 04/29/18 09:10 114 H 30 H 129/58 94 - Physical Examination General: No Apparent Distress, Other (on high flow O2) HEENT: Positive: PERRL, Normocephaly, Mucus Membranes Moist Neck: Positive: neck supple, trachea midline Cardiac: Positive: Irregularly Regular Lungs: Positive: Rhonchi Neuro: Positive: Grossly Intact, Other Abdomen: Positive: Soft, Active Bowel Sounds. Negative: Tender Skin: Negative: Rash, Wound Musculoskeletal: No Fluid Collection, No Pain Extremities: Absent: edema - Imaging and Cardiology EKG: report reviewed, image reviewed Echo: report reviewed (04/14/2018 which showed EF 60-65%, mild to mod RV hypokinesis, LA enlarged, mild MR, mod TR, RVSP 63mmHg, trace pericardial effusion.) - Telemetry EKG Rhythm: Atrial Fibrillation (in 90's) Repolarization changes or abnormalities: Q-T interval prolongation
--- NOTE | 2018-04-30 09:30 | Progress Note ---
Assessment and Plan 77 y/o female with acute respiratory failure secondary to abnormal CXR and CT scan, exact etiology unknown 1. Pulse dose the next 24 hours, on more dose tomorrow. 2. Per CM LTACH on Tuesday but hopefully she can get her last pulse dose prior to transfer. 3. Will need prolonged taper and repeat CT to follow lungs. This can be done at [facility]. We need to send copies of our imaging studies with them. Please write for the patient to be on Solumedrol 125 q6 hours starting on Tuesday and then the [facility] should be able to taper her from there. Her current diagnosis is not known but she did respond to high dose steroids. If she is able to be weaned from HFNC and has adequate respiratory reserve, bronch should be considered with TBBx if possible. Daughter knows this and is in agreement. 4. Please wean FiO2 for sats >88% and or patient comfort Subjective Date of service: 04/30/18 Principal diagnosis: PNA, hypoxemia respiratory failure, congestive heart keshavjose ceja, [place] Interval history: Per nursing, anxious this am so medicated with ativan. Still on HFNC at 100%, no attempts have been made to wean. Day 2 of Pulse dose steroids. Family not present yet. Per patient, breathing is ok. Objective Vital Signs - 12hr 04/29/18 04/29/18 04/29/18 21:30 21:40 21:50 Temperature Pulse Rate 94 H 110 H 90 Pulse Rate [ Apical] Respiratory 18 28 H 20 Rate Blood Pressure 114/63 114/63 114/63 O2 Sat by Pulse 97 94 95 Oximetry 04/29/18 04/29/18 04/29/18 22:00 22:10 22:20 Temperature Pulse Rate 104 H 115 H 94 H Pulse Rate [ Apical] Respiratory 21 20 20 Rate Blood Pressure 114/63 101/60 101/60 O2 Sat by Pulse 95 93 92 Oximetry 04/29/18 04/29/18 04/29/18 22:30 22:40 22:50 Temperature Pulse Rate 92 H 110 H 103 H Pulse Rate [ Apical] Respiratory 24 20 23 Rate Blood Pressure 101/60 101/60 101/60 O2 Sat by Pulse 92 93 92 Oximetry 04/29/18 04/29/18 04/29/18 23:00 23:10 23:20 Temperature Pulse Rate 87 93 H 87 Pulse Rate [ Apical] Respiratory 19 21 23 Rate Blood Pressure 99/61 99/61 99/61 O2 Sat by Pulse 94 94 95 Oximetry 04/29/18 04/29/18 04/29/18 23:30 23:36 23:40 Temperature Pulse Rate 100 H 87 84 Pulse Rate [ Apical] Respiratory 21 20 15 Rate Blood Pressure 99/61 99/61 99/61 O2 Sat by Pulse 95 95 95 Oximetry 04/29/18 04/30/18 04/30/18 23:50 00:00 00:10 Temperature 97.1 F L Pulse Rate 90 91 H 85 Pulse Rate [ 85 Apical] Respiratory 20 19 19 Rate Blood Pressure 99/61 116/70 116/70 O2 Sat by Pulse 95 91 93 Oximetry 04/30/18 04/30/18 04/30/18 00:20 00:30 00:40 Temperature Pulse Rate 87 87 79 Pulse Rate [ Apical] Respiratory 28 H 31 H 27 H Rate Blood Pressure 116/70 116/70 116/70 O2 Sat by Pulse 92 93 92 Oximetry 04/30/18 04/30/18 04/30/18 00:50 01:00 01:10 Temperature Pulse Rate 85 89 104 H Pulse Rate [ Apical] Respiratory 20 29 H 30 H Rate Blood Pressure 116/70 107/68 116/70 O2 Sat by Pulse 95 91 96 Oximetry 04/30/18 04/30/18 04/30/18 01:20 01:30 01:40 Temperature Pulse Rate 85 103 H 98 H Pulse Rate [ Apical] Respiratory 22 24 34 H Rate Blood Pressure 116/70 116/70 116/70 O2 Sat by Pulse 95 96 96 Oximetry 04/30/18 04/30/18 04/30/18 01:50 02:00 02:10 Temperature Pulse Rate 103 H 94 H 84 Pulse Rate [ Apical] Respiratory 30 H 22 23 Rate Blood Pressure 116/70 122/59 122/59 O2 Sat by Pulse 96 96 97 Oximetry 04/30/18 04/30/18 04/30/18 02:20 02:30 02:40 Temperature Pulse Rate 93 H 93 H 98 H Pulse Rate [ Apical] Respiratory 18 19 18 Rate Blood Pressure 122/59 122/59 122/59 O2 Sat by Pulse 96 96 96 Oximetry 04/30/18 04/30/18 04/30/18 02:50 03:00 03:10 Temperature Pulse Rate 105 H 88 85 Pulse Rate [ Apical] Respiratory 27 H 37 H 20 Rate Blood Pressure 122/59 120/73 120/73 O2 Sat by Pulse 96 95 96 Oximetry 04/30/18 04/30/18 04/30/18 03:20 03:30 03:40 Temperature Pulse Rate 87 87 88 Pulse Rate [ Apical] Respiratory 31 H 18 18 Rate Blood Pressure 120/73 120/73 120/73 O2 Sat by Pulse 96 94 94 Oximetry 04/30/18 04/30/18 04/30/18 03:50 04:00 04:10 Temperature 97.4 F L Pulse Rate 87 87 85 Pulse Rate [ 93 H Apical] Respiratory 18 18 18 Rate Blood Pressure 120/73 124/85 124/85 O2 Sat by Pulse 95 95 96 Oximetry 04/30/18 04/30/18 04/30/18 04:16 04:20 04:30 Temperature 97.4 F L Pulse Rate 99 H 91 H Pulse Rate [ Apical] Respiratory 19 18 Rate Blood Pressure 124/85 124/85 O2 Sat by Pulse 95 94 Oximetry 04/30/18 04/30/18 04/30/18 04:40 04:50 05:00 Temperature Pulse Rate 105 H 109 H 101 H Pulse Rate [ Apical] Respiratory 38 H 21 24 Rate Blood Pressure 124/85 124/85 124/75 O2 Sat by Pulse 92 77 L 97 Oximetry 04/30/18 04/30/18 04/30/18 05:10 05:20 05:30 Temperature Pulse Rate 102 H 95 H 106 H Pulse Rate [ Apical] Respiratory 22 25 H 29 H Rate Blood Pressure 124/75 124/75 124/75 O2 Sat by Pulse 98 99 96 Oximetry 04/30/18 04/30/18 04/30/18 05:40 05:50 06:00 Temperature Pulse Rate 93 H 86 102 H Pulse Rate [ Apical] Respiratory 29 H 22 20 Rate Blood Pressure 124/75 124/75 118/77 O2 Sat by Pulse 97 96 96 Oximetry 04/30/18 04/30/18 04/30/18 06:10 06:20 06:30 Temperature Pulse Rate 84 91 H 91 H Pulse Rate [ Apical] Respiratory 18 40 H 30 H Rate Blood Pressure 118/77 118/77 118/77 O2 Sat by Pulse 97 95 95 Oximetry 04/30/18 04/30/18 04/30/18 06:40 06:50 07:00 Temperature Pulse Rate 83 95 H 95 H Pulse Rate [ Apical] Respiratory 29 H 29 H 37 H Rate Blood Pressure 118/77 118/77 126/77 O2 Sat by Pulse 94 91 92 Oximetry 04/30/18 04/30/18 04/30/18 07:10 07:20 07:30 Temperature Pulse Rate 86 107 H 109 H Pulse Rate [ Apical] Respiratory 31 H 32 H 24 Rate Blood Pressure 126/77 126/77 126/77 O2 Sat by Pulse 94 92 83 L Oximetry 04/30/18 04/30/18 04/30/18 07:35 07:40 07:50 Temperature Pulse Rate 96 H 97 H 93 H Pulse Rate [ Apical] Respiratory 31 H 43 H Rate Blood Pressure 126/77 126/77 126/77 O2 Sat by Pulse 94 95 Oximetry 04/30/18 04/30/18 04/30/18 08:00 08:10 08:20 Temperature 97.7 F Pulse Rate 94 H 98 H 99 H Pulse Rate [ 93 H Apical] Respiratory 18 21 22 Rate Blood Pressure 128/80 128/80 128/80 O2 Sat by Pulse 92 96 96 Oximetry 04/30/18 04/30/18 04/30/18 08:30 08:40 08:50 Temperature Pulse Rate 86 97 H 97 H Pulse Rate [ Apical] Respiratory 26 H 14 16 Rate Blood Pressure 128/80 128/80 128/80 O2 Sat by Pulse 92 89 91 Oximetry Constitutional: alert Eyes: non-icteric ENT: oropharynx moist Neck: supple, no JVD Effort: mildly labored Ascultation: Bilateral: rales (faint), rhonchi Percussion: Bilateral: not dull Cardiovascular: irregular rhythm Gastrointestinal: normoactive bowel sounds Extremities: pulses normal, no ischemia or petechiae, other (mild clubbing) Neurologic: normal mental status, non-focal exam, pupils equal and round, CN II- XII normal Psychiatric: anxious CBC and BMP: 04/29/18 05:08 04/29/18 05:08 ABG, PT/INR, D-dimer: ABG POC ABG pH 7.478 (7.35-7.45) H 04/23/18 15:08 POC ABG pCO2 51.0 (35-45) H 04/23/18 15:08 POC ABG pO2 62 (80-105) L 04/23/18 15:08 POC ABG HCO3 37.8 04/23/18 15:08 POC ABG Total CO2 39 04/23/18 15:08 POC ABG O2 Sat 93 04/23/18 15:08 PT/INR, D-dimer PT 18.3 Sec. (12.2-14.9) H 04/17/18 12:48 INR 1.48 (0.87-1.13) H 04/17/18 12:48 D-Dimer 1975 ng/mlDDU (0-234) H 04/17/18 12:38 Abnormal lab findings: Abnormal Labs 04/17/18 04/17/18 04/17/18 12:38 12:48 12:48 WBC 18.0 H Lymph % (Auto) 6.5 L [place] % (Auto) 10.0 H Lymph # [place] # 1.8 H Seg Neutrophils % 83.2 H Seg Neuts % (Manual) Lymphocytes % (Manual) Seg Neutrophils # 15.0 H Seg Neutrophils # Man Lymphocytes # (Manual) PT 18.3 H INR 1.48 H D-Dimer 1975 H POC ABG pH POC ABG pCO2 POC ABG pO2 Sodium Potassium Chloride Carbon Dioxide BUN Creatinine Glucose POC Glucose Magnesium AST ALT Alkaline Phosphatase Lactate Dehydrogenase NT-Pro-B Natriuret Pep Total Protein Albumin Free T4 Urine WBC (Auto) JUDY Screen JUDY Titer 04/17/18 04/17/18 04/17/18 12:48 12:48 16:11 WBC Lymph % (Auto) [place] % (Auto) Lymph # [place] # Seg Neutrophils % Seg Neuts % (Manual) Lymphocytes % (Manual) Seg Neutrophils # Seg Neutrophils # Man Lymphocytes # (Manual) PT INR D-Dimer POC ABG pH POC ABG pCO2 POC ABG pO2 Sodium 136 L Potassium Chloride Carbon Dioxide BUN Creatinine 0.6 L Glucose 127 H POC Glucose Magnesium AST 121 H ALT 110 H Alkaline Phosphatase Lactate Dehydrogenase NT-Pro-B Natriuret Pep 6653 H Total Protein Albumin 3.4 L Free T4 1.67 H Urine WBC (Auto) JUDY Screen JUDY Titer 04/17/18 04/18/18 04/19/18 Unknown 05:12 05:02 WBC 17.8 H Lymph % (Auto) 5.1 L [place] % (Auto) 8.0 H Lymph # 0.9 L [place] # 1.4 H Seg Neutrophils % 86.6 H Seg Neuts % (Manual) Lymphocytes % (Manual) Seg Neutrophils # 15.4 H Seg Neutrophils # Man Lymphocytes # (Manual) PT INR D-Dimer POC ABG pH POC ABG pCO2 POC ABG pO2 Sodium Potassium 3.2 L Chloride 94.2 L Carbon Dioxide BUN 20 H Creatinine 0.6 L Glucose 118 H POC Glucose Magnesium AST ALT Alkaline Phosphatase Lactate Dehydrogenase NT-Pro-B Natriuret Pep Total Protein Albumin Free T4 Urine WBC (Auto) 11.0 H JUDY Screen JUDY Titer 04/20/18 04/22/18 04/23/18 09:56 04:55 15:08 WBC Lymph % (Auto) [place] % (Auto) Lymph # [place] # Seg Neutrophils % Seg Neuts % (Manual) Lymphocytes % (Manual) Seg Neutrophils # Seg Neutrophils # Man Lymphocytes # (Manual) PT INR D-Dimer POC ABG pH 7.478 H POC ABG pCO2 51.0 H POC ABG pO2 62 L Sodium Potassium 3.1 L Chloride 94.3 L 94.1 L Carbon Dioxide BUN 27 H 36 H Creatinine Glucose 118 H 157 H POC Glucose Magnesium AST ALT Alkaline Phosphatase Lactate Dehydrogenase NT-Pro-B Natriuret Pep Total Protein Albumin Free T4 Urine WBC (Auto) JUDY Screen JUDY Titer 04/24/18 04/24/18 04/25/18 18:00 19:12 04:37 WBC Lymph % (Auto) [place] % (Auto) Lymph # [place] # Seg Neutrophils % Seg Neuts % (Manual) Lymphocytes % (Manual) Seg Neutrophils # Seg Neutrophils # Man Lymphocytes # (Manual) PT INR D-Dimer POC ABG pH POC ABG pCO2 POC ABG pO2 Sodium Potassium Chloride 96.4 L Carbon Dioxide 37 H D BUN 48 H Creatinine Glucose 181 H POC Glucose Magnesium AST ALT Alkaline Phosphatase 196 H Lactate Dehydrogenase NT-Pro-B Natriuret Pep 3763 H Total Protein Albumin 2.5 L Free T4 Urine WBC (Auto) JUDY Screen Positive H JUDY Titer 1:160 H 04/25/18 04/26/18 04/26/18 Unknown 04:55 04:55 WBC 26.5 H Lymph % (Auto) [place] % (Auto) Lymph # [place] # Seg Neutrophils % Seg Neuts % (Manual) 97.0 H Lymphocytes % (Manual) 0 L Seg Neutrophils # Seg Neutrophils # Man 25.7 H Lymphocytes # (Manual) 0.0 L PT INR D-Dimer POC ABG pH POC ABG pCO2 POC ABG pO2 Sodium 146 H Potassium 3.3 L Chloride 96.6 L Carbon Dioxide 36 H BUN 48 H Creatinine Glucose 218 H POC Glucose Magnesium 2.60 H AST ALT Alkaline Phosphatase Lactate Dehydrogenase 575 H NT-Pro-B Natriuret Pep Total Protein Albumin Free T4 Urine WBC (Auto) JUDY Screen JUDY Titer 04/26/18 04/27/18 04/27/18 11:52 04:51 04:51 WBC 27.8 H Lymph % (Auto) [place] % (Auto) Lymph # [place] # Seg Neutrophils % Seg Neuts % (Manual) 95.0 H Lymphocytes % (Manual) 0 L Seg Neutrophils # Seg Neutrophils # Man 26.4 H Lymphocytes # (Manual) 0.0 L PT INR D-Dimer POC ABG pH POC ABG pCO2 POC ABG pO2 Sodium Potassium 3.2 L Chloride 94.6 L Carbon Dioxide 39 H BUN 45 H Creatinine Glucose 169 H POC Glucose 210 H Magnesium 2.40 H AST ALT Alkaline Phosphatase Lactate Dehydrogenase NT-Pro-B Natriuret Pep Total Protein Albumin Free T4 Urine WBC (Auto) JUDY Screen JUDY Titer 04/27/18 04/28/18 04/28/18 18:31 00:04 05:50 WBC Lymph % (Auto) [place] % (Auto) Lymph # [place] # Seg Neutrophils % Seg Neuts % (Manual) Lymphocytes % (Manual) Seg Neutrophils # Seg Neutrophils # Man Lymphocytes # (Manual) PT INR D-Dimer POC ABG pH POC ABG pCO2 POC ABG pO2 Sodium Potassium Chloride Carbon Dioxide BUN Creatinine Glucose POC Glucose 180 H 203 H 214 H Magnesium AST ALT Alkaline Phosphatase Lactate Dehydrogenase NT-Pro-B Natriuret Pep Total Protein Albumin Free T4 Urine WBC (Auto) JUDY Screen JUDY Titer 04/28/18 04/28/18 04/28/18 12:59 13:14 23:44 WBC Lymph % (Auto) [place] % (Auto) Lymph # [place] # Seg Neutrophils % Seg Neuts % (Manual) Lymphocytes % (Manual) Seg Neutrophils # Seg Neutrophils # Man Lymphocytes # (Manual) PT INR D-Dimer POC ABG pH POC ABG pCO2 POC ABG pO2 Sodium Potassium Chloride Carbon Dioxide BUN Creatinine Glucose POC Glucose 200 H 212 H Magnesium AST ALT Alkaline Phosphatase Lactate Dehydrogenase NT-Pro-B Natriuret Pep 3027 H Total Protein Albumin Free T4 Urine WBC (Auto) JUDY Screen JUDY Titer 04/29/18 04/29/18 04/29/18 01:57 05:08 05:08 WBC 29.1 H Lymph % (Auto) [place] % (Auto) Lymph # [place] # Seg Neutrophils % Seg Neuts % (Manual) 92.0 H Lymphocytes % (Manual) 3.0 L Seg Neutrophils # Seg Neutrophils # Man 26.8 H Lymphocytes # (Manual) 0.9 L PT INR D-Dimer POC ABG pH POC ABG pCO2 POC ABG pO2 Sodium 136 L D Potassium Chloride 89.4 L Carbon Dioxide 37 H BUN 43 H Creatinine Glucose 202 H POC Glucose 200 H Magnesium 2.40 H AST ALT Alkaline Phosphatase 174 H Lactate Dehydrogenase NT-Pro-B Natriuret Pep Total Protein 6.1 L Albumin 2.5 L Free T4 Urine WBC (Auto) JUDY Screen JUDY Titer 04/29/18 04/29/18 04/29/18 06:04 10:09 14:39 WBC Lymph % (Auto) [place] % (Auto) Lymph # [place] # Seg Neutrophils % Seg Neuts % (Manual) Lymphocytes % (Manual) Seg Neutrophils # Seg Neutrophils # Man Lymphocytes # (Manual) PT INR D-Dimer POC ABG pH POC ABG pCO2 POC ABG pO2 Sodium Potassium Chloride Carbon Dioxide BUN Creatinine Glucose POC Glucose 262 H 268 H 239 H Magnesium AST ALT Alkaline Phosphatase Lactate Dehydrogenase NT-Pro-B Natriuret Pep Total Protein Albumin Free T4 Urine WBC (Auto) JUDY Screen JUDY Titer 04/29/18 04/29/18 04/30/18 17:57 19:55 01:51 WBC Lymph % (Auto) [place] % (Auto) Lymph # [place] # Seg Neutrophils % Seg Neuts % (Manual) Lymphocytes % (Manual) Seg Neutrophils # Seg Neutrophils # Man Lymphocytes # (Manual) PT INR D-Dimer POC ABG pH POC ABG pCO2 POC ABG pO2 Sodium Potassium Chloride Carbon Dioxide BUN Creatinine Glucose POC Glucose 199 H 217 H 242 H Magnesium AST ALT Alkaline Phosphatase Lactate Dehydrogenase NT-Pro-B Natriuret Pep Total Protein Albumin Free T4 Urine WBC (Auto) JUDY Screen JUDY Titer 04/30/18 05:24 WBC Lymph % (Auto) [place] % (Auto) Lymph # [place] # Seg Neutrophils % Seg Neuts % (Manual) Lymphocytes % (Manual) Seg Neutrophils # Seg Neutrophils # Man Lymphocytes # (Manual) PT INR D-Dimer POC ABG pH POC ABG pCO2 POC ABG pO2 Sodium Potassium Chloride Carbon Dioxide BUN Creatinine Glucose POC Glucose 175 H Magnesium AST ALT Alkaline Phosphatase Lactate Dehydrogenase NT-Pro-B Natriuret Pep Total Protein Albumin Free T4 Urine WBC (Auto) JUDY Screen JUDY Titer
[2018-04-30] MEDS ORDERED: XARELTO PO SCH (10:00)
--- NOTE | 2018-04-30 10:08 | Progress Note ---
Assessment and Plan Assessment and plan: 77 yo woman with a history of HTN, Atrial Fib on Therapeutic Anticoagulation (Eliquis), Hypothyroidism, HTN, HLD, Migraine SAAVEDRA, OA and Anxiety/depression was admitted through ED with SOB without chest pains. Pt also complains of itchy red spots on her arms since beginning Eliquis for new onset Afib. She was started on Prednisone and benadryl by PCP. She just stopped the Predisone, couple days prior to arrival. She is allergic to Eliquis Patient is critically ill, with bilateral interstitial pneumonia /pulmonary fibrosis /A. fib with rapid ventricular rate On BiPAP and high flow oxygen with poor prognosis., Failed swallow evaluation, Dobbhoff feeds Discussed with the daughter I discussed with the at the bedside along with her son Both requested DO NOT RESUSCITATE status but to continue all the current management --Constipation; stool softeners, supportive care --Mucositis; oral care, magic mouthwash, oral spray as needed --Interstitial lung disease on CT chest . High-dose of steroids, management per pulmonary, On BiPAP /high flow oxygen ,closely monitor --A. fib with rapid ventricular rate; continue amiodarone, beta blockers Cardiology following --Chronic anticoagulation; continue Pradaxa --Acute hypoxic respiratory failure; interstitial lung disease.to acis on high flow oxygen , BiPAP High-dose steroids , management per pulmonary. oxygen titrate O2 sats to more than 90%, intubate if no improvement --SIRS with organ dysfunction; he empiric antibiotics --Leukocytosis probably secondary to steroids, possible pneumonia, continue antibiotics --Elevated D dimers; V/Q scan intermediate probability for PE/CTA chest negative for PE --Hypothyroidism; continue Synthroid --Anxiety disorder; supportive care and the anxiety medications --DVT prophylaxis; patient is on Pradaxa Patient is critically ill, with bilateral interstitial pneumonia /pulmonary fibrosis /A. fib with rapid ventricular rate On BiPAP and high flow oxygen with poor prognosis., Failed swallow evaluation, Dobbhoff feeds Discussed with the daughter I discussed with the at the bedside along with her son Both requested DO NOT RESUSCITATE status but to continue all the current m anagement --DNR status Case management to set up LTAC placement, possible transfer to LTAC in 1-2 days Plan of care is reviewed with the family members at the bedside[patient's , son and the daughter] History Interval history: Patient seen and examined medical records reviewed Patient is chronically ill-looking cachectic, in mild distress Hypoxic, on high flow oxygen, intermittent BiPAP, DO NOT RESUSCITATE status Family members at the bedside Vital signs noted Hospitalist Physical - Constitutional Vitals: Temp Pulse Resp BP Pulse Ox 97.7 F 97 H 16 128/80 91 04/30/18 08:00 04/30/18 08:50 04/30/18 08:50 04/30/18 08:50 04/30/18 08:50 General appearance: Present: mild distress, cachectic, disheveled - EENT Eyes: Present: PERRL, EOM intact - Neck Neck: Present: supple, normal ROM - Respiratory Respiratory effort: labored Respiratory: bilateral: diminished, rhonchi, negative: rales, wheezing - Cardiovascular Rhythm: irregularly irregular Heart Sounds: Present: S1 & S2 - Extremities Extremities: no ischemia, No edema, abnormal (chronic skin changes) - Abdominal General gastrointestinal: soft, non-tender, non-distended, normal bowel sounds - Integumentary Integumentary: Present: clear, warm - Psychiatric Psychiatric: other (confused) - Neurologic Neurologic: moves all extremities Results - Labs CBC & Chem 7: 04/29/18 05:08 04/29/18 05:08 Labs: Laboratory Last Values WBC 29.1 K/mm3 (4.5-11.0) H 04/29/18 05:08 RBC 4.41 M/mm3 (3.65-5.03) 04/29/18 05:08 Hgb 12.9 gm/dl (10.1-14.3) 04/29/18 05:08 Hct 39.1 % (30.3-42.9) 04/29/18 05:08 MCV 89 fl (79-97) 04/29/18 05:08 MCH 29 pg (28-32) 04/29/18 05:08 MCHC 33 % (30-34) 04/29/18 05:08 RDW 13.8 % (13.2-15.2) 04/29/18 05:08 Plt Count 242 K/mm3 (140-440) 04/29/18 05:08 Lymph % (Auto) 5.1 % (13.4-35.0) L 04/18/18 05:12 Davis % (Auto) 8.0 % (0.0-7.3) H 04/18/18 05:12 Eos % (Auto) 0.1 % (0.0-4.3) 04/18/18 05:12 Baso % (Auto) 0.2 % (0.0-1.8) 04/18/18 05:12 Lymph # 0.9 K/mm3 (1.2-5.4) L 04/18/18 05:12 Davis # 1.4 K/mm3 (0.0-0.8) H 04/18/18 05:12 Eos # 0.0 K/mm3 (0.0-0.4) 04/18/18 05:12 Baso # 0.0 K/mm3 (0.0-0.1) 04/18/18 05:12 Add Manual Diff Complete 04/29/18 05:08 Total Counted 100 04/29/18 05:08 Seg Neutrophils % [employer] 04/29/18 05:08 Seg Neuts % (Manual) 92.0 % (40.0-70.0) H 04/29/18 05:08 Band Neutrophils % 3.0 % 04/29/18 05:08 Lymphocytes % (Manual) 3.0 % (13.4-35.0) L 04/29/18 05:08 Reactive Lymphs % (Man) 0 % 04/29/18 05:08 Monocytes % (Manual) 2.0 % (0.0-7.3) 04/29/18 05:08 Eosinophils % (Manual) 0 % (0.0-4.3) 04/29/18 05:08 Basophils % (Manual) 0 % (0.0-1.8) 04/29/18 05:08 Metamyelocytes % 0 % 04/29/18 05:08 Myelocytes % 0 % 04/29/18 05:08 Promyelocytes % 0 % 04/29/18 05:08 Blast Cells % 0 % 04/29/18 05:08 Nucleated RBC % Not Reportable 04/29/18 05:08 Seg Neutrophils # 15.4 K/mm3 (1.8-7.7) H 04/18/18 05:12 Seg Neutrophils # Man 26.8 K/mm3 (1.8-7.7) H 04/29/18 05:08 Band Neutrophils # 0.9 K/mm3 04/29/18 05:08 Lymphocytes # (Manual) 0.9 K/mm3 (1.2-5.4) L 04/29/18 05:08 Abs React Lymphs (Man) 0.0 K/mm3 04/29/18 05:08 Monocytes # (Manual) 0.6 K/mm3 (0.0-0.8) 04/29/18 05:08 Eosinophils # (Manual) 0.0 K/mm3 (0.0-0.4) 04/29/18 05:08 Basophils # (Manual) 0.0 K/mm3 (0.0-0.1) 04/29/18 05:08 Metamyelocytes # 0.0 K/mm3 04/29/18 05:08 Myelocytes # 0.0 K/mm3 04/29/18 05:08 Promyelocytes # 0.0 K/mm3 04/29/18 05:08 Blast Cells # 0.0 K/mm3 04/29/18 05:08 WBC Morphology Not Reportable 04/29/18 05:08 Hypersegmented Neuts Not Reportable 04/29/18 05:08 Hyposegmented Neuts Not Reportable 04/29/18 05:08 Hypogranular Neuts Not Reportable 04/29/18 05:08 Smudge Cells Not Reportable 04/29/18 05:08 Toxic Granulation Not Reportable 04/29/18 05:08 Toxic Vacuolation Not Reportable 04/29/18 05:08 Dohle Bodies Not Reportable 04/29/18 05:08 Pelger-Huet Anomaly Not Reportable 04/29/18 05:08 Francisco Javier Rods Not Reportable 04/29/18 05:08 Platelet Estimate Appears normal 04/29/18 05:08 Clumped Platelets Not Reportable 04/29/18 05:08 Plt Clumps, EDTA Not Reportable 04/29/18 05:08 Large Platelets Not Reportable 04/29/18 05:08 Giant Platelets Not Reportable 04/29/18 05:08 Platelet Satelliting Not Reportable 04/29/18 05:08 Plt Morphology Comment Not Reportable 04/29/18 05:08 RBC Morphology Not Reportable 04/29/18 05:08 Dimorphic RBCs Not Reportable 04/29/18 05:08 Polychromasia Not Reportable 04/29/18 05:08 Hypochromasia Not Reportable 04/29/18 05:08 Poikilocytosis Not Reportable 04/29/18 05:08 Anisocytosis 1+ 04/29/18 05:08 Microcytosis Not Reportable 04/29/18 05:08 Macrocytosis Not Reportable 04/29/18 05:08 Spherocytes Not Reportable 04/29/18 05:08 Pappenheimer Bodies Not Reportable 04/29/18 05:08 Sickle Cells Not Reportable 04/29/18 05:08 Target Cells Not Reportable 04/29/18 05:08 Tear Drop Cells Rare 04/29/18 05:08 Ovalocytes 1+ 04/29/18 05:08 Stomatocytes 1+ 04/29/18 05:08 Helmet Cells Not Reportable 04/29/18 05:08 [place] Bodies Not Reportable 04/29/18 05:08 [place] Rings Not Reportable 04/29/18 05:08 Girish Cells Not Reportable 04/29/18 05:08 Bite Cells Not Reportable 04/29/18 05:08 Crenated Cell Not Reportable 04/29/18 05:08 Elliptocytes Not Reportable 04/29/18 05:08 Acanthocytes (Spur) Not Reportable 04/29/18 05:08 Rouleaux Not Reportable 04/29/18 05:08 Hemoglobin C Crystals Not Reportable 04/29/18 05:08 Schistocytes Not Reportable 04/29/18 05:08 Malaria parasites Not Reportable 04/29/18 05:08 Otoniel Bodies Not Reportable 04/29/18 05:08 Hem Pathologist Commnt No 04/29/18 05:08 PT 18.3 Sec. (12.2-14.9) H 04/17/18 12:48 INR 1.48 (0.87-1.13) H 04/17/18 12:48 APTT 27.2 Sec. (24.2-36.6) 04/17/18 12:48 D-Dimer 1975 ng/mlDDU (0-234) H 04/17/18 12:38 POC ABG pH 7.478 (7.35-7.45) H 04/23/18 15:08 POC ABG pCO2 51.0 (35-45) H 04/23/18 15:08 POC ABG pO2 62 (80-105) L 04/23/18 15:08 POC ABG HCO3 37.8 04/23/18 15:08 POC ABG Total CO2 39 04/23/18 15:08 POC ABG O2 Sat 93 04/23/18 15:08 POC ABG Base Excess 14 04/23/18 15:08 FiO2 100 % 04/23/18 15:08 Sodium 136 mmol/L (137-145) L D 04/29/18 05:08 Potassium 3.8 mmol/L (3.6-5.0) 04/29/18 05:08 Chloride 89.4 mmol/L (98-107) L 04/29/18 05:08 Carbon Dioxide 37 mmol/L (22-30) H 04/29/18 05:08 Anion Gap 13 mmol/L 04/29/18 05:08 BUN 43 mg/dL (7-17) H 04/29/18 05:08 Creatinine 0.7 mg/dL (0.7-1.2) 04/29/18 05:08 Estimated GFR > 60 ml/min 04/29/18 05:08 BUN/Creatinine Ratio 61 % 04/29/18 05:08 Glucose 202 mg/dL (65-100) H 04/29/18 05:08 POC Glucose 224 (70-105) H 04/30/18 10:05 Lactic Acid 1.20 mmol/L (0.7-2.0) 04/17/18 21:34 Calcium 8.5 mg/dL (8.4-10.2) 04/29/18 05:08 Phosphorus 3.60 mg/dL (2.5-4.5) 04/27/18 04:51 Magnesium 2.40 mg/dL (1.7-2.3) H 04/29/18 05:08 Total Bilirubin 0.70 mg/dL (0.1-1.2) 04/29/18 05:08 AST 25 units/L (5-40) 04/29/18 05:08 ALT 52 units/L (7-56) 04/29/18 05:08 Alkaline Phosphatase 174 units/L (35-129) H 04/29/18 05:08 Lactate Dehydrogenase 575 units/L (91-180) H 04/25/18 Unknown Total Creatine Kinase 51 units/L (30-135) 04/17/18 12:48 CK-MB (CK-2) 1.8 ng/mL (0.0-4.0) 04/17/18 12:48 CK-MB (CK-2) Rel Index 3.5 (0-4) 04/17/18 12:48 Troponin T < 0.010 ng/mL (0.00-0.029) 04/17/18 12:48 NT-Pro-B Natriuret Pep 3027 pg/mL (0-900) H 04/28/18 12:59 Total Protein 6.1 g/dL (6.3-8.2) L 04/29/18 05:08 Albumin 2.5 g/dL (3.9-5) L 04/29/18 05:08 Albumin/Globulin Ratio 0.7 % 04/29/18 05:08 Triglycerides 89 mg/dL (2-149) 04/17/18 16:11 Cholesterol 109 mg/dL (50-199) 04/17/18 16:11 LDL Cholesterol Direct 60 mg/dL (50-130) 04/17/18 16:11 HDL Cholesterol 41 mg/dL (40-59) 04/17/18 16:11 Cholesterol/HDL Ratio 2.65 % 04/17/18 16:11 TSH 2.320 mlU/mL (0.270-4.200) 04/17/18 16:11 Free T4 1.67 ng/dL (0.76-1.46) H 04/17/18 16:11 Urine Color Yellow (Yellow) 04/17/18 Unknown Urine Turbidity Clear (Clear) 04/17/18 Unknown Urine pH 5.0 (5.0-7.0) 04/17/18 Unknown Ur Specific [place] 1.005 (1.003-1.030) 04/17/18 Unknown Urine Protein <15 mg/dl mg/dL (Negative) 04/17/18 Unknown Urine Glucose (UA) Neg mg/dL (Negative) 04/17/18 Unknown Urine Ketones Neg mg/dL (Negative) 04/17/18 Unknown Urine Blood Mod (Negative) 04/17/18 Unknown Urine Nitrite Neg (Negative) 04/17/18 Unknown Urine Bilirubin Neg (Negative) 04/17/18 Unknown Urine Urobilinogen < 2.0 mg/dL (<2.0) 04/17/18 Unknown Ur Leukocyte Esterase Neg (Negative) 04/17/18 Unknown Urine WBC (Auto) 11.0 /HPF (0.0-6.0) H 04/17/18 Unknown Urine RBC (Auto) 3.0 /HPF (0.0-6.0) 04/17/18 Unknown U Epithel Cells (Auto) 2.0 /HPF (0-13.0) 04/17/18 Unknown Urine Mucus Few /HPF 04/17/18 Unknown JUDY Screen Positive (Negative) H 04/24/18 19:12 JUDY Titer 1:160 (Negative) H 04/24/18 19:12 JUDY Pattern Homogeneous 04/24/18 19:12 Proteinase 3 (PR3) Ab <1.0 AI (<1.0) 04/24/18 19:12 Myeloperoxidase Ab <1.0 AI (<1.0) 04/24/18 19:12 Complement C3 153 mg/dL (83-193) 04/24/18 19:12 HIV 1&2 Antibody Rapid Non react (Non React) 04/27/18 10:14 HIV P24 Antigen Non react (Non React) 04/27/18 10:14 Influenza A (Rapid) Negative (Negative) 04/27/18 Unknown Influenza A (RT-PCR) Negative (Negative) 04/27/18 Unknown Influenza B (Rapid) Negative (Negative) 04/27/18 Unknown Influenza B (RT-PCR) Negative (Negative) 04/27/18 Unknown Nutrition/Malnutrition Assess - Dietary Evaluation Nutrition/Malnutrition Findings: Nutrition Notes Start: 04/24/18 15:05 Freq: Status: Active Protocol: Document 04/27/18 12:03 TW (Rec: 04/27/18 13:47 TW [id number]) Co-Sign 04/27/18 12:03 RM Nutrition Notes Initial or Follow up Reassessment Current Diagnosis Sepsis Hypertension Heart Failure Respiratory Failure Hyperlipidemia Other Pertinent Diagnosis AMS Current Diet TF Labs/Tests Na 145 K 3.2 BG 169 Mg 2.4 Pertinent Medications Reviewed Height 5 ft 6 in Weight 57.4 kg [place] Body Weight (kg) 59.09 BMI 20.4 Subjective/Other Information Consult to write/manage TF. Noted that dobhoff was not yet successfully placed per RN note. Percent of energy/protein needs met: 0%/0% Burn Absent Trauma Absent #2 Nutrition Diagnosis Malnutrition Diagnosis Progress(for reassessment Continues documentation) #1 Nutrition Diagnosis Inadequate oral intake Diagnosis Progress(for reassessment Continues documentation) Is patient on ventilator? No Is Patient Ambulatory and/or Out of Bed No REE-([facility]-confined to bed) 1285.800 Kcal/Kg value to use for calculation 30 Approximate Energy Requirements Using 1722 kcal/Kg Calculation Used for Recommendations [facility] Additional Notes protein (1-1.2g/kg): 57-68g fluid: 1mL/kcal or per MD Nutrition Intervention Change Diet Order: TF Nutrition Support: Jevity 1.2 at 60mL/hr Water flush of 100mL q4h or per MD Kcal 1,728 Protein (gm) 80 Fluid (mL) 1,162 Goal #1 Start TF Goal #2 TF tolerance Goal #3 Meet at least 75% of kcal and pro needs via TF Anticipated Discharge Needs: Unable to determine Follow-Up By: 05/01/18 Additional Comments F/U TF start/tolerance
[2018-04-30] MEDS: COZAAR PO SCH (10:36)
[2018-04-30] MEDS: POTASSIUM CHLORIDE PO SCH (10:36)
[2018-04-30] MEDS: CORDARONE PO SCH ×2 (10:37→21:49)
[2018-04-30] MEDS: ZOLOFT PO SCH (10:37)
[2018-04-30] MEDS: VITAMIN D3 PO SCH (10:37)
[2018-04-30] MEDS: SODIUM CHLORIDE FLUSH SYRINGE 10 ML IV SCH ×2 (10:41→21:50)
--- NOTE | 2018-04-30 11:09 | Progress Note ---
Assessment and Plan Cultures: 04/17/18 Blood: no growth to date A/P: 77-year old female with a past medical history of tobacco abuse, HTN, Atrial Fib on therapeutic anticoagulation, hypothyroidism, HLD, migraine, SAAVEDRA, OA that presented to the ED on 04/17/18 stating that she had been experiencing SOB for the past 3 days with worsening symptoms over the past 1 day. patient acknowledged decreased exercise tolerance, orthopenea/PND, and SOB. Had an allergic reaction to Eliquis 3 days prior to admission to the hospital, was given prednisone by her PCP. 1. Acute respiratory failure secondary to bilateral interstitial pneumonia: etiology unclear but infectious process seems quite unlikely. CT scan reviewed, showing findings suggestive of possible interstitial lung disease. HIV negative, influenza negative. Has received several days of empiric abx. Pulmonary following, agree with steroids. Off Atovaquone. Agree with DNR. 2. Acute Combined Heart Failure: cardiology following. 3. Leucocytosis: reactive from steroids. Plan: - leucocytosis is reactive, secondary to steroids - has remained stable off abx - low likelihood of infectious process - overall guarded prognosis Discussed with family members at bedside. Will sign off. Please call with questions. Hiren Huang MD Infectious Disease Acquisition Specialist ([facility]) C: [phone] Subjective Date of service: 04/30/18 Principal diagnosis: PNA, hypoxemia respiratory failure, congestive heart failure, MS Interval history: No fever. Tolerating high dose steroids. Remains on 100% FiO2 by high flow. No rash. Objective - Exam Narrative Exam: Constitutional: awake, alert, moderate resp distress Head, Ears, Nose: Normocephalic, atraumatic. External ears, nose normal Eyes: Conjunctivae/corneas clear. No icterus. No ptosis. Neck: Supple, no meningeal signs Oral: mucosa dry, no thrush Cardiovascular: S1, S2 normal. Respiratory: decreased breath sounds in the bases, b/l coarse sounds GI: Soft, non-tender; bowel sounds normal. No peritoneal signs Musculoskeletal: No pedal edema, no cyanosis. Skin: No rash or abscess. Hem/Lymphatic: No palpable cervical or supraclavicular nodes. No lymphangitis Psych: Mood ok. Affect normal Neurological: Awake, alert. - Constitutional Vitals: Vital Signs Temp Pulse Resp BP Pulse Ox 97.7 F 90 16 116/76 91 04/30/18 08:00 04/30/18 10:36 04/30/18 08:50 04/30/18 10:36 04/30/18 08:50 Temperature -Last 24 Hours Temperature 97.7 F Temperature 98.2 F Temperature 97.4 F Temperature 97.4 F Temperature 97.1 F Temperature 97.9 F Temperature 97.7 F Temperature 98.3 F Temperature 97.6 F - Labs CBC & Chem 7: 04/29/18 05:08 04/29/18 05:08 Labs: Abnormal lab results 04/29/18 04/29/18 04/29/18 Range/Units 14:39 17:57 19:55 POC Glucose 239 H 199 H 217 H (70-105) 04/30/18 04/30/18 04/30/18 Range/Units 01:51 05:24 10:05 POC Glucose 242 H 175 H 224 H (70-105)
[2018-04-30] MEDS: XARELTO PO SCH (18:03)
[2018-04-30] MEDS: TYLENOL PO PRN (18:03)
[2018-04-30] MEDS: PRAVACHOL PO SCH (21:50)
[2018-05-01] MEDS: HumuLIN R SUB-Q SCH ×6 (02:59→22:23)
[2018-05-01] MEDS: PROVENTIL IH PRN (03:45)
[2018-05-01] MEDS: SYNTHROID PO SCH (05:06)
[2018-05-01] MEDS: SOLU-Medrol 1,000 MG in NACL 0.9% 250ML 250 ML IV SCH (05:06)
[2018-05-01] MEDS: LASIX IV SCH (05:06)
[2018-05-01 06:23] LABS: Hematocrit 41.5 % (30.3-42.9); Hemoglobin 13.3 gm/dl (10.1-14.3); Mean Corpuscular HGB Conc 32 % (30-34); Mean Corpuscular Volume 90 fl (79-97); Platelet Count 241 K/mm3 (140-440); Red Blood Count 4.63 M/mm3 (3.65-5.03); Red Cell Distribution Width 13.9 % (13.2-15.2)
[2018-05-01 06:50] LABS: BUN/Creatinine Ratio 76; Blood Urea Nitrogen 38 mg/dL (7-17); Calcium 8.4 mg/dL (8.4-10.2); Hemolysis Index 28
[2018-05-01 07:34] LABS: Anisocytosis 1+; Band Neutrophils # (Manual) 1.6 K/mm3; Basophils % (Manual) 0 % (0.0-1.8); Eosinophils % (Manual) 0 % (0.0-4.3); Total Cells Counted 100
[2018-05-01 07:35] LABS: Stomatocytes Few; Tear Drop Cells Rare
[2018-05-01] MEDS: LOPRESSOR PO SCH ×3 (08:53→20:08)
[2018-05-01] MEDS: MAGIC MOUTHWASH PO SCH ×3 (08:53→20:09)
[2018-05-01] MEDS: COZAAR PO SCH (09:56)
[2018-05-01] MEDS: POTASSIUM CHLORIDE PO SCH (09:56)
[2018-05-01] MEDS: ZOLOFT PO SCH (09:57)
[2018-05-01] MEDS: CORDARONE PO SCH (09:57)
[2018-05-01] MEDS: VITAMIN D3 PO SCH (09:57)
[2018-05-01] MEDS: SODIUM CHLORIDE FLUSH SYRINGE 10 ML IV SCH ×2 (09:58→22:27)
--- NOTE | 2018-05-01 12:42 | Progress Note ---
Assessment and Plan 77 y/o female with acute respiratory failure secondary to abnormal CXR and CT scan, exact etiology unknown 1. Pulse dose done. Now will drop to 125q6. 2. Per CM [facility] working on bed adjustments with hopes of admission today. 3. Will need prolonged taper and repeat CT to follow lungs. This can be done at [facility]. We need to send copies of our imaging studies with them. Please write for the patient to be on Solumedrol 125 q6 hours at discharge ( I have already ordered for it to start Tuesday in case she is not discharged from our facility today) and then the [facility] should be able to taper her from there. Her current diagnosis is not known but she did respond to high dose steroids (and by response was her imaging improved, still with significant O2 requirement but she has underlying lung disease (Fibrosis) that she nor her family were aware of). If she is able to be weaned from HFNC and has adequate respiratory reserve, bronch should be considered with TBBx if possible. Daughter knows this and is in agreement. 4. Please wean FiO2 for sats >88% and or patient comfort Subjective Date of service: 05/01/18 Principal diagnosis: PNA, hypoxemia respiratory failure, congestive heart failure, MS Interval history: Last dose of pulse dose steroids this am. Has not been weaned from HFNC. Will discuss with RT Objective Vital Signs - 12hr 05/01/18 05/01/18 05/01/18 00:40 00:50 01:00 Temperature Pulse Rate 96 H 116 H 92 H Pulse Rate [ Apical] Respiratory 19 22 21 Rate Blood Pressure 135/74 135/74 117/78 O2 Sat by Pulse 96 96 Oximetry 05/01/18 05/01/18 05/01/18 01:10 01:20 01:30 Temperature Pulse Rate 111 H 112 H 110 H Pulse Rate [ Apical] Respiratory 32 H 28 H 22 Rate Blood Pressure 117/78 117/78 117/78 O2 Sat by Pulse 91 Oximetry 05/01/18 05/01/18 05/01/18 01:40 01:50 02:00 Temperature Pulse Rate 119 H 123 H 109 H Pulse Rate [ Apical] Respiratory 15 22 30 H Rate Blood Pressure 117/78 117/78 117/78 O2 Sat by Pulse 89 97 86 Oximetry 05/01/18 05/01/18 05/01/18 02:10 02:20 02:30 Temperature Pulse Rate 119 H 103 H 126 H Pulse Rate [ Apical] Respiratory 37 H 24 26 H Rate Blood Pressure 136/90 136/90 136/90 O2 Sat by Pulse 83 L 97 93 Oximetry 05/01/18 05/01/18 05/01/18 02:40 02:50 03:00 Temperature Pulse Rate 99 H 119 H 102 H Pulse Rate [ Apical] Respiratory 23 31 H 36 H Rate Blood Pressure 136/90 136/90 139/74 O2 Sat by Pulse 92 93 90 Oximetry 05/01/18 05/01/18 05/01/18 03:10 03:20 03:30 Temperature Pulse Rate 118 H 124 H 122 H Pulse Rate [ Apical] Respiratory 42 H 36 H 43 H Rate Blood Pressure 139/74 139/74 139/74 O2 Sat by Pulse 90 94 80 L Oximetry 05/01/18 05/01/18 05/01/18 03:40 03:50 04:00 Temperature 98.2 F Pulse Rate 138 H 119 H 131 H Pulse Rate [ 127 H Apical] Respiratory 33 H 30 H 32 H Rate Blood Pressure 139/74 139/74 118/66 O2 Sat by Pulse 93 96 96 Oximetry 05/01/18 05/01/18 05/01/18 04:10 04:20 04:30 Temperature Pulse Rate 125 H 129 H 129 H Pulse Rate [ Apical] Respiratory 39 H 33 H 40 H Rate Blood Pressure 118/66 118/66 118/66 O2 Sat by Pulse 97 93 95 Oximetry 05/01/18 05/01/18 05/01/18 04:40 04:50 05:00 Temperature Pulse Rate 113 H 117 H 112 H Pulse Rate [ Apical] Respiratory 49 H 45 H 33 H Rate Blood Pressure 118/66 118/66 122/62 O2 Sat by Pulse 94 89 94 Oximetry 05/01/18 05/01/18 05/01/18 05:10 05:20 05:30 Temperature Pulse Rate 116 H 129 H 119 H Pulse Rate [ Apical] Respiratory 36 H 37 H 32 H Rate Blood Pressure 122/62 122/62 122/62 O2 Sat by Pulse 96 96 96 Oximetry 05/01/18 05/01/18 05/01/18 05:40 05:50 06:00 Temperature Pulse Rate 121 H 115 H 109 H Pulse Rate [ Apical] Respiratory 42 H 34 H 42 H Rate Blood Pressure 122/62 122/62 122/62 O2 Sat by Pulse 93 95 92 Oximetry 05/01/18 05/01/18 05/01/18 06:10 06:20 06:30 Temperature Pulse Rate 120 H 112 H 112 H Pulse Rate [ Apical] Respiratory 42 H 29 H 44 H Rate Blood Pressure 122/62 130/68 130/68 O2 Sat by Pulse 93 90 84 Oximetry 05/01/18 05/01/18 05/01/18 06:40 06:50 07:00 Temperature Pulse Rate 121 H 106 H 113 H Pulse Rate [ Apical] Respiratory 51 H 37 H 33 H Rate Blood Pressure 130/68 130/68 122/72 O2 Sat by Pulse 79 L 93 91 Oximetry 05/01/18 05/01/18 05/01/18 07:10 07:20 07:30 Temperature Pulse Rate 110 H 118 H 96 H Pulse Rate [ Apical] Respiratory 35 H 43 H 38 H Rate Blood Pressure 122/72 122/72 122/72 O2 Sat by Pulse 95 92 93 Oximetry 05/01/18 05/01/18 05/01/18 07:40 07:50 08:00 Temperature Pulse Rate 114 H 135 H 121 H Pulse Rate [ Apical] Respiratory 49 H 39 H 41 H Rate Blood Pressure 122/72 122/72 107/74 O2 Sat by Pulse 90 93 90 Oximetry 05/01/18 05/01/18 05/01/18 08:10 08:32 08:53 Temperature Pulse Rate 104 H 117 H Pulse Rate [ Apical] Respiratory 39 H Rate Blood Pressure 107/74 107/74 O2 Sat by Pulse 93 94 Oximetry 05/01/18 09:56 Temperature Pulse Rate 113 H Pulse Rate [ Apical] Respiratory Rate Blood Pressure 115/76 O2 Sat by Pulse Oximetry Constitutional: alert Eyes: non-icteric ENT: oropharynx moist Neck: supple, no JVD Effort: mildly labored Ascultation: Bilateral: clear, diminished breath sounds, wheezes, rales (faint), rhonchi Percussion: Bilateral: not dull Cardiovascular: irregular rhythm Gastrointestinal: normoactive bowel sounds Extremities: pulses normal, no ischemia or petechiae, other (mild clubbing) Neurologic: normal mental status, non-focal exam, pupils equal and round, CN II- XII normal Psychiatric: anxious CBC and BMP: 05/01/18 05:56 05/01/18 05:56 ABG, PT/INR, D-dimer: ABG POC ABG pH 7.478 (7.35-7.45) H 04/23/18 15:08 POC ABG pCO2 51.0 (35-45) H 04/23/18 15:08 POC ABG pO2 62 (80-105) L 04/23/18 15:08 POC ABG HCO3 37.8 04/23/18 15:08 POC ABG Total CO2 39 04/23/18 15:08 POC ABG O2 Sat 93 04/23/18 15:08 PT/INR, D-dimer PT 18.3 Sec. (12.2-14.9) H 04/17/18 12:48 INR 1.48 (0.87-1.13) H 04/17/18 12:48 D-Dimer 1975 ng/mlDDU (0-234) H 04/17/18 12:38 Abnormal lab findings: Abnormal Labs 04/17/18 04/17/18 04/17/18 12:38 12:48 12:48 WBC 18.0 H Lymph % (Auto) 6.5 L [place] % (Auto) 10.0 H Lymph # [place] # 1.8 H Seg Neutrophils % 83.2 H Seg Neuts % (Manual) Lymphocytes % (Manual) Seg Neutrophils # 15.0 H Seg Neutrophils # Man Lymphocytes # (Manual) Monocytes # (Manual) PT 18.3 H INR 1.48 H D-Dimer 1975 H POC ABG pH POC ABG pCO2 POC ABG pO2 Sodium Potassium Chloride Carbon Dioxide BUN Creatinine Glucose POC Glucose Magnesium AST ALT Alkaline Phosphatase Lactate Dehydrogenase NT-Pro-B Natriuret Pep Total Protein Albumin Free T4 Urine WBC (Auto) JUDY Screen JUDY Titer 04/17/18 04/17/18 04/17/18 12:48 12:48 16:11 WBC Lymph % (Auto) [place] % (Auto) Lymph # [place] # Seg Neutrophils % Seg Neuts % (Manual) Lymphocytes % (Manual) Seg Neutrophils # Seg Neutrophils # Man Lymphocytes # (Manual) Monocytes # (Manual) PT INR D-Dimer POC ABG pH POC ABG pCO2 POC ABG pO2 Sodium 136 L Potassium Chloride Carbon Dioxide BUN Creatinine 0.6 L Glucose 127 H POC Glucose Magnesium AST 121 H ALT 110 H Alkaline Phosphatase Lactate Dehydrogenase NT-Pro-B Natriuret Pep 6653 H Total Protein Albumin 3.4 L Free T4 1.67 H Urine WBC (Auto) JUDY Screen JUDY Titer 04/17/18 04/18/18 04/19/18 Unknown 05:12 05:02 WBC 17.8 H Lymph % (Auto) 5.1 L [place] % (Auto) 8.0 H Lymph # 0.9 L [place] # 1.4 H Seg Neutrophils % 86.6 H Seg Neuts % (Manual) Lymphocytes % (Manual) Seg Neutrophils # 15.4 H Seg Neutrophils # Man Lymphocytes # (Manual) Monocytes # (Manual) PT INR D-Dimer POC ABG pH POC ABG pCO2 POC ABG pO2 Sodium Potassium 3.2 L Chloride 94.2 L Carbon Dioxide BUN 20 H Creatinine 0.6 L Glucose 118 H POC Glucose Magnesium AST ALT Alkaline Phosphatase Lactate Dehydrogenase NT-Pro-B Natriuret Pep Total Protein Albumin Free T4 Urine WBC (Auto) 11.0 H JUDY Screen JUDY Titer 04/20/18 04/22/18 04/23/18 09:56 04:55 15:08 WBC Lymph % (Auto) [place] % (Auto) Lymph # [place] # Seg Neutrophils % Seg Neuts % (Manual) Lymphocytes % (Manual) Seg Neutrophils # Seg Neutrophils # Man Lymphocytes # (Manual) Monocytes # (Manual) PT INR D-Dimer POC ABG pH 7.478 H POC ABG pCO2 51.0 H POC ABG pO2 62 L Sodium Potassium 3.1 L Chloride 94.3 L 94.1 L Carbon Dioxide BUN 27 H 36 H Creatinine Glucose 118 H 157 H POC Glucose Magnesium AST ALT Alkaline Phosphatase Lactate Dehydrogenase NT-Pro-B Natriuret Pep Total Protein Albumin Free T4 Urine WBC (Auto) JUDY Screen JUDY Titer 04/24/18 04/24/18 04/25/18 18:00 19:12 04:37 WBC Lymph % (Auto) [place] % (Auto) Lymph # [place] # Seg Neutrophils % Seg Neuts % (Manual) Lymphocytes % (Manual) Seg Neutrophils # Seg Neutrophils # Man Lymphocytes # (Manual) Monocytes # (Manual) PT INR D-Dimer POC ABG pH POC ABG pCO2 POC ABG pO2 Sodium Potassium Chloride 96.4 L Carbon Dioxide 37 H D BUN 48 H Creatinine Glucose 181 H POC Glucose Magnesium AST ALT Alkaline Phosphatase 196 H Lactate Dehydrogenase NT-Pro-B Natriuret Pep 3763 H Total Protein Albumin 2.5 L Free T4 Urine WBC (Auto) JUDY Screen Positive H JUDY Titer 1:160 H 02/05/19 02/06/19 02/06/19 Unknown 04:55 04:55 WBC 26.5 H Lymph % (Auto) [place] % (Auto) Lymph # [place] # Seg Neutrophils % Seg Neuts % (Manual) 97.0 H Lymphocytes % (Manual) 0 L Seg Neutrophils # Seg Neutrophils # Man 25.7 H Lymphocytes # (Manual) 0.0 L Monocytes # (Manual) PT INR D-Dimer POC ABG pH POC ABG pCO2 POC ABG pO2 Sodium 146 H Potassium 3.3 L Chloride 96.6 L Carbon Dioxide 36 H BUN 48 H Creatinine Glucose 218 H POC Glucose Magnesium 2.60 H AST ALT Alkaline Phosphatase Lactate Dehydrogenase 575 H NT-Pro-B Natriuret Pep Total Protein Albumin Free T4 Urine WBC (Auto) JUDY Screen JUDY Titer 04/26/18 04/27/18 04/27/18 11:52 04:51 04:51 WBC 27.8 H Lymph % (Auto) [place] % (Auto) Lymph # [place] # Seg Neutrophils % Seg Neuts % (Manual) 95.0 H Lymphocytes % (Manual) 0 L Seg Neutrophils # Seg Neutrophils # Man 26.4 H Lymphocytes # (Manual) 0.0 L Monocytes # (Manual) PT INR D-Dimer POC ABG pH POC ABG pCO2 POC ABG pO2 Sodium Potassium 3.2 L Chloride 94.6 L Carbon Dioxide 39 H BUN 45 H Creatinine Glucose 169 H POC Glucose 210 H Magnesium 2.40 H AST ALT Alkaline Phosphatase Lactate Dehydrogenase NT-Pro-B Natriuret Pep Total Protein Albumin Free T4 Urine WBC (Auto) JUDY Screen JUDY Titer 04/27/18 04/28/18 04/28/18 18:31 00:04 05:50 WBC Lymph % (Auto) [place] % (Auto) Lymph # [place] # Seg Neutrophils % Seg Neuts % (Manual) Lymphocytes % (Manual) Seg Neutrophils # Seg Neutrophils # Man Lymphocytes # (Manual) Monocytes # (Manual) PT INR D-Dimer POC ABG pH POC ABG pCO2 POC ABG pO2 Sodium Potassium Chloride Carbon Dioxide BUN Creatinine Glucose POC Glucose 180 H 203 H 214 H Magnesium AST ALT Alkaline Phosphatase Lactate Dehydrogenase NT-Pro-B Natriuret Pep Total Protein Albumin Free T4 Urine WBC (Auto) JUDY Screen JUDY Titer 04/28/18 04/28/18 04/28/18 12:59 13:14 23:44 WBC Lymph % (Auto) [place] % (Auto) Lymph # [place] # Seg Neutrophils % Seg Neuts % (Manual) Lymphocytes % (Manual) Seg Neutrophils # Seg Neutrophils # Man Lymphocytes # (Manual) Monocytes # (Manual) PT INR D-Dimer POC ABG pH POC ABG pCO2 POC ABG pO2 Sodium Potassium Chloride Carbon Dioxide BUN Creatinine Glucose POC Glucose 200 H 212 H Magnesium AST ALT Alkaline Phosphatase Lactate Dehydrogenase NT-Pro-B Natriuret Pep 3027 H Total Protein Albumin Free T4 Urine WBC (Auto) JUDY Screen JUDY Titer 04/29/18 04/29/18 04/29/18 01:57 05:08 05:08 WBC 29.1 H Lymph % (Auto) [place] % (Auto) Lymph # [place] # Seg Neutrophils % Seg Neuts % (Manual) 92.0 H Lymphocytes % (Manual) 3.0 L Seg Neutrophils # Seg Neutrophils # Man 26.8 H Lymphocytes # (Manual) 0.9 L Monocytes # (Manual) PT INR D-Dimer POC ABG pH POC ABG pCO2 POC ABG pO2 Sodium 136 L D Potassium Chloride 89.4 L Carbon Dioxide 37 H BUN 43 H Creatinine Glucose 202 H POC Glucose 200 H Magnesium 2.40 H AST ALT Alkaline Phosphatase 174 H Lactate Dehydrogenase NT-Pro-B Natriuret Pep Total Protein 6.1 L Albumin 2.5 L Free T4 Urine WBC (Auto) JUDY Screen JUDY Titer 04/29/18 04/29/18 04/29/18 06:04 10:09 14:39 WBC Lymph % (Auto) [place] % (Auto) Lymph # [place] # Seg Neutrophils % Seg Neuts % (Manual) Lymphocytes % (Manual) Seg Neutrophils # Seg Neutrophils # Man Lymphocytes # (Manual) Monocytes # (Manual) PT INR D-Dimer POC ABG pH POC ABG pCO2 POC ABG pO2 Sodium Potassium Chloride Carbon Dioxide BUN Creatinine Glucose POC Glucose 262 H 268 H 239 H Magnesium AST ALT Alkaline Phosphatase Lactate Dehydrogenase NT-Pro-B Natriuret Pep Total Protein Albumin Free T4 Urine WBC (Auto) JUDY Screen JUDY Titer 04/29/18 04/29/18 04/30/18 17:57 19:55 01:51 WBC Lymph % (Auto) [place] % (Auto) Lymph # [place] # Seg Neutrophils % Seg Neuts % (Manual) Lymphocytes % (Manual) Seg Neutrophils # Seg Neutrophils # Man Lymphocytes # (Manual) Monocytes # (Manual) PT INR D-Dimer POC ABG pH POC ABG pCO2 POC ABG pO2 Sodium Potassium Chloride Carbon Dioxide BUN Creatinine Glucose POC Glucose 199 H 217 H 242 H Magnesium AST ALT Alkaline Phosphatase Lactate Dehydrogenase NT-Pro-B Natriuret Pep Total Protein Albumin Free T4 Urine WBC (Auto) JUDY Screen JUDY Titer 04/30/18 04/30/18 04/30/18 05:24 10:05 14:26 WBC Lymph % (Auto) [place] % (Auto) Lymph # [place] # Seg Neutrophils % Seg Neuts % (Manual) Lymphocytes % (Manual) Seg Neutrophils # Seg Neutrophils # Man Lymphocytes # (Manual) Monocytes # (Manual) PT INR D-Dimer POC ABG pH POC ABG pCO2 POC ABG pO2 Sodium Potassium Chloride Carbon Dioxide BUN Creatinine Glucose POC Glucose 175 H 224 H 266 H Magnesium AST ALT Alkaline Phosphatase Lactate Dehydrogenase NT-Pro-B Natriuret Pep Total Protein Albumin Free T4 Urine WBC (Auto) JUDY Screen JUDY Titer 04/30/18 05/01/18 05/01/18 22:07 02:27 05:20 WBC Lymph % (Auto) [place] % (Auto) Lymph # [place] # Seg Neutrophils % Seg Neuts % (Manual) Lymphocytes % (Manual) Seg Neutrophils # Seg Neutrophils # Man Lymphocytes # (Manual) Monocytes # (Manual) PT INR D-Dimer POC ABG pH POC ABG pCO2 POC ABG pO2 Sodium Potassium Chloride Carbon Dioxide BUN Creatinine Glucose POC Glucose 210 H 195 H 202 H Magnesium AST ALT Alkaline Phosphatase Lactate Dehydrogenase NT-Pro-B Natriuret Pep Total Protein Albumin Free T4 Urine WBC (Auto) JUDY Screen JUDY Titer 05/01/18 05/01/18 05/01/18 05:56 05:56 10:09 WBC 40.7 H* Lymph % (Auto) [place] % (Auto) Lymph # [place] # Seg Neutrophils % Seg Neuts % (Manual) 89.0 H Lymphocytes % (Manual) 4.0 L Seg Neutrophils # Seg Neutrophils # Man 36.2 H Lymphocytes # (Manual) Monocytes # (Manual) 1.2 H PT INR D-Dimer POC ABG pH POC ABG pCO2 POC ABG pO2 Sodium 136 L Potassium Chloride 90.5 L Carbon Dioxide 34 H BUN 38 H Creatinine 0.5 L Glucose 246 H POC Glucose 257 H Magnesium AST ALT Alkaline Phosphatase Lactate Dehydrogenase NT-Pro-B Natriuret Pep Total Protein Albumin Free T4 Urine WBC (Auto) JUDY Screen JUDY Titer
--- NOTE | 2018-05-01 13:37 | Discharge Summary ---
Providers - Providers Date of Admission: 04/17/18 15:30 Date of discharge: 05/01/18 Attending physician: GABI RIVER 04/17/18 Consult to Cardiac Rehabilitation [CONS] Routine Reason For Exam: Phase I 04/19/18 11:37 Consult to Physician [CONS] Routine Comment: Consulting Provider: MARY YOON Physician Instructions: Reason For Exam: resp failure 04/24/18 13:48 Speech Therapy Evaluation and Treat [CONS] Routine Reason For Exam: pt not swallow fluids 04/26/18 16:26 Consult to Physician [CONS] Urgent Comment: Consulting Provider: STEPH GALLARDO Physician Instructions: Reason For Exam: Interst pneum vs CAP,resp failure, high LDH- PCP? 04/26/18 17:46 Consult to Dietitian/Nutrition [CONS] Routine Physician Instructions: Assess nutrtn needs, initiate, modify, manage TF Reason For Exam: Reason for Consult: Write/Manage Tube Feeding Reason for Consult: Write/Manage Tube Feeding Primary care physician: NIKKI HULL Hospitalization Condition: Undetermined Hospital course: 77 yo woman with a history of HTN, Atrial Fib chronic Anticoagulation Hypothyroidism, HTN, HLD, Migraine SAAVEDRA, OA and Anxiety/depression was admitted through ED with SOB , patient had allergic reaction to Eliquis and the med is stopped,cardiology rec Xeralto. The patient was admitted with A. fib with rapid ventricular rate, evaluated by cardiology, received amiodarone drip, later changed to oral amiodarone and beta blockers with rate control. Found to be in acute respiratory failure, requiring high flow oxygen and BiPAP, pulmonary evaluated the patient, CT chest findings consistent with interstitial lung disease. Patient received high-dose pulse steroids, and currently on 125 mg of Solu-Medrol every 6 hours, to be tapered slowly by the pulmonary upon transfer to LTAC. Patient is critically ill, with bilateral interstitial pneumonia /pulmonary fibrosis /A. fib with rapid ventricular rate On BiPAP and high flow oxygen with poor prognosis., Failed swallow evaluation, on Dobbhoff feeds Discussed with the daughter,son and the at the bedside patient's critical condition,plan of care and code status ,They requested DO NOT RESUSCITATE status but to continue all the current management Today patient is critically ill-looking, in mild distress, cachectic and emaciated On high flow oxygen, vital signs reviewed, physical examination no new changes Final Diagnosis and management: --Acute hypoxic respiratory failure; interstitial lung disease. high flow oxygen/ BiPAP dependent, received pulse steroids On High-dose Solu-Medrol, managed by pulmonary. Titrate oxygen to more than 88% --Interstitial lung disease on CT chest . High-dose of steroids, pulmonary to taper the dose On BiPAP /high flow oxygen . --A. fib with rapid ventricular rate; now rate controlled s/o Amiodrip ,now on amiodarone, beta blockers, Cardiology evaluated --Chronic anticoagulation; continue Xeralto --SIRS with organ dysfunction; received empiric antibiotics --Leukocytosis probably secondary to steroids, --Elevated D dimers; V/Q scan intermediate probability for PE/CTA chest negative for PE --Hypothyroidism; continue Synthroid --Anxiety disorder; supportive care and the anxiety medications --Constipation; stool softeners, supportive care --Mucositis; oral care, magic mouthwash, oral spray as needed --DVT prophylaxis; patient is on Xeralto --DNR status Patient is being [facility] to [facility] today. Patient is critically ill with guarded prognosis at discharge Discharge planning discussed with Patient's , son at the bedside. Disposition: DC-20 Time spent for discharge: 35 min Core Measure Documentation - Palliative Care Palliative Care/ Comfort Measures: Not Applicable - Core Measures Any of the following diagnoses?: none Exam - Constitutional Vitals: Temp Pulse Resp BP Pulse Ox 98.2 F 113 H 39 H 115/76 90 05/01/18 04:00 05/01/18 09:56 05/01/18 08:10 05/01/18 09:56 05/01/18 13:04 General appearance: Present: mild distress, cachectic, disheveled - EENT Eyes: Present: PERRL, EOM intact - Neck Neck: Present: supple, normal ROM - Respiratory Respiratory effort: labored Respiratory: bilateral: diminished, rhonchi, negative: rales, wheezing - Cardiovascular Rhythm: irregularly irregular Heart Sounds: Present: S1 & S2 - Extremities Extremities: no ischemia, pulses intact, abnormal (chronic skin changes) - Abdominal General gastrointestinal: Present: soft, non-tender, non-distended, normal bowel sounds - Integumentary Integumentary: Present: clear, warm - Musculoskeletal Musculoskeletal: strength equal bilaterally - Psychiatric Psychiatric: cooperative, other (confused, minimally communicative) - Neurologic Neurologic: CNII-XII intact, moves all extremities Plan Activity: advance as tolerated, fall precautions Diet: other (Tube Feeding per protocol) Special Instructions: physical therapy Additional Instructions: Patient is currently on Solu-Medrol 125 every 6 hours. pulmonary to taper the dose. If patient can be weaned off high flow oxygen and has adequate respiratory reserve [ pulm] feels Bronchoscopy should be considered with TBBx, if feasible. Follow up with: NIKKI HULL MD [Primary Care Provider] - 3-5 Days
--- NOTE | 2018-05-01 14:14 | Progress Note ---
Assessment and Plan Currently stable cardiac status. Convert IV lasix to PO lasix 40mg daily, reduce PO amio to 200mg BID. Pt to d/c to LTAC. Recommend follow up in our office with Dr. Green within 1-2 weeks of hospital discharge ([phone]). The patient has been seen in conjunction with Dr. Robert Goodwin who agrees with the assessment and plan of care. - Patient Problems (1) Acute heart failure with preserved ejection fraction Current Visit: Yes Status: Acute (2) Acute respiratory failure Current Visit: Yes Status: Acute Qualifiers: Respiratory failure complication: hypoxia Qualified Code(s): J96.01 - Acute respiratory failure with hypoxia (3) Pneumonia Current Visit: Yes Status: Acute (4) Persistent atrial fibrillation with RVR Current Visit: Yes Status: Chronic (5) HTN (hypertension) Current Visit: Yes Status: Chronic (6) Altered mental status Current Visit: Yes Status: Acute Subjective Date of service: 05/01/18 Principal diagnosis: PNA, hypoxemia respiratory failure, congestive heart fail ure, MS Interval history: pt resting in bed, alert, no apparent distress. on HiFLO NC. tele reviewed - in AFib with HR 100s - 110s. Objective Last Vital Signs Temp 98.2 F 05/01/18 04:00 Pulse 113 H 05/01/18 09:56 Resp 39 H 05/01/18 08:10 BP 115/76 05/01/18 09:56 Pulse Ox 90 05/01/18 13:04 - Physical Examination General: No Apparent Distress, Other (on high flow O2) HEENT: Positive: PERRL, Normocephaly, Mucus Membranes Moist Neck: Positive: neck supple, trachea midline Cardiac: Positive: irregularly irregular, S1/S2 Lungs: Positive: Decreased Breath Sounds Neuro: Positive: Grossly Intact, Other Abdomen: Positive: Soft, Active Bowel Sounds. Negative: Tender Skin: Negative: Rash, Wound Musculoskeletal: No Fluid Collection, No Pain Extremities: Absent: edema - Labs and Meds CBC 05/01/18 Range/Units 05:56 WBC 40.7 H* (4.5-11.0) K/mm3 RBC 4.63 (3.65-5.03) M/mm3 Hgb 13.3 (10.1-14.3) gm/dl Hct 41.5 (30.3-42.9) % Plt Count 241 (140-440) K/mm3 Comprehensive Metabolic Panel 05/01/18 Range/Units 05:56 Sodium 136 L (137-145) mmol/L Potassium 4.5 (3.6-5.0) mmol/L Chloride 90.5 L (98-107) mmol/L Carbon Dioxide 34 H (22-30) mmol/L BUN 38 H (7-17) mg/dL Creatinine 0.5 L (0.7-1.2) mg/dL Glucose 246 H (65-100) mg/dL Calcium 8.4 (8.4-10.2) mg/dL - Imaging and Cardiology EKG: report reviewed, image reviewed Echo: report reviewed (04/14/2018 which showed EF 60-65%, mild to mod RV hypokinesis, LA enlarged, mild MR, mod TR, RVSP 63mmHg, trace pericardial effusion.) Repolarization changes or abnormalities: Q-T interval prolongation
[2018-05-01] MEDS ORDERED: CORDARONE PO SCH (14:16)
[2018-05-01] MEDS: ATIVAN PO PRN (14:46)
[2018-05-01] MEDS ORDERED: SODIUM BICARBONATE FEEDTUBE PRN (14:57)
[2018-05-01] MEDS ORDERED: PANCREAZE DR 10,500 UNIT FEEDTUBE PRN (14:57)
[2018-05-01] MEDS ORDERED: SIMPLE SYRUP FEEDTUBE PRN ×2 (14:57)
--- NOTE | 2018-05-01 18:52 | Event Note ---
Date: 05/01/18 Patient was initially discharged to [facility] However the patient's ambulance came to pick her up The patient's and son refused to be discharged As they were not comfortable transferring the patient to the ambulance I informed the laborer cook house. The laborer cook house, the nurse, and myself We reassured the , however he refused the discharge and transfer We will hold the DC, continue the current management at this point
--- NOTE | 2018-05-01 18:53 | Progress Note ---
Hospitalist Physical - Constitutional Vitals: Temp Pulse Resp BP Pulse Ox 97.6 F 122 H 38 H 141/87 90 05/01/18 16:00 05/01/18 17:00 05/01/18 17:00 05/01/18 17:00 05/01/18 17:00 General appearance: Present: mild distress, cachectic, disheveled Results - Labs CBC & Chem 7: 05/01/18 05:56 05/01/18 05:56 Labs: Laboratory Last Values WBC 40.7 K/mm3 (4.5-11.0) H* 05/01/18 05:56 RBC 4.63 M/mm3 (3.65-5.03) 05/01/18 05:56 Hgb 13.3 gm/dl (10.1-14.3) 05/01/18 05:56 Hct 41.5 % (30.3-42.9) 05/01/18 05:56 MCV 90 fl (79-97) 05/01/18 05:56 MCH 29 pg (28-32) 05/01/18 05:56 MCHC 32 % (30-34) 05/01/18 05:56 RDW 13.9 % (13.2-15.2) 05/01/18 05:56 Plt Count 241 K/mm3 (140-440) 05/01/18 05:56 Lymph % (Auto) 5.1 % (13.4-35.0) L 04/18/18 05:12 [place] % (Auto) 8.0 % (0.0-7.3) H 04/18/18 05:12 Eos % (Auto) 0.1 % (0.0-4.3) 04/18/18 05:12 Baso % (Auto) 0.2 % (0.0-1.8) 04/18/18 05:12 Lymph # 0.9 K/mm3 (1.2-5.4) L 04/18/18 05:12 [place] # 1.4 K/mm3 (0.0-0.8) H 04/18/18 05:12 Eos # 0.0 K/mm3 (0.0-0.4) 04/18/18 05:12 Baso # 0.0 K/mm3 (0.0-0.1) 04/18/18 05:12 Add Manual Diff Complete 05/01/18 05:56 Total Counted 100 05/01/18 05:56 Seg Neutrophils % Street Vendor 05/01/18 05:56 Seg Neuts % (Manual) 89.0 % (40.0-70.0) H 05/01/18 05:56 Band Neutrophils % 4.0 % 05/01/18 05:56 Lymphocytes % (Manual) 4.0 % (13.4-35.0) L 05/01/18 05:56 Reactive Lymphs % (Man) 0 % 05/01/18 05:56 Monocytes % (Manual) 3.0 % (0.0-7.3) 05/01/18 05:56 Eosinophils % (Manual) 0 % (0.0-4.3) 05/01/18 05:56 Basophils % (Manual) 0 % (0.0-1.8) 05/01/18 05:56 Metamyelocytes % 0 % 05/01/18 05:56 Myelocytes % 0 % 05/01/18 05:56 Promyelocytes % 0 % 05/01/18 05:56 Blast Cells % 0 % 05/01/18 05:56 Nucleated RBC % Not Reportable 05/01/18 05:56 Seg Neutrophils # 15.4 K/mm3 (1.8-7.7) H 04/18/18 05:12 Seg Neutrophils # Man 36.2 K/mm3 (1.8-7.7) H 05/01/18 05:56 Band Neutrophils # 1.6 K/mm3 05/01/18 05:56 Lymphocytes # (Manual) 1.6 K/mm3 (1.2-5.4) 05/01/18 05:56 Abs React Lymphs (Man) 0.0 K/mm3 05/01/18 05:56 Monocytes # (Manual) 1.2 K/mm3 (0.0-0.8) H 05/01/18 05:56 Eosinophils # (Manual) 0.0 K/mm3 (0.0-0.4) 05/01/18 05:56 Basophils # (Manual) 0.0 K/mm3 (0.0-0.1) 05/01/18 05:56 Metamyelocytes # 0.0 K/mm3 05/01/18 05:56 Myelocytes # 0.0 K/mm3 05/01/18 05:56 Promyelocytes # 0.0 K/mm3 05/01/18 05:56 Blast Cells # 0.0 K/mm3 05/01/18 05:56 WBC Morphology Not Reportable 05/01/18 05:56 Hypersegmented Neuts Not Reportable 05/01/18 05:56 Hyposegmented Neuts Not Reportable 05/01/18 05:56 Hypogranular Neuts Not Reportable 05/01/18 05:56 Smudge Cells Not Reportable 05/01/18 05:56 Toxic Granulation Not Reportable 05/01/18 05:56 Toxic Vacuolation Not Reportable 05/01/18 05:56 Dohle Bodies Not Reportable 05/01/18 05:56 Pelger-Huet Anomaly Not Reportable 05/01/18 05:56 Francisco Javier Rods Not Reportable 05/01/18 05:56 Platelet Estimate Appears normal 05/01/18 05:56 Clumped Platelets Not Reportable 05/01/18 05:56 Plt Clumps, EDTA Not Reportable 05/01/18 05:56 Large Platelets Not Reportable 05/01/18 05:56 Giant Platelets Not Reportable 05/01/18 05:56 Platelet Satelliting Not Reportable 05/01/18 05:56 Plt Morphology Comment Not Reportable 05/01/18 05:56 RBC Morphology Not Reportable 05/01/18 05:56 Dimorphic RBCs Not Reportable 05/01/18 05:56 Polychromasia Not Reportable 05/01/18 05:56 Hypochromasia Not Reportable 05/01/18 05:56 Poikilocytosis Not Reportable 05/01/18 05:56 Anisocytosis 1+ 05/01/18 05:56 Microcytosis Not Reportable 05/01/18 05:56 Macrocytosis Not Reportable 05/01/18 05:56 Spherocytes Not Reportable 05/01/18 05:56 Pappenheimer Bodies Not Reportable 05/01/18 05:56 Sickle Cells Not Reportable 05/01/18 05:56 Target Cells Not Reportable 05/01/18 05:56 Tear Drop Cells Rare 05/01/18 05:56 Ovalocytes Not Reportable 05/01/18 05:56 Stomatocytes Few 05/01/18 05:56 Helmet Cells Not Reportable 05/01/18 05:56 Marquez-Armorel Bodies Not Reportable 05/01/18 05:56 [place] Rings Not Reportable 05/01/18 05:56 [place] Cells Not Reportable 05/01/18 05:56 Bite Cells Not Reportable 05/01/18 05:56 Crenated Cell Not Reportable 05/01/18 05:56 Elliptocytes Not Reportable 05/01/18 05:56 Acanthocytes (Spur) Not Reportable 05/01/18 05:56 Rouleaux Not Reportable 05/01/18 05:56 Hemoglobin C Crystals Not Reportable 05/01/18 05:56 Schistocytes Not Reportable 05/01/18 05:56 Malaria parasites Not Reportable 05/01/18 05:56 Otoniel Bodies Not Reportable 05/01/18 05:56 Hem Pathologist Commnt No 05/01/18 05:56 PT 18.3 Sec. (12.2-14.9) H 04/17/18 12:48 INR 1.48 (0.87-1.13) H 04/17/18 12:48 APTT 27.2 Sec. (24.2-36.6) 04/17/18 12:48 D-Dimer 1975 ng/mlDDU (0-234) H 04/17/18 12:38 POC ABG pH 7.478 (7.35-7.45) H 04/23/18 15:08 POC ABG pCO2 51.0 (35-45) H 04/23/18 15:08 POC ABG pO2 62 (80-105) L 04/23/18 15:08 POC ABG HCO3 37.8 04/23/18 15:08 POC ABG Total CO2 39 04/23/18 15:08 POC ABG O2 Sat 93 04/23/18 15:08 POC ABG Base Excess 14 04/23/18 15:08 FiO2 100 % 04/23/18 15:08 Sodium 136 mmol/L (137-145) L 05/01/18 05:56 Potassium 4.5 mmol/L (3.6-5.0) 05/01/18 05:56 Chloride 90.5 mmol/L (98-107) L 05/01/18 05:56 Carbon Dioxide 34 mmol/L (22-30) H 05/01/18 05:56 Anion Gap 16 mmol/L 05/01/18 05:56 BUN 38 mg/dL (7-17) H 05/01/18 05:56 Creatinine 0.5 mg/dL (0.7-1.2) L 05/01/18 05:56 Estimated GFR > 60 ml/min 05/01/18 05:56 BUN/Creatinine Ratio 76 % 05/01/18 05:56 Glucose 246 mg/dL (65-100) H 05/01/18 05:56 POC Glucose 299 (70-105) H 05/01/18 14:01 Lactic Acid 1.20 mmol/L (0.7-2.0) 04/17/18 21:34 Calcium 8.4 mg/dL (8.4-10.2) 05/01/18 05:56 Phosphorus 3.60 mg/dL (2.5-4.5) 04/27/18 04:51 Magnesium 2.40 mg/dL (1.7-2.3) H 04/29/18 05:08 Total Bilirubin 0.70 mg/dL (0.1-1.2) 04/29/18 05:08 AST 25 units/L (5-40) 04/29/18 05:08 ALT 52 units/L (7-56) 04/29/18 05:08 Alkaline Phosphatase 174 units/L (35-129) H 04/29/18 05:08 Lactate Dehydrogenase 575 units/L (91-180) H 04/25/18 Unknown Total Creatine Kinase 51 units/L (30-135) 04/17/18 12:48 CK-MB (CK-2) 1.8 ng/mL (0.0-4.0) 04/17/18 12:48 CK-MB (CK-2) Rel Index 3.5 (0-4) 04/17/18 12:48 Troponin T < 0.010 ng/mL (0.00-0.029) 04/17/18 12:48 NT-Pro-B Natriuret Pep 3027 pg/mL (0-900) H 04/28/18 12:59 Total Protein 6.1 g/dL (6.3-8.2) L 04/29/18 05:08 Albumin 2.5 g/dL (3.9-5) L 04/29/18 05:08 Albumin/Globulin Ratio 0.7 % 04/29/18 05:08 Triglycerides 89 mg/dL (2-149) 04/17/18 16:11 Cholesterol 109 mg/dL (50-199) 04/17/18 16:11 LDL Cholesterol Direct 60 mg/dL (50-130) 04/17/18 16:11 HDL Cholesterol 41 mg/dL (40-59) 04/17/18 16:11 Cholesterol/HDL Ratio 2.65 % 04/17/18 16:11 TSH 2.320 mlU/mL (0.270-4.200) 04/17/18 16:11 Free T4 1.67 ng/dL (0.76-1.46) H 04/17/18 16:11 Urine Color Yellow (Yellow) 04/17/18 Unknown Urine Turbidity Clear (Clear) 04/17/18 Unknown Urine pH 5.0 (5.0-7.0) 04/17/18 Unknown Ur Specific [place] 1.005 (1.003-1.030) 04/17/18 Unknown Urine Protein <15 mg/dl mg/dL (Negative) 04/17/18 Unknown Urine Glucose (UA) Neg mg/dL (Negative) 04/17/18 Unknown Urine Ketones Neg mg/dL (Negative) 04/17/18 Unknown Urine Blood Mod (Negative) 04/17/18 Unknown Urine Nitrite Neg (Negative) 04/17/18 Unknown Urine Bilirubin Neg (Negative) 04/17/18 Unknown Urine Urobilinogen < 2.0 mg/dL (<2.0) 04/17/18 Unknown Ur Leukocyte Esterase Neg (Negative) 04/17/18 Unknown Urine WBC (Auto) 11.0 /HPF (0.0-6.0) H 04/17/18 Unknown Urine RBC (Auto) 3.0 /HPF (0.0-6.0) 04/17/18 Unknown U Epithel Cells (Auto) 2.0 /HPF (0-13.0) 04/17/18 Unknown Urine Mucus Few /HPF 04/17/18 Unknown JUDY Screen Positive (Negative) H 04/24/18 19:12 JUDY Titer 1:160 (Negative) H 04/24/18 19:12 JUDY Pattern Homogeneous 04/24/18 19:12 Proteinase 3 (PR3) Ab <1.0 AI (<1.0) 04/24/18 19:12 Myeloperoxidase Ab <1.0 AI (<1.0) 04/24/18 19:12 ANNY-1 Antibody <1.0 AI (<1.0) 04/25/18 13:10 Sjogren's Antibody <1.0 AI (<1.0) 04/25/18 13:10 Scl-70 Scleroderma Ab <1.0 AI (<1.0) 04/25/18 13:10 Complement C3 153 mg/dL (83-193) 04/24/18 19:12 HIV 1&2 Antibody Rapid Non react (Non React) 04/27/18 10:14 HIV P24 Antigen Non react (Non React) 04/27/18 10:14 Influenza A (Rapid) Negative (Negative) 04/27/18 Unknown Influenza A (RT-PCR) Negative (Negative) 04/27/18 Unknown Influenza B (Rapid) Negative (Negative) 04/27/18 Unknown Influenza B (RT-PCR) Negative (Negative) 04/27/18 Unknown Miscellaneous Test Flexitest 1 04/25/18 13:10 Nutrition/Malnutrition Assess - Dietary Evaluation Nutrition/Malnutrition Findings: Nutrition Notes Start: 04/24/18 15:05 Freq: Status: Active Protocol: Document 05/01/18 14:46 JOHN (Rec: 05/01/18 14:56 JOHN SRW- [email or web address]) Nutrition Notes Initial or Follow up Reassessment Current Diagnosis Hypertension Hyperlipidemia Other Pertinent Diagnosis afib, bilat pneu, pulmonary fibrosis Current Diet TF - Jevity 1.2 at 60ml/hr Labs/Tests BG 246 Pertinent Medications Lasix, methylprednisolone Height 5 ft 6 in Weight 61.7 kg [place] Body Weight (kg) 59.09 BMI 21.9 Weight change and time frame Current wt obtained from bed scale Subjective/Other Information Pt tolerating TF at goal rate. Discussed elevated BS with pt's RN. Percent of energy/protein needs met: 100% energy and pro Burn Absent Trauma Absent #2 Nutrition Diagnosis Malnutrition Diagnosis Progress(for reassessment Continues documentation) #1 Nutrition Diagnosis Inadequate oral intake Diagnosis Progress(for reassessment Continues documentation) Is patient on ventilator? No Is Patient Ambulatory and/or Out of Bed No REE-(Bee-St. Jeor-confined to bed) 1337.340 Kcal/Kg value to use for calculation 25 Approximate Energy Requirements Using 1543 kcal/Kg Additional Notes Pro needs 1-1.2g/k-74g/ day Fluid needs 1ml/kcal Nutrition Intervention Nutrition Support: Change TF formula to Glucerna 1.2 at 50ml/hr with 100ml water flush q4h. Kcal 1,440 Protein (gm) 72 Carbohydrates (gm) 137 Fluid (mL) 966 Fiber (gm) 19 Goal #1 TF tolerance Goal #2 TF to meet 100% energy and pro needs Follow-Up By: 05/02/18 Additional Comments F/U: TF formula change/ rate decrease
[2018-05-01 20:08] VITALS: BP 137/71
[2018-05-01] MEDS: XARELTO PO SCH (20:11)
[2018-05-01] MEDS: PRAVACHOL PO SCH (22:23)
[2018-05-02] MEDS ORDERED: ATIVAN IV PRN (00:12)
[2018-05-02] MEDS: HumuLIN R SUB-Q SCH (01:46)
--- NOTE | 2018-05-02 05:54 | Event Note ---
Patient lying lifeless, no spontaneous respiration Pupils fixed and dilated, no response to sternal rub No heart beat, lungs - no air movement peripheral vascular tech shows flat lining in leads Patient pronounced at 0257 Family at bedside I
[2018-05-02] MEDS ORDERED: SOLU-Medrol IV SCH (06:00)
--- NOTE | 2018-05-02 08:00 | Death Summary ---
Summary - Providers Date of service: 05/02/18 Consults: 04/17/18 Consult to Cardiac Rehabilitation [CONS] Routine Reason For Exam: Phase I 04/19/18 11:37 Consult to Physician [CONS] Routine Comment: Consulting Provider: MARY YOON Physician Instructions: Reason For Exam: resp failure 04/24/18 13:48 Speech Therapy Evaluation and Treat [CONS] Routine Reason For Exam: pt not swallow fluids 04/26/18 16:26 Consult to Physician [CONS] Urgent Comment: Consulting Provider: STEPH GALLARDO Physician Instructions: Reason For Exam: Interst pneum vs CAP,resp failure, high LDH- PCP? 04/26/18 17:46 Consult to Dietitian/Nutrition [CONS] Routine Physician Instructions: Assess nutrtn needs, initiate, modify, manage TF Reason For Exam: Reason for Consult: Write/Manage Tube Feeding Reason for Consult: Write/Manage Tube Feeding Attending: GABI RIVER - summary Date of admission: 04/17/18 15:30 Date of : 05/02/18 (at 02:57 hrs) Reason for admission: worsening shortness of breath/acute hypoxic respiratory failure Significant findings: 77 yo woman with a history of HTN, Atrial Fib chronic Anticoagulation Hypothyroidism, HTN, HLD, Migraine SAAVEDRA, OA and Anxiety/depression was admitted through ED with SOB , patient had allergic reaction to Eliquis and the med is stopped,cardiology rec Xeralto. The patient was admitted with A. fib with rapid ventricular rate, evaluated by cardiology, received amiodarone drip, later changed to oral amiodarone and beta blockers with rate control. Found to be in acute respiratory failure, requiring high flow oxygen and BiPAP, pulmonary evaluated the patient, CT chest findings consistent with interstitial lung disease. Patient received high-dose pulse steroids, and currently on 125 mg of Solu-Medrol every 6 hours, to be tapered slowly by the pulmonary upon transfer to LTAC. Patient is critically ill, with bilateral interstitial pneumonia /pulmonary f ibrosis /A. fib with rapid ventricular rate On BiPAP and high flow oxygen with poor prognosis., Failed swallow evaluation, on Dobbhoff feeds Discussed with the daughter,son and the at the bedside patient's critical condition,plan of care and code status ,They requested DO NOT RESUSCITATE status but to continue all the current management Today patient is critically ill-looking, in mild distress, cachectic and emaciated On high flow oxygen, vital signs reviewed, physical examination no new changes Final Diagnosis and management: --Acute hypoxic respiratory failure; interstitial lung disease. high flow oxygen/ BiPAP dependent, received pulse steroids On High-dose Solu-Medrol, managed by pulmonary. Titrate oxygen to more than 88% --Interstitial lung disease on CT chest . High-dose of steroids, pulmonary to taper the dose On BiPAP /high flow oxygen . --A. fib with rapid ventricular rate; now rate controlled s/o Amiodrip ,now on amiodarone, beta blockers, Cardiology evaluated --Chronic anticoagulation; continue Xeralto --SIRS with organ dysfunction; received empiric antibiotics --Leukocytosis probably secondary to steroids, --Elevated D dimers; V/Q scan intermediate probability for PE/CTA chest negative for PE --Hypothyroidism; continue Synthroid --Anxiety disorder; supportive care and the anxiety medications --Constipation; stool softeners, supportive care --Mucositis; oral care, magic mouthwash, oral spray as needed --DVT prophylaxis; patient is on Xeralto --DNR status Patient is being transferred to LTAC, yesterday However due to technical reasons, and as patient was critically ill Transfer was held And at midnight around 02:57 on 05/02/2018, patient had cardiorespiratory arrest And , patient was DO NOT RESUSCITATE status Covering hospitalist Dr. Bisi Wood pronounced Time of 02:57 on 05/02/2018 I Was not present and patient Details are obtained from the medical records Pertinent studies: Chest CT Chest x-ray VQ scan - Final diagnosis (1) Interstitial lung disease Note: Final diagnosis: (2) BiPAP (biphasic positive airway pressure) dependence Note: Final diagnosis: (3) DNR (do not resuscitate) Note: Final diagnosis: (4) Dysphagia Note: Final diagnosis: (5) Acute respiratory failure Qualifiers: Respiratory failure complication: hypoxia Qualified Code(s): J96.01 - Acute respiratory failure with hypoxia Note: Final diagnosis: (6) Pneumonia of both lower lobes Note: Final diagnosis: (7) Persistent atrial fibrillation with RVR Note: Final diagnosis: (8) Respiratory arrest Note: Final diagnosis: (9) Cardiac arrest Note: Final diagnosis:
[2018-05-02] MEDS ORDERED: LASIX PO SCH (10:00)
== END 2018-05-02 02:57 | DRG 871 ==
LOC: ED 12:22 → 4A 15:30 → IMCU 04-24 00:21 → CC1 04-24 04:43 → IMCU 04-24 17:40
PROVIDERS: ADMIT Internal Medicine; ATTEND Internal Medicine
PROC: 4A033R1 Measurement of Arterial Saturation, Peripheral, Percutaneous Approach (ICD-10-PCS; 2018-04-17)
PROC: 5A09457 Assistance with Respiratory Ventilation, 24-96 Consecutive Hours, Continuous Positive Airway Pressure (ICD-10-PCS; principal; 2018-04-19)
PROC: 5A09457 Assistance with Respiratory Ventilation, 24-96 Consecutive Hours, Continuous Positive Airway Pressure (ICD-10-PCS; 2018-04-24)
DX: A41.9 Sepsis, unspecified organism (principal); J18.1 Lobar pneumonia, unspecified organism; J96.01 Acute respiratory failure with hypoxia; J96.02 Acute respiratory failure with hypercapnia; I50.43 Acute on chronic combined systolic (congestive) and diastolic (congestive) heart failure; I48.1 Persistent atrial fibrillation; Z66 Do not resuscitate; R13.10 Dysphagia, unspecified; I46.9 Cardiac arrest, cause unspecified; I11.0 Hypertensive heart disease with heart failure; E03.9 Hypothyroidism, unspecified; G43.909 Migraine, unspecified, not intractable, without status migrainosus; M19.90 Unspecified osteoarthritis, unspecified site; F41.9 Anxiety disorder, unspecified; F32.9 Major depressive disorder, single episode, unspecified; T38.0X5A Adverse effect of glucocorticoids and synthetic analogues, initial encounter; J84.10 Pulmonary fibrosis, unspecified; K59.00 Constipation, unspecified; K12.30 Oral mucositis (ulcerative), unspecified; Z90.49 Acquired absence of other specified parts of digestive tract; Z82.49 Family history of ischemic heart disease and other diseases of the circulatory system; Z79.01 Long term (current) use of anticoagulants; Y92.89 Other specified places as the place of occurrence of the external cause; Z88.2 Allergy status to sulfonamides; Z79.82 Long term (current) use of aspirin; Z79.899 Other long term (current) drug therapy
CPT/HCPCS: 36415; 36600; 71045; 71250; 71260; 74018; 78582; 80048; 80053; 80061; 81001; 82140; 82550; 82553; 82803; 82962; 83520; 83615; 83735; 83880; 84100; 84439; 84443; 84484; 85007; 85025; 85379; 85610; 85730; 86021; 86038; 86160; 86235; 87040; 87400; 87806; 93005; 93010; 94640; 94660; 94760; 96365; 96366; G0378; 87502; A9270-GY; A9540; A9558; J0282; J0456; J0696; J1200; J1630; J1815; J1940; J2060; J2405; J2543; J2930; J7030; J7050; J7060; Q9967